=== PATIENT | female | born 1950 | race Caucasian/White ===

== ENCOUNTER 2016-06-03 16:59 | Emergency (ER) | payer MEDICARE, OTHER ==
[~2016-06-03 16:59] MED LIST: ASPI-482 PO; ATOR10TA PO; BIMA2.5D OP; CALC-222 PO; CETI10CA PO; FAMO-63 PO; INSU100C4 SQ; LISI10TA2 PO; LISI1TAB3 PO; MELO15TA6 PO; MULT-246 PO; OXYB5TAB7 PO; PARO20TA55 PO
[2016-06-03 17:56] VITALS: BP 157/71
--- NOTE | 2016-06-03 18:43 | PHYS DOC ---
Past Medical History Past Medical History: Arthritis, Diabetes-Type I, GERD, High Cholesterol Additional Past Medical Histor: MENTALLY CHALLANGED Past Surgical History: Other Additional Past Surgical Histo: cataract Alcohol Use: None Drug Use: None Adult General Chief Complaint Chief Complaint: MECHANICAL FALL HPI HPI Patient is a 65 year old female presents emergency department with caregiver who states that she fell and hit her head. She denies any loss of consciousness. She states that the patient has been alert and oriented to her her normal self. Patient does have a history of being mentally challenged. Patient is supposed to be ambulating with a cane but is very off balance with a cane. Review of Systems Review of Systems Constitutional: Denies fever or chills [] Eyes: Denies change in visual acuity, redness, or eye pain [] HENT: Denies nasal congestion or sore throat [] Respiratory: Denies cough or shortness of breath [] Cardiovascular: No additional information not addressed in HPI [] GI: Denies abdominal pain, nausea, vomiting, bloody stools or diarrhea [] : Denies dysuria or hematuria [] Musculoskeletal: Denies back pain or joint pain [] Integument: Denies rash or skin lesions [] Neurologic: Denies headache, focal weakness or sensory changes [] Allergies Allergies Allergies Coded Allergies Type Severity Reaction Last Updated Verified No Known Allergies Allergy Unknown 05/23/14 Yes Physical Exam Physical Exam Constitutional: Well developed, well nourished, no acute distress, non-toxic appearance. [] HENT: Normocephalic, atraumatic, bilateral external ears normal, oropharynx moist, no oral exudates, nose normal. Bilateral tympanic membranes appears to be normal. Throat with no exudate noted. Eyes: PERRLA, EOMI, conjunctiva normal, no discharge. [] Neck: Normal range of motion, no tenderness, supple, no stridor. [] Cardiovascular:Heart rate regular rhythm, no murmur [] Lungs & Thorax: Bilateral breath sounds clear to auscultation [] Skin: Warm, dry, no erythema, no rash. [] Back: No tenderness Extremities: No tenderness, no cyanosis, no clubbing, ROM intact, no edema. [] Neurologic: Alert and oriented X 3, normal motor function, normal sensory function, no focal deficits noted. [] Psychologic: Affect normal, judgement normal, mood normal. [] Current Patient Data Vital Signs Vital Signs Date Time Temp Pulse Resp B/P Pulse Ox O2 Delivery O2 Flow Rate FiO2 06/03/16 17:56 98.1 53 16 99 Room Air 98.1 EKG EKG [] Radiology/Procedures Radiology/Procedures [][facility] [address] [place] [address] IMAGING REPORT Signed PATIENT: OMID VALENTINE ACCOUNT: [id number] : 1950 LOCATION: ER AGE: 65 SEX: F EXAM STATUS: REG ER ORD. PHYSICIAN: TRAVIS WILLIAMSON SENIOR UI UX DESIGNER REASON: fell hit head hx MR PROCEDURE: CT HEAD AND CERVICAL SPINE WO Examination: CT head and cervical spine without contrast. HISTORY History of fall, pain. COMPARISON 01/12/2013. TECHNIQUE Axial CT images of the head was performed in contrasted axial CT images of the cervical spine were performed without contrast. Coronal and sagittal reformats were performed. Exposure: One or more of the following dose reduction technique were utilized for this examination: 1. Automated exposure control. 2.Adjustment of MA and /or KV according to patient size. 3. Use of iterative reconstruction technique. Findings: There is no evidence of midline shift. There is no acute intracranial bleed or extra-axial fluid collection identified. The douglas-white matter differentiation is maintained. Parallel configuration of the lateral ventricles could be due to agenesis or dysgenesis of corpus callosum similar to prior exam. The vertebral body heights are maintained. Moderate degenerative changes identified at C4-C5, C5-C6, C6-C7, C7-T1 vertebral levels. The bilateral facets are well aligned. The visualized apical lungs are clear. Multilevel uncovertebral degenerative changes identified. No obvious acute fracture identified. No evidence of prevertebral soft tissue swelling identified. Posterior osteophyte formation causing anterior thecal sac impression identified at C5-C6 vertebral level, similar to prior exam. The lateral masses of C1 align with C2 vertebra. The C2 dens appears intact. IMPRESSION - No acute intracranial findings. 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 - No acute fracture cervical spine. Correlate clinically . - Moderate degenerative changes cervical spine grossly similar to prior exam. Electronically signed by: Maxim Caceres (Jun 03, 2016 18:57:33) DICTATED and SIGNED BY: MAXIM CACERES MD DATE: 06/03/161856 CC: TRAVIS WILLIAMSON APRN; NON,STAFF; YUMIKO GREGORY MD ~ Course & Med Decision Making Course & Med Decision Making Pertinent Labs and Imaging studies reviewed. (See chart for details) CT scan of the head was negative. Patient will be discharged home in stable condition recommended Tylenol for pain and discomfort. Ice packs on 20 minutes off 20 minutes several times a day. Also recommended patient to be woken every 2 hours at night making sure she is alert and oriented capable moving all extremities. Signs and symptoms to return back to emergency department been provided. Caregiver states understanding of discharge instructions treatment regimens and follow-up recommendations. [] Dragon Disclaimer Dragon Disclaimer This electronic medical record was generated, in whole or in part, using a voice recognition dictation system. Departure Departure Impression: Primary Impression: Head injury, closed Disposition: 01 HOME, SELF-CARE Condition: STABLE Referrals: YUMIKO GREGORY MD (PCP) Patient Instructions: Head Injury, Adult, [id number] Additional Instructions: CT scan of the head was negative for any abnormalities. Tylenol for pain and discomfort. Ice packs on 20 minutes off 20 minutes several times a day. Wake patient every 2 hours throughout the night making sure she is alert and oriented and capable moving all of her extremities. Follow-up with primary care physician next 3-5 days. Return back to emergency prior signs and symptoms of become worse. TRAVIS WILLIAMSON APRN Jun 03, 2016 18:43
--- NOTE | 2016-06-03 18:58 | RAD ---
Examination: CT head and cervical spine without contrast. HISTORY History of fall, pain. COMPARISON 01/12/2013. TECHNIQUE Axial CT images of the head was performed in contrasted axial CT images of the cervical spine were performed without contrast. Coronal and sagittal reformats were performed. Exposure: One or more of the following dose reduction technique were utilized for this examination: 1. Automated exposure control. 2.Adjustment of MA and /or KV according to patient size. 3. Use of iterative reconstruction technique. Findings: There is no evidence of midline shift. There is no acute intracranial bleed or extra-axial fluid collection identified. The douglas-white matter differentiation is maintained. Parallel configuration of the lateral ventricles could be due to agenesis or dysgenesis of corpus callosum similar to prior exam. The vertebral body heights are maintained. Moderate degenerative changes identified at C4-C5, C5-C6, C6-C7, C7-T1 vertebral levels. The bilateral facets are well aligned. The visualized apical lungs are clear. Multilevel uncovertebral degenerative changes identified. No obvious acute fracture identified. No evidence of prevertebral soft tissue swelling identified. Posterior osteophyte formation causing anterior thecal sac impression identified at C5-C6 vertebral level, similar to prior exam. The lateral masses of C1 align with C2 vertebra. The C2 dens appears intact. IMPRESSION - No acute intracranial findings. 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 - No acute fracture cervical spine. Correlate clinically . - Moderate degenerative changes cervical spine grossly similar to prior exam. Electronically signed by: Maxim Caceres (Jun 03, 2016 18:57:33)
== END 2016-06-03 19:10 | disposition home or self-care (01) ==
LOC: ER 16:59
DX: S09.90XA Unspecified injury of head, initial encounter (principal); E78.00 Pure hypercholesterolemia, unspecified; E10.9 Type 1 diabetes mellitus without complications; K21.9 Gastro-esophageal reflux disease without esophagitis; M19.90 Unspecified osteoarthritis, unspecified site; Z98.49 Cataract extraction status, unspecified eye; W19.XXXA Unspecified fall, initial encounter; Y93.89 Activity, other specified; Y92.89 Other specified places as the place of occurrence of the external cause; Y99.8 Other external cause status
CPT/HCPCS: 70450; 72125; 99284-25

== ENCOUNTER → 2016-12-10 | Outpatient (CLI) | payer MEDICARE, OTHER ==
[~2016-12-10] MED LIST changes: -CALC-222 PO; +CALC1TAB70 PO; -PARO20TA55 PO; +PARO20TA99 PO
--- NOTE | 2016-12-10 09:15 | RAD ---
Indication abnormal liver function tests. Grayscale imaging was performed. Examination was targeted to the right upper quadrant. No similar imaging is available. The visualized pancreas shows no mass. There is a slightly prominent pancreatic duct. It measures approximately 3 mm in greatest dimension. The visualized inferior vena cava appeared unremarkable. The abdominal aorta appeared normal. There is some increased attenuation of the ultrasound beam by the liver compatible with fatty infiltration. A focal mass lesion is not seen in the visualized liver. The gallbladder appeared unremarkable. The common bile duct diameter of approximately 4 mm is within normal limits. The right kidney appeared unremarkable. IMPRESSION: Mildly prominent pancreatic duct. Mild fatty infiltration of the liver.
== END | disposition home or self-care (01) ==
LOC: US 07:50
PROVIDERS: ATTEND Family Medicine
DX: R79.89 Other specified abnormal findings of blood chemistry (principal); K76.0 Fatty (change of) liver, not elsewhere classified
CPT/HCPCS: 76705

== ENCOUNTER 2017-08-24 08:07 | Emergency (ER) | payer MEDICARE, MEDICAID | END 2017-08-24 09:05 | disposition home or self-care (01) | LOC: ER 08:07 | DX: B37.2 Candidiasis of skin and nail (principal) | CPT/HCPCS: 99283 ==

== ENCOUNTER → 2017-09-08 | Day surgery (SDC) | payer MEDICARE, OTHER ==
[~2017-09-08] MED LIST changes: +AMLO5TAB2 PO; +ASPI-630 PO; +ATOR10TA60 PO; +BIMA2.5D EACHEYE; +CETI10TA22 PO; +CHOL100013 PO; +INSU100I7 SQ; +LIDOCAINE 1% PF 2 ML VIAL. ID PRN; +LIDOCAINE 2% JELLY 6ML IN APPLICATOR. MM ONE; +LIDOCAINE 2% PF Vial for OR 5 ML VIAL. ONE; +LIDOCAINE 2% TOPICAL JELLY 30GM TUBE. TP ONE; +LISI-130 PO; +MELO15TA23 PO; +MORPHINE SULFATE 2 MG/ML VIAL. IV PRN; +MULT1TAB69 PO; +NYST15OI TP; +OMEP20CA9 PO; +ONDANSETRON PF 4 MG/2 ML VIAL. IV PRN; +PARO20TA3 PO; +PROCHLORPERAZINE 10 MG/2 ML VIAL. IV PRN; +PROPOFOL 0 ML IV ONE; +fentaNYL PF VIAL 100 MCG/2 ML VIAL IV PRN
[2017-09-08 11:44] VITALS: BP 134/64
[2017-09-08] MEDS: IV RINGERS,LACTATED 1000ML 1,000 ML IV SCH ×2 (11:57→12:00)
--- NOTE | 2017-09-08 12:55 | PDOC1 ---
History and Physical Date of Admission Date of Admission DATE: 09/08/17 TIME: 12:47 Source Source: Chart review, Patient History of Present Illness History of Present Illness 66 y/o female with prior PEG placed due to OP dysphagia. No longer needed, but arrives without consent or appointed DPOA. Past Medical History Cardiovascular: HTN, Hyperlipidemia Musculoskeletal: Osteoarthritis Renal/: Urinary Incontinence Endocrine: Diabetes Past Surgical History Past Surgical History: No pertinent history Family History Family History: Hypertension Social History Smoke: No ALCOHOL: none Drugs: None Current Medications Current Medications Current Medications Ondansetron HCl (Zofran) 4 mg PRN Q6HRS PRN IV NAUSEA/VOMITING; Start 09/08/17 at 07:00; Stop 09/09/17 at 06:59 Fentanyl Citrate (Fentanyl 2ml Vial) 25 mcg PRN Q5MIN PRN IV MILD PAIN; Start 09/08/17 at 07:00; Stop 09/09/17 at 06:59 Fentanyl Citrate (Fentanyl 2ml Vial) 50 mcg PRN Q5MIN PRN IV MODERATE TO SEVERE PAIN; Start 09/08/17 at 07:00; Stop 09/09/17 at 06:59 Morphine Sulfate (Morphine Sulfate) 1 mg PRN Q10MIN PRN IV SEVERE PAIN; Start 09/08/17 at 07:00; Stop 09/09/17 at 06:59 Ringer's Solution 1,000 ml @ 30 mls/hr Q24H IV Last administered on 09/08/17at 12:00; Start 09/08/17 at 07:00; Stop 09/08/17 at 18:59 Lidocaine HCl (Xylocaine-Mpf 1% Vial) 2 ml PRN 1X PRN ID PRIOR TO IV START; Start 09/08/17 at 07:00; Stop 09/09/17 at 06:59 Prochlorperazine Edisylate (Compazine) 5 mg PACU PRN PRN IV NAUSEA, MRX1; Start 09/08/17 at 07:00; Stop 09/09/17 at 06:59 Propofol 20 ml @ As Directed STK-MED ONCE IV ; Start 09/08/17 at 12:42; Stop at 12:43; Status DC Lidocaine HCl (Lidocaine Pf 2% Vial) 5 ml STK-MED ONCE .ROUTE ; Start 09/08/17 at 12:42; Stop 09/08/17 at 12:43; Status DC Active Scripts Active Nystatin 15 Gm Oint...g. 1 Mariam TP TID 10 Days Reported Paroxetine Hcl 20 Mg Tablet 1 Tab PO DAILY Oxybutynin Chloride 5 Mg Tablet 1 Tab PO BID Omeprazole 20 Mg Capsule.dr 1 Cap PO DAILY Meloxicam 15 Mg Tablet 1 Tab PO DAILY Lumigan (Bimatoprost) 2.5 Ml Drops 1 Drop EACHEYE QHS Lisinopril 40 Mg Tablet 1 Tab PO DAILY Aspirin 81 Mg Tab.chew 1 Tab PO DAILY Amlodipine Besylate 5 Mg Tablet 5 Mg PO DAILY Oyster Shell 500 Mg + Vit D Tb (Calcium Carbonate/Vitamin D3) 1 Each Tablet 1 Each PO DAILY Zyrtec (Cetirizine Hcl) 10 Mg Capsule 10 Mg PO Novolog (Insulin Aspart) 100 Unit/1 Ml Cartridge 100 Unit SQ Multi-Vitamin Daily (Multivitamin) 1 Each Tablet 1 Each PO Allergies Allergies: Coded Allergies: No Known Allergies (Verified Allergy, Unknown, 09/08/17) ROS Review of System Otherwise non-contributory. Physical Exam General: Alert, Cooperative, No acute distress Lungs: Clear to auscultation Heart: S1S2, RRR, no gallops, no murmurs Abdomen: Normal bowel sounds, Soft, No hepatosplenomegaly, No masses, Other ( granulation tissue and slight tenderness near PEG; rotates easily.) Rectal Exam: not examined Extremities: No cyanosis, No edema Skin: No significant lesion Neuro: Strength at 5/5 X4 ext, Sensation intact, Cranial nerves 3-12 NL, Reflexes 2+, Other (somewhat dystonic) Vitals Vitals Vital Signs Date Time Temp Pulse Resp B/P (MAP) Pulse Ox O2 Delivery O2 Flow Rate FiO2 09/08/17 11:44 98.9 77 20 98 98.9 VTE Prophylaxis Ordered VTE Prophylaxis Devices: No VTE Pharmacological Prophylaxi: No Assessment/Plan Assessment/Plan IMP: Unneeded PEG REC: Since no DPOA/consent available, will remove with traction. JORDON SIDHU MD Sep 08, 2017 12:55
== END | disposition home or self-care (01) ==
LOC: ENDOS 10:36
PROVIDERS: ATTEND Internal Medicine Gastroenterology
DX: Z43.1 Encounter for attention to gastrostomy (principal); E78.5 Hyperlipidemia, unspecified; E11.9 Type 2 diabetes mellitus without complications; N39.498 Other specified urinary incontinence; I11.9 Hypertensive heart disease without heart failure; E78.00 Pure hypercholesterolemia, unspecified; K21.9 Gastro-esophageal reflux disease without esophagitis; Z79.4 Long term (current) use of insulin; Z82.49 Family history of ischemic heart disease and other diseases of the circulatory system
CPT/HCPCS: 82962; 99211; J2001; J2704

== ENCOUNTER 2017-10-13 12:29 | Emergency (ER) | payer MEDICARE, OTHER ==
[~2017-10-13] VITALS: Ht 152.4 cm; Wt 54.4 kg
[~2017-10-13 12:29] MED LIST changes: -AMLO5TAB2 PO; +AMLO5TAB7 PO; -LIDOCAINE 1% PF 2 ML VIAL. ID PRN; -LIDOCAINE 2% JELLY 6ML IN APPLICATOR. MM ONE; -LIDOCAINE 2% PF Vial for OR 5 ML VIAL. ONE; -LIDOCAINE 2% TOPICAL JELLY 30GM TUBE. TP ONE; -MORPHINE SULFATE 2 MG/ML VIAL. IV PRN; -ONDANSETRON PF 4 MG/2 ML VIAL. IV PRN; -PROCHLORPERAZINE 10 MG/2 ML VIAL. IV PRN; -PROPOFOL 0 ML IV ONE; -fentaNYL PF VIAL 100 MCG/2 ML VIAL IV PRN
--- NOTE | 2017-10-13 13:49 | RAD ---
CHEST AP ONLY Clinical indications: PT CHOKED ON CHICKEN NUGGET AND HAD TO HAVE HEIMLICH TO REMOVE, EVALUATE FOR ASPIRATION. COMPARISON: July 06, 2013. Findings: No acute lung infiltrate or pleural effusion or pulmonary edema or lung mass or pneumothorax is seen. The heart size, pulmonary vasculature, mediastinum and both beatrice are unremarkable. Impression: No acute radiographic abnormality is seen. Electronically signed by: Aashish Baez MD (10/13/2017 1:46 PM) [facility]
[2017-10-13 14:30] VITALS: BP 100/66
--- NOTE | 2017-10-13 14:44 | PHYS DOC ---
Past Medical History Past Medical History: Diabetes-Type II, Other Additional Past Medical Histor: Past Surgical History: Other Additional Past Surgical Histo: GTUBE, MASECTOMY Alcohol Use: None Drug Use: None Adult General Chief Complaint Chief Complaint: ASPIRATION HPI HPI Patient is a 66 year old female who presents with an incident of aspiration at the home where she lives. The patient choked on a chicken nugget. A Heimlich maneuver was performed and the patient was revived. She was brought to the emergency department for evaluation. She is currently awake and talking. Review of Systems Review of Systems Constitutional: Denies fever or chills [] Eyes: Denies change in visual acuity, redness, or eye pain [] HENT: Denies nasal congestion or sore throat [] Respiratory: See history of present illness Cardiovascular: No additional information not addressed in HPI [] GI: Denies abdominal pain, nausea, vomiting, bloody stools or diarrhea [] : Denies dysuria or hematuria [] Musculoskeletal: Denies back pain or joint pain [] Integument: Denies rash or skin lesions [] Neurologic: Denies headache, focal weakness or sensory changes [] Endocrine: Denies polyuria or polydipsia [] All other systems were reviewed and found to be within normal limits, except as documented in this note. Allergies Allergies Allergies Coded Allergies Type Severity Reaction Last Updated Verified No Known Allergies Allergy Unknown 09/08/17 Yes Physical Exam Physical Exam Constitutional: Well developed, well nourished, no acute distress, non-toxic appearance. [] HENT: Normocephalic, atraumatic, bilateral external ears normal, oropharynx moist, no oral exudates, nose normal. [] Eyes: PERRLA, EOMI, conjunctiva normal, no discharge. [] Neck: Normal range of motion, no tenderness, supple, no stridor. [] Cardiovascular:Heart rate regular rhythm, no murmur [] Lungs & Thorax: Bilateral breath sounds clear to auscultation [] Abdomen: Bowel sounds normal, soft, no tenderness, no masses, no pulsatile masses. [] Skin: Warm, dry, no erythema, no rash. [] Neurologic: Alert and oriented X 3, normal motor function, normal sensory function, no focal deficits noted. [] Psychologic: Affect normal, judgement normal, mood normal. [] Current Patient Data Vital Signs Vital Signs Date Time Temp Pulse Resp B/P (MAP) Pulse Ox O2 Delivery O2 Flow Rate FiO2 10/13/17 12:29 98.4 17 98/60 (73) 92 98.4 EKG EKG [] Radiology/Procedures Radiology/Procedures [] PATIENT: OMID VALENTINE ACCOUNT: [id number] : 1950 LOCATION: ER AGE: 66 SEX: F EXAM STATUS: PRE ER ORD. PHYSICIAN: TARA LAO APRN REASON: choked on a nugget PROCEDURE: CHEST AP ONLY CHEST AP ONLY Clinical indications: PT CHOKED ON CHICKEN NUGGET AND HAD TO HAVE HEIMLICH TO REMOVE, EVALUATE FOR ASPIRATION. COMPARISON: July 06, 2013. Findings: No acute lung infiltrate or pleural effusion or pulmonary edema or lung mass or pneumothorax is seen. The heart size, pulmonary vasculature, mediastinum and both beatrice are unremarkable. Impression: No acute radiographic abnormality is seen. Electronically signed by: Bella Baez MD (10/13/2017 1:46 PM) [facility] DICTATED and SIGNED BY: BELLA BAEZ MD DATE: 10/13/17 1344 Course & Med Decision Making Course & Med Decision Making Pertinent Labs and Imaging studies reviewed. (See chart for details) [] Dragon Disclaimer Dragon Disclaimer This electronic medical record was generated, in whole or in part, using a voice recognition dictation system. Departure Departure Impression: Primary Impression: Choking due to food (regurgitated) Disposition: 01 HOME, SELF-CARE Condition: STABLE Referrals: YUMIKO GREGORY MD (PCP) Patient Instructions: Choking, Adult Additional Instructions: Continue to eat a soft diet over the next 2 days. Follow-up with your primary care provider for further evaluation of not improving in the next 2 days or return to the emergency department immediately if worsening. TARA LAO APRN Oct 13, 2017 14:44
== END 2017-10-13 15:24 | disposition home or self-care (01) ==
LOC: ER 12:29
DX: R09.89 Other specified symptoms and signs involving the circulatory and respiratory systems (principal); E11.9 Type 2 diabetes mellitus without complications
CPT/HCPCS: 71045; 99284

== ENCOUNTER 2017-11-09 17:47 | Emergency (ER) | payer MEDICARE, OTHER ==
[~2017-11-09] VITALS: Ht 160 cm; Wt 54.4 kg
[2017-11-09 17:47] VITALS: BP 130/69
--- NOTE | 2017-11-09 18:08 | PHYS DOC ---
Past Medical History Past Medical History: Diabetes-Type II, Other Additional Past Medical Histor: Past Surgical History: Other Additional Past Surgical Histo: GTUBE, MASECTOMY Alcohol Use: None Drug Use: None Adult General HPI HPI Patient is a 66 year old female who presents with choked on a piece of port shop at dinner but caregivers were able to pull the piece of food out and clean out her mouth. Patient did not receive a Heimlich maneuver. Patient is alert and not oriented. Patient is a history of mental retardation and lives in a home with 3 other patients and one caregiver. There is no name and is not considered a facility. Patient does know her birthday and could tell us she was eating pork at [employer] and that she choked. Review of Systems Review of Systems Constitutional: Denies fever or chills [] Eyes: Denies change in visual acuity, redness, or eye pain [] HENT: Denies nasal congestion or sore throat [] Respiratory: Denies cough or shortness of breath. Choked on a piece of Pork Chop [] Cardiovascular: No additional information not addressed in HPI [] GI: Denies abdominal pain, nausea, vomiting, bloody stools or diarrhea [] : Denies dysuria or hematuria [] Musculoskeletal: Denies back pain or joint pain [] Integument: Denies rash or skin lesions [] Neurologic: Denies headache, focal weakness or sensory changes [] Endocrine: Denies polyuria or polydipsia [] All other systems were reviewed and found to be within normal limits, except as documented in this note. Allergies Allergies Allergies Coded Allergies Type Severity Reaction Last Updated Verified No Known Allergies Allergy Unknown 09/08/17 Yes Physical Exam Physical Exam Constitutional: Well developed, well nourished, no acute distress, non-toxic appearance. [] HENT: Normocephalic, atraumatic, bilateral external ears normal, oropharynx moist, no oral exudates, nose normal. [] Eyes: PERRLA, EOMI, conjunctiva normal, no discharge. [] Neck: Normal range of motion, no tenderness, supple, no stridor. [] Cardiovascular:Heart rate regular rhythm, no murmur [] Lungs & Thorax: Bilateral breath sounds clear to auscultation [] Abdomen: Bowel sounds normal, soft, no tenderness, no masses, no pulsatile masses. [] Skin: Warm, dry, no erythema, no rash. [] Back: No tenderness, no CVA tenderness. [] Extremities: No tenderness, no cyanosis, no clubbing, ROM intact, no edema. [] Neurologic: Alert and oriented X 3, normal motor function, normal sensory function, no focal deficits noted. [] Psychologic: Affect normal, judgement normal, mood normal. [] Current Patient Data Vital Signs Vital Signs Date Time Temp Pulse Resp B/P (MAP) Pulse Ox O2 Delivery O2 Flow Rate FiO2 11/09/17 19:05 64 100 Room Air 11/09/17 17:47 98.5 20 130/69 (89) 98.5 EKG EKG [] Radiology/Procedures Radiology/Procedures chest x ray Impressions: No acute findings Course & Med Decision Making Course & Med Decision Making Patient is a 66 year old female who presents with choked on a piece of [employer] at dinner but caregivers were able to pull the piece of food out and clean out her mouth. Patient did not receive a Heimlich maneuver. Patient is alert and not oriented. Patient is a history of mental retardation and lives in a home with 3 other patients and one caregiver. There is no name and is not considered a facility. Patient does know her birthday and could tell us she was eating a pork chop and that she choked. Patient's skin is pink warm and dry and she speaks in full sentences. Patient is not in respiratory distress. Patient has no food in her mouth or her throat. Patient states that she does not hurt. Patients vital signs are 100% on room air, blood pressures 130/69, 61 heart rate , 98.5 temp, 20 respirations. Patient is currently stable and in no distress. Lungs are clear to auscultation. Chest xray shows no acute findings and was read by Dr Barcenas. . Patients status remains unchanged. Patients care givers are told follow up with patients resident care aide if patient begin running a fever or develops a constant cough. Staff Physician Addendum: I was working in the ER during the course of this patient's visit. I was available for consultation as needed, but I was not directly involved in the care of this patient. [] Dragon Disclaimer Dragon Disclaimer This electronic medical record was generated, in whole or in part, using a voice recognition dictation system. Departure Departure Impression: Primary Impression: Choking episode Disposition: HOME, SELF-CARE Condition: STABLE Referrals: YUMIKO GREGORY MD (PCP) Patient Instructions: Choking, Adult Additional Instructions: Follow up with primary care provider if patient begins running a fever or develops a constant cough. TRAVIS BELTRAN APRN Nov 09, 2017 18:08 MOISÉS BARCENAS MD Nov 09, 2017 21:02
--- NOTE | 2017-11-09 20:43 | RAD ---
AP portable chest radiograph 11/09/2017 Clinical History: Choking. Possible aspiration. An AP erect portable digital radiograph of the chest was obtained. Comparison study is dated 10/13/2017. The cardiac silhouette is mildly enlarged. The thoracic aorta is mildly tortuous. No acute pulmonary infiltrate is seen. No pleural effusion or pneumothorax is noted. The osseous structures are unchanged. A probable calcified granuloma is seen involving the left midlung, unchanged. Impression: No acute abnormality is seen. Electronically signed by: Kj Lugo MD (11/09/2017 8:39 PM) [facility]
== END 2017-11-09 19:05 | disposition home or self-care (01) ==
LOC: ER 17:47
DX: R09.89 Other specified symptoms and signs involving the circulatory and respiratory systems (principal); E11.9 Type 2 diabetes mellitus without complications; Z93.1 Gastrostomy status
CPT/HCPCS: 71045; 99284

== ENCOUNTER 2017-12-15 07:51 | Emergency (ER) | payer MEDICARE, OTHER ==
[~2017-12-15] VITALS: Ht 167.6 cm; Wt 54.4 kg
--- NOTE | 2017-12-15 08:17 | PHYS DOC ---
Past Medical History Past Medical History: Diabetes-Type II, Other Additional Past Medical Histor: Past Surgical History: Other Additional Past Surgical Histo: GTUBE, MASECTOMY Alcohol Use: None Drug Use: None Adult General Chief Complaint Chief Complaint: MECHANICAL FALL HPI HPI Patient is a 67 year old female who presents with said a private residence for special needs and was found to have fallen out of bed and EMS was called at 717 this morning. There is no exact time and there was information known if the patient lost consciousness. EMS could only tell me that she has history of diabetes that her blood sugar and date ambulance was 158. The caregiver states that the patient is acting normal. The patient is alert. She has a large hematoma above the left eye. Review of Systems Review of Systems Constitutional: Denies fever or chills [] Eyes: Denies change in visual acuity, redness, or eye pain [] HENT: Denies nasal congestion or sore throat [] Respiratory: Denies cough or shortness of breath [] Cardiovascular: No additional information not addressed in HPI [] GI: Denies abdominal pain, nausea, vomiting, bloody stools or diarrhea [] : Denies dysuria or hematuria [] Musculoskeletal: Denies back pain or joint pain [] Integument: Bruise above left eye with swelling. Denies rash or skin lesions [] Neurologic: Denies headache. Chronic focal weakness or sensory changes. Fall [] Endocrine: Denies polyuria or polydipsia [] All other systems were reviewed and found to be within normal limits, except as documented in this note. Allergies Allergies Allergies Coded Allergies Type Severity Reaction Last Updated Verified No Known Allergies Allergy Unknown 09/08/17 Yes Physical Exam Physical Exam Constitutional: Well developed, well nourished, no acute distress, non-toxic appearance. [] HENT: Normocephalic, atraumatic, bilateral external ears normal, oropharynx moist, no oral exudates, nose normal. Left above the eye hematoma and swelling. [] Eyes: PERRLA, EOMI, conjunctiva normal, no discharge. [] Neck: Normal range of motion, no tenderness, supple, no stridor. [] Cardiovascular:Heart rate regular rhythm, no murmur [] Lungs & Thorax: Bilateral breath sounds clear to auscultation [] Abdomen: Bowel sounds normal, soft, no tenderness, no masses, no pulsatile masses. [] Skin: Warm, dry, no erythema, no rash. [] Back: No tenderness, no CVA tenderness. [] Extremities: No tenderness, no cyanosis, no clubbing, ROM intact, no edema. [] Neurologic: Alert and oriented X 3, normal motor function, normal sensory function, no focal deficits noted. [] Psychologic: Affect normal, judgement normal, mood normal. [] Current Patient Data Vital Signs Vital Signs Date Time Temp Pulse Resp B/P (MAP) Pulse Ox O2 Delivery O2 Flow Rate FiO2 12/15/17 08:00 97.7 68 16 160/78 (105) 100 Room Air 97.7 Lab Values Laboratory Tests Test 12/15/17 08:01 12/15/17 08:20 12/15/17 09:10 Glucose (Fingerstick) 177 mg/dL (70-99) H White Blood Count 7.5 x10^3/uL (4.0-11.0) Red Blood Count 4.89 x10^6/uL (3.50-5.40) Hemoglobin 14.3 g/dL (12.0-15.5) Hematocrit 43.1 % (36.0-47.0) Mean Corpuscular Volume 88 fL (79-100) Mean Corpuscular Hemoglobin 29 pg (25-35) Mean Corpuscular Hemoglobin Concent 33 g/dL (31-37) Red Cell Distribution Width 16.8 % (11.5-14.5) H Platelet Count 201 x10^3/uL (140-400) Neutrophils (%) (Auto) 83 % (31-73) H Lymphocytes (%) (Auto) 12 % (24-48) L Monocytes (%) (Auto) 3 % (0-9) Eosinophils (%) (Auto) 2 % (0-3) Basophils (%) (Auto) 1 % (0-3) Neutrophils # (Auto) 6.2 x10^3uL (1.8-7.7) Lymphocytes # (Auto) 0.9 x10^3/uL (1.0-4.8) L Monocytes # (Auto) 0.2 x10^3/uL (0.0-1.1) Eosinophils # (Auto) 0.1 x10^3/uL (0.0-0.7) Basophils # (Auto) 0.0 x10^3/uL (0.0-0.2) Sodium Level 147 mmol/L (136-145) H Potassium Level 3.9 mmol/L (3.5-5.1) Chloride Level 108 mmol/L (98-107) H Carbon Dioxide Level 28 mmol/L (21-32) Anion Gap 11 (6-14) Blood Urea Nitrogen 23 mg/dL (7-20) H Creatinine 0.7 mg/dL (0.6-1.0) Estimated GFR (Cockcroft-Gault) 84.0 Glucose Level 207 mg/dL (70-99) H Calcium Level 10.9 mg/dL (8.5-10.1) H Troponin I Quantitative < 0.017 ng/mL (0.000-0.055) Urine Collection Type U cath Urine Color Yellow Urine Clarity Hazy Urine pH 6.0 Urine Specific [place] 1.025 Urine Protein Trace mg/dL (NEG-TRACE) Urine Glucose (UA) Negative mg/dL (NEG) Urine Ketones (Stick) 15 mg/dL (NEG) Urine Blood Moderate (NEG) Urine Nitrite Positive (NEG) Urine Bilirubin Negative (NEG) Urine Urobilinogen Dipstick 1.0 mg/dL (0.2 mg/dL) Urine Leukocyte Esterase Small (NEG) Urine RBC 3-5 /HPF (0-2) Urine WBC 20-40 /HPF (0-4) Urine Squamous Epithelial Cells Few /LPF Urine Bacteria Many /HPF (0-FEW) Urine Mucus Slight /LPF Laboratory Tests 12/15/17 08:20 Laboratory Tests 12/15/17 08:20 EKG EKG Sinus rhythm and no STEMI Interpretation Time: 8:56 AM that was read by Dr. Vega Radiology/Procedures Radiology/Procedures [] Impressions: [facility] [address] [place], [place] [id number] IMAGING REPORT Signed PATIENT: OMID VALENTINE ACCOUNT: [id number] : 1950 LOCATION: ER AGE: 67 SEX: F EXAM STATUS: REG ER ORD. PHYSICIAN: TRAVIS BELTRAN APRN REASON: unwitness fall PROCEDURE: PORTABLE CHEST 1V Single view of the chest. 12/15/2017 8:23 AM Indication: FALL X TODAY
PATIENT MENTALLY HANDICAP UNABLE TO REPORT PROBLEMS Comparison: Chest radiograph November 09, 2017 Findings: There is no focal consolidation. There is no pleural effusion or pneumothorax. The cardiomediastinal silhouette and pulmonary vasculature are within normal limits. No acute osseous abnormalities are seen. Impression: No evidence of acute cardiopulmonary process. Electronically signed by: Hunter Miranda MD (12/15/2017 8:39 AM) [facility] DICTATED and SIGNED BY: HUNTER MIRANDA MD DATE: 12/15/17 0838 [facility] [address] [address] IMAGING REPORT Signed PATIENT: OMID VALENTINE ACCOUNT: [id number] : 1950 LOCATION: ER AGE: 67 SEX: F EXAM STATUS: REG ER ORD. PHYSICIAN: CHRIST VEGA DO REASON: Intermediate Patient, Fall with facial trauma PROCEDURE: CT HEAD AND CERVICAL SPINE WO CT of the head without contrast, 12/15/2017: HISTORY: Fall, injuries Comparison is made to a study from 06/03/2016. There is moderate cerebral atrophy. The ventricles are mildly enlarged on a compensatory basis. There is no shift of the midline structures. There is no evidence of acute intracranial hemorrhage or mass effect. There is calcific plaquing of the distal internal carotid and vertebral arteries. IMPRESSION: 1. Chronic findings as described above. 2. No acute intracranial abnormality is detected. CT of the facial bones without contrast, 12/15/2017: Noncontrast scans were obtained with multiplanar reconstructions produced. There is soft tissue swelling anteriorly over the left orbit. No acute fracture is evident. The orbital contents are unremarkable. No free fluid is evident in the paranasal sinuses. A density along the floor of the right maxillary sinus is compatible with a retention cyst. There is moderate arthritic change at both temporomandibular joints with mild anterior subluxation of the left mandibular condyle which is probably chronic. IMPRESSION: 1. No acute bony abnormality is detected. 2. 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 CT of the cervical spine without contrast, 12/15/2017: Noncontrast scans were obtained with multiplanar reconstructions produced. There is considerable disc space narrowing and marginal spurring throughout the mid and lower cervical spine. There are mild to moderate degenerative changes involving scattered facet joints bilaterally. The combination of findings is causing moderate central spinal stenosis at multiple levels, most severe at C5-6. There is also moderate to severe foraminal stenosis at several levels bilaterally. No acute fracture or dislocation is identified. A small sclerotic focus in the right clivus is unchanged since 06/03/2016, and most likely represents a benign bone island. IMPRESSION: 1. Moderate to severe multilevel degenerative change. 2. No acute bony abnormality is detected. Electronically signed by: Anatoly Andrews MD (12/15/2017 9:35 AM) [facility] DICTATED and SIGNED BY: ANATOLY ANDREWS MD DATE: 12/15/17 0923 Course & Med Decision Making Course & Med Decision Making Patient is a 67 year old female who presents with said a private residence for special needs and was found to have fallen out of bed and EMS was called at 717 this morning. There is no exact time and there was information known if the patient lost consciousness. EMS could only tell me that she has history of diabetes that her blood sugar and date ambulance was 158. The caregiver states that the patient is acting normal. The patient is alert. She has a large hematoma above the left eye. 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 She is no known drug allergies. Afebrile. Vital signs are 97.4, 160/78, 67 heart rate, 18 respirations. Skin is pink warm and dry. She has left over from head to toe when she has no lacerations, deformities, new bruises, abrasions. Patient has no tenderness when her C-spine thoracic spine and lumbar spine are palpated. Patient is moving all extremities and will lift her head and turn her head without any pain. Heart rate is regular without murmur. Patient has no extremity swelling. Patient is not currently vomiting and does not complain of any abdominal pain. Abdomen is soft and non-tender with no masses. Patient winces when I touch around the area of her left eye that is bruised and swollen. Negative for battling signs. Ears no fluid in the ears or nose. She did not bite her tongue and there is no blood in her mouth. Lungs are clear to auscultation in all lobes. Glucose POC is 177. Urine shows nitrites. Troponin is negative. Patient's BUN is 23 which doesn't increase from April 2017 at which she was at 14. EKG shows sinus rhythm and no STEMI. Chest x-ray shows no acute findings. CT of head, C-spine, maxillofacial show no acute findings only chronic degenerative changes. Patient is sent home with Macrobid antibiotic and is to follow-up with her primary care as soon as possible. Patient is stable and in no distress. Dragon Disclaimer [employer] Disclaimer This electronic medical record was generated, in whole or in part, using a voice recognition dictation system. Departure Departure Impression: Primary Impression: Urinary tract infection Additional Impressions: Fall Hematoma and contusion Disposition: HOME, SELF-CARE Condition: STABLE Referrals: YUMIKO GREGORY MD (PCP) Patient Instructions: Fall Prevention and Home Safety, Urinary Tract Infection Additional Instructions: Follow-up with primary care as soon as possible. Take medications as prescribed. Do not get out of bed or ambulate without help. Scripts Nitrofurantoin Monohyd/M-Cryst (MACROBID 100 MG CAPSULE) 100 Mg Capsule 1 CAP PO BID, #20 CAP Prov: TRAVIS BELTRAN APRN 12/15/17 Problem Qualifiers Primary Impression: Urinary tract infection Urinary tract infection type: site unspecified Hematuria presence: with hematuria Qualified Codes: N39.0 - Urinary tract infection, site not specified ; R31.9 - Hematuria, unspecified Additional Impressions: Fall Encounter type: initial encounter Qualified Codes: W19.XXXA - Unspecified fall, initial encounter TRAVIS BELTRAN APRN Dec 15, 2017 08:17
[2017-12-15 08:35] LABS: BASO % 1 % (0-3); EOS # 0.1 x10^3/uL (0.0-0.7); EOS % 2 % (0-3); HEMATOCRIT 43.1 % (36.0-47.0); HEMOGLOBIN 14.3 g/dL (12.0-15.5); LYMPH # 0.9 x10^3/uL (1.0-4.8); LYMPH % 12 % (24-48); MEAN CORPUSCULAR HEMOGLOBIN 29 pg (25-35); MEAN CORPUSCULAR HGB CONC 33 g/dL (31-37); MEAN CORPUSCULAR VOLUME 88 fL (79-100); MONO # 0.2 x10^3/uL (0.0-1.1); MONO % 3 % (0-9); NEUT # 6.2 x10^3uL (1.8-7.7); NEUT % 83 % (31-73); PLATELET COUNT 201 x10^3/uL (140-400); RED BLOOD COUNT 4.89 x10^6/uL (3.50-5.40); RED CELL DISTRIBUTION WIDTH 16.8 % (11.5-14.5); WHITE BLOOD COUNT 7.5 x10^3/uL (4.0-11.0)
--- NOTE | 2017-12-15 08:42 | RAD ---
Single view of the chest. 12/15/2017 8:23 AM Indication: FALL X TODAY
PATIENT MENTALLY HANDICAP UNABLE TO REPORT PROBLEMS Comparison: Chest radiograph November 09, 2017 Findings: There is no focal consolidation. There is no pleural effusion or pneumothorax. The cardiomediastinal silhouette and pulmonary vasculature are within normal limits. No acute osseous abnormalities are seen. Impression: No evidence of acute cardiopulmonary process. Electronically signed by: Hunter Gutierrez MD (12/15/2017 8:39 AM) [facility]
[2017-12-15 08:45] LABS: CALCIUM 10.9 mg/dL (8.5-10.1); CREATININE 0.7 mg/dL (0.6-1.0); POTASSIUM 3.9 mmol/L (3.5-5.1)
--- NOTE | 2017-12-15 09:06 | EKG ---
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
[2017-12-15 09:30] LABS: BILIRUBIN,URINE NEGATIVE (NEG); CLARITY,URINE HAZY; COLOR,URINE YELLOW; NITRITE,URINE POSITIVE (NEG); PROTEIN,URINE TRACE mg/dL (NEG-TRACE)
[2017-12-15 09:31] LABS: SQUAMOUS EPITHELIAL CELL,UR FEW /LPF
[2017-12-15 09:32] LABS: BACTERIA,URINE MANY /HPF (0-FEW); WBC,URINE 20-40 /HPF (0-4)
--- NOTE | 2017-12-15 09:39 | RAD ---
CT of the head without contrast, 12/15/2017: HISTORY: Fall, injuries Comparison is made to a study from 06/03/2016. There is moderate cerebral atrophy. The ventricles are mildly enlarged on a compensatory basis. There is no shift of the midline structures. There is no evidence of acute intracranial hemorrhage or mass effect. There is calcific plaquing of the distal internal carotid and vertebral arteries. IMPRESSION: 1. Chronic findings as described above. 2. No acute intracranial abnormality is detected. CT of the facial bones without contrast, 12/15/2017: Noncontrast scans were obtained with multiplanar reconstructions produced. There is soft tissue swelling anteriorly over the left orbit. No acute fracture is evident. The orbital contents are unremarkable. No free fluid is evident in the paranasal sinuses. A density along the floor of the right maxillary sinus is compatible with a retention cyst. There is moderate arthritic change at both temporomandibular joints with mild anterior subluxation of the left mandibular condyle which is probably chronic. IMPRESSION: 1. No acute bony abnormality is detected. 2. 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 CT of the cervical spine without contrast, 12/15/2017: Noncontrast scans were obtained with multiplanar reconstructions produced. There is considerable disc space narrowing and marginal spurring throughout the mid and lower cervical spine. There are mild to moderate degenerative changes involving scattered facet joints bilaterally. The combination of findings is causing moderate central spinal stenosis at multiple levels, most severe at C5-6. There is also moderate to severe foraminal stenosis at several levels bilaterally. No acute fracture or dislocation is identified. A small sclerotic focus in the right clivus is unchanged since 06/03/2016, and most likely represents a benign bone island. IMPRESSION: 1. Moderate to severe multilevel degenerative change. 2. No acute bony abnormality is detected. Electronically signed by: Anatoly Lugo MD (12/15/2017 9:35 AM) [facility]
[2017-12-15] MEDS ORDERED: NITR100C62 PO (09:59)
[2017-12-15 10:00] VITALS: BP 165/72
== END 2017-12-15 11:25 | disposition home or self-care (01) ==
LOC: ER 07:51
DX: S00.12XA Contusion of left eyelid and periocular area, initial encounter (principal); H57.89 Other specified disorders of eye and adnexa; E11.9 Type 2 diabetes mellitus without complications; W19.XXXA Unspecified fall, initial encounter; Y93.89 Activity, other specified; Y92.89 Other specified places as the place of occurrence of the external cause; Y99.8 Other external cause status
CPT/HCPCS: 36415; 70450; 70486; 71045; 72125; 80048; 81001; 82962; 84484; 85025; 87086; 87186; 93005; 99285-25

== ENCOUNTER 2019-02-02 12:18 | Inpatient (IN) | payer MEDICARE, MEDICAID ==
[~2019-02-02] VITALS: Ht 167.6 cm; Wt 72.3 kg
[~2019-02-02 12:18] MED LIST changes: +AMLO5TAB10 PO; -AMLO5TAB7 PO; -CALC1TAB70 PO; +CALC1TAB72 PO; +CEPH250C PO; -CETI10TA22 PO; +CETI10TA24 PO; +INSU100I11 SQ; +INSU100I13 SQ; +LISI1TAB23 PO; -LISI1TAB3 PO; +NITR100C62 PO; +OMEP20CA16 PO; -OMEP20CA9 PO; +OXYB5TAB10 PO; -OXYB5TAB7 PO
[2019-02-02] MEDS ORDERED: IV NORMAL SALINE 1000ML BAG 1,000 ML IV ONE ×3 (12:45→16:00)
--- NOTE | 2019-02-02 13:16 | RAD ---
PORTABLE CHEST 1V 02/02/2019 12:45 PM INDICATION: Hypotension COMPARISON: 12/15/2017 TECHNIQUE: Portable frontal view of the chest is provided. FINDINGS: The cardiomediastinal silhouette is similar in appearance. Low lung volumes eccentric pulmonary vasculature. Bibasilar interstitial changes, left greater than right, may represent subsegmental atelectasis versus developing infiltrates. There are no significant pleural effusions. There is no pulmonary vascular congestion. No pneumothorax. IMPRESSION: Low lung volumes eccentric pulmonary vasculature. Interstitial changes at the lung bases may represent subsegmental atelectasis versus infiltrates, left greater than right. Electronically signed by: Susan Sánchez MD (02/02/2019 1:13 PM) [facility]
--- NOTE | 2019-02-02 13:27 | EKG ---
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
[2019-02-02 13:42] LABS: BASO # 0.1 x10^3/uL (0.0-0.2); BASO % 0 % (0-3); EOS # 0.1 x10^3/uL (0.0-0.7); EOS % 1 % (0-3); HEMATOCRIT 37.2 % (36.0-47.0); HEMOGLOBIN 11.3 g/dL (12.0-15.5); LYMPH # 1.2 x10^3/uL (1.0-4.8); LYMPH % 6 % (24-48); MEAN CORPUSCULAR HEMOGLOBIN 20 pg (25-35); MEAN CORPUSCULAR HGB CONC 30 g/dL (31-37); MEAN CORPUSCULAR VOLUME 67 fL (79-100); MONO # 0.5 x10^3/uL (0.0-1.1); MONO % 3 % (0-9); NEUT # 18.9 x10^3/uL (1.8-7.7); NEUT % 91 % (31-73); PLATELET COUNT 570 x10^3/uL (140-400); RED BLOOD COUNT 5.54 x10^6/uL (3.50-5.40); WHITE BLOOD COUNT 20.8 x10^3/uL (4.0-11.0)
[2019-02-02 13:44] LABS: CREATININE 1.4 mg/dL (0.6-1.0); GFR 37.6; POTASSIUM 4.5 mmol/L (3.5-5.1)
[2019-02-02 13:50] LABS: ALBUMIN 3.3 g/dL (3.4-5.0); ALBUMIN/GLOBULIN RATIO 0.8 (1.0-1.7); MAGNESIUM 2.1 mg/dL (1.8-2.4); TOTAL BILIRUBIN 0.3 mg/dL (0.2-1.0); TOTAL PROTEIN 7.4 g/dL (6.4-8.2)
[2019-02-02 13:54] LABS: BILIRUBIN,URINE NEGATIVE (NEG); CLARITY,URINE CLOUDY; COLOR,URINE YELLOW; NITRITE,URINE NEGATIVE (NEG); PH,URINE 5.5; PROTEIN,URINE 100 mg/dL (NEG-TRACE); UROBILINOGEN,URINE 0.2 mg/dL (0.2 mg/dL)
[2019-02-02 13:55] VITALS: BP 114/64
[2019-02-02 14:04] LABS: SQUAMOUS EPITHELIAL CELL,UR MOD /LPF
[2019-02-02 14:05] LABS: BACTERIA,URINE MANY /HPF (0-FEW); WBC,URINE TNTC /HPF (0-4)
[2019-02-02 14:21] LABS: % BANDS 6 % (0-9); % EOS 1 % (0-5); % LYMPHS 5 % (24-48); % MONOS 3 % (0-10); % SEGS 85 % (35-66); PLT ESTIMATE INCREASED (ADEQUATE)
[2019-02-02 14:22] LABS: ANISOCYTOSIS MOD; HELMET CELLS OCC; HYPOCHROMIA MARKED; MICROCYTOSIS MARKED; OVALOCYTES FEW; POIKILOCYTOSIS MOD
[2019-02-02] MEDS ORDERED: VANCOMYCIN PER PHARMACY MC PRN (14:30)
[2019-02-02] MEDS ORDERED: PIPERACILLIN/TAZOBACTAM 3.375 GM in IV NORMAL SALINE 50ML 50 ML IV ONE (14:30)
[2019-02-02] MEDS ORDERED: VANCOMYCIN 1.25 GM in IV NORMAL SALINE 250ML 250 ML IV ONE (15:00)
--- NOTE | 2019-02-02 15:23 | PDOC1 ---
History and Physical Date of Admission Date of Admission DATE: 02/02/19 TIME: 15:23 Identification/Chief Complaint Chief Complaint SEEN IN ER WITH LETHARGY, POOR INTAKE AT ASSISTED LABS C/W UTI, POSSIBLE SEPSIS Past Medical History Cardiovascular: HTN, Hyperlipidemia Musculoskeletal: Osteoarthritis Renal/: Urinary Incontinence Endocrine: Diabetes Past Surgical History Past Surgical History: No pertinent history Family History Family History: Hypertension, Family History Unknown Social History Smoke: No ALCOHOL: none Drugs: None Current Medications Current Medications Current Medications Sodium Chloride 1,000 ml @ 1,000 mls/hr 1X ONCE IV Last administered on 02/02/19at 13:25; Start 02/02/19 at 12:45; Stop 02/02/19 at 13:44; Status DC Sodium Chloride 1,000 ml @ 1,000 mls/hr 1X ONCE IV Last administered on 02/02/19at 14:56; Start 02/02/19 at 14:30; Stop 02/02/19 at 15:29 Piperacillin Sod/ Tazobactam Sod 3.375 gm/Sodium Chloride 50 ml @ 100 mls/hr 1X ONCE IV Last administered on 02/02/19at 14:56; Start 02/02/19 at 14:30; Stop 02/02/19 at 14:59; Status DC Vancomycin HCl (Vanco Per Pharmacy) 1 each PRN DAILY PRN MC SEE COMMENTS; Start 02/02/19 at 14:30; Status UNV Vancomycin HCl 1.25 gm/Sodium Chloride 250 ml @ 166.667 mls/hr 1X ONCE IV ; Start 02/02/19 at 15:00; Stop 02/02/19 at 16:29 Active Scripts Active Humalog (Insulin Lispro) 100 Unit/1 Ml Insuln.pen 5 Units SQ TIDAC 30 Days Lantus Solostar (Insulin Glargine,Hum.rec.anlog) 100 Unit/1 Ml Insuln.pen 15 U nits SQ QHS 30 Days Cephalexin 250 Mg Capsule 500 Mg PO QID 3 Days Nystatin 15 Gm Oint...g. 1 Mariam TP TID 10 Days Reported Paroxetine Hcl 20 Mg Tablet 1 Tab PO DAILY Oxybutynin Chloride 5 Mg Tablet 1 Tab PO BID Omeprazole 20 Mg Capsule.dr 1 Cap PO DAILY Meloxicam 15 Mg Tablet 1 Tab PO DAILY Lumigan (Bimatoprost) 2.5 Ml Drops 1 Drop EACHEYE QHS Lisinopril 40 Mg Tablet 1 Tab PO DAILY Aspirin 81 Mg Tab.chew 1 Tab PO DAILY Amlodipine Besylate 5 Mg Tablet 5 Mg PO DAILY Oyster Shell 500 Mg + Vit D Tb (Calcium Carbonate/Vitamin D3) 1 Each Tablet 1 Each PO DAILY Zyrtec (Cetirizine Hcl) 10 Mg Capsule 10 Mg PO Multi-Vitamin Daily (Multivitamin) 1 Each Tablet 1 Each PO Allergies Allergies: Coded Allergies: No Known Allergies (Verified Allergy, Unknown, 09/08/17) ROS Review of System UNABLE DUE TO DELAYED COGNITION General: YES: Fatigue PSYCHOLOGICAL ROS: No: Anxiety, Behavioral Disorder, Concentration difficultie, Decreased libido, Depression, Disorientation, Hallucinations, Hostility, Irritablity, Memory difficulties, Mood Swings, Obsessive thoughts, Physical abuse, Sexual abuse, Sleep disturbances, Suicidal ideation, Other Hematological and Lymphatic: No: Bleeding Problems, Blood Clots, Blood Transfusions, Brusing, Night Sweats, Pallor, Swollen Lymph Nodes, Other Respiratory: No: Cough, Hemoptysis, Orthopnea, Pleuritic Pain, Shortness of breath, SOB with excertion, Sputum Changes, Stridor, Tachypnea, Wheezing, Other Cardiovascular: No Chest Pain, No Palpitations, No Orthopnea, No Paroxysmal Noc. Dyspnea, No Edema, No Lt Headedness, No Other Gastrointestinal: No Nausea, No Vomiting, No Abdominal Pain, No Diarrhea, No Constipation, No Melena, No Hematochezia, No Other Genitourinary: No Dysuria, No Frequency, No Incontinence, No Hematuria, No Retention, No Discharge, No Urgency, No Pain, No Flank Pain, No Other, No , No , No , No , No , No , No Neurological: Yes Confusion, Yes Dizziness, Yes Gait Disturbance Physical Exam Physical Exam ABDOMEN: Soft, No grimace or guarding to palpation. EXTREMITIES: No gross edema or cyanosis. SKIN: Warm without generalized rash. Left breast: incision is clean - drain is out NEUROLOGIC: Alert, one-word syllables General: Cooperative, No acute distress Heart: Regular rate Lungs: Clear Abdomen: Soft Extremities: No clubbing, No cyanosis, No edema, Normal pulses, No tenderness/swelling General: Alert, Cooperative, mild distress HEENT: Atraumatic, EOMI, Other (POOR DENTITION) Lungs: Clear to auscultation, Normal air movement Breasts: Not examined Abdomen: Normal bowel sounds, Soft Rectal Exam: not examined Extremities: No cyanosis Neuro: Cranial nerves 3-12 NL Psych/Mental Status: Mood NL Vitals Vitals Vital Signs Date Time Temp Pulse Resp B/P (MAP) Pulse Ox O2 Delivery O2 Flow Rate FiO2 02/02/19 14:54 80 124/72 (89) 99 Nasal Cannula 2.0 02/02/19 12:19 97.6 22 97.6 Labs Labs Laboratory Tests Test 02/02/19 13:20 02/02/19 13:38 02/02/19 13:40 White Blood Count 20.8 x10^3/uL (4.0-11.0) Red Blood Count 5.54 x10^6/uL (3.50-5.40) Hemoglobin 11.3 g/dL (12.0-15.5) Hematocrit 37.2 % (36.0-47.0) Mean Corpuscular Volume 67 fL (79-100) Mean Corpuscular Hemoglobin 20 pg (25-35) Mean Corpuscular Hemoglobin Concent 30 g/dL (31-37) Red Cell Distribution Width 23.0 % (11.5-14.5) Platelet Count 570 x10^3/uL (140-400) Neutrophils (%) (Auto) 91 % (31-73) Lymphocytes (%) (Auto) 6 % (24-48) Monocytes (%) (Auto) 3 % (0-9) Eosinophils (%) (Auto) 1 % (0-3) Basophils (%) (Auto) 0 % (0-3) Neutrophils # (Auto) 18.9 x10^3/uL (1.8-7.7) Lymphocytes # (Auto) 1.2 x10^3/uL (1.0-4.8) Monocytes # (Auto) 0.5 x10^3/uL (0.0-1.1) Eosinophils # (Auto) 0.1 x10^3/uL (0.0-0.7) Basophils # (Auto) 0.1 x10^3/uL (0.0-0.2) Segmented Neutrophils % 85 % (35-66) Band Neutrophils % 6 % (0-9) Lymphocytes % 5 % (24-48) Monocytes % 3 % (0-10) Eosinophils % 1 % (0-5) Platelet Estimate Increased (ADEQUATE) Giant Platelets Occ Hypochromasia Marked Poikilocytosis Mod Anisocytosis Mod Microcytosis Marked Ovalocytes Few Helmet Cells Occ Crenated Cell Present Sodium Level 144 mmol/L (136-145) Potassium Level 4.5 mmol/L (3.5-5.1) Chloride Level 107 mmol/L (98-107) Carbon Dioxide Level 24 mmol/L (21-32) Anion Gap 13 (6-14) Blood Urea Nitrogen 25 mg/dL (7-20) Creatinine 1.4 mg/dL (0.6-1.0) Estimated GFR (Cockcroft-Gault) 37.6 BUN/Creatinine Ratio 18 (6-20) Glucose Level 165 mg/dL (70-99) Lactic Acid Level 3.5 mmol/L (0.4-2.0) Calcium Level 10.0 mg/dL (8.5-10.1) Magnesium Level 2.1 mg/dL (1.8-2.4) Total Bilirubin 0.3 mg/dL (0.2-1.0) Aspartate Amino Transf (AST/SGOT) 25 U/L (15-37) Alanine Aminotransferase (ALT/SGPT) 22 U/L (14-59) Alkaline Phosphatase 96 U/L (46-116) Creatine Kinase 98 U/L (26-192) Creatine Kinase MB (Mass) 1.7 ng/mL (0.0-3.6) Creatine Kinase MB Relative Index 1.7 % (0-4) Troponin I Quantitative < 0.017 ng/mL (0.000-0.055) OD-Zwb-Q-Type Natriuretic Peptide 1182 pg/mL (0-124) Total Protein 7.4 g/dL (6.4-8.2) Albumin 3.3 g/dL (3.4-5.0) Albumin/Globulin Ratio 0.8 (1.0-1.7) Glucose (Fingerstick) 129 mg/dL (70-99) Urine Collection Type Unknown Urine Color Yellow Urine Clarity Cloudy Urine pH 5.5 Urine Specific [place] 1.015 Urine Protein 100 mg/dL (NEG-TRACE) Urine Glucose (UA) 100 mg/dL (NEG) Urine Ketones (Stick) Negative mg/dL (NEG) Urine Blood Moderate (NEG) Urine Nitrite Negative (NEG) Urine Bilirubin Negative (NEG) Urine Urobilinogen Dipstick 0.2 mg/dL (0.2 mg/dL) Urine Leukocyte Esterase Large (NEG) Urine RBC 3-5 /HPF (0-2) Urine WBC Tntc /HPF (0-4) Urine Squamous Epithelial Cells Mod /LPF Urine Bacteria Many /HPF (0-FEW) Laboratory Tests Test 02/02/19 13:20 02/02/19 13:38 02/02/19 13:40 White Blood Count 20.8 x10^3/uL (4.0-11.0) Red Blood Count 5.54 x10^6/uL (3.50-5.40) Hemoglobin 11.3 g/dL (12.0-15.5) Hematocrit 37.2 % (36.0-47.0) Mean Corpuscular Volume 67 fL (79-100) Mean Corpuscular Hemoglobin 20 pg (25-35) Mean Corpuscular Hemoglobin Concent 30 g/dL (31-37) Red Cell Distribution Width 23.0 % (11.5-14.5) Platelet Count 570 x10^3/uL (140-400) Neutrophils (%) (Auto) 91 % (31-73) Lymphocytes (%) (Auto) 6 % (24-48) Monocytes (%) (Auto) 3 % (0-9) Eosinophils (%) (Auto) 1 % (0-3) Basophils (%) (Auto) 0 % (0-3) Neutrophils # (Auto) 18.9 x10^3/uL (1.8-7.7) Lymphocytes # (Auto) 1.2 x10^3/uL (1.0-4.8) Monocytes # (Auto) 0.5 x10^3/uL (0.0-1.1) Eosinophils # (Auto) 0.1 x10^3/uL (0.0-0.7) Basophils # (Auto) 0.1 x10^3/uL (0.0-0.2) Segmented Neutrophils % 85 % (35-66) Band Neutrophils % 6 % (0-9) Lymphocytes % 5 % (24-48) Monocytes % 3 % (0-10) Eosinophils % 1 % (0-5) Platelet Estimate Increased (ADEQUATE) Giant Platelets Occ Hypochromasia Marked Poikilocytosis Mod Anisocytosis Mod Microcytosis Marked Ovalocytes Few Helmet Cells Occ Crenated Cell Present Sodium Level 144 mmol/L (136-145) Potassium Level 4.5 mmol/L (3.5-5.1) Chloride Level 107 mmol/L (98-107) Carbon Dioxide Level 24 mmol/L (21-32) Anion Gap 13 (6-14) Blood Urea Nitrogen 25 mg/dL (7-20) Creatinine 1.4 mg/dL (0.6-1.0) Estimated GFR (Cockcroft-Gault) 37.6 BUN/Creatinine Ratio 18 (6-20) Glucose Level 165 mg/dL (70-99) Lactic Acid Level 3.5 mmol/L (0.4-2.0) Calcium Level 10.0 mg/dL (8.5-10.1) Magnesium Level 2.1 mg/dL (1.8-2.4) Total Bilirubin 0.3 mg/dL (0.2-1.0) Aspartate Amino Transf (AST/SGOT) 25 U/L (15-37) Alanine Aminotransferase (ALT/SGPT) 22 U/L (14-59) Alkaline Phosphatase 96 U/L (46-116) Creatine Kinase 98 U/L (26-192) Creatine Kinase MB (Mass) 1.7 ng/mL (0.0-3.6) Creatine Kinase MB Relative Index 1.7 % (0-4) Troponin I Quantitative < 0.017 ng/mL (0.000-0.055) IZ-Cbs-B-Type Natriuretic Peptide 1182 pg/mL (0-124) Total Protein 7.4 g/dL (6.4-8.2) Albumin 3.3 g/dL (3.4-5.0) Albumin/Globulin Ratio 0.8 (1.0-1.7) Glucose (Fingerstick) 129 mg/dL (70-99) Urine Collection Type Unknown Urine Color Yellow Urine Clarity Cloudy Urine pH 5.5 Urine Specific [place] 1.015 Urine Protein 100 mg/dL (NEG-TRACE) Urine Glucose (UA) 100 mg/dL (NEG) Urine Ketones (Stick) Negative mg/dL (NEG) Urine Blood Moderate (NEG) Urine Nitrite Negative (NEG) Urine Bilirubin Negative (NEG) Urine Urobilinogen Dipstick 0.2 mg/dL (0.2 mg/dL) Urine Leukocyte Esterase Large (NEG) Urine RBC 3-5 /HPF (0-2) Urine WBC Tntc /HPF (0-4) Urine Squamous Epithelial Cells Mod /LPF Urine Bacteria Many /HPF (0-FEW) Images Images INDICATION: Hypotension COMPARISON: 12/15/2017 TECHNIQUE: Portable frontal view of the chest is provided. FINDINGS: The cardiomediastinal silhouette is similar in appearance. Low lung volumes eccentric pulmonary vasculature. Bibasilar interstitial changes, left greater than right, may represent subsegmental atelectasis versus developing infiltrates. There are no significant pleural effusions. There is no pulmonary vascular congestion. No pneumothorax. IMPRESSION: Low lung volumes eccentric pulmonary vasculature. Interstitial changes at the lung bases may represent subsegmental atelectasis versus infiltrates, left greater than right. Electronically signed by: Derek Sánchez MD (02/02/2019 1:13 PM) [id number] DICTATED and SIGNED BY: DEREK SÁNCHEZ MD DATE: 02/02/19 1313 VTE Prophylaxis Ordered VTE Prophylaxis Devices: Yes VTE Pharmacological Prophylaxi: Yes Assessment/Plan Assessment/Plan IMPRESSION: UTI SEPSIS JUNIOR, VASOMOTOR NEPHROPATHY ON CXR Interstitial changes at the lung bases may represent subsegmental atelectasis versus infiltrates, left greater than right.POSSIBLE PNEUMONIA Mental delay from snf Diabetes type 2 on insulin-unknown hematoma A1c Hypertension HLP on meds PLAN ADMIT IV ANTIBIOTICS ID CONSULT IV FLUID SUPPORT DVT PROPHYLAXIS KAMERON JIMÉNEZ MD Feb 02, 2019 15:23
[2019-02-02] MEDS: IV NORMAL SALINE 1000ML BAG 1,000 ML IV SCH ×3 (15:46→16:28)
[2019-02-02 15:55] VITALS: BP 114/64
[2019-02-02] MEDS ORDERED: ALBUTEROL SULFATE 2.5 MG/3 ML NEBU. NEB PRN (16:00)
[2019-02-02] MEDS ORDERED: guaiFENesin ORAL 200 MG/10 ML LIQUID. PO PRN (16:00)
[2019-02-02] MEDS ORDERED: NOREPINEPHRINE VIAL 8 MG in IV DEXTROSE 5% 250 ML IV PRN (16:00)
[2019-02-02] MEDS ORDERED: MAG HYDROX/ALUMINUM HYD/SIMETH 30 ML ORAL.SUSP PO PRN (16:00)
[2019-02-02] MEDS ORDERED: 0.9 % SODIUM CHLORIDE 10 ML DISP.SYRIN. IV PRN (16:00)
[2019-02-02] MEDS ORDERED: HYDROmorphone 2 MG/ML VIAL IV PRN (16:00)
[2019-02-02] MEDS ORDERED: cloNIDine HCL 0.1 MG TABLET PO PRN (16:00)
[2019-02-02] MEDS ORDERED: LORazepam 0.5 MG TABLET PO PRN (16:00)
[2019-02-02] MEDS ORDERED: IV NORMAL SALINE 500ML BAG 500 ML IV PRN (16:00)
[2019-02-02] MEDS ORDERED: ONDANSETRON PF 4 MG/2 ML VIAL. IV PRN ×2 (16:00)
--- NOTE | 2019-02-02 16:04 | PHYS DOC ---
Past Medical History Past Medical History: Depression, Diabetes-Type II, GERD, Glaucoma, Hyper tension, Other Additional Past Medical Histor: MR,maculare degeneration,allergic rhinitis Past Surgical History: Other Additional Past Surgical Histo: GTUBE, MASECTOMY Alcohol Use: None Drug Use: None Departure Departure Impression: Primary Impression: Urinary tract infection Additional Impressions: Hypotension Sepsis Disposition: 09 ADMITTED INPATIENT Condition: STABLE Date and Time of Reassessment Date: Jan 05, 2018 Time: 15:35 Fluid Challenge Is the fluid challenge complet: No IBW Target Volume Used: No BMI > 30: No Vital Signs Vital Signs: Vital Signs Date Time Temp Pulse Resp B/P (MAP) Pulse Ox O2 Delivery O2 Flow Rate FiO2 02/02/19 13:43 68 119/72 (88) 96 Nasal Cannula 2.0 02/02/19 12:19 97.6 22 97.6 Temperature Source: Oral Respirations Respiratory Effort: Normal Respiratory Pattern: Normal Cardiovascular Pulse Rhythm: Regular Heart: Nml rate, reg. rhythm Lung Sounds Breath Sounds: Clear Capillary Refil Capillary Refill: Rt Hand > 3 seconds Peripheral Pulse Pulse Location: Monitor Pulse Strength: Normal (2+) Pulse Assessment Method: Monitor Integumentary Skin: Warm Skin Moisture: Dry Skin Turgor: Normal Skin Color: warm Fingernail Color: WNL Problem Qualifiers Primary Impression: Urinary tract infection Urinary tract infection type: site unspecified Hematuria presence: without hematuria Qualified Codes: N39.0 - Urinary tract infection, site not specified Additional Impressions: Hypotension Hypotension type: unspecified hypotension type Qualified Codes: I95.9 - Hypotension, unspecified Sepsis Sepsis type: sepsis due to unspecified organism Sepsis acute organ dysfunction status: unspecified Qualified Codes: A41.9 - Sepsis, unspecified organism ANGELITO BARBOSA COMPLIANCE TESTER Feb 02, 2019 16:04
[2019-02-02 16:14] LABS: PROTHROMBIN TIME PATIENT 15.3 SEC (11.7-14.0)
--- NOTE | 2019-02-02 16:54 | NUR ---
Pharmacy Vancomycin Dosing Note S:Consulted to monitor and dose vancomycin started 02/02/19. O:OMID VALENTINE is a 68 year old F with Sepsis Height: 5 feet, 6 inches Weight: 64.2 kg [place] Body Weight: 59.30 Adjusted Body Weight: 61.26 Dosing Weight: Actual Other Antibiotics: zosyn LABS: Last BUN: 25 Last Creatinine: 1.4 Creatinine Clearance: 32 mL/min Last WBC: 20.8 Last Procalcitonin: Tmax (past 24 hours): 97.6 Last dose given 02/02/19 at 1614 Vancomycin Dosing: Loading Dose: 1250 mg x1 Dosing Weight: Actual Target Trough: 15-20 A: Based on: weight and renal function P: 1. Begin Vancomycin 1000 mg IV q24h 2. Follow up Trough level on 02/04/19 at 1530 3. Pharmacy will continue to monitor, follow and adjust therapy as needed. Katia Nassar Naila, 02/02/19 [id number]
--- NOTE | 2019-02-02 17:37 | NUR ---
Patient received to room 554 per francisco at 1600 from ER, total transfer to bed. Patient alert but minimal verbal. Patient's niece and and brother accompanied patient and answered history questions. With reviewing orders noted patient to be on med monitored bed. Dr. Herrera called and does want patient on med monitored bed. Nursing Security Coordinator Tabitha notified. Patient to transfer to 6 So[address] to be notified of room after shift change. Patient family verb. understanding orientation to unit and POC. Side rails up times two, call light at hand, bed alarm set. Patient Skin intact except scabbed area noted left chest that has dressing over, family not aware of what this is from or when it occurred. Continue cares and monitor.
[2019-02-02] MEDS: INSULIN LISPRO 300 UNITS/3 ML VIAL. SQ SCH (17:53)
[2019-02-02 19:00] VITALS: BP 107/53
[2019-02-02] MEDS: PIPERACILLIN/TAZOBACTAM 3.375 GM in IV NORMAL SALINE 50ML 50 ML IV SCH (20:50)
[2019-02-02] MEDS: NYSTATIN 100,000 UNIT/GM TOPICAL OINTMENT 15GM TUBE. TP SCH (20:50)
[2019-02-02] MEDS: LATANOPROST 0.005% OPHTH SOLUTION 2.5ML BOTTLE. OU SCH (20:50)
[2019-02-02] MEDS: INSULIN GLARGINE SYRINGE. SQ SCH (20:55)
[2019-02-02] MEDS: OXYBUTYNIN CHLORIDE 5 MG TABLET PO SCH (20:55)
[2019-02-02 23:53] VITALS: BP 106/36
[2019-02-03] MEDS: IV NORMAL SALINE 1000ML BAG 1,000 ML IV SCH ×3 (01:46→21:46)
[2019-02-03] MEDS: PIPERACILLIN/TAZOBACTAM 3.375 GM in IV NORMAL SALINE 50ML 50 ML IV SCH ×4 (02:06→20:35)
[2019-02-03 03:00] VITALS: BP 116/55
--- NOTE | 2019-02-03 07:17 | PDOC ---
PROGRESS NOTES History of Present Illness History of Present Illness VTE Prophylaxis Ordered VTE Prophylaxis Devices: Yes VTE Pharmacological Prophylaxi: Yes Assessment/Plan Assessment/Plan IMPRESSION: UTI SEPSIS JUNIOR, VASOMOTOR NEPHROPATHY ON CXR Interstitial changes at the lung bases may represent subsegmental atelectasis versus infiltrates, left greater than right.POSSIBLE PNEUMONIA Mental delay from [facility] Diabetes type 2 on insulin-unknown hematoma A1c Hypertension HLP on meds ANEMIA, MAY BE DILUTIONAL PLAN ADMIT IV ANTIBIOTICS, VANC, ZOSYN ID CONSULT IV FLUID SUPPORT DVT PROPHYLAXIS ACCUCHECKS GUIAC STOOLS CBC IN AM 02/04 37 MIN PT EXAM, CHART REVIEW, > 50% OF TIME SPENT WITH EXAM, CHART REVIEW, PT CARE COORDINATION Vitals Vitals Vital Signs Date Time Temp Pulse Resp B/P (MAP) Pulse Ox O2 Delivery O2 Flow Rate FiO2 02/03/19 03:00 97.7 71 18 116/55 (75) 96 Room Air 97.7 02/02/19 23:53 3.0 Physical Exam General: Alert, Cooperative, mild distress Heart: Regular rate Lungs: Clear Abdomen: Normal bowel sounds, Soft Extremities: No cyanosis Labs LABS PORTABLE CHEST 1V 02/02/2019 12:45 PM INDICATION: Hypotension COMPARISON: 12/15/2017 TECHNIQUE: Portable frontal view of the chest is provided. FINDINGS: The cardiomediastinal silhouette is similar in appearance. Low lung volumes eccentric pulmonary vasculature. Bibasilar interstitial changes, left greater than right, may represent subsegmental atelectasis versus developing infiltrates. There are no significant pleural effusions. There is no pulmonary vascular congestion. No pneumothorax. IMPRESSION: Low lung volumes eccentric pulmonary vasculature. Interstitial changes at the lung bases may represent subsegmental atelectasis versus infiltrates, left greater than right. Electronically signed by: Derek Sánchez MD (02/02/2019 1:13 PM) [id number] DICTATED and SIGNED BY: DEREK SÁNCHEZ MD DATE: 02/02/19 1313 Laboratory Tests Test 02/02/19 13:20 02/02/19 13:38 02/02/19 13:40 02/02/19 16:47 White Blood Count 20.8 x10^3/uL (4.0-11.0) Red Blood Count 5.54 x10^6/uL (3.50-5.40) Hemoglobin 11.3 g/dL (12.0-15.5) Hematocrit 37.2 % (36.0-47.0) Mean Corpuscular Volume 67 fL (79-100) Mean Corpuscular Hemoglobin 20 pg (25-35) Mean Corpuscular Hemoglobin Concent 30 g/dL (31-37) Red Cell Distribution Width 23.0 % (11.5-14.5) Platelet Count 570 x10^3/uL (140-400) Neutrophils (%) (Auto) 91 % (31-73) Lymphocytes (%) (Auto) 6 % (24-48) Monocytes (%) (Auto) 3 % (0-9) Eosinophils (%) (Auto) 1 % (0-3) Basophils (%) (Auto) 0 % (0-3) Neutrophils # (Auto) 18.9 x10^3/uL (1.8-7.7) Lymphocytes # (Auto) 1.2 x10^3/uL (1.0-4.8) Monocytes # (Auto) 0.5 x10^3/uL (0.0-1.1) Eosinophils # (Auto) 0.1 x10^3/uL (0.0-0.7) Basophils # (Auto) 0.1 x10^3/uL (0.0-0.2) Segmented Neutrophils % 85 % (35-66) Band Neutrophils % 6 % (0-9) Lymphocytes % 5 % (24-48) Monocytes % 3 % (0-10) Eosinophils % 1 % (0-5) Platelet Estimate Increased (ADEQUATE) Giant Platelets Occ Hypochromasia Marked Poikilocytosis Mod Anisocytosis Mod Microcytosis Marked Ovalocytes Few Helmet Cells Occ Crenated Cell Present Prothrombin Time 15.3 SEC (11.7-14.0) Prothromb Time International Ratio 1.2 (0.8-1.1) Activated Partial Thromboplast Time 32 SEC (24-38) Fibrinogen 476 mg/dL (200-440) Sodium Level 144 mmol/L (136-145) Potassium Level 4.5 mmol/L (3.5-5.1) Chloride Level 107 mmol/L (98-107) Carbon Dioxide Level 24 mmol/L (21-32) Anion Gap 13 (6-14) Blood Urea Nitrogen 25 mg/dL (7-20) Creatinine 1.4 mg/dL (0.6-1.0) Estimated GFR (Cockcroft-Gault) 37.6 BUN/Creatinine Ratio 18 (6-20) Glucose Level 165 mg/dL (70-99) Lactic Acid Level 3.5 mmol/L (0.4-2.0) Calcium Level 10.0 mg/dL (8.5-10.1) Magnesium Level 2.1 mg/dL (1.8-2.4) Total Bilirubin 0.3 mg/dL (0.2-1.0) Aspartate Amino Transf (AST/SGOT) 25 U/L (15-37) Alanine Aminotransferase (ALT/SGPT) 22 U/L (14-59) Alkaline Phosphatase 96 U/L (46-116) Creatine Kinase 98 U/L (26-192) Creatine Kinase MB (Mass) 1.7 ng/mL (0.0-3.6) Creatine Kinase MB Relative Index 1.7 % (0-4) Troponin I Quantitative < 0.017 ng/mL (0.000-0.055) AZ-Wyp-M-Type Natriuretic Peptide 1182 pg/mL (0-124) Total Protein 7.4 g/dL (6.4-8.2) Albumin 3.3 g/dL (3.4-5.0) Albumin/Globulin Ratio 0.8 (1.0-1.7) Procalcitonin 1.56 ng/mL (0.00-0.10) Glucose (Fingerstick) 129 mg/dL (70-99) 186 mg/dL (70-99) Urine Collection Type Unknown Urine Color Yellow Urine Clarity Cloudy Urine pH 5.5 Urine Specific Ismay 1.015 Urine Protein 100 mg/dL (NEG-TRACE) Urine Glucose (UA) 100 mg/dL (NEG) Urine Ketones (Stick) Negative mg/dL (NEG) Urine Blood Moderate (NEG) Urine Nitrite Negative (NEG) Urine Bilirubin Negative (NEG) Urine Urobilinogen Dipstick 0.2 mg/dL (0.2 mg/dL) Urine Leukocyte Esterase Large (NEG) Urine RBC 3-5 /HPF (0-2) Urine WBC Tntc /HPF (0-4) Urine Squamous Epithelial Cells Mod /LPF Urine Bacteria Many /HPF (0-FEW) Test 02/02/19 17:30 Lactic Acid Level 0.9 mmol/L (0.4-2.0) Assessment and Plan Assessmemt and Plan Problems Medical Problems: (1) Hypotension Status: Acute (2) Leukocytosis, unspecified Status: Acute (3) Sepsis Status: Acute (4) Urinary tract infection Status: Acute Comment Review of Relevant I have reviewed the following items wojciech (where applicable) has been applied. Labs Laboratory Tests Test 02/02/19 13:20 02/02/19 13:38 02/02/19 13:40 02/02/19 16:47 White Blood Count 20.8 x10^3/uL (4.0-11.0) Red Blood Count 5.54 x10^6/uL (3.50-5.40) Hemoglobin 11.3 g/dL (12.0-15.5) Hematocrit 37.2 % (36.0-47.0) Mean Corpuscular Volume 67 fL (79-100) Mean Corpuscular Hemoglobin 20 pg (25-35) Mean Corpuscular Hemoglobin Concent 30 g/dL (31-37) Red Cell Distribution Width 23.0 % (11.5-14.5) Platelet Count 570 x10^3/uL (140-400) Neutrophils (%) (Auto) 91 % (31-73) Lymphocytes (%) (Auto) 6 % (24-48) Monocytes (%) (Auto) 3 % (0-9) Eosinophils (%) (Auto) 1 % (0-3) Basophils (%) (Auto) 0 % (0-3) Neutrophils # (Auto) 18.9 x10^3/uL (1.8-7.7) Lymphocytes # (Auto) 1.2 x10^3/uL (1.0-4.8) Monocytes # (Auto) 0.5 x10^3/uL (0.0-1.1) Eosinophils # (Auto) 0.1 x10^3/uL (0.0-0.7) Basophils # (Auto) 0.1 x10^3/uL (0.0-0.2) Segmented Neutrophils % 85 % (35-66) Band Neutrophils % 6 % (0-9) Lymphocytes % 5 % (24-48) Monocytes % 3 % (0-10) Eosinophils % 1 % (0-5) Platelet Estimate Increased (ADEQUATE) Giant Platelets Occ Hypochromasia Marked Poikilocytosis Mod Anisocytosis Mod Microcytosis Marked Ovalocytes Few Helmet Cells Occ Crenated Cell Present Prothrombin Time 15.3 SEC (11.7-14.0) Prothromb Time International Ratio 1.2 (0.8-1.1) Activated Partial Thromboplast Time 32 SEC (24-38) Fibrinogen 476 mg/dL (200-440) Sodium Level 144 mmol/L (136-145) Potassium Level 4.5 mmol/L (3.5-5.1) Chloride Level 107 mmol/L (98-107) Carbon Dioxide Level 24 mmol/L (21-32) Anion Gap 13 (6-14) Blood Urea Nitrogen 25 mg/dL (7-20) Creatinine 1.4 mg/dL (0.6-1.0) Estimated GFR (Cockcroft-Gault) 37.6 BUN/Creatinine Ratio 18 (6-20) Glucose Level 165 mg/dL (70-99) Lactic Acid Level 3.5 mmol/L (0.4-2.0) Calcium Level 10.0 mg/dL (8.5-10.1) Magnesium Level 2.1 mg/dL (1.8-2.4) Total Bilirubin 0.3 mg/dL (0.2-1.0) Aspartate Amino Transf (AST/SGOT) 25 U/L (15-37) Alanine Aminotransferase (ALT/SGPT) 22 U/L (14-59) Alkaline Phosphatase 96 U/L (46-116) Creatine Kinase 98 U/L (26-192) Creatine Kinase MB (Mass) 1.7 ng/mL (0.0-3.6) Creatine Kinase MB Relative Index 1.7 % (0-4) Troponin I Quantitative < 0.017 ng/mL (0.000-0.055) ST-Xzw-M-Type Natriuretic Peptide 1182 pg/mL (0-124) Total Protein 7.4 g/dL (6.4-8.2) Albumin 3.3 g/dL (3.4-5.0) Albumin/Globulin Ratio 0.8 (1.0-1.7) Procalcitonin 1.56 ng/mL (0.00-0.10) Glucose (Fingerstick) 129 mg/dL (70-99) 186 mg/dL (70-99) Urine Collection Type Unknown Urine Color Yellow Urine Clarity Cloudy Urine pH 5.5 Urine Specific Ismay 1.015 Urine Protein 100 mg/dL (NEG-TRACE) Urine Glucose (UA) 100 mg/dL (NEG) Urine Ketones (Stick) Negative mg/dL (NEG) Urine Blood Moderate (NEG) Urine Nitrite Negative (NEG) Urine Bilirubin Negative (NEG) Urine Urobilinogen Dipstick 0.2 mg/dL (0.2 mg/dL) Urine Leukocyte Esterase Large (NEG) Urine RBC 3-5 /HPF (0-2) Urine WBC Tntc /HPF (0-4) Urine Squamous Epithelial Cells Mod /LPF Urine Bacteria Many /HPF (0-FEW) Test 02/02/19 17:30 Lactic Acid Level 0.9 mmol/L (0.4-2.0) Laboratory Tests Test 02/02/19 13:20 02/02/19 13:38 02/02/19 13:40 02/02/19 16:47 White Blood Count 20.8 x10^3/uL (4.0-11.0) Red Blood Count 5.54 x10^6/uL (3.50-5.40) Hemoglobin 11.3 g/dL (12.0-15.5) Hematocrit 37.2 % (36.0-47.0) Mean Corpuscular Volume 67 fL (79-100) Mean Corpuscular Hemoglobin 20 pg (25-35) Mean Corpuscular Hemoglobin Concent 30 g/dL (31-37) Red Cell Distribution Width 23.0 % (11.5-14.5) Platelet Count 570 x10^3/uL (140-400) Neutrophils (%) (Auto) 91 % (31-73) Lymphocytes (%) (Auto) 6 % (24-48) Monocytes (%) (Auto) 3 % (0-9) Eosinophils (%) (Auto) 1 % (0-3) Basophils (%) (Auto) 0 % (0-3) Neutrophils # (Auto) 18.9 x10^3/uL (1.8-7.7) Lymphocytes # (Auto) 1.2 x10^3/uL (1.0-4.8) Monocytes # (Auto) 0.5 x10^3/uL (0.0-1.1) Eosinophils # (Auto) 0.1 x10^3/uL (0.0-0.7) Basophils # (Auto) 0.1 x10^3/uL (0.0-0.2) Segmented Neutrophils % 85 % (35-66) Band Neutrophils % 6 % (0-9) Lymphocytes % 5 % (24-48) Monocytes % 3 % (0-10) Eosinophils % 1 % (0-5) Platelet Estimate Increased (ADEQUATE) Giant Platelets Occ Hypochromasia Marked Poikilocytosis Mod Anisocytosis Mod Microcytosis Marked Ovalocytes Few Helmet Cells Occ Crenated Cell Present Prothrombin Time 15.3 SEC (11.7-14.0) Prothromb Time International Ratio 1.2 (0.8-1.1) Activated Partial Thromboplast Time 32 SEC (24-38) Fibrinogen 476 mg/dL (200-440) Sodium Level 144 mmol/L (136-145) Potassium Level 4.5 mmol/L (3.5-5.1) Chloride Level 107 mmol/L (98-107) Carbon Dioxide Level 24 mmol/L (21-32) Anion Gap 13 (6-14) Blood Urea Nitrogen 25 mg/dL (7-20) Creatinine 1.4 mg/dL (0.6-1.0) Estimated GFR (Cockcroft-Gault) 37.6 BUN/Creatinine Ratio 18 (6-20) Glucose Level 165 mg/dL (70-99) Lactic Acid Level 3.5 mmol/L (0.4-2.0) Calcium Level 10.0 mg/dL (8.5-10.1) Magnesium Level 2.1 mg/dL (1.8-2.4) Total Bilirubin 0.3 mg/dL (0.2-1.0) Aspartate Amino Transf (AST/SGOT) 25 U/L (15-37) Alanine Aminotransferase (ALT/SGPT) 22 U/L (14-59) Alkaline Phosphatase 96 U/L (46-116) Creatine Kinase 98 U/L (26-192) Creatine Kinase MB (Mass) 1.7 ng/mL (0.0-3.6) Creatine Kinase MB Relative Index 1.7 % (0-4) Troponin I Quantitative < 0.017 ng/mL (0.000-0.055) FI-Yov-M-Type Natriuretic Peptide 1182 pg/mL (0-124) Total Protein 7.4 g/dL (6.4-8.2) Albumin 3.3 g/dL (3.4-5.0) Albumin/Globulin Ratio 0.8 (1.0-1.7) Procalcitonin 1.56 ng/mL (0.00-0.10) Glucose (Fingerstick) 129 mg/dL (70-99) 186 mg/dL (70-99) Urine Collection Type Unknown Urine Color Yellow Urine Clarity Cloudy Urine pH 5.5 Urine Specific Ismay 1.015 Urine Protein 100 mg/dL (NEG-TRACE) Urine Glucose (UA) 100 mg/dL (NEG) Urine Ketones (Stick) Negative mg/dL (NEG) Urine Blood Moderate (NEG) Urine Nitrite Negative (NEG) Urine Bilirubin Negative (NEG) Urine Urobilinogen Dipstick 0.2 mg/dL (0.2 mg/dL) Urine Leukocyte Esterase Large (NEG) Urine RBC 3-5 /HPF (0-2) Urine WBC Tntc /HPF (0-4) Urine Squamous Epithelial Cells Mod /LPF Urine Bacteria Many /HPF (0-FEW) Test 02/02/19 17:30 Lactic Acid Level 0.9 mmol/L (0.4-2.0) Medications Current Medications Sodium Chloride 1,000 ml @ 1,000 mls/hr 1X ONCE IV Last administered on 02/02/19at 13:25; Start 02/02/19 at 12:45; Stop 02/02/19 at 13:44; Status DC Sodium Chloride 1,000 ml @ 1,000 mls/hr 1X ONCE IV Last administered on 02/02/19at 14:56; Start 02/02/19 at 14:30; Stop 02/02/19 at 15:29; Status DC Piperacillin Sod/ Tazobactam Sod 3.375 gm/Sodium Chloride 50 ml @ 100 mls/hr 1X ONCE IV Last administered on 02/02/19at 14:56; Start 02/02/19 at 14:30; Stop 02/02/19 at 14:59; Status DC Vancomycin HCl (Vanco Per Pharmacy) 1 each PRN DAILY PRN MC SEE COMMENTS Last administered on 02/02/19at 16:49; Start 02/02/19 at 14:30 Vancomycin HCl 1.25 gm/Sodium Chloride 250 ml @ 166.667 mls/hr 1X ONCE IV Last administered on 02/02/19at 16:14; Start 02/02/19 at 15:00; Stop 02/02/19 at 16:29; Status DC Sodium Chloride (Normal Saline Flush) 3 ml QSHIFT PRN IV AFTER MEDS AND BLOOD DRAWS; Start 02/02/19 at 16:00 Sodium Chloride 1,000 ml @ 100 mls/hr Q10H IV Last administered on 02/02/19at 15:46; Start 02/02/19 at 15:46 Ondansetron HCl (Zofran) 4 mg PRN Q4HRS PRN IV NAUSEA/VOMITING; Start 02/02/19 at 16:00 Acetaminophen (Tylenol) 650 mg PRN Q4HRS PRN PO TEMP OVER 100.4F OR MILD PAIN; Start 02/02/19 at 16:00 Al Hydroxide/Mg Hydroxide (Mylanta Plus Xs) 30 ml PRN DAILY PRN PO HEARTBURN / GAS; Start 02/02/19 at 16:00 Clonidine HCl (Catapres) 0.1 mg PRN Q6HRS PRN PO SBP>160 OR DBP>90; Start 02/02/19 at 16:00 Docusate Sodium (Colace) 100 mg PRN BID PRN PO CONSTIPATION; Start 02/02/19 at 16:00 Albuterol Sulfate (Ventolin Neb Soln) 2.5 mg PRN Q4HRS PRN NEB SHORTNESS OF BREATH; Start 02/02/19 at 16:00 Guaifenesin (Robitussin) 200 mg PRN Q4HRS PRN PO COUGH; Start 02/02/19 at 16:00 Lorazepam (Ativan) 0.5 mg PRN Q4HRS PRN PO ANXIETY / AGITATION; Start 02/02/19 at 16:00 Hydromorphone HCl (Dilaudid) 0.5 mg PRN Q2HRS PRN IV SEVERE PAIN 7-10; Start 02/02/19 at 16:00 Enoxaparin Sodium (Lovenox 40mg Syringe) 40 mg DAILY SQ ; Start 02/03/19 at 09:00 Piperacillin Sod/ Tazobactam Sod 3.375 gm/Sodium Chloride 50 ml @ 100 mls/hr Q6H IV Last administered on 02/03/19at 02:06; Start 02/02/19 at 20:00 Sodium Chloride 1,000 ml @ 1,500 mls/hr Q40M IV Last administered on 02/02/19at 16:28; Start 02/02/19 at 15:48; Stop 02/02/19 at 16:49; Status DC Sodium Chloride 500 ml @ 1,000 mls/hr PRN Q30MIN PRN IV SEE COMMENTS; Start 02/02/19 at 16:00 Norepinephrine Bitartrate 8 mg/ Dextrose 258 ml @ 0 mls/hr CONT PRN IV SEE I/O RECORD; Start 02/02/19 at 16:00; Status UNV Amlodipine Besylate (Norvasc) 5 mg DAILY PO ; Start 02/03/19 at 09:00 Aspirin (Children'S Aspirin) 81 mg DAILY PO ; Start 02/03/19 at 09:00 Calcium/Vitamin D (Oscal D 500mg/ 200uts) 1 tab DAILY PO ; Start 02/03/19 at 09:00 Insulin Human Lispro (HumaLOG) 5 units TIDAC SQ Last administered on 02/02/19at 17:53; Start 02/02/19 at 16:30 Nystatin (Mycostatin) 1 mariam TID TP Last administered on 02/02/19at 20:50; Start 02/02/19 at 21:00 Oxybutynin Chloride (Ditropan) 5 mg BID PO Last administered on 02/02/19at 20:55; Start 02/02/19 at 21:00 Paroxetine HCl (Paxil) 20 mg DAILY PO ; Start 02/03/19 at 09:00 Latanoprost (Xalatan) 1 drop QHS OU Last administered on 02/02/19at 20:50; Start 02/02/19 at 21:00 Insulin Glargine (Lantus Syringe) 15 unit QHS SQ Last administered on 02/02/19at 20:55; Start 02/02/19 at 21:00 Pantoprazole Sodium (Protonix) 40 mg DAILYAC PO ; Start 02/03/19 at 07:30 Cetirizine HCl (ZyrTEC) 10 mg DAILY PO ; Start 02/03/19 at 09:00 Ondansetron HCl (Zofran) 4 mg PRN Q8HRS PRN IV NAUSEA/VOMITING; Start 02/02/19 at 16:00; Stop 02/03/19 at 15:59 Sodium Chloride 1,000 ml @ 125 mls/hr 1X ONCE IV ; Start 02/02/19 at 16:00; Stop 02/02/19 at 23:59; Status UNV Vancomycin HCl 1 gm/Sodium Chloride 250 ml @ 250 mls/hr Q24H IV ; Start 02/03/19 at 16:00 Active Scripts Active Humalog (Insulin Lispro) 100 Unit/1 Ml Insuln.pen 5 Units SQ TIDAC 30 Days Lantus Solostar (Insulin Glargine,Hum.rec.anlog) 100 Unit/1 Ml Insuln.pen 15 Units SQ QHS 30 Days Cephalexin 250 Mg Capsule 500 Mg PO QID 3 Days Nystatin 15 Gm Oint...g. 1 Mariam TP TID 10 Days Reported Paroxetine Hcl 20 Mg Tablet 1 Tab PO DAILY Oxybutynin Chloride 5 Mg Tablet 1 Tab PO BID Omeprazole 20 Mg Capsule.dr 1 Cap PO DAILY Meloxicam 15 Mg Tablet 1 Tab PO DAILY Lumigan (Bimatoprost) 2.5 Ml Drops 1 Drop EACHEYE QHS Lisinopril 40 Mg Tablet 1 Tab PO DAILY Aspirin 81 Mg Tab.chew 1 Tab PO DAILY Amlodipine Besylate 5 Mg Tablet 5 Mg PO DAILY Oyster Shell 500 Mg + Vit D Tb (Calcium Carbonate/Vitamin D3) 1 Each Tablet 1 Each PO DAILY Zyrtec (Cetirizine Hcl) 10 Mg Capsule 10 Mg PO Multi-Vitamin Daily (Multivitamin) 1 Each Tablet 1 Each PO Vitals/I & O Vital Sign - Last 24 Hours 02/02/19 02/02/19 02/02/19 02/02/19 12:19 12:38 13:07 13:38 Temp 97.6 97.6 Pulse 63 63 65 66 Resp 22 B/P (MAP) 112/54 (73) 112/54 (73) 81/45 (57) 83/57 (66) Pulse Ox 99 91 94 95 O2 Delivery Room Air Nasal Cannula Nasal Cannula O2 Flow Rate 2.0 2.0 02/02/19 02/02/19 02/02/19 02/02/19 13:43 14:54 15:55 16:00 Temp 97.6 97.6 Pulse 68 80 75 Resp 18 B/P (MAP) 119/72 (88) 124/72 (89) 114/64 (81) Pulse Ox 96 99 100 O2 Delivery Nasal Cannula Nasal Cannula Nasal Cannula Nasal Cannula O2 Flow Rate 2.0 2.0 3.0 3.0 02/02/19 02/02/19 02/02/19 02/02/19 19:00 19:24 23:00 23:53 Temp 100.0 97.8 100.0 97.8 Pulse 66 67 Resp 18 18 B/P (MAP) 107/53 (71) 106/36 (59) Pulse Ox 97 98 O2 Delivery Nasal Cannula Nasal Cannula Nasal Cannula Nasal Cannula O2 Flow Rate 3.0 3.0 3.0 3.0 02/03/19 03:00 Temp 97.7 97.7 Pulse 71 Resp 18 B/P (MAP) 116/55 (75) Pulse Ox 96 O2 Delivery Room Air Intake and Output 02/02/19 02/02/19 02/03/19 15:00 23:00 07:00 Intake Total 1050 ml 0 ml Output Total 1200 ml Balance 1050 ml -1200 ml KAMERON REYNA MD Feb 03, 2019 07:17
[2019-02-03] MEDS: INSULIN LISPRO 300 UNITS/3 ML VIAL. SQ SCH ×3 (07:30→18:06)
[2019-02-03 07:58] LABS: BASO % 0 % (0-3); EOS # 0.1 x10^3/uL (0.0-0.7); EOS % 1 % (0-3); HEMATOCRIT 25.9 % (36.0-47.0); LYMPH # 1.2 x10^3/uL (1.0-4.8); LYMPH % 11 % (24-48); MEAN CORPUSCULAR HEMOGLOBIN 21 pg (25-35); MEAN CORPUSCULAR HGB CONC 31 g/dL (31-37); MEAN CORPUSCULAR VOLUME 67 fL (79-100); MONO # 0.5 x10^3/uL (0.0-1.1); MONO % 5 % (0-9); NEUT % 83 % (31-73); PLATELET COUNT 347 x10^3/uL (140-400); WHITE BLOOD COUNT 10.9 x10^3/uL (4.0-11.0)
[2019-02-03 08:18] LABS: ALBUMIN 2.5 g/dL (3.4-5.0); CREATININE 1.2 mg/dL (0.6-1.0); GFR 44.9; PHOSPHORUS 2.5 mg/dL (2.6-4.7)
[2019-02-03] MEDS: CALCIUM CARB/VIT D3 500/200 TABLET. PO SCH (08:56)
[2019-02-03] MEDS: PANTOPRAZOLE 40 MG TABLET.DR. PO SCH (08:56)
[2019-02-03] MEDS: amLODIPine BESYLATE 5 MG TABLET PO SCH (08:56)
[2019-02-03] MEDS: ASPIRIN CHEWABLE 81 MG TABLET. PO SCH (08:56)
[2019-02-03] MEDS: CETIRIZINE HCL 10 MG TABLET. PO SCH (08:56)
[2019-02-03] MEDS: PARoxetine 20 MG TABLET PO SCH (08:57)
[2019-02-03] MEDS: OXYBUTYNIN CHLORIDE 5 MG TABLET PO SCH ×2 (08:57→22:34)
[2019-02-03] MEDS: NYSTATIN 100,000 UNIT/GM TOPICAL OINTMENT 15GM TUBE. TP SCH ×3 (08:57→22:34)
[2019-02-03 11:00] VITALS: BP 123/72
--- NOTE | 2019-02-03 12:14 | PDOC ---
Infectious Disease Note Vital Signs: Vital Signs Vital Signs Date Time Temp Pulse Resp B/P (MAP) Pulse Ox O2 Delivery O2 Flow Rate FiO2 02/03/19 11:00 98.5 73 18 123/72 (89) 98 Nasal Cannula 2.0 98.5 Medications: Inpatient Meds: Current Medications Medications (Trade) Dose Ordered Sig/Rolando Start Time Stop Time Status Last Admin Dose Admin Acetaminophen (Tylenol) 650 mg PRN Q4HRS PRN 02/02/19 16:00 Al Hydroxide/Mg Hydroxide (Mylanta Plus Xs) 30 ml PRN DAILY PRN 02/02/19 16:00 Albuterol Sulfate (Ventolin Neb Soln) 2.5 mg PRN Q4HRS PRN 02/02/19 16:00 Amlodipine Besylate (Norvasc) 5 mg DAILY 02/03/19 09:00 02/03/19 08:56 5 MG Aspirin (Children'S Aspirin) 81 mg DAILY 02/03/19 09:00 02/03/19 08:56 81 MG Calcium/Vitamin D (Oscal D 500mg/ 200uts) 1 tab DAILY 02/03/19 09:00 02/03/19 08:56 1 TAB Cetirizine HCl (ZyrTEC) 10 mg DAILY 02/03/19 09:00 02/03/19 08:56 10 MG Clonidine HCl (Catapres) 0.1 mg PRN Q6HRS PRN 02/02/19 16:00 Docusate Sodium (Colace) 100 mg PRN BID PRN 02/02/19 16:00 Enoxaparin Sodium (Lovenox 40mg Syringe) 40 mg DAILY 02/03/19 09:00 Guaifenesin (Robitussin) 200 mg PRN Q4HRS PRN 02/02/19 16:00 Hydromorphone HCl (Dilaudid) 0.5 mg PRN Q2HRS PRN 02/02/19 16:00 Insulin Glargine (Lantus Syringe) 15 unit QHS 02/02/19 21:00 02/02/19 20:55 15 UNIT Insulin Human Lispro (HumaLOG) 5 units TIDAC 02/02/19 16:30 02/02/19 17:53 5 UNITS Latanoprost (Xalatan) 1 drop QHS 02/02/19 21:00 02/02/19 20:50 1 DROP Lorazepam (Ativan) 0.5 mg PRN Q4HRS PRN 02/02/19 16:00 Norepinephrine Bitartrate 8 mg/ Dextrose 258 ml @ 0 mls/hr CONT PRN 02/02/19 16:00 UNV Nystatin (Mycostatin) 1 srinivasa TID 02/02/19 21:00 02/03/19 08:57 1 SRINIVASA Ondansetron HCl (Zofran) 4 mg PRN Q8HRS PRN 02/02/19 16:00 02/03/19 15:59 Oxybutynin Chloride (Ditropan) 5 mg BID 02/02/19 21:00 02/03/19 08:57 5 MG Pantoprazole Sodium (Protonix) 40 mg DAILYAC 02/03/19 07:30 02/03/19 08:56 40 MG Paroxetine HCl (Paxil) 20 mg DAILY 02/03/19 09:00 02/03/19 08:57 20 MG Piperacillin Sod/ Tazobactam Sod 3.375 gm/Sodium Chloride 50 ml @ 100 mls/hr Q6H 02/02/19 20:00 02/03/19 08:55 100 MLS/HR Sodium Chloride 1,000 ml @ 125 mls/hr 1X ONCE 02/02/19 16:00 02/02/19 23:59 UNV Sodium Chloride (Normal Saline Flush) 3 ml QSHIFT PRN 02/02/19 16:00 Vancomycin HCl (Vanco Per Pharmacy) 1 each PRN DAILY PRN 02/02/19 14:30 02/03/19 12:07 DC 02/02/19 16:49 1 EACH Vancomycin HCl 1.25 gm/Sodium Chloride 250 ml @ 166.667 mls/hr 1X ONCE 02/02/19 15:00 02/02/19 16:29 DC 02/02/19 16:14 166.667 MLS/HR Vancomycin HCl 1 gm/Sodium Chloride 250 ml @ 250 mls/hr Q24H 02/03/19 16:00 02/03/19 12:07 DC Labs: Lab Laboratory Tests Test 02/02/19 13:20 02/02/19 13:38 02/02/19 13:40 02/02/19 16:47 White Blood Count 20.8 x10^3/uL (4.0-11.0) Red Blood Count 5.54 x10^6/uL (3.50-5.40) Hemoglobin 11.3 g/dL (12.0-15.5) Hematocrit 37.2 % (36.0-47.0) Mean Corpuscular Volume 67 fL (79-100) Mean Corpuscular Hemoglobin 20 pg (25-35) Mean Corpuscular Hemoglobin Concent 30 g/dL (31-37) Red Cell Distribution Width 23.0 % (11.5-14.5) Platelet Count 570 x10^3/uL (140-400) Neutrophils (%) (Auto) 91 % (31-73) Lymphocytes (%) (Auto) 6 % (24-48) Monocytes (%) (Auto) 3 % (0-9) Eosinophils (%) (Auto) 1 % (0-3) Basophils (%) (Auto) 0 % (0-3) Neutrophils # (Auto) 18.9 x10^3/uL (1.8-7.7) Lymphocytes # (Auto) 1.2 x10^3/uL (1.0-4.8) Monocytes # (Auto) 0.5 x10^3/uL (0.0-1.1) Eosinophils # (Auto) 0.1 x10^3/uL (0.0-0.7) Basophils # (Auto) 0.1 x10^3/uL (0.0-0.2) Segmented Neutrophils % 85 % (35-66) Band Neutrophils % 6 % (0-9) Lymphocytes % 5 % (24-48) Monocytes % 3 % (0-10) Eosinophils % 1 % (0-5) Platelet Estimate Increased (ADEQUATE) Giant Platelets Occ Hypochromasia Marked Poikilocytosis Mod Anisocytosis Mod Microcytosis Marked Ovalocytes Few Helmet Cells Occ Crenated Cell Present Prothrombin Time 15.3 SEC (11.7-14.0) Prothromb Time International Ratio 1.2 (0.8-1.1) Activated Partial Thromboplast Time 32 SEC (24-38) Fibrinogen 476 mg/dL (200-440) Sodium Level 144 mmol/L (136-145) Potassium Level 4.5 mmol/L (3.5-5.1) Chloride Level 107 mmol/L (98-107) Carbon Dioxide Level 24 mmol/L (21-32) Anion Gap 13 (6-14) Blood Urea Nitrogen 25 mg/dL (7-20) Creatinine 1.4 mg/dL (0.6-1.0) Estimated GFR (Cockcroft-Gault) 37.6 BUN/Creatinine Ratio 18 (6-20) Glucose Level 165 mg/dL (70-99) Lactic Acid Level 3.5 mmol/L (0.4-2.0) Calcium Level 10.0 mg/dL (8.5-10.1) Magnesium Level 2.1 mg/dL (1.8-2.4) Total Bilirubin 0.3 mg/dL (0.2-1.0) Aspartate Amino Transf (AST/SGOT) 25 U/L (15-37) Alanine Aminotransferase (ALT/SGPT) 22 U/L (14-59) Alkaline Phosphatase 96 U/L (46-116) Creatine Kinase 98 U/L (26-192) Creatine Kinase MB (Mass) 1.7 ng/mL (0.0-3.6) Creatine Kinase MB Relative Index 1.7 % (0-4) Troponin I Quantitative < 0.017 ng/mL (0.000-0.055) AN-Yls-J-Type Natriuretic Peptide 1182 pg/mL (0-124) Total Protein 7.4 g/dL (6.4-8.2) Albumin 3.3 g/dL (3.4-5.0) Albumin/Globulin Ratio 0.8 (1.0-1.7) Procalcitonin 1.56 ng/mL (0.00-0.10) Glucose (Fingerstick) 129 mg/dL (70-99) 186 mg/dL (70-99) Urine Collection Type Unknown Urine Color Yellow Urine Clarity Cloudy Urine pH 5.5 Urine Specific [place] 1.015 Urine Protein 100 mg/dL (NEG-TRACE) Urine Glucose (UA) 100 mg/dL (NEG) Urine Ketones (Stick) Negative mg/dL (NEG) Urine Blood Moderate (NEG) Urine Nitrite Negative (NEG) Urine Bilirubin Negative (NEG) Urine Urobilinogen Dipstick 0.2 mg/dL (0.2 mg/dL) Urine Leukocyte Esterase Large (NEG) Urine RBC 3-5 /HPF (0-2) Urine WBC Tntc /HPF (0-4) Urine Squamous Epithelial Cells Mod /LPF Urine Bacteria Many /HPF (0-FEW) Test 02/02/19 17:30 02/03/19 07:35 02/03/19 08:57 02/03/19 10:40 Lactic Acid Level 0.9 mmol/L (0.4-2.0) White Blood Count 10.9 x10^3/uL (4.0-11.0) Red Blood Count 3.90 x10^6/uL (3.50-5.40) Hemoglobin 8.0 g/dL (12.0-15.5) Hematocrit 25.9 % (36.0-47.0) Mean Corpuscular Volume 67 fL (79-100) Mean Corpuscular Hemoglobin 21 pg (25-35) Mean Corpuscular Hemoglobin Concent 31 g/dL (31-37) Red Cell Distribution Width 22.0 % (11.5-14.5) Platelet Count 347 x10^3/uL (140-400) Neutrophils (%) (Auto) 83 % (31-73) Lymphocytes (%) (Auto) 11 % (24-48) Monocytes (%) (Auto) 5 % (0-9) Eosinophils (%) (Auto) 1 % (0-3) Basophils (%) (Auto) 0 % (0-3) Neutrophils # (Auto) 9.0 x10^3/uL (1.8-7.7) Lymphocytes # (Auto) 1.2 x10^3/uL (1.0-4.8) Monocytes # (Auto) 0.5 x10^3/uL (0.0-1.1) Eosinophils # (Auto) 0.1 x10^3/uL (0.0-0.7) Basophils # (Auto) 0.0 x10^3/uL (0.0-0.2) Sodium Level 147 mmol/L (136-145) Potassium Level 4.0 mmol/L (3.5-5.1) Chloride Level 114 mmol/L (98-107) Carbon Dioxide Level 24 mmol/L (21-32) Anion Gap 9 (6-14) Blood Urea Nitrogen 28 mg/dL (7-20) Creatinine 1.2 mg/dL (0.6-1.0) Estimated GFR (Cockcroft-Gault) 44.9 Glucose Level 77 mg/dL (70-99) Calcium Level 9.0 mg/dL (8.5-10.1) Phosphorus Level 2.5 mg/dL (2.6-4.7) Albumin 2.5 g/dL (3.4-5.0) Glucose (Fingerstick) 71 mg/dL (70-99) 90 mg/dL (70-99) Objective: Assessment: pt seen and examined ID consult dictated Plan: Plan of Care Thank you SOLE BROWNING MD Feb 03, 2019 12:13
--- NOTE | 2019-02-03 12:24 | PDOC2 ---
CONSULT Date of Consult Date of Consult DATE: 02/03/19 TIME: 12:18 Reason for Consult Reason for Consult: JUNIOR Source Source: Chart review History of Present Illness Reason for Visit: A 68-year-old female from [facility], unable to give history. History obtained from chart and medical staff, was brought to the ER with lethargy, poor p.o. intake and possible sepsis. Her white count was elevated. She was febrile at 100 degrees. Lactate was elevated at 3.5. She received fluid bolus. UA showed pyuria. Chest x-ray was negative for acute infiltrate. Per RN no fever, chills, nausea, vomiting or diarrhea reported. PAST MEDICAL HISTORY: senior care resident, diabetes mellitus, hypertension, hyperlipidemia, anemia, depression, macular degeneration and allergic rhinitis. Past Medical History Cardiovascular: HTN, Hyperlipidemia Musculoskeletal: Osteoarthritis Renal/: Urinary Incontinence Endocrine: Diabetes Past Surgical History Past Surgical History: No pertinent history Family History Family History: Hypertension, Family History Unknown Social History No ALCOHOL: none Drugs: None Lives: Snf Current Problem List Problem List Problems Medical Problems: (1) Hypotension Status: Acute (2) Leukocytosis, unspecified Status: Acute (3) Sepsis Status: Acute (4) Urinary tract infection Status: Acute Current Medications Current Medications Current Medications Sodium Chloride 1,000 ml @ 1,000 mls/hr 1X ONCE IV Last administered on 02/02/19at 13:25; Start 02/02/19 at 12:45; Stop 02/02/19 at 13:44; Status DC Sodium Chloride 1,000 ml @ 1,000 mls/hr 1X ONCE IV Last administered on 02/02/19at 14:56; Start 02/02/19 at 14:30; Stop 02/02/19 at 15:29; Status DC Piperacillin Sod/ Tazobactam Sod 3.375 gm/Sodium Chloride 50 ml @ 100 mls/hr 1X ONCE IV Last administered on 02/02/19at 14:56; Start 02/02/19 at 14:30; Stop 02/02/19 at 14:59; Status DC Vancomycin HCl (Vanco Per Pharmacy) 1 each PRN DAILY PRN MC SEE COMMENTS Last administered on 02/02/19at 16:49; Start 02/02/19 at 14:30; Stop 02/03/19 at 12:07; Status DC Vancomycin HCl 1.25 gm/Sodium Chloride 250 ml @ 166.667 mls/hr 1X ONCE IV Last administered on 02/02/19at 16:14; Start 02/02/19 at 15:00; Stop 02/02/19 at 16:29; Status DC Sodium Chloride (Normal Saline Flush) 3 ml QSHIFT PRN IV AFTER MEDS AND BLOOD DRAWS; Start 02/02/19 at 16:00 Sodium Chloride 1,000 ml @ 100 mls/hr Q10H IV Last administered on 02/02/19at 15:46; Start 02/02/19 at 15:46 Ondansetron HCl (Zofran) 4 mg PRN Q4HRS PRN IV NAUSEA/VOMITING; Start 02/02/19 at 16:00 Acetaminophen (Tylenol) 650 mg PRN Q4HRS PRN PO TEMP OVER 100.4F OR MILD PAIN; Start 02/02/19 at 16:00 Al Hydroxide/Mg Hydroxide (Mylanta Plus Xs) 30 ml PRN DAILY PRN PO HEARTBURN / GAS; Start 02/02/19 at 16:00 Clonidine HCl (Catapres) 0.1 mg PRN Q6HRS PRN PO SBP>160 OR DBP>90; Start 02/02/19 at 16:00 Docusate Sodium (Colace) 100 mg PRN BID PRN PO CONSTIPATION; Start 02/02/19 at 16:00 Albuterol Sulfate (Ventolin Neb Soln) 2.5 mg PRN Q4HRS PRN NEB SHORTNESS OF BREATH; Start 02/02/19 at 16:00 Guaifenesin (Robitussin) 200 mg PRN Q4HRS PRN PO COUGH; Start 02/02/19 at 16:00 Lorazepam (Ativan) 0.5 mg PRN Q4HRS PRN PO ANXIETY / AGITATION; Start 02/02/19 at 16:00 Hydromorphone HCl (Dilaudid) 0.5 mg PRN Q2HRS PRN IV SEVERE PAIN 7-10; Start 02/02/19 at 16:00 Enoxaparin Sodium (Lovenox 40mg Syringe) 40 mg DAILY SQ ; Start 02/03/19 at 09:00 Piperacillin Sod/ Tazobactam Sod 3.375 gm/Sodium Chloride 50 ml @ 100 mls/hr Q6H IV Last administered on 02/03/19 08:55; Start 02/02/19 at 20:00 Sodium Chloride 1,000 ml @ 1,500 mls/hr Q40M IV Last administered on 02/02/19 16:28; Start 02/02/19 at 15:48; Stop 02/02/19 at 16:49; Status DC Sodium Chloride 500 ml @ 1,000 mls/hr PRN Q30MIN PRN IV SEE COMMENTS; Start 02/02/19 at 16:00 Norepinephrine Bitartrate 8 mg/ Dextrose 258 ml @ 0 mls/hr CONT PRN IV SEE I/O RECORD; Start 02/02/19 at 16:00; Status UNV Amlodipine Besylate (Norvasc) 5 mg DAILY PO Last administered on 02/03/19 08:56; Start 02/03/19 at 09:00 Aspirin (Children'S Aspirin) 81 mg DAILY PO Last administered on 02/03/19 08:56; Start 02/03/19 at 09:00 Calcium/Vitamin D (Oscal D 500mg/ 200uts) 1 tab DAILY PO Last administered on 02/03/19 08:56; Start 02/03/19 at 09:00 Insulin Human Lispro (HumaLOG) 5 units TIDAC SQ Last administered on 02/02/19 17:53; Start 02/02/19 at 16:30 Nystatin (Mycostatin) 1 mariam TID TP Last administered on 02/03/19 08:57; Start 02/02/19 at 21:00 Oxybutynin Chloride (Ditropan) 5 mg BID PO Last administered on 02/03/19 08:57; Start 02/02/19 at 21:00 Paroxetine HCl (Paxil) 20 mg DAILY PO Last administered on 02/03/19 08:57; Start 02/03/19 at 09:00 Latanoprost (Xalatan) 1 drop QHS OU Last administered on 02/02/19 20:50; Start 02/02/19 at 21:00 Insulin Glargine (Lantus Syringe) 15 unit QHS SQ Last administered on 02/02/19 20:55; Start 02/02/19 at 21:00 Pantoprazole Sodium (Protonix) 40 mg DAILYAC PO Last administered on 12/25/19at 08:56; Start 02/03/19 at 07:30 Cetirizine HCl (ZyrTEC) 10 mg DAILY PO Last administered on 02/03/19at 08:56; Start 02/03/19 at 09:00 Ondansetron HCl (Zofran) 4 mg PRN Q8HRS PRN IV NAUSEA/VOMITING; Start 02/02/19 at 16:00; Stop 02/03/19 at 15:59 Sodium Chloride 1,000 ml @ 125 mls/hr 1X ONCE IV ; Start 02/02/19 at 16:00; Stop 02/02/19 at 23:59; Status UNV Vancomycin HCl 1 gm/Sodium Chloride 250 ml @ 250 mls/hr Q24H IV ; Start 02/03/19 at 16:00; Stop 02/03/19 at 12:07; Status DC Active Scripts Active Humalog (Insulin Lispro) 100 Unit/1 Ml Insuln.pen 5 Units SQ TIDAC 30 Days Lantus Solostar (Insulin Glargine,Hum.rec.anlog) 100 Unit/1 Ml Insuln.pen 15 Units SQ QHS 30 Days Cephalexin 250 Mg Capsule 500 Mg PO QID 3 Days Nystatin 15 Gm Oint...g. 1 Mariam TP TID 10 Days Reported Paroxetine Hcl 20 Mg Tablet 1 Tab PO DAILY Oxybutynin Chloride 5 Mg Tablet 1 Tab PO BID Omeprazole 20 Mg Capsule.dr 1 Cap PO DAILY Meloxicam 15 Mg Tablet 1 Tab PO DAILY Lumigan (Bimatoprost) 2.5 Ml Drops 1 Drop EACHEYE QHS Lisinopril 40 Mg Tablet 1 Tab PO DAILY Aspirin 81 Mg Tab.chew 1 Tab PO DAILY Amlodipine Besylate 5 Mg Tablet 5 Mg PO DAILY Oyster Shell 500 Mg + Vit D Tb (Calcium Carbonate/Vitamin D3) 1 Each Tablet 1 Each PO DAILY Zyrtec (Cetirizine Hcl) 10 Mg Capsule 10 Mg PO Multi-Vitamin Daily (Multivitamin) 1 Each Tablet 1 Each PO Allergies Allergies: Coded Allergies: No Known Allergies (Verified Allergy, Unknown, 09/08/17) ROS Review of System per HPI , Unable to obtain Hx from pt , baseline dementia Physical Exam Physical Exam GENERAL: does not answer any questions, nonverbal, NAD HEENT: Oral mucosa moist. NECK: Supple. LUNGS: Clear. HEART: S1, S2. ABDOMEN: Soft, nontender, nondistended. GENITOURINARY: No plaza EXTREMITIES: Trace edema, no cyanosis. SKIN No generalized rash. CENTRAL NERVOUS SYSTEM: Alert, nonverbal. Vital Signs Vital Signs Date Time Temp Pulse Resp B/P (MAP) Pulse Ox O2 Delivery O2 Flow Rate FiO2 02/03/19 11:00 98.5 73 18 123/72 (89) 98 Nasal Cannula 2.0 98.5 Assessment & Plan JUNIOR - suspect Pre-renal Hypotensive at presentation Improved and stable renal function Supportive care, avoid nephrotoxins, Monitor UTI - On Abx per ID Supportive care, void nephrotoxins, strict i/o, Monitor , Daily BMP HyperNatremia- suspect pre-renal, Monitor Sepsis. Diabetes mellitus. Anemia. Labs Labs Laboratory Tests Test 02/02/19 13:20 02/02/19 13:38 02/02/19 13:40 02/02/19 16:47 White Blood Count 20.8 x10^3/uL (4.0-11.0) Red Blood Count 5.54 x10^6/uL (3.50-5.40) Hemoglobin 11.3 g/dL (12.0-15.5) Hematocrit 37.2 % (36.0-47.0) Mean Corpuscular Volume 67 fL (79-100) Mean Corpuscular Hemoglobin 20 pg (25-35) Mean Corpuscular Hemoglobin Concent 30 g/dL (31-37) Red Cell Distribution Width 23.0 % (11.5-14.5) Platelet Count 570 x10^3/uL (140-400) Neutrophils (%) (Auto) 91 % (31-73) Lymphocytes (%) (Auto) 6 % (24-48) Monocytes (%) (Auto) 3 % (0-9) Eosinophils (%) (Auto) 1 % (0-3) Basophils (%) (Auto) 0 % (0-3) Neutrophils # (Auto) 18.9 x10^3/uL (1.8-7.7) Lymphocytes # (Auto) 1.2 x10^3/uL (1.0-4.8) Monocytes # (Auto) 0.5 x10^3/uL (0.0-1.1) Eosinophils # (Auto) 0.1 x10^3/uL (0.0-0.7) Basophils # (Auto) 0.1 x10^3/uL (0.0-0.2) Segmented Neutrophils % 85 % (35-66) Band Neutrophils % 6 % (0-9) Lymphocytes % 5 % (24-48) Monocytes % 3 % (0-10) Eosinophils % 1 % (0-5) Platelet Estimate Increased (ADEQUATE) Giant Platelets Occ Hypochromasia Marked Poikilocytosis Mod Anisocytosis Mod Microcytosis Marked Ovalocytes Few Helmet Cells Occ Crenated Cell Present Prothrombin Time 15.3 SEC (11.7-14.0) Prothromb Time International Ratio 1.2 (0.8-1.1) Activated Partial Thromboplast Time 32 SEC (24-38) Fibrinogen 476 mg/dL (200-440) Sodium Level 144 mmol/L (136-145) Potassium Level 4.5 mmol/L (3.5-5.1) Chloride Level 107 mmol/L (98-107) Carbon Dioxide Level 24 mmol/L (21-32) Anion Gap 13 (6-14) Blood Urea Nitrogen 25 mg/dL (7-20) Creatinine 1.4 mg/dL (0.6-1.0) Estimated GFR (Cockcroft-Gault) 37.6 BUN/Creatinine Ratio 18 (6-20) Glucose Level 165 mg/dL (70-99) Lactic Acid Level 3.5 mmol/L (0.4-2.0) Calcium Level 10.0 mg/dL (8.5-10.1) Magnesium Level 2.1 mg/dL (1.8-2.4) Total Bilirubin 0.3 mg/dL (0.2-1.0) Aspartate Amino Transf (AST/SGOT) 25 U/L (15-37) Alanine Aminotransferase (ALT/SGPT) 22 U/L (14-59) Alkaline Phosphatase 96 U/L (46-116) Creatine Kinase 98 U/L (26-192) Creatine Kinase MB (Mass) 1.7 ng/mL (0.0-3.6) Creatine Kinase MB Relative Index 1.7 % (0-4) Troponin I Quantitative < 0.017 ng/mL (0.000-0.055) PR-Qpm-I-Type Natriuretic Peptide 1182 pg/mL (0-124) Total Protein 7.4 g/dL (6.4-8.2) Albumin 3.3 g/dL (3.4-5.0) Albumin/Globulin Ratio 0.8 (1.0-1.7) Procalcitonin 1.56 ng/mL (0.00-0.10) Glucose (Fingerstick) 129 mg/dL (70-99) 186 mg/dL (70-99) Urine Collection Type Unknown Urine Color Yellow Urine Clarity Cloudy Urine pH 5.5 Urine Specific [place] 1.015 Urine Protein 100 mg/dL (NEG-TRACE) Urine Glucose (UA) 100 mg/dL (NEG) Urine Ketones (Stick) Negative mg/dL (NEG) Urine Blood Moderate (NEG) Urine Nitrite Negative (NEG) Urine Bilirubin Negative (NEG) Urine Urobilinogen Dipstick 0.2 mg/dL (0.2 mg/dL) Urine Leukocyte Esterase Large (NEG) Urine RBC 3-5 /HPF (0-2) Urine WBC Tntc /HPF (0-4) Urine Squamous Epithelial Cells Mod /LPF Urine Bacteria Many /HPF (0-FEW) Test 02/02/19 17:30 02/03/19 07:35 02/03/19 08:57 02/03/19 10:40 Lactic Acid Level 0.9 mmol/L (0.4-2.0) White Blood Count 10.9 x10^3/uL (4.0-11.0) Red Blood Count 3.90 x10^6/uL (3.50-5.40) Hemoglobin 8.0 g/dL (12.0-15.5) Hematocrit 25.9 % (36.0-47.0) Mean Corpuscular Volume 67 fL (79-100) Mean Corpuscular Hemoglobin 21 pg (25-35) Mean Corpuscular Hemoglobin Concent 31 g/dL (31-37) Red Cell Distribution Width 22.0 % (11.5-14.5) Platelet Count 347 x10^3/uL (140-400) Neutrophils (%) (Auto) 83 % (31-73) Lymphocytes (%) (Auto) 11 % (24-48) Monocytes (%) (Auto) 5 % (0-9) Eosinophils (%) (Auto) 1 % (0-3) Basophils (%) (Auto) 0 % (0-3) Neutrophils # (Auto) 9.0 x10^3/uL (1.8-7.7) Lymphocytes # (Auto) 1.2 x10^3/uL (1.0-4.8) Monocytes # (Auto) 0.5 x10^3/uL (0.0-1.1) Eosinophils # (Auto) 0.1 x10^3/uL (0.0-0.7) Basophils # (Auto) 0.0 x10^3/uL (0.0-0.2) Sodium Level 147 mmol/L (136-145) Potassium Level 4.0 mmol/L (3.5-5.1) Chloride Level 114 mmol/L (98-107) Carbon Dioxide Level 24 mmol/L (21-32) Anion Gap 9 (6-14) Blood Urea Nitrogen 28 mg/dL (7-20) Creatinine 1.2 mg/dL (0.6-1.0) Estimated GFR (Cockcroft-Gault) 44.9 Glucose Level 77 mg/dL (70-99) Calcium Level 9.0 mg/dL (8.5-10.1) Phosphorus Level 2.5 mg/dL (2.6-4.7) Albumin 2.5 g/dL (3.4-5.0) Glucose (Fingerstick) 71 mg/dL (70-99) 90 mg/dL (70-99) Laboratory Tests Test 02/02/19 13:20 02/02/19 13:38 02/02/19 13:40 02/02/19 16:47 White Blood Count 20.8 x10^3/uL (4.0-11.0) Red Blood Count 5.54 x10^6/uL (3.50-5.40) Hemoglobin 11.3 g/dL (12.0-15.5) Hematocrit 37.2 % (36.0-47.0) Mean Corpuscular Volume 67 fL (79-100) Mean Corpuscular Hemoglobin 20 pg (25-35) Mean Corpuscular Hemoglobin Concent 30 g/dL (31-37) Red Cell Distribution Width 23.0 % (11.5-14.5) Platelet Count 570 x10^3/uL (140-400) Neutrophils (%) (Auto) 91 % (31-73) Lymphocytes (%) (Auto) 6 % (24-48) Monocytes (%) (Auto) 3 % (0-9) Eosinophils (%) (Auto) 1 % (0-3) Basophils (%) (Auto) 0 % (0-3) Neutrophils # (Auto) 18.9 x10^3/uL (1.8-7.7) Lymphocytes # (Auto) 1.2 x10^3/uL (1.0-4.8) Monocytes # (Auto) 0.5 x10^3/uL (0.0-1.1) Eosinophils # (Auto) 0.1 x10^3/uL (0.0-0.7) Basophils # (Auto) 0.1 x10^3/uL (0.0-0.2) Segmented Neutrophils % 85 % (35-66) Band Neutrophils % 6 % (0-9) Lymphocytes % 5 % (24-48) Monocytes % 3 % (0-10) Eosinophils % 1 % (0-5) Platelet Estimate Increased (ADEQUATE) Giant Platelets Occ Hypochromasia Marked Poikilocytosis Mod Anisocytosis Mod Microcytosis Marked Ovalocytes Few Helmet Cells Occ Crenated Cell Present Prothrombin Time 15.3 SEC (11.7-14.0) Prothromb Time International Ratio 1.2 (0.8-1.1) Activated Partial Thromboplast Time 32 SEC (24-38) Fibrinogen 476 mg/dL (200-440) Sodium Level 144 mmol/L (136-145) Potassium Level 4.5 mmol/L (3.5-5.1) Chloride Level 107 mmol/L (98-107) Carbon Dioxide Level 24 mmol/L (21-32) Anion Gap 13 (6-14) Blood Urea Nitrogen 25 mg/dL (7-20) Creatinine 1.4 mg/dL (0.6-1.0) Estimated GFR (Cockcroft-Gault) 37.6 BUN/Creatinine Ratio 18 (6-20) Glucose Level 165 mg/dL (70-99) Lactic Acid Level 3.5 mmol/L (0.4-2.0) Calcium Level 10.0 mg/dL (8.5-10.1) Magnesium Level 2.1 mg/dL (1.8-2.4) Total Bilirubin 0.3 mg/dL (0.2-1.0) Aspartate Amino Transf (AST/SGOT) 25 U/L (15-37) Alanine Aminotransferase (ALT/SGPT) 22 U/L (14-59) Alkaline Phosphatase 96 U/L (46-116) Creatine Kinase 98 U/L (26-192) Creatine Kinase MB (Mass) 1.7 ng/mL (0.0-3.6) Creatine Kinase MB Relative Index 1.7 % (0-4) Troponin I Quantitative < 0.017 ng/mL (0.000-0.055) MP-Xnc-I-Type Natriuretic Peptide 1182 pg/mL (0-124) Total Protein 7.4 g/dL (6.4-8.2) Albumin 3.3 g/dL (3.4-5.0) Albumin/Globulin Ratio 0.8 (1.0-1.7) Procalcitonin 1.56 ng/mL (0.00-0.10) Glucose (Fingerstick) 129 mg/dL (70-99) 186 mg/dL (70-99) Urine Collection Type Unknown Urine Color Yellow Urine Clarity Cloudy Urine pH 5.5 Urine Specific [place] 1.015 Urine Protein 100 mg/dL (NEG-TRACE) Urine Glucose (UA) 100 mg/dL (NEG) Urine Ketones (Stick) Negative mg/dL (NEG) Urine Blood Moderate (NEG) Urine Nitrite Negative (NEG) Urine Bilirubin Negative (NEG) Urine Urobilinogen Dipstick 0.2 mg/dL (0.2 mg/dL) Urine Leukocyte Esterase Large (NEG) Urine RBC 3-5 /HPF (0-2) Urine WBC Tntc /HPF (0-4) Urine Squamous Epithelial Cells Mod /LPF Urine Bacteria Many /HPF (0-FEW) Test 02/02/19 17:30 02/03/19 07:35 02/03/19 08:57 02/03/19 10:40 Lactic Acid Level 0.9 mmol/L (0.4-2.0) White Blood Count 10.9 x10^3/uL (4.0-11.0) Red Blood Count 3.90 x10^6/uL (3.50-5.40) Hemoglobin 8.0 g/dL (12.0-15.5) Hematocrit 25.9 % (36.0-47.0) Mean Corpuscular Volume 67 fL (79-100) Mean Corpuscular Hemoglobin 21 pg (25-35) Mean Corpuscular Hemoglobin Concent 31 g/dL (31-37) Red Cell Distribution Width 22.0 % (11.5-14.5) Platelet Count 347 x10^3/uL (140-400) Neutrophils (%) (Auto) 83 % (31-73) Lymphocytes (%) (Auto) 11 % (24-48) Monocytes (%) (Auto) 5 % (0-9) Eosinophils (%) (Auto) 1 % (0-3) Basophils (%) (Auto) 0 % (0-3) Neutrophils # (Auto) 9.0 x10^3/uL (1.8-7.7) Lymphocytes # (Auto) 1.2 x10^3/uL (1.0-4.8) Monocytes # (Auto) 0.5 x10^3/uL (0.0-1.1) Eosinophils # (Auto) 0.1 x10^3/uL (0.0-0.7) Basophils # (Auto) 0.0 x10^3/uL (0.0-0.2) Sodium Level 147 mmol/L (136-145) Potassium Level 4.0 mmol/L (3.5-5.1) Chloride Level 114 mmol/L (98-107) Carbon Dioxide Level 24 mmol/L (21-32) Anion Gap 9 (6-14) Blood Urea Nitrogen 28 mg/dL (7-20) Creatinine 1.2 mg/dL (0.6-1.0) Estimated GFR (Cockcroft-Gault) 44.9 Glucose Level 77 mg/dL (70-99) Calcium Level 9.0 mg/dL (8.5-10.1) Phosphorus Level 2.5 mg/dL (2.6-4.7) Albumin 2.5 g/dL (3.4-5.0) Glucose (Fingerstick) 71 mg/dL (70-99) 90 mg/dL (70-99) Review All relevant outside records, renal labs, imaging studies, telemetry/EKG's were reviewed. Images Images Cxr-- Low lung volumes eccentric pulmonary vasculature. Interstitial changes at the lung bases may represent subsegmental atelectasis versus infiltrates, left greater than right. KAREN RIDLEY MD Feb 03, 2019 12:24
[2019-02-03 15:00] VITALS: BP 118/60
[2019-02-03] MEDS: ACETAMINOPHEN 325 MG TABLET. PO PRN (15:35)
[2019-02-03] MEDS: ENOXAPARIN 40 MG/0.4 ML SYRINGE. SQ SCH (15:35)
[2019-02-03] MEDS ORDERED: VANCOMYCIN 1 GM in IV NORMAL SALINE 250ML 250 ML IV SCH (16:00)
[2019-02-03 19:00] VITALS: BP 103/44
[2019-02-03] MEDS: LATANOPROST 0.005% OPHTH SOLUTION 2.5ML BOTTLE. OU SCH ×2 (21:00→22:34)
[2019-02-03] MEDS: INSULIN GLARGINE SYRINGE. SQ SCH (21:00)
--- NOTE | 2019-02-03 22:29 | CONS ---
DATE OF CONSULTATION: 02/03/2019 REFERRING PHYSICIAN: Dr. Garrison Herrera. REASON FOR CONSULTATION: UTI. HISTORY OF PRESENT ILLNESS: A 68-year-old female from alf, unable to give history. History obtained from chart and medical staff, was brought to the ER with lethargy, poor p.o. intake and possible sepsis. Her white count was elevated. She was febrile at 100 degrees. Lactate was elevated at 3.5. She received fluid bolus. UA showed pyuria. Chest x-ray was negative for acute infiltrate. She was started on IV vancomycin and Zosyn. ID consult has been requested for antibiotic management. Today, the patient remains afebrile. Per nurse, no fever, chills, nausea, vomiting or diarrhea reported. PAST MEDICAL HISTORY: long term resident, diabetes mellitus, hypertension, hyperlipidemia, anemia, depression, macular degeneration and allergic rhinitis. SOCIAL HISTORY: In a alf. No smoking, no ETOH. PAST SURGICAL HISTORY: G-tube and mastectomy. CURRENT MEDICATIONS: IV vancomycin and Zosyn. Other medications reviewed in medication list. ALLERGIES: No known drug allergies. PHYSICAL EXAMINATION: VITAL SIGNS: Temperature 97.6, T-max 100, pulse 68, respiratory rate 22, blood pressure 119/72, oxygen saturation 96% on 2 liters by nasal cannula. GENERAL: Alert, awake female, does not answer any questions, nonverbal, appears comfortable, in no acute distress. HEENT: Normocephalic, atraumatic, anicteric. No thrush. Oral mucosa moist. NECK: Supple. LUNGS: Clear. HEART: S1, S2. ABDOMEN: Soft, nontender, nondistended. GENITOURINARY: Briefs in place. EXTREMITIES: Trace edema, no cyanosis. Warm, dry. No generalized rash. PIV looks okay. CENTRAL NERVOUS SYSTEM: Alert, nonverbal. LABORATORY DATA: WBC 20.8, now has decreased; hemoglobin 11.3; hematocrit 37.2. Lactate 3.5, creatinine 1.4. Troponin normal. BNP 1182. UA shows large leukocyte esterase, wbc too numerous to count. IMAGING: Chest x-ray shows low lung volume eccentric pulmonary vasculature interstitial changes at the lung base, may represent subsegmental atelectasis versus infiltrates, left greater than right. IMPRESSION: 1. Sepsis. 2. Urinary tract infection. 3. Diabetes mellitus. 4. Acute kidney injury. 5. Anemia. 6. History of Escherichia coli urinary tract infection. 7. Atelectasis RECOMMENDATIONS: 1. Discontinue IV vancomycin due to JUNIOR. 2. Continue Zosyn for now. 3. Follow up urine cultures and labs in a.m. 4. Continue supportive care. Thank you, Dr. Herrera for consulting Infectious Disease to participate in this patient's care. If you have any questions, do not hesitate to contact me. SOLE BROWNING MD DR: ONOFRE/magalis JOB#: [id number] / [id number] YOGI
--- NOTE | 2019-02-03 22:49 | NUR ---
Patient's current blood sugar 89. 15 units of lantus scheduled for 2100. Dr. Whittaker pagecamden regarding adjusting dose, received orders to not administer and re-check in morning. Will continue to monitor patient.
[2019-02-03 23:44] VITALS: BP 101/48
[2019-02-04] MEDS: PIPERACILLIN/TAZOBACTAM 3.375 GM in IV NORMAL SALINE 50ML 50 ML IV SCH ×4 (03:06→20:54)
[2019-02-04 03:39] VITALS: BP 114/57
[2019-02-04 05:08] LABS: BASO % 0 % (0-3); EOS # 0.2 x10^3/uL (0.0-0.7); EOS % 3 % (0-3); HEMATOCRIT 24.7 % (36.0-47.0); HEMOGLOBIN 7.6 g/dL (12.0-15.5); LYMPH # 1.5 x10^3/uL (1.0-4.8); LYMPH % 17 % (24-48); MEAN CORPUSCULAR HEMOGLOBIN 21 pg (25-35); MEAN CORPUSCULAR HGB CONC 31 g/dL (31-37); MEAN CORPUSCULAR VOLUME 67 fL (79-100); MONO # 0.5 x10^3/uL (0.0-1.1); MONO % 5 % (0-9); NEUT # 6.9 x10^3/uL (1.8-7.7); NEUT % 75 % (31-73); PLATELET COUNT 282 x10^3/uL (140-400); RED CELL DISTRIBUTION WIDTH 22.1 % (11.5-14.5); WHITE BLOOD COUNT 9.1 x10^3/uL (4.0-11.0)
[2019-02-04 05:39] LABS: ALBUMIN 2.4 g/dL (3.4-5.0); ALBUMIN/GLOBULIN RATIO 0.8 (1.0-1.7); CALCIUM 9.3 mg/dL (8.5-10.1); CREATININE 1.2 mg/dL (0.6-1.0); GFR 44.9; POTASSIUM 3.8 mmol/L (3.5-5.1); TOTAL BILIRUBIN 0.2 mg/dL (0.2-1.0); TOTAL PROTEIN 5.6 g/dL (6.4-8.2)
[2019-02-04 07:00] VITALS: BP 136/77
[2019-02-04] MEDS: INSULIN LISPRO 300 UNITS/3 ML VIAL. SQ SCH (07:30)
[2019-02-04] MEDS ORDERED: IRON SUCROSE COMPLEX 200 MG in IV NORMAL SALINE 100ML 100 ML IV ONE (08:00)
--- NOTE | 2019-02-04 09:15 | PDOC ---
PROGRESS NOTES Chief Complaint Chief Complaint A/P: UTI SEPSIS JUNIOR, VASOMOTOR NEPHROPATHY ON CXR Interstitial changes at the lung bases may represent subsegmental atelectasis versus infiltrates, left greater than right.POSSIBLE PNEUMONIA Mental delay from shelter Diabetes type 2 on insulin-unknown hematoma A1c Hypertension HLP on meds ANEMIA, MAY BE DILUTIONAL PLAN ADMIT IV ANTIBIOTICS, VANC, ZOSYN ID CONSULT IV FLUID SUPPORT DVT PROPHYLAXIS ACCUCHECKS GUIAC STOOLS CBC IN AM 02/04 37 MIN PT EXAM, CHART REVIEW, > 50% OF TIME SPENT WITH EXAM, CHART REVIEW, PT CARE COORDINATION History of Present Illness History of Present Illness Ms Boyer is a 68 yo F w/ PMHx DM, HTN, HLD, anemia, depression, macular degeneration from [facility] shelter, unable to give history. History obtained from chart and medical staff, was brought to the ER with lethargy, poor p.o. intake and possible sepsis. Her white count was elevated. Lactate was elevated at 3.5. She received fluid bolus. UA showed pyuria. Chest x-ray was negative for acute infiltrate. She was started on IV vancomycin and Zosyn. ID consult has been requested for antibiotic management. Today, the patient remains afebrile. Per nurse, no fever, chills, nausea, vomiting or diarrhea reported. She is smiling, has stuffed animals bedside. Does not follow many commands. Afebrile. Family has asked for podiatry care. Vitals Vitals Vital Signs Date Time Temp Pulse Resp B/P (MAP) Pulse Ox O2 Delivery O2 Flow Rate FiO2 02/04/19 07:00 98.2 66 20 136/77 (96) 99 Nasal Cannula 2.0 98.2 Physical Exam General: Alert, Cooperative, mild distress Heart: Regular rate Lungs: Clear Abdomen: Normal bowel sounds, Soft Extremities: No cyanosis Labs LABS Laboratory Tests Test 02/03/19 10:40 02/03/19 16:42 02/03/19 20:55 02/03/19 22:40 Glucose (Fingerstick) 90 mg/dL (70-99) 107 mg/dL (70-99) 100 mg/dL (70-99) 89 mg/dL (70-99) Test 02/04/19 03:55 02/04/19 06:55 02/04/19 07:22 White Blood Count 9.1 x10^3/uL (4.0-11.0) Red Blood Count 3.70 x10^6/uL (3.50-5.40) Hemoglobin 7.6 g/dL (12.0-15.5) Hematocrit 24.7 % (36.0-47.0) Mean Corpuscular Volume 67 fL (79-100) Mean Corpuscular Hemoglobin 21 pg (25-35) Mean Corpuscular Hemoglobin Concent 31 g/dL (31-37) Red Cell Distribution Width 22.1 % (11.5-14.5) Platelet Count 282 x10^3/uL (140-400) Neutrophils (%) (Auto) 75 % (31-73) Lymphocytes (%) (Auto) 17 % (24-48) Monocytes (%) (Auto) 5 % (0-9) Eosinophils (%) (Auto) 3 % (0-3) Basophils (%) (Auto) 0 % (0-3) Neutrophils # (Auto) 6.9 x10^3/uL (1.8-7.7) Lymphocytes # (Auto) 1.5 x10^3/uL (1.0-4.8) Monocytes # (Auto) 0.5 x10^3/uL (0.0-1.1) Eosinophils # (Auto) 0.2 x10^3/uL (0.0-0.7) Basophils # (Auto) 0.0 x10^3/uL (0.0-0.2) Sodium Level 146 mmol/L (136-145) Potassium Level 3.8 mmol/L (3.5-5.1) Chloride Level 114 mmol/L (98-107) Carbon Dioxide Level 22 mmol/L (21-32) Anion Gap 10 (6-14) Blood Urea Nitrogen 24 mg/dL (7-20) Creatinine 1.2 mg/dL (0.6-1.0) Estimated GFR (Cockcroft-Gault) 44.9 BUN/Creatinine Ratio 20 (6-20) Glucose Level 72 mg/dL (70-99) Calcium Level 9.3 mg/dL (8.5-10.1) Total Bilirubin 0.2 mg/dL (0.2-1.0) Aspartate Amino Transf (AST/SGOT) 21 U/L (15-37) Alanine Aminotransferase (ALT/SGPT) 9 U/L (14-59) Alkaline Phosphatase 62 U/L (46-116) Total Protein 5.6 g/dL (6.4-8.2) Albumin 2.4 g/dL (3.4-5.0) Albumin/Globulin Ratio 0.8 (1.0-1.7) Iron Level 12 ug/dL (50-170) Total Iron Binding Capacity 209 ug/dL (250-450) Iron Saturation 6 % (15-34) Glucose (Fingerstick) 70 mg/dL (70-99) Assessment and Plan Assessmemt and Plan Problems Medical Problems: (1) Hypotension Status: Acute (2) Leukocytosis, unspecified Status: Acute (3) Sepsis Status: Acute (4) Urinary tract infection Status: Acute Comment Review of Relevant I have reviewed the following items wojciech (where applicable) has been applied. Labs Laboratory Tests Test 02/02/19 13:20 02/02/19 13:38 02/02/19 13:40 02/02/19 16:47 White Blood Count 20.8 x10^3/uL (4.0-11.0) Red Blood Count 5.54 x10^6/uL (3.50-5.40) Hemoglobin 11.3 g/dL (12.0-15.5) Hematocrit 37.2 % (36.0-47.0) Mean Corpuscular Volume 67 fL (79-100) Mean Corpuscular Hemoglobin 20 pg (25-35) Mean Corpuscular Hemoglobin Concent 30 g/dL (31-37) Red Cell Distribution Width 23.0 % (11.5-14.5) Platelet Count 570 x10^3/uL (140-400) Neutrophils (%) (Auto) 91 % (31-73) Lymphocytes (%) (Auto) 6 % (24-48) Monocytes (%) (Auto) 3 % (0-9) Eosinophils (%) (Auto) 1 % (0-3) Basophils (%) (Auto) 0 % (0-3) Neutrophils # (Auto) 18.9 x10^3/uL (1.8-7.7) Lymphocytes # (Auto) 1.2 x10^3/uL (1.0-4.8) Monocytes # (Auto) 0.5 x10^3/uL (0.0-1.1) Eosinophils # (Auto) 0.1 x10^3/uL (0.0-0.7) Basophils # (Auto) 0.1 x10^3/uL (0.0-0.2) Segmented Neutrophils % 85 % (35-66) Band Neutrophils % 6 % (0-9) Lymphocytes % 5 % (24-48) Monocytes % 3 % (0-10) Eosinophils % 1 % (0-5) Platelet Estimate Increased (ADEQUATE) Giant Platelets Occ Hypochromasia Marked Poikilocytosis Mod Anisocytosis Mod Microcytosis Marked Ovalocytes Few Helmet Cells Occ Crenated Cell Present Prothrombin Time 15.3 SEC (11.7-14.0) Prothromb Time International Ratio 1.2 (0.8-1.1) Activated Partial Thromboplast Time 32 SEC (24-38) Fibrinogen 476 mg/dL (200-440) Sodium Level 144 mmol/L (136-145) Potassium Level 4.5 mmol/L (3.5-5.1) Chloride Level 107 mmol/L (98-107) Carbon Dioxide Level 24 mmol/L (21-32) Anion Gap 13 (6-14) Blood Urea Nitrogen 25 mg/dL (7-20) Creatinine 1.4 mg/dL (0.6-1.0) Estimated GFR (Cockcroft-Gault) 37.6 BUN/Creatinine Ratio 18 (6-20) Glucose Level 165 mg/dL (70-99) Lactic Acid Level 3.5 mmol/L (0.4-2.0) Calcium Level 10.0 mg/dL (8.5-10.1) Magnesium Level 2.1 mg/dL (1.8-2.4) Total Bilirubin 0.3 mg/dL (0.2-1.0) Aspartate Amino Transf (AST/SGOT) 25 U/L (15-37) Alanine Aminotransferase (ALT/SGPT) 22 U/L (14-59) Alkaline Phosphatase 96 U/L (46-116) Creatine Kinase 98 U/L (26-192) Creatine Kinase MB (Mass) 1.7 ng/mL (0.0-3.6) Creatine Kinase MB Relative Index 1.7 % (0-4) Troponin I Quantitative < 0.017 ng/mL (0.000-0.055) CR-Wfl-M-Type Natriuretic Peptide 1182 pg/mL (0-124) Total Protein 7.4 g/dL (6.4-8.2) Albumin 3.3 g/dL (3.4-5.0) Albumin/Globulin Ratio 0.8 (1.0-1.7) Procalcitonin 1.56 ng/mL (0.00-0.10) Glucose (Fingerstick) 129 mg/dL (70-99) 186 mg/dL (70-99) Urine Collection Type Unknown Urine Color Yellow Urine Clarity Cloudy Urine pH 5.5 Urine Specific [place] 1.015 Urine Protein 100 mg/dL (NEG-TRACE) Urine Glucose (UA) 100 mg/dL (NEG) Urine Ketones (Stick) Negative mg/dL (NEG) Urine Blood Moderate (NEG) Urine Nitrite Negative (NEG) Urine Bilirubin Negative (NEG) Urine Urobilinogen Dipstick 0.2 mg/dL (0.2 mg/dL) Urine Leukocyte Esterase Large (NEG) Urine RBC 3-5 /HPF (0-2) Urine WBC Tntc /HPF (0-4) Urine Squamous Epithelial Cells Mod /LPF Urine Bacteria Many /HPF (0-FEW) Test 02/02/19 17:30 02/03/19 07:35 02/03/19 08:57 02/03/19 10:40 Lactic Acid Level 0.9 mmol/L (0.4-2.0) White Blood Count 10.9 x10^3/uL (4.0-11.0) Red Blood Count 3.90 x10^6/uL (3.50-5.40) Hemoglobin 8.0 g/dL (12.0-15.5) Hematocrit 25.9 % (36.0-47.0) Mean Corpuscular Volume 67 fL (79-100) Mean Corpuscular Hemoglobin 21 pg (25-35) Mean Corpuscular Hemoglobin Concent 31 g/dL (31-37) Red Cell Distribution Width 22.0 % (11.5-14.5) Platelet Count 347 x10^3/uL (140-400) Neutrophils (%) (Auto) 83 % (31-73) Lymphocytes (%) (Auto) 11 % (24-48) Monocytes (%) (Auto) 5 % (0-9) Eosinophils (%) (Auto) 1 % (0-3) Basophils (%) (Auto) 0 % (0-3) Neutrophils # (Auto) 9.0 x10^3/uL (1.8-7.7) Lymphocytes # (Auto) 1.2 x10^3/uL (1.0-4.8) Monocytes # (Auto) 0.5 x10^3/uL (0.0-1.1) Eosinophils # (Auto) 0.1 x10^3/uL (0.0-0.7) Basophils # (Auto) 0.0 x10^3/uL (0.0-0.2) Sodium Level 147 mmol/L (136-145) Potassium Level 4.0 mmol/L (3.5-5.1) Chloride Level 114 mmol/L (98-107) Carbon Dioxide Level 24 mmol/L (21-32) Anion Gap 9 (6-14) Blood Urea Nitrogen 28 mg/dL (7-20) Creatinine 1.2 mg/dL (0.6-1.0) Estimated GFR (Cockcroft-Gault) 44.9 Glucose Level 77 mg/dL (70-99) Calcium Level 9.0 mg/dL (8.5-10.1) Phosphorus Level 2.5 mg/dL (2.6-4.7) Albumin 2.5 g/dL (3.4-5.0) Glucose (Fingerstick) 71 mg/dL (70-99) 90 mg/dL (70-99) Test 02/03/19 16:42 02/03/19 20:55 02/03/19 22:40 02/04/19 03:55 Glucose (Fingerstick) 107 mg/dL (70-99) 100 mg/dL (70-99) 89 mg/dL (70-99) White Blood Count 9.1 x10^3/uL (4.0-11.0) Red Blood Count 3.70 x10^6/uL (3.50-5.40) Hemoglobin 7.6 g/dL (12.0-15.5) Hematocrit 24.7 % (36.0-47.0) Mean Corpuscular Volume 67 fL (79-100) Mean Corpuscular Hemoglobin 21 pg (25-35) Mean Corpuscular Hemoglobin Concent 31 g/dL (31-37) Red Cell Distribution Width 22.1 % (11.5-14.5) Platelet Count 282 x10^3/uL (140-400) Neutrophils (%) (Auto) 75 % (31-73) Lymphocytes (%) (Auto) 17 % (24-48) Monocytes (%) (Auto) 5 % (0-9) Eosinophils (%) (Auto) 3 % (0-3) Basophils (%) (Auto) 0 % (0-3) Neutrophils # (Auto) 6.9 x10^3/uL (1.8-7.7) Lymphocytes # (Auto) 1.5 x10^3/uL (1.0-4.8) Monocytes # (Auto) 0.5 x10^3/uL (0.0-1.1) Eosinophils # (Auto) 0.2 x10^3/uL (0.0-0.7) Basophils # (Auto) 0.0 x10^3/uL (0.0-0.2) Sodium Level 146 mmol/L (136-145) Potassium Level 3.8 mmol/L (3.5-5.1) Chloride Level 114 mmol/L (98-107) Carbon Dioxide Level 22 mmol/L (21-32) Anion Gap 10 (6-14) Blood Urea Nitrogen 24 mg/dL (7-20) Creatinine 1.2 mg/dL (0.6-1.0) Estimated GFR (Cockcroft-Gault) 44.9 BUN/Creatinine Ratio 20 (6-20) Glucose Level 72 mg/dL (70-99) Calcium Level 9.3 mg/dL (8.5-10.1) Total Bilirubin 0.2 mg/dL (0.2-1.0) Aspartate Amino Transf (AST/SGOT) 21 U/L (15-37) Alanine Aminotransferase (ALT/SGPT) 9 U/L (14-59) Alkaline Phosphatase 62 U/L (46-116) Total Protein 5.6 g/dL (6.4-8.2) Albumin 2.4 g/dL (3.4-5.0) Albumin/Globulin Ratio 0.8 (1.0-1.7) Test 02/04/19 06:55 02/04/19 07:22 Iron Level 12 ug/dL (50-170) Total Iron Binding Capacity 209 ug/dL (250-450) Iron Saturation 6 % (15-34) Glucose (Fingerstick) 70 mg/dL (70-99) Laboratory Tests Test 02/03/19 10:40 02/03/19 16:42 02/03/19 20:55 02/03/19 22:40 Glucose (Fingerstick) 90 mg/dL (70-99) 107 mg/dL (70-99) 100 mg/dL (70-99) 89 mg/dL (70-99) Test 02/04/19 03:55 02/04/19 06:55 02/04/19 07:22 White Blood Count 9.1 x10^3/uL (4.0-11.0) Red Blood Count 3.70 x10^6/uL (3.50-5.40) Hemoglobin 7.6 g/dL (12.0-15.5) Hematocrit 24.7 % (36.0-47.0) Mean Corpuscular Volume 67 fL (79-100) Mean Corpuscular Hemoglobin 21 pg (25-35) Mean Corpuscular Hemoglobin Concent 31 g/dL (31-37) Red Cell Distribution Width 22.1 % (11.5-14.5) Platelet Count 282 x10^3/uL (140-400) Neutrophils (%) (Auto) 75 % (31-73) Lymphocytes (%) (Auto) 17 % (24-48) Monocytes (%) (Auto) 5 % (0-9) Eosinophils (%) (Auto) 3 % (0-3) Basophils (%) (Auto) 0 % (0-3) Neutrophils # (Auto) 6.9 x10^3/uL (1.8-7.7) Lymphocytes # (Auto) 1.5 x10^3/uL (1.0-4.8) Monocytes # (Auto) 0.5 x10^3/uL (0.0-1.1) Eosinophils # (Auto) 0.2 x10^3/uL (0.0-0.7) Basophils # (Auto) 0.0 x10^3/uL (0.0-0.2) Sodium Level 146 mmol/L (136-145) Potassium Level 3.8 mmol/L (3.5-5.1) Chloride Level 114 mmol/L (98-107) Carbon Dioxide Level 22 mmol/L (21-32) Anion Gap 10 (6-14) Blood Urea Nitrogen 24 mg/dL (7-20) Creatinine 1.2 mg/dL (0.6-1.0) Estimated GFR (Cockcroft-Gault) 44.9 BUN/Creatinine Ratio 20 (6-20) Glucose Level 72 mg/dL (70-99) Calcium Level 9.3 mg/dL (8.5-10.1) Total Bilirubin 0.2 mg/dL (0.2-1.0) Aspartate Amino Transf (AST/SGOT) 21 U/L (15-37) Alanine Aminotransferase (ALT/SGPT) 9 U/L (14-59) Alkaline Phosphatase 62 U/L (46-116) Total Protein 5.6 g/dL (6.4-8.2) Albumin 2.4 g/dL (3.4-5.0) Albumin/Globulin Ratio 0.8 (1.0-1.7) Iron Level 12 ug/dL (50-170) Total Iron Binding Capacity 209 ug/dL (250-450) Iron Saturation 6 % (15-34) Glucose (Fingerstick) 70 mg/dL (70-99) Microbiology 02/02/19 Blood Culture - Preliminary, Resulted NO GROWTH AFTER 1 DAY Medications Current Medications Sodium Chloride 1,000 ml @ 1,000 mls/hr 1X ONCE IV Last administered on 02/02/19at 13:25; Start 02/02/19 at 12:45; Stop 02/02/19 at 13:44; Status DC Sodium Chloride 1,000 ml @ 1,000 mls/hr 1X ONCE IV Last administered on 02/02/19at 14:56; Start 02/02/19 at 14:30; Stop 02/02/19 at 15:29; Status DC Piperacillin Sod/ Tazobactam Sod 3.375 gm/Sodium Chloride 50 ml @ 100 mls/hr 1X ONCE IV Last administered on 02/02/19at 14:56; Start 02/02/19 at 14:30; Stop 02/02/19 at 14:59; Status DC Vancomycin HCl (Vanco Per Pharmacy) 1 each PRN DAILY PRN MC SEE COMMENTS Last administered on 02/02/19at 16:49; Start 02/02/19 at 14:30; Stop 02/03/19 at 12:07; Status DC Vancomycin HCl 1.25 gm/Sodium Chloride 250 ml @ 166.667 mls/hr 1X ONCE IV Last administered on 02/02/19at 16:14; Start 02/02/19 at 15:00; Stop 02/02/19 at 16:29; Status DC Sodium Chloride (Normal Saline Flush) 3 ml QSHIFT PRN IV AFTER MEDS AND BLOOD DRAWS; Start 02/02/19 at 16:00 Sodium Chloride 1,000 ml @ 100 mls/hr Q10H IV Last administered on 02/03/19at 15:32; Start 02/02/19 at 15:46 Ondansetron HCl (Zofran) 4 mg PRN Q4HRS PRN IV NAUSEA/VOMITING; Start 02/02/19 at 16:00 Acetaminophen (Tylenol) 650 mg PRN Q4HRS PRN PO TEMP OVER 100.4F OR MILD PAIN Last administered on 02/03/19at 15:35; Start 02/02/19 at 16:00 Al Hydroxide/Mg Hydroxide (Mylanta Plus Xs) 30 ml PRN DAILY PRN PO HEARTBURN / GAS; Start 02/02/19 at 16:00 Clonidine HCl (Catapres) 0.1 mg PRN Q6HRS PRN PO SBP>160 OR DBP>90; Start 02/02/19 at 16:00 Docusate Sodium (Colace) 100 mg PRN BID PRN PO CONSTIPATION; Start 02/02/19 at 16:00 Albuterol Sulfate (Ventolin Neb Soln) 2.5 mg PRN Q4HRS PRN NEB SHORTNESS OF BREATH; Start 02/02/19 at 16:00 Guaifenesin (Robitussin) 200 mg PRN Q4HRS PRN PO COUGH; Start 02/02/19 at 16:00 Lorazepam (Ativan) 0.5 mg PRN Q4HRS PRN PO ANXIETY / AGITATION; Start 02/02/19 at 16:00 Hydromorphone HCl (Dilaudid) 0.5 mg PRN Q2HRS PRN IV SEVERE PAIN 7-10; Start 02/02/19 at 16:00 Enoxaparin Sodium (Lovenox 40mg Syringe) 40 mg DAILY SQ Last administered on 02/03/19at 15:35; Start 02/03/19 at 09:00 Piperacillin Sod/ Tazobactam Sod 3.375 gm/Sodium Chloride 50 ml @ 100 mls/hr Q6H IV Last administered on 02/04/19at 03:06; Start 02/02/19 at 20:00 Sodium Chloride 1,000 ml @ 1,500 mls/hr Q40M IV Last administered on 02/02/19at 16:28; Start 02/02/19 at 15:48; Stop 02/02/19 at 16:49; Status DC Sodium Chloride 500 ml @ 1,000 mls/hr PRN Q30MIN PRN IV SEE COMMENTS; Start 02/02/19 at 16:00 Norepinephrine Bitartrate 8 mg/ Dextrose 258 ml @ 0 mls/hr CONT PRN IV SEE I/O RECORD; Start 02/02/19 at 16:00; Status UNV Amlodipine Besylate (Norvasc) 5 mg DAILY PO Last administered on 02/03/19 08:56; Start 02/03/19 at 09:00 Aspirin (Children'S Aspirin) 81 mg DAILY PO Last administered on 02/03/19 08:56; Start 02/03/19 at 09:00 Calcium/Vitamin D (Oscal D 500mg/ 200uts) 1 tab DAILY PO Last administered on 02/03/19 08:56; Start 02/03/19 at 09:00 Insulin Human Lispro (HumaLOG) 5 units TIDAC SQ Last administered on 02/03/19at 18:06; Start 02/02/19 at 16:30 Nystatin (Mycostatin) 1 mariam TID TP Last administered on 02/03/19at 22:34; Start 02/02/19 at 21:00 Oxybutynin Chloride (Ditropan) 5 mg BID PO Last administered on 02/03/19 22:34; Start 02/02/19 at 21:00 Paroxetine HCl (Paxil) 20 mg DAILY PO Last administered on 02/03/19 08:57; Start 02/03/19 at 09:00 Latanoprost (Xalatan) 1 drop QHS OU Last administered on 02/03/19at 21:00; Start 02/02/19 at 21:00 Insulin Glargine (Lantus Syringe) 15 unit QHS SQ Last administered on 02/02/19at 20:55; Start 02/02/19 at 21:00 Pantoprazole Sodium (Protonix) 40 mg DAILYAC PO Last administered on 02/03/19at 08:56; Start 02/03/19 at 07:30 Cetirizine HCl (ZyrTEC) 10 mg DAILY PO Last administered on 02/03/19at 08:56; Start 02/03/19 at 09:00 Ondansetron HCl (Zofran) 4 mg PRN Q8HRS PRN IV NAUSEA/VOMITING; Start 02/02/19 at 16:00; Stop 02/03/19 at 12:37; Status DC Sodium Chloride 1,000 ml @ 125 mls/hr 1X ONCE IV ; Start 02/02/19 at 16:00; Stop 02/02/19 at 23:59; Status UNV Vancomycin HCl 1 gm/Sodium Chloride 250 ml @ 250 mls/hr Q24H IV ; Start 02/03/19 at 16:00; Stop 02/03/19 at 12:07; Status DC Iron Sucrose 200 mg/Sodium Chloride 110 ml @ 55 mls/hr 1X ONCE IV ; Start 02/04/19 at 08:00; Stop 02/04/19 at 09:59 Active Scripts Active Humalog (Insulin Lispro) 100 Unit/1 Ml Insuln.pen 5 Units SQ TIDAC 30 Days Lantus Solostar (Insulin Glargine,Hum.rec.anlog) 100 Unit/1 Ml Insuln.pen 15 Units SQ QHS 30 Days Cephalexin 250 Mg Capsule 500 Mg PO QID 3 Days Nystatin 15 Gm Oint...g. 1 Mariam TP TID 10 Days Reported Paroxetine Hcl 20 Mg Tablet 1 Tab PO DAILY Oxybutynin Chloride 5 Mg Tablet 1 Tab PO BID Omeprazole 20 Mg Capsule.dr 1 Cap PO DAILY Meloxicam 15 Mg Tablet 1 Tab PO DAILY Lumigan (Bimatoprost) 2.5 Ml Drops 1 Drop EACHEYE QHS Lisinopril 40 Mg Tablet 1 Tab PO DAILY Aspirin 81 Mg Tab.chew 1 Tab PO DAILY Amlodipine Besylate 5 Mg Tablet 5 Mg PO DAILY Oyster Shell 500 Mg + Vit D Tb (Calcium Carbonate/Vitamin D3) 1 Each Tablet 1 Each PO DAILY Zyrtec (Cetirizine Hcl) 10 Mg Capsule 10 Mg PO Multi-Vitamin Daily (Multivitamin) 1 Each Tablet 1 Each PO Vitals/I & O Vital Sign - Last 24 Hours 02/03/19 02/03/19 02/03/19 02/03/19 11:00 15:00 19:00 20:10 Temp 98.5 99.2 98.3 98.5 99.2 98.3 Pulse 73 67 63 Resp 18 18 16 B/P (MAP) 123/72 (89) 118/60 (79) 103/44 (63) Pulse Ox 98 98 98 O2 Delivery Nasal Cannula Nasal Cannula Nasal Cannula Nasal Cannula O2 Flow Rate 2.0 2.0 2.5 2.0 02/03/19 02/04/19 02/04/19 23:44 03:39 07:00 Temp 98.5 97.7 98.2 98.5 97.7 98.2 Pulse 58 57 66 Resp 16 16 20 B/P (MAP) 101/48 (65) 114/57 (76) 136/77 (96) Pulse Ox 99 99 99 O2 Delivery Nasal Cannula Nasal Cannula Nasal Cannula O2 Flow Rate 2.0 2.0 2.0 Intake and Output 02/03/19 02/03/19 02/04/19 14:59 22:59 06:59 Intake Total 0 ml 0 ml Balance 0 ml 0 ml PARISH CURTIS MD Feb 04, 2019 09:15
[2019-02-04] MEDS: PARoxetine 20 MG TABLET PO SCH (09:20)
[2019-02-04] MEDS: PANTOPRAZOLE 40 MG TABLET.DR. PO SCH (09:20)
[2019-02-04] MEDS: OXYBUTYNIN CHLORIDE 5 MG TABLET PO SCH ×2 (09:20→20:53)
[2019-02-04] MEDS: ASPIRIN CHEWABLE 81 MG TABLET. PO SCH (09:20)
[2019-02-04] MEDS: CALCIUM CARB/VIT D3 500/200 TABLET. PO SCH (09:20)
[2019-02-04] MEDS: CETIRIZINE HCL 10 MG TABLET. PO SCH (09:21)
[2019-02-04] MEDS: amLODIPine BESYLATE 5 MG TABLET PO SCH (09:21)
--- NOTE | 2019-02-04 10:30 | NUR ---
Wound care: Patient seen per wound care consult. See wound assessment. Patient has a dehisced surgical incision. Wound is cleansed, assessed, measured, and pictured. Recommendations for Acticoat as the wound appears hypergranulated and cover with foam dressing. Dressing applied. There are no other wounds noted upon complete head to toe assessment. Coccyx is reddened but remains blanchable, calazime applied for prevention only. Dressing change instructions left in room as well as extra Acticoat for next dressing changes. Patient educated on dressing changes and turning to prevent pressure ulcers. Bed lowered and call light in reach. Will follow up with patient regarding wound care on 02/11/19.
[2019-02-04] MEDS: NYSTATIN 100,000 UNIT/GM TOPICAL OINTMENT 15GM TUBE. TP SCH ×3 (10:47→20:55)
[2019-02-04] MEDS: IV NORMAL SALINE 1000ML BAG 1,000 ML IV SCH ×2 (10:48→20:53)
[2019-02-04] MEDS: ENOXAPARIN 40 MG/0.4 ML SYRINGE. SQ SCH (10:48)
[2019-02-04 11:00] VITALS: BP 138/72
--- NOTE | 2019-02-04 11:16 | NUR ---
Bedside Swallow Evaluation completed. Please refer to full report for additional information. Impressions: Mild oropharyngeal dysphagia w/ decreased retrial and anterior spillage when drinking from a cup. Oral residue w/ puree and solids that were effectively managed w/ liquid wash. While pt was w/o s/s aspiration during evaluation across all consistencies at evaluation some risk is present and pt would benefit from modified diet, swallow precautions and assist during meal. Recommendations: Dysphagia II diet w/ thin liquids, swallow precautions, ST f/u for dysphagia per POC.
--- NOTE | 2019-02-04 11:54 | PDOC ---
Infectious Disease Note Subjective: Subjective Pt resting comfortably no fevers no chills no n/v/d d/w rn Vital Signs: Vital Signs Vital Signs Date Time Temp Pulse Resp B/P (MAP) Pulse Ox O2 Delivery O2 Flow Rate FiO2 02/04/19 09:21 66 136/77 02/04/19 07:00 98.2 20 99 Nasal Cannula 2.0 98.2 Physical Exam: PHYSICAL EXAM GENERAL: sleepy but arousable, noncommunicative comfortable, in no acute distress. HEENT: Normocephalic, atraumatic, anicteric. No thrush. Oral mucosa moist. NECK: Supple. LUNGS: Clear. HEART: S1, S2. ABDOMEN: Soft, nontender, nondistended. GENITOURINARY: Briefs in place. EXTREMITIES: Trace edema, no cyanosis. Warm, dry. No generalized rash. PIV looks okay. CENTRAL NERVOUS SYSTEM: Alert, nonverbal. Medications: Inpatient Meds: Current Medications Medications (Trade) Dose Ordered Sig/Rolando Start Time Stop Time Status Last Admin Dose Admin Acetaminophen (Tylenol) 650 mg PRN Q4HRS PRN 02/02/19 16:00 02/03/19 15:35 650 MG Al Hydroxide/Mg Hydroxide (Mylanta Plus Xs) 30 ml PRN DAILY PRN 02/02/19 16:00 Albuterol Sulfate (Ventolin Neb Soln) 2.5 mg PRN Q4HRS PRN 02/02/19 16:00 Amlodipine Besylate (Norvasc) 5 mg DAILY 02/03/19 09:00 02/04/19 09:21 5 MG Aspirin (Children'S Aspirin) 81 mg DAILY 02/03/19 09:00 02/04/19 09:20 81 MG Calcium/Vitamin D (Oscal D 500mg/ 200uts) 1 tab DAILY 02/03/19 09:00 02/04/19 09:20 1 TAB Cetirizine HCl (ZyrTEC) 10 mg DAILY 02/03/19 09:00 02/04/19 09:21 10 MG Clonidine HCl (Catapres) 0.1 mg PRN Q6HRS PRN 02/02/19 16:00 Docusate Sodium (Colace) 100 mg PRN BID PRN 02/02/19 16:00 Enoxaparin Sodium (Lovenox 40mg Syringe) 40 mg DAILY 02/03/19 09:00 02/03/19 15:35 40 MG Guaifenesin (Robitussin) 200 mg PRN Q4HRS PRN 02/02/19 16:00 Hydromorphone HCl (Dilaudid) 0.5 mg PRN Q2HRS PRN 02/02/19 16:00 Insulin Glargine (Lantus Syringe) 15 unit QHS 02/02/19 21:00 02/02/19 20:55 15 UNIT Insulin Human Lispro (HumaLOG) 5 units TIDAC 02/02/19 16:30 02/03/19 18:06 5 UNITS Iron Sucrose 200 mg/Sodium Chloride 110 ml @ 55 mls/hr 1X ONCE 02/04/19 08:00 02/04/19 09:59 DC 02/04/19 10:48 55 MLS/HR Latanoprost (Xalatan) 1 drop QHS 02/02/19 21:00 02/03/19 21:00 1 DROP Lorazepam (Ativan) 0.5 mg PRN Q4HRS PRN 02/02/19 16:00 Norepinephrine Bitartrate 8 mg/ Dextrose 258 ml @ 0 mls/hr CONT PRN 02/02/19 16:00 UNV Nystatin (Mycostatin) 1 srinivasa TID 02/02/19 21:00 02/04/19 10:47 1 SRINIVASA Ondansetron HCl (Zofran) 4 mg PRN Q8HRS PRN 02/02/19 16:00 02/03/19 12:37 DC Oxybutynin Chloride (Ditropan) 5 mg BID 02/02/19 21:00 02/04/19 09:20 5 MG Pantoprazole Sodium (Protonix) 40 mg DAILYAC 02/03/19 07:30 02/04/19 09:20 40 MG Paroxetine HCl (Paxil) 20 mg DAILY 02/03/19 09:00 02/04/19 09:20 20 MG Piperacillin Sod/ Tazobactam Sod 3.375 gm/Sodium Chloride 50 ml @ 100 mls/hr Q6H 02/02/19 20:00 02/04/19 09:21 100 MLS/HR Sodium Chloride 1,000 ml @ 125 mls/hr 1X ONCE 02/02/19 16:00 12/24/19 23:59 UNV Sodium Chloride (Normal Saline Flush) 3 ml QSHIFT PRN 02/02/19 16:00 Vancomycin HCl (Vanco Per Pharmacy) 1 each PRN DAILY PRN 02/02/19 14:30 02/03/19 12:07 DC 02/02/19 16:49 1 EACH Vancomycin HCl 1.25 gm/Sodium Chloride 250 ml @ 166.667 mls/hr 1X ONCE 02/02/19 15:00 02/02/19 16:29 DC 02/02/19 16:14 166.667 MLS/HR Vancomycin HCl 1 gm/Sodium Chloride 250 ml @ 250 mls/hr Q24H 02/03/19 16:00 02/03/19 12:07 DC Labs: Lab Laboratory Tests Test 02/03/19 16:42 02/03/19 20:55 02/03/19 22:40 02/04/19 03:55 Glucose (Fingerstick) 107 mg/dL (70-99) 100 mg/dL (70-99) 89 mg/dL (70-99) White Blood Count 9.1 x10^3/uL (4.0-11.0) Red Blood Count 3.70 x10^6/uL (3.50-5.40) Hemoglobin 7.6 g/dL (12.0-15.5) Hematocrit 24.7 % (36.0-47.0) Mean Corpuscular Volume 67 fL (79-100) Mean Corpuscular Hemoglobin 21 pg (25-35) Mean Corpuscular Hemoglobin Concent 31 g/dL (31-37) Red Cell Distribution Width 22.1 % (11.5-14.5) Platelet Count 282 x10^3/uL (140-400) Neutrophils (%) (Auto) 75 % (31-73) Lymphocytes (%) (Auto) 17 % (24-48) Monocytes (%) (Auto) 5 % (0-9) Eosinophils (%) (Auto) 3 % (0-3) Basophils (%) (Auto) 0 % (0-3) Neutrophils # (Auto) 6.9 x10^3/uL (1.8-7.7) Lymphocytes # (Auto) 1.5 x10^3/uL (1.0-4.8) Monocytes # (Auto) 0.5 x10^3/uL (0.0-1.1) Eosinophils # (Auto) 0.2 x10^3/uL (0.0-0.7) Basophils # (Auto) 0.0 x10^3/uL (0.0-0.2) Sodium Level 146 mmol/L (136-145) Potassium Level 3.8 mmol/L (3.5-5.1) Chloride Level 114 mmol/L (98-107) Carbon Dioxide Level 22 mmol/L (21-32) Anion Gap 10 (6-14) Blood Urea Nitrogen 24 mg/dL (7-20) Creatinine 1.2 mg/dL (0.6-1.0) Estimated GFR (Cockcroft-Gault) 44.9 BUN/Creatinine Ratio 20 (6-20) Glucose Level 72 mg/dL (70-99) Calcium Level 9.3 mg/dL (8.5-10.1) Total Bilirubin 0.2 mg/dL (0.2-1.0) Aspartate Amino Transf (AST/SGOT) 21 U/L (15-37) Alanine Aminotransferase (ALT/SGPT) 9 U/L (14-59) Alkaline Phosphatase 62 U/L (46-116) Total Protein 5.6 g/dL (6.4-8.2) Albumin 2.4 g/dL (3.4-5.0) Albumin/Globulin Ratio 0.8 (1.0-1.7) Test 02/04/19 06:55 02/04/19 07:22 02/04/19 11:07 Iron Level 12 ug/dL (50-170) Total Iron Binding Capacity 209 ug/dL (250-450) Iron Saturation 6 % (15-34) Glucose (Fingerstick) 70 mg/dL (70-99) 139 mg/dL (70-99) Objective: Assessment: 1. Sepsis. 2. Urinary tract infection. 3. Diabetes mellitus. 4. Acute kidney injury. 5. Anemia. 6. History of Escherichia coli urinary tract infection. Plan: Plan of Care Continue Zosyn Follow up urine cultures and labs in a.m. Continue supportive care. SOLE BROWNING MD Feb 04, 2019 11:54
--- NOTE | 2019-02-04 13:01 | PDOC ---
SUBJECTIVE ROS Sleeping comfortably, No concerns voiced by RN OBJECTIVE Vital Signs Vital Signs Date Time Temp Pulse Resp B/P (MAP) Pulse Ox O2 Delivery O2 Flow Rate FiO2 02/04/19 11:00 98.6 59 18 138/72 (94) 98 Nasal Cannula 2.0 98.6 I & 0 Intake and Output 02/04/19 07:00 Intake Total 0 ml Balance 0 ml Intake Oral 0 ml # Voids 2 # Bowel Movements 1 PHYSICAL EXAM Physical Exam GENERAL: does not answer any questions, nonverbal, NAD HEENT: Oral mucosa moist. NECK: Supple. LUNGS: Clear. HEART: S1, S2. ABDOMEN: Soft, nontender, nondistended. GENITOURINARY: No plaza EXTREMITIES: Trace edema, no cyanosis. SKIN No generalized rash. CENTRAL NERVOUS SYSTEM: Alert, nonverbal. DIAGNOSIS/ASSESSMENT Assessment & Plan JUNIOR - suspect Pre-renal Hypotensive at presentation stable renal function - baseline was normal Cr (c/w stage 2in 2018 )- No interval labs available Supportive care, avoid nephrotoxins, Monitor UTI - On Abx per ID Supportive care, void nephrotoxins, strict i/o, Monitor , Daily BMP HyperNatremia- suspect pre-renal, Monitor Sepsis. Diabetes mellitus. Anemia. COMMENT/RELEVANT DATA Meds Current Medications Medications (Trade) Dose Ordered Sig/Rolando Start Time Stop Time Status Last Admin Dose Admin Acetaminophen (Tylenol) 650 mg PRN Q4HRS PRN 02/02/19 16:00 02/03/19 15:35 650 MG Al Hydroxide/Mg Hydroxide (Mylanta Plus Xs) 30 ml PRN DAILY PRN 02/02/19 16:00 Albuterol Sulfate (Ventolin Neb Soln) 2.5 mg PRN Q4HRS PRN 02/02/19 16:00 Amlodipine Besylate (Norvasc) 5 mg DAILY 02/03/19 09:00 02/04/19 09:21 5 MG Aspirin (Children'S Aspirin) 81 mg DAILY 02/03/19 09:00 02/04/19 09:20 81 MG Calcium/Vitamin D (Oscal D 500mg/ 200uts) 1 tab DAILY 02/03/19 09:00 02/04/19 09:20 1 TAB Cetirizine HCl (ZyrTEC) 10 mg DAILY 02/03/19 09:00 12/26/19 09:21 10 MG Clonidine HCl (Catapres) 0.1 mg PRN Q6HRS PRN 02/02/19 16:00 Docusate Sodium (Colace) 100 mg PRN BID PRN 02/02/19 16:00 Enoxaparin Sodium (Lovenox 40mg Syringe) 40 mg DAILY 02/03/19 09:00 02/03/19 15:35 40 MG Guaifenesin (Robitussin) 200 mg PRN Q4HRS PRN 02/02/19 16:00 Hydromorphone HCl (Dilaudid) 0.5 mg PRN Q2HRS PRN 02/02/19 16:00 Insulin Glargine (Lantus Syringe) 10 unit QHS 02/04/19 21:00 Insulin Human Lispro (HumaLOG) 5 units TIDAC 02/02/19 16:30 02/04/19 12:24 DC 02/03/19 18:06 5 UNITS Iron Sucrose 200 mg/Sodium Chloride 110 ml @ 55 mls/hr 1X ONCE 02/04/19 08:00 02/04/19 09:59 DC 02/04/19 10:48 55 MLS/HR Latanoprost (Xalatan) 1 drop QHS 02/02/19 21:00 02/03/19 21:00 1 DROP Lorazepam (Ativan) 0.5 mg PRN Q4HRS PRN 02/02/19 16:00 Norepinephrine Bitartrate 8 mg/ Dextrose 258 ml @ 0 mls/hr CONT PRN 02/02/19 16:00 UNV Nystatin (Mycostatin) 1 srinivasa TID 02/02/19 21:00 02/04/19 10:47 1 SRINIVASA Ondansetron HCl (Zofran) 4 mg PRN Q8HRS PRN 02/02/19 16:00 02/03/19 12:37 DC Oxybutynin Chloride (Ditropan) 5 mg BID 02/02/19 21:00 02/04/19 09:20 5 MG Pantoprazole Sodium (Protonix) 40 mg DAILYAC 02/03/19 07:30 02/04/19 09:20 40 MG Paroxetine HCl (Paxil) 20 mg DAILY 02/03/19 09:00 02/04/19 09:20 20 MG Piperacillin Sod/ Tazobactam Sod 3.375 gm/Sodium Chloride 50 ml @ 100 mls/hr Q6H 02/02/19 20:00 02/04/19 09:21 100 MLS/HR Sodium Chloride 1,000 ml @ 125 mls/hr 1X ONCE 02/02/19 16:00 02/02/19 23:59 UNV Sodium Chloride (Normal Saline Flush) 3 ml QSHIFT PRN 02/02/19 16:00 Vancomycin HCl (Vanco Per Pharmacy) 1 each PRN DAILY PRN 02/02/19 14:30 02/03/19 12:07 DC 02/02/19 16:49 1 EACH Vancomycin HCl 1.25 gm/Sodium Chloride 250 ml @ 166.667 mls/hr 1X ONCE 02/02/19 15:00 02/02/19 16:29 DC 02/02/19 16:14 166.667 MLS/HR Vancomycin HCl 1 gm/Sodium Chloride 250 ml @ 250 mls/hr Q24H 02/03/19 16:00 02/03/19 12:07 DC Lab Laboratory Tests Test 02/03/19 16:42 02/03/19 20:55 02/03/19 22:40 02/04/19 03:55 Glucose (Fingerstick) 107 mg/dL (70-99) 100 mg/dL (70-99) 89 mg/dL (70-99) White Blood Count 9.1 x10^3/uL (4.0-11.0) Red Blood Count 3.70 x10^6/uL (3.50-5.40) Hemoglobin 7.6 g/dL (12.0-15.5) Hematocrit 24.7 % (36.0-47.0) Mean Corpuscular Volume 67 fL (79-100) Mean Corpuscular Hemoglobin 21 pg (25-35) Mean Corpuscular Hemoglobin Concent 31 g/dL (31-37) Red Cell Distribution Width 22.1 % (11.5-14.5) Platelet Count 282 x10^3/uL (140-400) Neutrophils (%) (Auto) 75 % (31-73) Lymphocytes (%) (Auto) 17 % (24-48) Monocytes (%) (Auto) 5 % (0-9) Eosinophils (%) (Auto) 3 % (0-3) Basophils (%) (Auto) 0 % (0-3) Neutrophils # (Auto) 6.9 x10^3/uL (1.8-7.7) Lymphocytes # (Auto) 1.5 x10^3/uL (1.0-4.8) Monocytes # (Auto) 0.5 x10^3/uL (0.0-1.1) Eosinophils # (Auto) 0.2 x10^3/uL (0.0-0.7) Basophils # (Auto) 0.0 x10^3/uL (0.0-0.2) Sodium Level 146 mmol/L (136-145) Potassium Level 3.8 mmol/L (3.5-5.1) Chloride Level 114 mmol/L (98-107) Carbon Dioxide Level 22 mmol/L (21-32) Anion Gap 10 (6-14) Blood Urea Nitrogen 24 mg/dL (7-20) Creatinine 1.2 mg/dL (0.6-1.0) Estimated GFR (Cockcroft-Gault) 44.9 BUN/Creatinine Ratio 20 (6-20) Glucose Level 72 mg/dL (70-99) Calcium Level 9.3 mg/dL (8.5-10.1) Total Bilirubin 0.2 mg/dL (0.2-1.0) Aspartate Amino Transf (AST/SGOT) 21 U/L (15-37) Alanine Aminotransferase (ALT/SGPT) 9 U/L (14-59) Alkaline Phosphatase 62 U/L (46-116) Total Protein 5.6 g/dL (6.4-8.2) Albumin 2.4 g/dL (3.4-5.0) Albumin/Globulin Ratio 0.8 (1.0-1.7) Test 02/04/19 06:55 02/04/19 07:22 02/04/19 11:07 Iron Level 12 ug/dL (50-170) Total Iron Binding Capacity 209 ug/dL (250-450) Iron Saturation 6 % (15-34) Glucose (Fingerstick) 70 mg/dL (70-99) 139 mg/dL (70-99) Results All relevant outside records, renal labs, imaging studies, telemetry/EKG's were reviewed. KAREN RIDLEY MD Feb 04, 2019 13:01
--- NOTE | 2019-02-04 13:57 | PDOC2 ---
GI CONSULT Reason For Consult: Anemia HPI: HPI: 68 y/o female admitted with probable urosepsis. Hemoglobin initially in 11'. Has fallen with hydration to what's likely her current baseline. We were asked to see. Patient with intellectual delay and no meaningful history from her. Seen by us in April 2017. Noted to be heme positive then w/o anemia, but believe family did not wish further evaluation. Iron studies now c/w IRASEMA superimposed on ACD. [place] to have GERD historically and on PPI chronically. We placed PEG in 2018 which has at some point been removed. At time of endoscopy, no abnormalities noted. Has taken NSAID chronically. No other GI history available. PMH: PMH: Intellectual/developmental delay, Hearing loss, DM, HTN, OA, macular degeneration, allergic rhinitis, left breast abcess. S/p PEG and left simple mastectomy. FH: Family History: Other (unable to obtain from patient) Social History: Smoke: No ALCOHOL: none Drugs: None ROS: Unobtainable from patient due to mental status. Vitals: Vitals: Vital Signs Date Time Temp Pulse Resp B/P (MAP) Pulse Ox O2 Delivery O2 Flow Rate FiO2 02/04/19 11:00 98.6 59 18 138/72 (94) 98 Nasal Cannula 2.0 98.6 Labs: Labs: Laboratory Tests Test 02/03/19 16:42 02/03/19 20:55 02/03/19 22:40 02/04/19 03:55 Glucose (Fingerstick) 107 mg/dL (70-99) 100 mg/dL (70-99) 89 mg/dL (70-99) White Blood Count 9.1 x10^3/uL (4.0-11.0) Red Blood Count 3.70 x10^6/uL (3.50-5.40) Hemoglobin 7.6 g/dL (12.0-15.5) Hematocrit 24.7 % (36.0-47.0) Mean Corpuscular Volume 67 fL (79-100) Mean Corpuscular Hemoglobin 21 pg (25-35) Mean Corpuscular Hemoglobin Concent 31 g/dL (31-37) Red Cell Distribution Width 22.1 % (11.5-14.5) Platelet Count 282 x10^3/uL (140-400) Neutrophils (%) (Auto) 75 % (31-73) Lymphocytes (%) (Auto) 17 % (24-48) Monocytes (%) (Auto) 5 % (0-9) Eosinophils (%) (Auto) 3 % (0-3) Basophils (%) (Auto) 0 % (0-3) Neutrophils # (Auto) 6.9 x10^3/uL (1.8-7.7) Lymphocytes # (Auto) 1.5 x10^3/uL (1.0-4.8) Monocytes # (Auto) 0.5 x10^3/uL (0.0-1.1) Eosinophils # (Auto) 0.2 x10^3/uL (0.0-0.7) Basophils # (Auto) 0.0 x10^3/uL (0.0-0.2) Sodium Level 146 mmol/L (136-145) Potassium Level 3.8 mmol/L (3.5-5.1) Chloride Level 114 mmol/L (98-107) Carbon Dioxide Level 22 mmol/L (21-32) Anion Gap 10 (6-14) Blood Urea Nitrogen 24 mg/dL (7-20) Creatinine 1.2 mg/dL (0.6-1.0) Estimated GFR (Cockcroft-Gault) 44.9 BUN/Creatinine Ratio 20 (6-20) Glucose Level 72 mg/dL (70-99) Calcium Level 9.3 mg/dL (8.5-10.1) Total Bilirubin 0.2 mg/dL (0.2-1.0) Aspartate Amino Transf (AST/SGOT) 21 U/L (15-37) Alanine Aminotransferase (ALT/SGPT) 9 U/L (14-59) Alkaline Phosphatase 62 U/L (46-116) Total Protein 5.6 g/dL (6.4-8.2) Albumin 2.4 g/dL (3.4-5.0) Albumin/Globulin Ratio 0.8 (1.0-1.7) Test 02/04/19 06:55 02/04/19 07:22 02/04/19 11:07 Iron Level 12 ug/dL (50-170) Total Iron Binding Capacity 209 ug/dL (250-450) Iron Saturation 6 % (15-34) Glucose (Fingerstick) 70 mg/dL (70-99) 139 mg/dL (70-99) Microcytic anemia/abnormal iron studies. Allergies: Coded Allergies: No Known Allergies (Verified Allergy, Unknown, 09/08/17) Medications: Current Medications Medications (Trade) Dose Ordered Sig/Rolando Route PRN Reason Start Time Stop Time Status Last Admin Dose Admin Iron Sucrose 200 mg/Sodium Chloride 110 ml @ 55 mls/hr 1X ONCE IV 02/04/19 08:00 02/04/19 09:59 DC 02/04/19 10:48 PE: GEN: NAD HEENT: Atraumatic, PERRLA LUNGS: CTAB, left breast absent HEART: RRR, no murmurs ABD: NABS, S/ND/NT, no masses, old PEG scar EXTREMITY: No edema SKIN: No rashes, no jaundice NEURO/PSYCH: grossly intact A/P: A/P: IMP: Iron deficiency anemia. Broad differential including malignancy, angiodysplasiae. Prior EGD w/o problems, but no prior colonoscopy. Does take NSAID chronically, so at risk for lesions from this. REC: Depending on family's wishes, colonoscopy and EGD should be considered. Have discussed this with brother, Cheko, and they will deliberate. Continue treating other issues as now. Thank you for allowing me to assist in the care of this patient. Please call if questions. JORDON SIDHU MD Feb 04, 2019 13:57
[2019-02-04 15:00] VITALS: BP 145/81
[2019-02-04 16:16] LABS: VANC TR 4.5 mcg/mL (10.0-20.0)
[2019-02-04 19:00] VITALS: BP 139/76
[2019-02-04] MEDS: LACTOBACILLUS RHAMNOSUS GG 1 CAPSULE. PO SCH (20:53)
[2019-02-04] MEDS: ACETAMINOPHEN 325 MG TABLET. PO PRN (20:53)
[2019-02-04] MEDS: LATANOPROST 0.005% OPHTH SOLUTION 2.5ML BOTTLE. OU SCH (20:55)
[2019-02-04] MEDS: INSULIN GLARGINE SYRINGE. SQ SCH (21:02)
[2019-02-04 23:00] VITALS: BP 131/71
[2019-02-05] MEDS: PIPERACILLIN/TAZOBACTAM 3.375 GM in IV NORMAL SALINE 50ML 50 ML IV SCH ×4 (02:35→20:25)
[2019-02-05 03:00] VITALS: BP 133/71
[2019-02-05 07:00] VITALS: BP 142/67
--- NOTE | 2019-02-05 08:22 | NUR ---
Late Entry: SERGIO confirmed with Chiquis at [facility] yesterday, pt is [facility] resident, phone: [phone], fax" [phone]. SW will continue to follow.
[2019-02-05] MEDS: PANTOPRAZOLE 40 MG TABLET.DR. PO SCH (09:30)
[2019-02-05] MEDS: OXYBUTYNIN CHLORIDE 5 MG TABLET PO SCH ×2 (09:31→20:26)
[2019-02-05] MEDS: CETIRIZINE HCL 10 MG TABLET. PO SCH (09:31)
[2019-02-05] MEDS: LACTOBACILLUS RHAMNOSUS GG 1 CAPSULE. PO SCH ×2 (09:31→20:25)
[2019-02-05] MEDS: PARoxetine 20 MG TABLET PO SCH (09:31)
[2019-02-05] MEDS: amLODIPine BESYLATE 5 MG TABLET PO SCH (09:31)
[2019-02-05] MEDS: ASPIRIN CHEWABLE 81 MG TABLET. PO SCH (09:31)
[2019-02-05] MEDS: CALCIUM CARB/VIT D3 500/200 TABLET. PO SCH (09:31)
[2019-02-05] MEDS: NYSTATIN 100,000 UNIT/GM TOPICAL OINTMENT 15GM TUBE. TP SCH ×3 (09:32→20:27)
[2019-02-05] MEDS: ENOXAPARIN 40 MG/0.4 ML SYRINGE. SQ SCH (09:32)
--- NOTE | 2019-02-05 10:49 | PDOC ---
Objective: Objective: D/w nurse - tolerating PO, stooling. No family present. Vital Signs: Vital Signs Date Time Temp Pulse Resp B/P (MAP) Pulse Ox O2 Delivery O2 Flow Rate FiO2 02/05/19 09:31 57 142/67 02/05/19 08:00 Nasal Cannula 3.0 02/05/19 07:00 98.2 17 97 98.2 Labs: Laboratory Tests Test 02/04/19 11:07 02/04/19 15:45 02/04/19 17:08 02/04/19 21:00 Glucose (Fingerstick) 139 mg/dL 174 mg/dL 190 mg/dL Vancomycin Level Trough 4.5 mcg/mL Vancomycin Last Dose Date 02/03/19 Vancomycin Last Dose Time 1600 Test 02/05/19 08:06 Glucose (Fingerstick) 79 mg/dL BLOOD CULTURE Preliminary NO GROWTH AFTER 2 DAYS PE: GEN: NAD - staff helping her eat breakfast ABD: NABS, S/ND/NT NEURO/PSYCH: awake and alert, shows me her stuffed puppy A/P: Sepsis/UTI IRASEMA GERD CRC screen - none H/o NSAID use Intellectual/developmental delay -- Dr. Paulson discussed possibility of colonoscopy at some point w/ pt's brother yesterday. Continue PPI. STEFF GOLDBERG Feb 05, 2019 10:49
--- NOTE | 2019-02-05 10:54 | PDOC ---
Infectious Disease Note Subjective: Subjective Pt resting comfortably no fevers no chills no n/v/d d/w rn Vital Signs: Vital Signs Vital Signs Date Time Temp Pulse Resp B/P (MAP) Pulse Ox O2 Delivery O2 Flow Rate FiO2 02/05/19 09:31 57 142/67 02/05/19 08:00 Nasal Cannula 3.0 02/05/19 07:00 98.2 17 97 98.2 Physical Exam: PHYSICAL EXAM GENERAL: sleepy but arousable, noncommunicative comfortable, in no acute distress. HEENT: Normocephalic, atraumatic, anicteric. No thrush. Oral mucosa moist. NECK: Supple. LUNGS: Clear. HEART: S1, S2. ABDOMEN: Soft, nontender, nondistended. GENITOURINARY: Briefs in place. EXTREMITIES: Trace edema, no cyanosis. Warm, dry. No generalized rash. PIV looks okay. CENTRAL NERVOUS SYSTEM: Alert, nonverbal. Medications: Inpatient Meds: Current Medications Medications (Trade) Dose Ordered Sig/Rolando Start Time Stop Time Status Last Admin Dose Admin Acetaminophen (Tylenol) 650 mg PRN Q4HRS PRN 02/02/19 16:00 02/04/19 20:53 650 MG Al Hydroxide/Mg Hydroxide (Mylanta Plus Xs) 30 ml PRN DAILY PRN 02/02/19 16:00 Albuterol Sulfate (Ventolin Neb Soln) 2.5 mg PRN Q4HRS PRN 02/02/19 16:00 Amlodipine Besylate (Norvasc) 5 mg DAILY 02/03/19 09:00 02/05/19 09:31 5 MG Aspirin (Children'S Aspirin) 81 mg DAILY 02/03/19 09:00 02/05/19 09:31 81 MG Calcium/Vitamin D (Oscal D 500mg/ 200uts) 1 tab DAILY 02/03/19 09:00 02/05/19 09:31 1 TAB Cetirizine HCl (ZyrTEC) 10 mg DAILY 02/03/19 09:00 02/05/19 09:31 10 MG Clonidine HCl (Catapres) 0.1 mg PRN Q6HRS PRN 02/02/19 16:00 Docusate Sodium (Colace) 100 mg PRN BID PRN 02/02/19 16:00 Enoxaparin Sodium (Lovenox 40mg Syringe) 40 mg DAILY 02/03/19 09:00 02/05/19 09:32 40 MG Guaifenesin (Robitussin) 200 mg PRN Q4HRS PRN 02/02/19 16:00 Hydromorphone HCl (Dilaudid) 0.5 mg PRN Q2HRS PRN 02/02/19 16:00 Insulin Glargine (Lantus Syringe) 10 unit QHS 02/04/19 21:00 02/04/19 21:02 10 UNIT Insulin Human Lispro (HumaLOG) 5 units TIDAC 02/02/19 16:30 02/04/19 12:24 DC 02/03/19 18:06 5 UNITS Iron Sucrose 200 mg/Sodium Chloride 110 ml @ 55 mls/hr 1X ONCE 02/04/19 08:00 02/04/19 09:59 DC 02/04/19 10:48 55 MLS/HR Lactobacillus Rhamnosus (Culturelle) 1 cap BID 02/04/19 21:00 02/05/19 09:31 1 CAP Latanoprost (Xalatan) 1 drop QHS 02/02/19 21:00 02/04/19 20:55 1 DROP Lorazepam (Ativan) 0.5 mg PRN Q4HRS PRN 02/02/19 16:00 Norepinephrine Bitartrate 8 mg/ Dextrose 258 ml @ 0 mls/hr CONT PRN 02/02/19 16:00 UNV Nystatin (Mycostatin) 1 srinivasa TID 02/02/19 21:00 02/05/19 09:32 1 SRINIVASA Ondansetron HCl (Zofran) 4 mg PRN Q8HRS PRN 02/02/19 16:00 02/03/19 12:37 DC Oxybutynin Chloride (Ditropan) 5 mg BID 02/02/19 21:00 02/05/19 09:31 5 MG Pantoprazole Sodium (Protonix) 40 mg DAILYAC 02/03/19 07:30 02/05/19 09:30 40 MG Paroxetine HCl (Paxil) 20 mg DAILY 02/03/19 09:00 02/05/19 09:31 20 MG Piperacillin Sod/ Tazobactam Sod 3.375 gm/Sodium Chloride 50 ml @ 100 mls/hr Q6H 02/02/19 20:00 02/05/19 09:31 100 MLS/HR Sodium Chloride 1,000 ml @ 125 mls/hr 1X ONCE 02/02/19 16:00 02/02/19 23:59 UNV Sodium Chloride (Normal Saline Flush) 3 ml QSHIFT PRN 02/02/19 16:00 Vancomycin HCl (Vanco Per Pharmacy) 1 each PRN DAILY PRN 02/02/19 14:30 02/03/19 12:07 DC 02/02/19 16:49 1 EACH Vancomycin HCl 1.25 gm/Sodium Chloride 250 ml @ 166.667 mls/hr 1X ONCE 02/02/19 15:00 02/02/19 16:29 DC 02/02/19 16:14 166.667 MLS/HR Vancomycin HCl 1 gm/Sodium Chloride 250 ml @ 250 mls/hr Q24H 02/03/19 16:00 02/03/19 12:07 DC Labs: Lab Laboratory Tests Test 02/04/19 11:07 02/04/19 15:45 02/04/19 17:08 02/04/19 21:00 Glucose (Fingerstick) 139 mg/dL (70-99) 174 mg/dL (70-99) 190 mg/dL (70-99) Vancomycin Level Trough 4.5 mcg/mL (10.0-20.0) Vancomycin Last Dose Date 02/03/19 Vancomycin Last Dose Time 1600 Test 02/05/19 08:06 Glucose (Fingerstick) 79 mg/dL (70-99) Objective: Assessment: 1. Sepsis. 2. Urinary tract infection. 3. Diabetes mellitus. 4. Acute kidney injury. 5. Anemia. 6. History of Escherichia coli urinary tract infection. 7.Pulm infiltrate ? atelectasis on o2 Plan: Plan of Care Continue Zosyn Follow up urine cultures and labs in a.m. maintain aspiration precautions Continue supportive care. SOLE BROWNING MD Feb 05, 2019 10:54
[2019-02-05 11:00] VITALS: BP 149/72
[2019-02-05 11:41] LABS: HEMATOCRIT 28.9 % (36.0-47.0); HEMOGLOBIN 8.8 g/dL (12.0-15.5)
--- NOTE | 2019-02-05 12:07 | PDOC ---
PROGRESS NOTES Chief Complaint Chief Complaint A/P: UTI SEPSIS JUNIOR, VASOMOTOR NEPHROPATHY Mental delay from half-way Diabetes type 2 on insulin-unknown hematoma A1c Hypertension HLP on meds ANEMIA, MAY BE DILUTIONAL dysphagia diet Anterior chest wall lump x 2 - new History of Present Illness History of Present Illness HAs mental delay, lives in half-way SHe has no complaints for me BUt family plus RN notes 2 big anterior chest wall lumps that apparently was not there before, or started as a small size They are hard but not tender to palp Pt on dysphagia diet and needs aide to feed NO plaza She will go back to half-way ON IV zosyn per ID - Urine cx still cooking PLAN; cont zosyn per ID COnt IVF for now, creat 1,.2-1.[address] chest without contrast ff up urine cx BAck to half-way on dc FULL code on chart dysphagia 2 diet Vitals Vitals Vital Signs Date Time Temp Pulse Resp B/P (MAP) Pulse Ox O2 Delivery O2 Flow Rate FiO2 02/05/19 09:31 57 142/67 02/05/19 08:00 Nasal Cannula 3.0 02/05/19 07:00 98.2 17 97 98.2 Physical Exam Physical Exam GENERAL: sleepy but arousable, noncommunicative comfortable, in no acute distress. HEENT: Normocephalic, atraumatic, anicteric. No thrush. Oral mucosa moist. NECK: Supple. LUNGS: Clear. HEART: S1, S2. ABDOMEN: Soft, nontender, nondistended. GENITOURINARY: Briefs in place. EXTREMITIES: Trace edema, no cyanosis. Warm, dry. No generalized rash. PIV looks okay. CENTRAL NERVOUS SYSTEM: Alert, nonverbal. General: Alert, Cooperative, mild distress Heart: Regular rate Lungs: Clear Abdomen: Normal bowel sounds, Soft Extremities: No cyanosis Labs LABS Laboratory Tests Test 02/04/19 15:45 02/04/19 17:08 02/04/19 21:00 02/05/19 08:06 Vancomycin Level Trough 4.5 mcg/mL (10.0-20.0) Vancomycin Last Dose Date 02/03/19 Vancomycin Last Dose Time 1600 Glucose (Fingerstick) 174 mg/dL (70-99) 190 mg/dL (70-99) 79 mg/dL (70-99) Test 02/05/19 10:20 02/05/19 11:39 Hemoglobin 8.8 g/dL (12.0-15.5) Hematocrit 28.9 % (36.0-47.0) Mean Corpuscular Hemoglobin Concent 31 g/dL (31-37) Glucose (Fingerstick) 165 mg/dL (70-99) Review of Systems Review of Systems no complaints, has mental delay Assessment and Plan Assessmemt and Plan Problems Medical Problems: (1) Hypotension Status: Acute (2) Leukocytosis, unspecified Status: Acute (3) Sepsis Status: Acute (4) Urinary tract infection Status: Acute Comment Review of Relevant I have reviewed the following items wojciech (where applicable) has been applied. Labs Laboratory Tests Test 02/03/19 16:42 02/03/19 20:55 02/03/19 22:40 02/04/19 03:55 Glucose (Fingerstick) 107 mg/dL (70-99) 100 mg/dL (70-99) 89 mg/dL (70-99) White Blood Count 9.1 x10^3/uL (4.0-11.0) Red Blood Count 3.70 x10^6/uL (3.50-5.40) Hemoglobin 7.6 g/dL (12.0-15.5) Hematocrit 24.7 % (36.0-47.0) Mean Corpuscular Volume 67 fL (79-100) Mean Corpuscular Hemoglobin 21 pg (25-35) Mean Corpuscular Hemoglobin Concent 31 g/dL (31-37) Red Cell Distribution Width 22.1 % (11.5-14.5) Platelet Count 282 x10^3/uL (140-400) Neutrophils (%) (Auto) 75 % (31-73) Lymphocytes (%) (Auto) 17 % (24-48) Monocytes (%) (Auto) 5 % (0-9) Eosinophils (%) (Auto) 3 % (0-3) Basophils (%) (Auto) 0 % (0-3) Neutrophils # (Auto) 6.9 x10^3/uL (1.8-7.7) Lymphocytes # (Auto) 1.5 x10^3/uL (1.0-4.8) Monocytes # (Auto) 0.5 x10^3/uL (0.0-1.1) Eosinophils # (Auto) 0.2 x10^3/uL (0.0-0.7) Basophils # (Auto) 0.0 x10^3/uL (0.0-0.2) Sodium Level 146 mmol/L (136-145) Potassium Level 3.8 mmol/L (3.5-5.1) Chloride Level 114 mmol/L (98-107) Carbon Dioxide Level 22 mmol/L (21-32) Anion Gap 10 (6-14) Blood Urea Nitrogen 24 mg/dL (7-20) Creatinine 1.2 mg/dL (0.6-1.0) Estimated GFR (Cockcroft-Gault) 44.9 BUN/Creatinine Ratio 20 (6-20) Glucose Level 72 mg/dL (70-99) Calcium Level 9.3 mg/dL (8.5-10.1) Total Bilirubin 0.2 mg/dL (0.2-1.0) Aspartate Amino Transf (AST/SGOT) 21 U/L (15-37) Alanine Aminotransferase (ALT/SGPT) 9 U/L (14-59) Alkaline Phosphatase 62 U/L (46-116) Total Protein 5.6 g/dL (6.4-8.2) Albumin 2.4 g/dL (3.4-5.0) Albumin/Globulin Ratio 0.8 (1.0-1.7) Test 02/04/19 06:55 02/04/19 07:22 02/04/19 11:07 02/04/19 15:45 Iron Level 12 ug/dL (50-170) Total Iron Binding Capacity 209 ug/dL (250-450) Iron Saturation 6 % (15-34) Glucose (Fingerstick) 70 mg/dL (70-99) 139 mg/dL (70-99) Vancomycin Level Trough 4.5 mcg/mL (10.0-20.0) Vancomycin Last Dose Date 02/03/19 Vancomycin Last Dose Time 1600 Test 02/04/19 17:08 02/04/19 21:00 02/05/19 08:06 02/05/19 10:20 Glucose (Fingerstick) 174 mg/dL (70-99) 190 mg/dL (70-99) 79 mg/dL (70-99) Hemoglobin 8.8 g/dL (12.0-15.5) Hematocrit 28.9 % (36.0-47.0) Mean Corpuscular Hemoglobin Concent 31 g/dL (31-37) Test 02/05/19 11:39 Glucose (Fingerstick) 165 mg/dL (70-99) Laboratory Tests Test 02/04/19 15:45 02/04/19 17:08 02/04/19 21:00 02/05/19 08:06 Vancomycin Level Trough 4.5 mcg/mL (10.0-20.0) Vancomycin Last Dose Date 02/03/19 Vancomycin Last Dose Time 1600 Glucose (Fingerstick) 174 mg/dL (70-99) 190 mg/dL (70-99) 79 mg/dL (70-99) Test 02/05/19 10:20 02/05/19 11:39 Hemoglobin 8.8 g/dL (12.0-15.5) Hematocrit 28.9 % (36.0-47.0) Mean Corpuscular Hemoglobin Concent 31 g/dL (31-37) Glucose (Fingerstick) 165 mg/dL (70-99) Microbiology 02/02/19 Blood Culture - Preliminary, Resulted NO GROWTH AFTER 2 DAYS Medications Current Medications Sodium Chloride 1,000 ml @ 1,000 mls/hr 1X ONCE IV Last administered on 02/02/19at 13:25; Start 02/02/19 at 12:45; Stop 02/02/19 at 13:44; Status DC Sodium Chloride 1,000 ml @ 1,000 mls/hr 1X ONCE IV Last administered on 02/02/19at 14:56; Start 02/02/19 at 14:30; Stop 02/02/19 at 15:29; Status DC Piperacillin Sod/ Tazobactam Sod 3.375 gm/Sodium Chloride 50 ml @ 100 mls/hr 1X ONCE IV Last administered on 02/02/19at 14:56; Start 02/02/19 at 14:30; Stop 02/02/19 at 14:59; Status DC Vancomycin HCl (Vanco Per Pharmacy) 1 each PRN DAILY PRN MC SEE COMMENTS Last administered on 02/02/19at 16:49; Start 02/02/19 at 14:30; Stop 02/03/19 at 12:07; Status DC Vancomycin HCl 1.25 gm/Sodium Chloride 250 ml @ 166.667 mls/hr 1X ONCE IV Last administered on 02/02/19at 16:14; Start 02/02/19 at 15:00; Stop 02/02/19 at 16:29; Status DC Sodium Chloride (Normal Saline Flush) 3 ml QSHIFT PRN IV AFTER MEDS AND BLOOD DRAWS; Start 02/02/19 at 16:00 Sodium Chloride 1,000 ml @ 100 mls/hr Q10H IV Last administered on 02/04/19at 20:53; Start 02/02/19 at 15:46 Ondansetron HCl (Zofran) 4 mg PRN Q4HRS PRN IV NAUSEA/VOMITING; Start 02/02/19 at 16:00 Acetaminophen (Tylenol) 650 mg PRN Q4HRS PRN PO TEMP OVER 100.4F OR MILD PAIN Last administered on 02/04/19at 20:53; Start 02/02/19 at 16:00 Al Hydroxide/Mg Hydroxide (Mylanta Plus Xs) 30 ml PRN DAILY PRN PO HEARTBURN / GAS; Start 02/02/19 at 16:00 Clonidine HCl (Catapres) 0.1 mg PRN Q6HRS PRN PO SBP>160 OR DBP>90; Start 02/02/19 at 16:00 Docusate Sodium (Colace) 100 mg PRN BID PRN PO CONSTIPATION; Start 02/02/19 at 16:00 Albuterol Sulfate (Ventolin Neb Soln) 2.5 mg PRN Q4HRS PRN NEB SHORTNESS OF BREATH; Start 02/02/19 at 16:00 Guaifenesin (Robitussin) 200 mg PRN Q4HRS PRN PO COUGH; Start 02/02/19 at 16:00 Lorazepam (Ativan) 0.5 mg PRN Q4HRS PRN PO ANXIETY / AGITATION; Start 02/02/19 at 16:00 Hydromorphone HCl (Dilaudid) 0.5 mg PRN Q2HRS PRN IV SEVERE PAIN 7-10; Start 02/02/19 at 16:00 Enoxaparin Sodium (Lovenox 40mg Syringe) 40 mg DAILY SQ Last administered on 02/05/19at 09:32; Start 02/03/19 at 09:00 Piperacillin Sod/ Tazobactam Sod 3.375 gm/Sodium Chloride 50 ml @ 100 mls/hr Q6H IV Last administered on 02/05/19 09:31; Start 02/02/19 at 20:00 Sodium Chloride 1,000 ml @ 1,500 mls/hr Q40M IV Last administered on 02/02/19 16:28; Start 02/02/19 at 15:48; Stop 02/02/19 at 16:49; Status DC Sodium Chloride 500 ml @ 1,000 mls/hr PRN Q30MIN PRN IV SEE COMMENTS; Start 02/02/19 at 16:00 Norepinephrine Bitartrate 8 mg/ Dextrose 258 ml @ 0 mls/hr CONT PRN IV SEE I/O RECORD; Start 02/02/19 at 16:00; Status UNV Amlodipine Besylate (Norvasc) 5 mg DAILY PO Last administered on 02/05/19 09:31; Start 02/03/19 at 09:00 Aspirin (Children'S Aspirin) 81 mg DAILY PO Last administered on 02/05/19 09:31; Start 02/03/19 at 09:00 Calcium/Vitamin D (Oscal D 500mg/ 200uts) 1 tab DAILY PO Last administered on 02/05/19 09:31; Start 02/03/19 at 09:00 Insulin Human Lispro (HumaLOG) 5 units TIDAC SQ Last administered on 02/03/19 18:06; Start 02/02/19 at 16:30; Stop 02/04/19 at 12:24; Status DC Nystatin (Mycostatin) 1 mariam TID TP Last administered on 02/05/19 09:32; Start 02/02/19 at 21:00 Oxybutynin Chloride (Ditropan) 5 mg BID PO Last administered on 02/05/19 09:31; Start 02/02/19 at 21:00 Paroxetine HCl (Paxil) 20 mg DAILY PO Last administered on 02/05/19 09:31; Start 02/03/19 at 09:00 Latanoprost (Xalatan) 1 drop QHS OU Last administered on 02/04/19 20:55; Start 02/02/19 at 21:00 Insulin Glargine (Lantus Syringe) 15 unit QHS SQ Last administered on 12/24/19at 20:55; Start 02/02/19 at 21:00; Stop 02/04/19 at 12:24; Status DC Pantoprazole Sodium (Protonix) 40 mg DAILYAC PO Last administered on 02/05/19at 09:30; Start 02/03/19 at 07:30 Cetirizine HCl (ZyrTEC) 10 mg DAILY PO Last administered on 02/05/19at 09:31; Start 02/03/19 at 09:00 Ondansetron HCl (Zofran) 4 mg PRN Q8HRS PRN IV NAUSEA/VOMITING; Start 02/02/19 at 16:00; Stop 02/03/19 at 12:37; Status DC Sodium Chloride 1,000 ml @ 125 mls/hr 1X ONCE IV ; Start 02/02/19 at 16:00; Stop 02/02/19 at 23:59; Status UNV Vancomycin HCl 1 gm/Sodium Chloride 250 ml @ 250 mls/hr Q24H IV ; Start 02/03/19 at 16:00; Stop 02/03/19 at 12:07; Status DC Iron Sucrose 200 mg/Sodium Chloride 110 ml @ 55 mls/hr 1X ONCE IV Last administered on 02/04/19at 10:48; Start 02/04/19 at 08:00; Stop 02/04/19 at 09:59; Status DC Insulin Glargine (Lantus Syringe) 10 unit QHS SQ Last administered on 02/04/19at 21:02; Start 02/04/19 at 21:00 Lactobacillus Rhamnosus (Culturelle) 1 cap BID PO Last administered on 02/05/19at 09:31; Start 02/04/19 at 21:00 Active Scripts Active Humalog (Insulin Lispro) 100 Unit/1 Ml Insuln.pen 5 Units SQ TIDAC 30 Days Lantus Solostar (Insulin Glargine,Hum.rec.anlog) 100 Unit/1 Ml Insuln.pen 15 Units SQ QHS 30 Days Cephalexin 250 Mg Capsule 500 Mg PO QID 3 Days Nystatin 15 Gm Oint...g. 1 Mariam TP TID 10 Days Reported Paroxetine Hcl 20 Mg Tablet 1 Tab PO DAILY Oxybutynin Chloride 5 Mg Tablet 1 Tab PO BID Omeprazole 20 Mg Capsule.dr 1 Cap PO DAILY Meloxicam 15 Mg Tablet 1 Tab PO DAILY Lumigan (Bimatoprost) 2.5 Ml Drops 1 Drop EACHEYE QHS Lisinopril 40 Mg Tablet 1 Tab PO DAILY Aspirin 81 Mg Tab.chew 1 Tab PO DAILY Amlodipine Besylate 5 Mg Tablet 5 Mg PO DAILY Oyster Shell 500 Mg + Vit D Tb (Calcium Carbonate/Vitamin D3) 1 Each Tablet 1 Each PO DAILY Zyrtec (Cetirizine Hcl) 10 Mg Capsule 10 Mg PO Multi-Vitamin Daily (Multivitamin) 1 Each Tablet 1 Each PO Vitals/I & O Vital Sign - Last 24 Hours 02/04/19 02/04/19 02/04/19 02/04/19 15:00 19:00 20:00 23:00 Temp 98.6 98.0 98.6 98.6 98.0 98.6 Pulse 60 60 57 Resp 18 20 16 B/P (MAP) 145/81 (102) 139/76 (97) 131/71 (91) Pulse Ox 99 96 95 O2 Delivery Nasal Cannula Nasal Cannula O2 Flow Rate 2.0 3.0 02/05/19 02/05/19 02/05/19 02/05/19 03:00 07:00 08:00 09:31 Temp 98.3 98.2 98.3 98.2 Pulse 58 57 57 Resp 18 17 B/P (MAP) 133/71 (91) 142/67 (92) 142/67 Pulse Ox 97 97 O2 Delivery Nasal Cannula Nasal Cannula O2 Flow Rate 3.0 3.0 Intake and Output 02/04/19 02/04/19 02/05/19 15:00 23:00 07:00 Intake Total 420 ml Balance 420 ml Nutrition Consultation Dietary Evaluation: Recommendations by RD: Dietary education by RD, Increase Calorie Intake, Protein supplementation Comments: offer glucerna supplements when po intake is < 50% meals REC mvi and vit c per wound protocal Expected Outcomes/Goals: to meet > 75% est nutr needs Malnutrition Findings: Food and Nutrition Intake (Sev: <50% est energy req 5days Weight Status: Appropriate YEHUDA COLLADO MD Feb 05, 2019 12:07
[2019-02-05] MEDS: IV NORMAL SALINE 1000ML BAG 1,000 ML IV SCH ×2 (13:17→13:46)
[2019-02-05] MEDS: ACETAMINOPHEN 325 MG TABLET. PO PRN ×2 (13:20→20:26)
--- NOTE | 2019-02-05 13:55 | PDOC ---
SUBJECTIVE ROS No concerns voiced by RN OBJECTIVE Vital Signs Vital Signs Date Time Temp Pulse Resp B/P (MAP) Pulse Ox O2 Delivery O2 Flow Rate FiO2 02/05/19 09:31 57 142/67 02/05/19 08:00 Nasal Cannula 3.0 02/05/19 07:00 98.2 17 97 98.2 I & 0 Intake and Output 02/05/19 07:00 Intake Total 420 ml Balance 420 ml Intake Oral 420 ml # Voids 3 # Bowel Movements 2 PHYSICAL EXAM Physical Exam GENERAL: does not answer any questions, nonverbal, NAD HEENT: Oral mucosa moist. NECK: Supple. LUNGS: Clear. HEART: S1, S2. ABDOMEN: Soft, nontender, nondistended. GENITOURINARY: No plaza EXTREMITIES: Trace edema, no cyanosis. SKIN No generalized rash. CENTRAL NERVOUS SYSTEM: Alert, nonverbal. DIAGNOSIS/ASSESSMENT DIAGNOSIS/ASSESSMENT Assessment & Plan JUNIOR - suspect Pre-renal Hypotensive at presentation stable renal function - baseline was normal Cr (c/w stage 2in 2018 )- No interval labs available No labs available this am Supportive care, avoid nephrotoxins, Monitor UTI - On Abx per ID HyperNatremia- suspect pre-renal, Monitor Sepsis. Diabetes mellitus. Anemia. COMMENT/RELEVANT DATA Meds Current Medications Medications (Trade) Dose Ordered Sig/Rolando Start Time Stop Time Status Last Admin Dose Admin Acetaminophen (Tylenol) 650 mg PRN Q4HRS PRN 02/02/19 16:00 02/05/19 13:20 650 MG Al Hydroxide/Mg Hydroxide (Mylanta Plus Xs) 30 ml PRN DAILY PRN 02/02/19 16:00 Albuterol Sulfate (Ventolin Neb Soln) 2.5 mg PRN Q4HRS PRN 02/02/19 16:00 Amlodipine Besylate (Norvasc) 5 mg DAILY 02/03/19 09:00 02/05/19 09:31 5 MG Aspirin (Children'S Aspirin) 81 mg DAILY 02/03/19 09:00 02/05/19 09:31 81 MG Calcium/Vitamin D (Oscal D 500mg/ 200uts) 1 tab DAILY 02/03/19 09:00 02/05/19 09:31 1 TAB Cetirizine HCl (ZyrTEC) 10 mg DAILY 02/03/19 09:00 02/05/19 09:31 10 MG Clonidine HCl (Catapres) 0.1 mg PRN Q6HRS PRN 02/02/19 16:00 Docusate Sodium (Colace) 100 mg PRN BID PRN 02/02/19 16:00 Enoxaparin Sodium (Lovenox 40mg Syringe) 40 mg DAILY 02/03/19 09:00 02/05/19 09:32 40 MG Guaifenesin (Robitussin) 200 mg PRN Q4HRS PRN 02/02/19 16:00 Hydromorphone HCl (Dilaudid) 0.5 mg PRN Q2HRS PRN 02/02/19 16:00 Insulin Glargine (Lantus Syringe) 10 unit QHS 02/04/19 21:00 02/04/19 21:02 10 UNIT Insulin Human Lispro (HumaLOG) 5 units TIDAC 02/02/19 16:30 02/04/19 12:24 DC 02/03/19 18:06 5 UNITS Iron Sucrose 200 mg/Sodium Chloride 110 ml @ 55 mls/hr 1X ONCE 02/04/19 08:00 02/04/19 09:59 DC 02/04/19 10:48 55 MLS/HR Lactobacillus Rhamnosus (Culturelle) 1 cap BID 02/04/19 21:00 02/05/19 09:31 1 CAP Latanoprost (Xalatan) 1 drop QHS 02/02/19 21:00 02/04/19 20:55 1 DROP Lorazepam (Ativan) 0.5 mg PRN Q4HRS PRN 02/02/19 16:00 Norepinephrine Bitartrate 8 mg/ Dextrose 258 ml @ 0 mls/hr CONT PRN 02/02/19 16:00 UNV Nystatin (Mycostatin) 1 srinivasa TID 02/02/19 21:00 02/05/19 09:32 1 SRINIVASA Ondansetron HCl (Zofran) 4 mg PRN Q8HRS PRN 02/02/19 16:00 02/03/19 12:37 DC Oxybutynin Chloride (Ditropan) 5 mg BID 02/02/19 21:00 02/05/19 09:31 5 MG Pantoprazole Sodium (Protonix) 40 mg DAILYAC 02/03/19 07:30 02/05/19 09:30 40 MG Paroxetine HCl (Paxil) 20 mg DAILY 02/03/19 09:00 02/05/19 09:31 20 MG Piperacillin Sod/ Tazobactam Sod 3.375 gm/Sodium Chloride 50 ml @ 100 mls/hr Q6H 02/02/19 20:00 02/05/19 09:31 100 MLS/HR Sodium Chloride 1,000 ml @ 125 mls/hr 1X ONCE 02/02/19 16:00 02/02/19 23:59 UNV Sodium Chloride (Normal Saline Flush) 3 ml QSHIFT PRN 02/02/19 16:00 Vancomycin HCl (Vanco Per Pharmacy) 1 each PRN DAILY PRN 02/02/19 14:30 02/03/19 12:07 DC 02/02/19 16:49 1 EACH Vancomycin HCl 1.25 gm/Sodium Chloride 250 ml @ 166.667 mls/hr 1X ONCE 02/02/19 15:00 02/02/19 16:29 DC 02/02/19 16:14 166.667 MLS/HR Vancomycin HCl 1 gm/Sodium Chloride 250 ml @ 250 mls/hr Q24H 02/03/19 16:00 02/03/19 12:07 DC Lab Laboratory Tests Test 02/04/19 15:45 02/04/19 17:08 02/04/19 21:00 02/05/19 08:06 Vancomycin Level Trough 4.5 mcg/mL (10.0-20.0) Vancomycin Last Dose Date 02/03/19 Vancomycin Last Dose Time 1600 Glucose (Fingerstick) 174 mg/dL (70-99) 190 mg/dL (70-99) 79 mg/dL (70-99) Test 02/05/19 10:20 02/05/19 11:39 Hemoglobin 8.8 g/dL (12.0-15.5) Hematocrit 28.9 % (36.0-47.0) Mean Corpuscular Hemoglobin Concent 31 g/dL (31-37) Glucose (Fingerstick) 165 mg/dL (70-99) Results All relevant outside records, renal labs, imaging studies, telemetry/EKG's were reviewed. KAREN RIDLEY MD Feb 05, 2019 13:55
[2019-02-05 15:00] VITALS: BP 140/60
--- NOTE | 2019-02-05 17:38 | NUR ---
Upon changing pt, this RN noticed pt's coccyx area to be reddened. This RN cleaned pt and applied Calazime cream to coccyx area. Will continue to monitor area and turn pt Q2 hours.
[2019-02-05 19:00] VITALS: BP 153/72
[2019-02-05] MEDS: LATANOPROST 0.005% OPHTH SOLUTION 2.5ML BOTTLE. OU SCH (20:25)
[2019-02-05] MEDS: DOCUSATE SODIUM 100 MG CAPSULE. PO PRN (20:26)
[2019-02-05] MEDS: INSULIN GLARGINE SYRINGE. SQ SCH (20:30)
[2019-02-05 23:00] VITALS: BP 147/69
[2019-02-06] MEDS: IV NORMAL SALINE 1000ML BAG 1,000 ML IV SCH ×3 (00:10→22:45)
[2019-02-06] MEDS: PIPERACILLIN/TAZOBACTAM 3.375 GM in IV NORMAL SALINE 50ML 50 ML IV SCH ×4 (00:56→20:13)
[2019-02-06 03:00] VITALS: BP 130/67
[2019-02-06] MEDS: PANTOPRAZOLE 40 MG TABLET.DR. PO SCH (05:29)
[2019-02-06 07:00] VITALS: BP 146/75
[2019-02-06] MEDS: NYSTATIN 100,000 UNIT/GM TOPICAL OINTMENT 15GM TUBE. TP SCH ×3 (08:46→20:14)
[2019-02-06] MEDS: ENOXAPARIN 40 MG/0.4 ML SYRINGE. SQ SCH (08:46)
[2019-02-06] MEDS: ASPIRIN CHEWABLE 81 MG TABLET. PO SCH (08:47)
[2019-02-06] MEDS: CETIRIZINE HCL 10 MG TABLET. PO SCH (08:47)
[2019-02-06] MEDS: PARoxetine 20 MG TABLET PO SCH (08:47)
[2019-02-06] MEDS: amLODIPine BESYLATE 5 MG TABLET PO SCH (08:47)
[2019-02-06] MEDS: LACTOBACILLUS RHAMNOSUS GG 1 CAPSULE. PO SCH ×2 (08:47→20:15)
[2019-02-06] MEDS: CALCIUM CARB/VIT D3 500/200 TABLET. PO SCH (08:47)
[2019-02-06] MEDS: OXYBUTYNIN CHLORIDE 5 MG TABLET PO SCH ×2 (08:47→20:15)
--- NOTE | 2019-02-06 09:08 | PDOC ---
PROGRESS NOTES Chief Complaint Chief Complaint A/P: UTI SEPSIS JUNIOR, VASOMOTOR NEPHROPATHY Mental delay from [facility] Diabetes type 2 on insulin-unknown hematoma A1c Hypertension HLP on meds ANEMIA, MAY BE DILUTIONAL dysphagia diet Anterior chest wall lump x 2 - new PLAN ADMIT IV ANTIBIOTICS, VANC, ZOSYN ID CONSULT IV FLUID SUPPORT DVT PROPHYLAXIS ACCUCHECKS GUIAC STOOLS CBC IN AM 02/04 37 MIN PT EXAM, CHART REVIEW, > 50% OF TIME SPENT WITH EXAM, CHART REVIEW, PT CARE COORDINATION History of Present Illness History of Present Illness Ms Boyer is a 68 yo F w/ PMHx DM, HTN, HLD, anemia, depression, macular degeneration from [facility], unable to give history. History obtained from chart and medical staff, was brought to the ER with lethargy, poor p.o. intake and possible sepsis. Her white count was elevated. Lactate was elevated at 3.5. She received fluid bolus. UA showed pyuria. Chest x-ray was negative for acute infiltrate. She was started on IV vancomycin and Zosyn. ID consult has been requested for antibiotic management. Today, the patient remains afebrile. Per nurse, no fever, chills, nausea, vomiting or diarrhea reported. She is smiling, has stuffed animals bedside. Does not follow many commands. Afebrile. Family has asked for podiatry care and note 2 anterior chest wall lumps, non-tender. Has aide feeding her currently. PLAN; cont zosyn per ID, f/u urine culture BAck to [facility] on dc FULL code on chart dysphagia 2 diet Vitals Vitals Vital Signs Date Time Temp Pulse Resp B/P (MAP) Pulse Ox O2 Delivery O2 Flow Rate FiO2 02/06/19 08:47 52 146/75 02/06/19 03:00 97.9 18 95 Nasal Cannula 2.0 97.9 Physical Exam Physical Exam GENERAL: sleepy but arousable, noncommunicative comfortable, in no acute distress. HEENT: Normocephalic, atraumatic, anicteric. No thrush. Oral mucosa moist. NECK: Supple. LUNGS: Clear. HEART: S1, S2. ABDOMEN: Soft, nontender, nondistended. GENITOURINARY: Briefs in place. EXTREMITIES: Trace edema, no cyanosis. Warm, dry. No generalized rash. PIV looks okay. CENTRAL NERVOUS SYSTEM: Alert, nonverbal. General: Alert, Cooperative, mild distress Heart: Regular rate Lungs: Clear Abdomen: Normal bowel sounds, Soft Extremities: No cyanosis Labs LABS Laboratory Tests Test 02/05/19 10:20 02/05/19 11:39 02/05/19 16:51 02/05/19 20:19 Hemoglobin 8.8 g/dL (12.0-15.5) Hematocrit 28.9 % (36.0-47.0) Mean Corpuscular Hemoglobin Concent 31 g/dL (31-37) Glucose (Fingerstick) 165 mg/dL (70-99) 115 mg/dL (70-99) 127 mg/dL (70-99) Test 02/06/19 08:09 Glucose (Fingerstick) 84 mg/dL (70-99) Assessment and Plan Assessmemt and Plan Problems Medical Problems: (1) Hypotension Status: Acute (2) Leukocytosis, unspecified Status: Acute (3) Sepsis Status: Acute (4) Urinary tract infection Status: Acute Comment Review of Relevant I have reviewed the following items wojciech (where applicable) has been applied. Labs Laboratory Tests Test 02/04/19 11:07 02/04/19 15:45 02/04/19 17:08 02/04/19 21:00 Glucose (Fingerstick) 139 mg/dL (70-99) 174 mg/dL (70-99) 190 mg/dL (70-99) Vancomycin Level Trough 4.5 mcg/mL (10.0-20.0) Vancomycin Last Dose Date 02/03/19 Vancomycin Last Dose Time 1600 Test 02/05/19 08:06 02/05/19 10:20 02/05/19 11:39 02/05/19 16:51 Glucose (Fingerstick) 79 mg/dL (70-99) 165 mg/dL (70-99) 115 mg/dL (70-99) Hemoglobin 8.8 g/dL (12.0-15.5) Hematocrit 28.9 % (36.0-47.0) Mean Corpuscular Hemoglobin Concent 31 g/dL (31-37) Test 02/05/19 20:19 02/06/19 08:09 Glucose (Fingerstick) 127 mg/dL (70-99) 84 mg/dL (70-99) Laboratory Tests Test 02/05/19 10:20 02/05/19 11:39 02/05/19 16:51 02/05/19 20:19 Hemoglobin 8.8 g/dL (12.0-15.5) Hematocrit 28.9 % (36.0-47.0) Mean Corpuscular Hemoglobin Concent 31 g/dL (31-37) Glucose (Fingerstick) 165 mg/dL (70-99) 115 mg/dL (70-99) 127 mg/dL (70-99) Test 02/06/19 08:09 Glucose (Fingerstick) 84 mg/dL (70-99) Microbiology 02/02/19 Blood Culture - Preliminary, Resulted NO GROWTH AFTER 3 DAYS Medications Current Medications Sodium Chloride 1,000 ml @ 1,000 mls/hr 1X ONCE IV Last administered on 02/02/19at 13:25; Start 02/02/19 at 12:45; Stop 02/02/19 at 13:44; Status DC Sodium Chloride 1,000 ml @ 1,000 mls/hr 1X ONCE IV Last administered on 02/02/19at 14:56; Start 02/02/19 at 14:30; Stop 02/02/19 at 15:29; Status DC Piperacillin Sod/ Tazobactam Sod 3.375 gm/Sodium Chloride 50 ml @ 100 mls/hr 1X ONCE IV Last administered on 02/02/19at 14:56; Start 02/02/19 at 14:30; Stop 02/02/19 at 14:59; Status DC Vancomycin HCl (Vanco Per Pharmacy) 1 each PRN DAILY PRN MC SEE COMMENTS Last administered on 02/02/19at 16:49; Start 02/02/19 at 14:30; Stop 02/03/19 at 12:07; Status DC Vancomycin HCl 1.25 gm/Sodium Chloride 250 ml @ 166.667 mls/hr 1X ONCE IV Last administered on 02/02/19at 16:14; Start 02/02/19 at 15:00; Stop 02/02/19 at 16:29; Status DC Sodium Chloride (Normal Saline Flush) 3 ml QSHIFT PRN IV AFTER MEDS AND BLOOD DRAWS; Start 02/02/19 at 16:00 Sodium Chloride 1,000 ml @ 100 mls/hr Q10H IV Last administered on 02/06/19at 00:10; Start 02/02/19 at 15:46 Ondansetron HCl (Zofran) 4 mg PRN Q4HRS PRN IV NAUSEA/VOMITING; Start 02/02/19 at 16:00 Acetaminophen (Tylenol) 650 mg PRN Q4HRS PRN PO TEMP > 100.4F OR MILD-MOD PAIN Last administered on 02/05/19at 20:26; Start 02/02/19 at 16:00 Al Hydroxide/Mg Hydroxide (Mylanta Plus Xs) 30 ml PRN DAILY PRN PO HEARTBURN / GAS; Start 02/02/19 at 16:00 Clonidine HCl (Catapres) 0.1 mg PRN Q6HRS PRN PO SBP>160 OR DBP>90; Start 02/02/19 at 16:00 Docusate Sodium (Colace) 100 mg PRN BID PRN PO CONSTIPATION Last administered on 02/05/19at 20:26; Start 02/02/19 at 16:00 Albuterol Sulfate (Ventolin Neb Soln) 2.5 mg PRN Q4HRS PRN NEB SHORTNESS OF BREATH; Start 02/02/19 at 16:00 Guaifenesin (Robitussin) 200 mg PRN Q4HRS PRN PO COUGH; Start 02/02/19 at 16:00 Lorazepam (Ativan) 0.5 mg PRN Q4HRS PRN PO ANXIETY / AGITATION; Start 02/02/19 at 16:00 Hydromorphone HCl (Dilaudid) 0.5 mg PRN Q2HRS PRN IV SEVERE PAIN 7-10; Start 02/02/19 at 16:00 Enoxaparin Sodium (Lovenox 40mg Syringe) 40 mg DAILY SQ Last administered on 02/06/19at 08:46; Start 02/03/19 at 09:00 Piperacillin Sod/ Tazobactam Sod 3.375 gm/Sodium Chloride 50 ml @ 100 mls/hr Q6H IV Last administered on 02/06/19at 06:56; Start 02/02/19 at 20:00 Sodium Chloride 1,000 ml @ 1,500 mls/hr Q40M IV Last administered on 02/02/19at 16:28; Start 02/02/19 at 15:48; Stop 02/02/19 at 16:49; Status DC Sodium Chloride 500 ml @ 1,000 mls/hr PRN Q30MIN PRN IV SEE COMMENTS; Start 02/02/19 at 16:00 Norepinephrine Bitartrate 8 mg/ Dextrose 258 ml @ 0 mls/hr CONT PRN IV SEE I/O RECORD; Start 02/02/19 at 16:00; Status UNV Amlodipine Besylate (Norvasc) 5 mg DAILY PO Last administered on 02/06/19 08:47; Start 02/03/19 at 09:00 Aspirin (Children'S Aspirin) 81 mg DAILY PO Last administered on 02/06/19 08:47; Start 02/03/19 at 09:00 Calcium/Vitamin D (Oscal D 500mg/ 200uts) 1 tab DAILY PO Last administered on 02/06/19 08:47; Start 02/03/19 at 09:00 Insulin Human Lispro (HumaLOG) 5 units TIDAC SQ Last administered on 02/03/19 18:06; Start 02/02/19 at 16:30; Stop 02/04/19 at 12:24; Status DC Nystatin (Mycostatin) 1 mariam TID TP Last administered on 02/06/19 08:46; Start 02/02/19 at 21:00 Oxybutynin Chloride (Ditropan) 5 mg BID PO Last administered on 02/06/19 08:47; Start 02/02/19 at 21:00 Paroxetine HCl (Paxil) 20 mg DAILY PO Last administered on 02/06/19 08:47; Start 02/03/19 at 09:00 Latanoprost (Xalatan) 1 drop QHS OU Last administered on 02/05/19 20:25; Start 02/02/19 at 21:00 Insulin Glargine (Lantus Syringe) 15 unit QHS SQ Last administered on 02/02/19 20:55; Start 02/02/19 at 21:00; Stop 02/04/19 at 12:24; Status DC Pantoprazole Sodium (Protonix) 40 mg DAILYAC PO Last administered on 02/06/19 05:29; Start 02/03/19 at 07:30 Cetirizine HCl (ZyrTEC) 10 mg DAILY PO Last administered on 12/28/19at 08:47; Start 02/03/19 at 09:00 Ondansetron HCl (Zofran) 4 mg PRN Q8HRS PRN IV NAUSEA/VOMITING; Start 02/02/19 at 16:00; Stop 02/03/19 at 12:37; Status DC Sodium Chloride 1,000 ml @ 125 mls/hr 1X ONCE IV ; Start 02/02/19 at 16:00; Stop 02/02/19 at 23:59; Status UNV Vancomycin HCl 1 gm/Sodium Chloride 250 ml @ 250 mls/hr Q24H IV ; Start 02/03/19 at 16:00; Stop 02/03/19 at 12:07; Status DC Iron Sucrose 200 mg/Sodium Chloride 110 ml @ 55 mls/hr 1X ONCE IV Last administered on 02/04/19at 10:48; Start 02/04/19 at 08:00; Stop 02/04/19 at 09:59; Status DC Insulin Glargine (Lantus Syringe) 10 unit QHS SQ Last administered on 02/05/19at 20:30; Start 02/04/19 at 21:00 Lactobacillus Rhamnosus (Culturelle) 1 cap BID PO Last administered on 02/06/19at 08:47; Start 02/04/19 at 21:00 Active Scripts Active Humalog (Insulin Lispro) 100 Unit/1 Ml Insuln.pen 5 Units SQ TIDAC 30 Days Lantus Solostar (Insulin Glargine,Hum.rec.anlog) 100 Unit/1 Ml Insuln.pen 15 Units SQ QHS 30 Days Cephalexin 250 Mg Capsule 500 Mg PO QID 3 Days Nystatin 15 Gm Oint...g. 1 Mariam TP TID 10 Days Reported Paroxetine Hcl 20 Mg Tablet 1 Tab PO DAILY Oxybutynin Chloride 5 Mg Tablet 1 Tab PO BID Omeprazole 20 Mg Capsule.dr 1 Cap PO DAILY Meloxicam 15 Mg Tablet 1 Tab PO DAILY Lumigan (Bimatoprost) 2.5 Ml Drops 1 Drop EACHEYE QHS Lisinopril 40 Mg Tablet 1 Tab PO DAILY Aspirin 81 Mg Tab.chew 1 Tab PO DAILY Amlodipine Besylate 5 Mg Tablet 5 Mg PO DAILY Oyster Shell 500 Mg + Vit D Tb (Calcium Carbonate/Vitamin D3) 1 Each Tablet 1 Each PO DAILY Zyrtec (Cetirizine Hcl) 10 Mg Capsule 10 Mg PO Multi-Vitamin Daily (Multivitamin) 1 Each Tablet 1 Each PO Vitals/I & O Vital Sign - Last 24 Hours 02/05/19 02/05/19 02/05/19 02/05/19 09:31 11:00 15:00 15:35 Pulse 57 60 59 Resp 17 18 B/P (MAP) 142/67 149/72 (97) 140/60 (86) Pulse Ox 99 98 98 O2 Delivery Nasal Cannula Nasal Cannula Nasal Cannula O2 Flow Rate 3.0 3.0 2.0 02/05/19 02/05/19 02/05/19 02/06/19 19:00 20:00 23:00 03:00 Temp 98.0 98.6 97.9 98.0 98.6 97.9 Pulse 53 53 50 Resp 16 16 18 B/P (MAP) 153/72 (99) 147/69 (95) 130/67 (88) Pulse Ox 98 97 95 O2 Delivery Nasal Cannula Nasal Cannula Nasal Cannula Nasal Cannula O2 Flow Rate 2.0 2.0 2.0 2.0 02/06/19 08:47 Pulse 52 B/P (MAP) 146/75 Intake and Output 02/05/19 02/05/19 02/06/19 15:00 23:00 07:00 Intake Total 1050 ml 290 ml 120 ml Balance 1050 ml 290 ml 120 ml Nutrition Consultation Dietary Evaluation: Recommendations by RD: Dietary education by RD, Increase Calorie Intake, Protein supplementation Comments: offer glucerna supplements when po intake is < 50% meals REC mvi and vit c per wound protocal Expected Outcomes/Goals: to meet > 75% est nutr needs Malnutrition Findings: Food and Nutrition Intake (Sev: <50% est energy req 5days Weight Status: Appropriate PARISH CURTIS MD Feb 06, 2019 09:08
[2019-02-06 10:23] LABS: ALBUMIN 2.6 g/dL (3.4-5.0); CREATININE 0.9 mg/dL (0.6-1.0); GFR 62.6; PHOSPHORUS 2.4 mg/dL (2.6-4.7); POTASSIUM 3.9 mmol/L (3.5-5.1)
[2019-02-06 11:00] VITALS: BP 147/81
--- NOTE | 2019-02-06 12:12 | PDOC ---
Infectious Disease Note Subjective Subjective Nonverbal No fevers reported ROS ROS unobtainable Vital Sign Vital Signs Vital Signs Date Time Temp Pulse Resp B/P (MAP) Pulse Ox O2 Delivery O2 Flow Rate FiO2 02/06/19 08:47 52 146/75 02/06/19 08:00 Nasal Cannula 3.0 02/06/19 07:00 97.8 16 3 97.8 Physical Exam PHYSICAL EXAM GENERAL: Resting quietly, arouses to name HEENT: Oral cavity clear NECK: Supple. LUNGS: Clear. HEART: S1, S2. ABDOMEN: Soft, no guarding GENITOURINARY: Briefs in place. EXTREMITIES: Trace edema, no cyanosis. SKIN: Warm, dry. No generalized rash. CENTRAL NERVOUS SYSTEM: Follows simple commands PIV Labs Lab Laboratory Tests Test 02/05/19 16:51 02/05/19 20:19 02/06/19 08:09 02/06/19 09:40 Glucose (Fingerstick) 115 mg/dL (70-99) 127 mg/dL (70-99) 84 mg/dL (70-99) Sodium Level 145 mmol/L (136-145) Potassium Level 3.9 mmol/L (3.5-5.1) Chloride Level 111 mmol/L (98-107) Carbon Dioxide Level 25 mmol/L (21-32) Anion Gap 9 (6-14) Blood Urea Nitrogen 8 mg/dL (7-20) Creatinine 0.9 mg/dL (0.6-1.0) Estimated GFR (Cockcroft-Gault) 62.6 Glucose Level 138 mg/dL (70-99) Calcium Level 9.0 mg/dL (8.5-10.1) Phosphorus Level 2.4 mg/dL (2.6-4.7) Albumin 2.6 g/dL (3.4-5.0) Test 02/06/19 11:49 Glucose (Fingerstick) 124 mg/dL (70-99) Micro Microbiology 02/02/19 Blood Culture - Preliminary, Resulted NO GROWTH AFTER 3 DAYS Objective Assessment Sepsis. Urinary tract infection. Diabetes mellitus. Acute kidney injury. Anemia. History of Escherichia coli urinary tract infection. Pulm infiltrate ? atelectasis on o2 Plan Plan of Care Continue Zosyn Probiotics Urine culture pending CT chest pending Maintain aspiration precautions Supportive care. Looks well and getting ready to be fed Attending Co-Sign Attending Co-Sign The patient was seen and interviewed as well as examined at the bedside. The chart was reviewed. The case was discussed. Agree with the plan of care. BRUNA DE APRN Feb 06, 2019 12:12 NICK RODRIGUEZ MD Feb 06, 2019 17:00
--- NOTE | 2019-02-06 12:25 | PDOC ---
G I PROGRESS NOTE Subjective Denies pain. Objective PO intake not the best. No family in attendance. Physical Exam Lungs clear anteriorly. RRR Abdomen protuberant, not-tender. Review of Relevant I have reviewed the following items wojciech (where applicable) has been applied. Labs Laboratory Tests Test 02/04/19 15:45 02/04/19 17:08 02/04/19 21:00 02/05/19 08:06 Vancomycin Level Trough 4.5 mcg/mL (10.0-20.0) Vancomycin Last Dose Date 02/03/19 Vancomycin Last Dose Time 1600 Glucose (Fingerstick) 174 mg/dL (70-99) 190 mg/dL (70-99) 79 mg/dL (70-99) Test 02/05/19 10:20 02/05/19 11:39 02/05/19 16:51 02/05/19 20:19 Hemoglobin 8.8 g/dL (12.0-15.5) Hematocrit 28.9 % (36.0-47.0) Mean Corpuscular Hemoglobin Concent 31 g/dL (31-37) Glucose (Fingerstick) 165 mg/dL (70-99) 115 mg/dL (70-99) 127 mg/dL (70-99) Test 02/06/19 08:09 02/06/19 09:40 02/06/19 11:49 Glucose (Fingerstick) 84 mg/dL (70-99) 124 mg/dL (70-99) Sodium Level 145 mmol/L (136-145) Potassium Level 3.9 mmol/L (3.5-5.1) Chloride Level 111 mmol/L (98-107) Carbon Dioxide Level 25 mmol/L (21-32) Anion Gap 9 (6-14) Blood Urea Nitrogen 8 mg/dL (7-20) Creatinine 0.9 mg/dL (0.6-1.0) Estimated GFR (Cockcroft-Gault) 62.6 Glucose Level 138 mg/dL (70-99) Calcium Level 9.0 mg/dL (8.5-10.1) Phosphorus Level 2.4 mg/dL (2.6-4.7) Albumin 2.6 g/dL (3.4-5.0) Laboratory Tests Test 02/05/19 16:51 02/05/19 20:19 02/06/19 08:09 02/06/19 09:40 Glucose (Fingerstick) 115 mg/dL (70-99) 127 mg/dL (70-99) 84 mg/dL (70-99) Sodium Level 145 mmol/L (136-145) Potassium Level 3.9 mmol/L (3.5-5.1) Chloride Level 111 mmol/L (98-107) Carbon Dioxide Level 25 mmol/L (21-32) Anion Gap 9 (6-14) Blood Urea Nitrogen 8 mg/dL (7-20) Creatinine 0.9 mg/dL (0.6-1.0) Estimated GFR (Cockcroft-Gault) 62.6 Glucose Level 138 mg/dL (70-99) Calcium Level 9.0 mg/dL (8.5-10.1) Phosphorus Level 2.4 mg/dL (2.6-4.7) Albumin 2.6 g/dL (3.4-5.0) Test 02/06/19 11:49 Glucose (Fingerstick) 124 mg/dL (70-99) Microbiology 02/02/19 Blood Culture - Preliminary, Resulted NO GROWTH AFTER 3 DAYS Vitals/I & O Vital Sign - Last 24 Hours 02/05/19 02/05/19 02/05/19 02/05/19 15:00 15:35 19:00 20:00 Temp 98.0 98.0 Pulse 59 53 Resp 18 16 B/P (MAP) 140/60 (86) 153/72 (99) Pulse Ox 98 98 98 O2 Delivery Nasal Cannula Nasal Cannula Nasal Cannula Nasal Cannula O2 Flow Rate 3.0 2.0 2.0 2.0 02/05/19 02/06/19 02/06/19 02/06/19 23:00 03:00 07:00 08:00 Temp 98.6 97.9 97.8 98.6 97.9 97.8 Pulse 53 50 52 Resp 16 18 16 B/P (MAP) 147/69 (95) 130/67 (88) 146/75 (98) Pulse Ox 97 95 3 O2 Delivery Nasal Cannula Nasal Cannula Nasal Cannula Nasal Cannula O2 Flow Rate 2.0 2.0 98.0 3.0 02/06/19 08:47 Pulse 52 B/P (MAP) 146/75 Intake and Output 02/05/19 02/05/19 02/06/19 15:00 23:00 07:00 Intake Total 1050 ml 290 ml 120 ml Balance 1050 ml 290 ml [address] chest pending. Problem List Problems Medical Problems: (1) Hypotension Status: Acute (2) Leukocytosis, unspecified Status: Acute (3) Sepsis Status: Acute (4) Urinary tract infection Status: Acute Assessment IRASEMA, source? Investigation desired? Plan of Care: Continue current Tx, Mgmt Plan of Care Note Await family input re: further GI w/uJORDON CROW MD Feb 06, 2019 12:25
[2019-02-06 15:00] VITALS: BP 135/68
--- NOTE | 2019-02-06 15:21 | PDOC ---
Renal-Progress Notes Subjective Notes Notes STABLE History of Present Illness Hx of present illness IMPROVED Vitals Vitals Vital Signs Date Time Temp Pulse Resp B/P (MAP) Pulse Ox O2 Delivery O2 Flow Rate FiO2 02/06/19 11:00 97.7 58 16 147/81 (103) 3 Nasal Cannula 98.0 97.7 Weight Weight [ ] I.O. Intake and Output Intake and Output 02/06/19 07:00 Intake Total 1460 ml Balance 1460 ml Intake Oral 360 ml IV Total 1100 ml # Voids 3 Labs Labs Laboratory Tests Test 02/05/19 16:51 02/05/19 20:19 02/06/19 08:09 02/06/19 09:40 Glucose (Fingerstick) 115 mg/dL (70-99) 127 mg/dL (70-99) 84 mg/dL (70-99) Sodium Level 145 mmol/L (136-145) Potassium Level 3.9 mmol/L (3.5-5.1) Chloride Level 111 mmol/L (98-107) Carbon Dioxide Level 25 mmol/L (21-32) Anion Gap 9 (6-14) Blood Urea Nitrogen 8 mg/dL (7-20) Creatinine 0.9 mg/dL (0.6-1.0) Estimated GFR (Cockcroft-Gault) 62.6 Glucose Level 138 mg/dL (70-99) Calcium Level 9.0 mg/dL (8.5-10.1) Phosphorus Level 2.4 mg/dL (2.6-4.7) Albumin 2.6 g/dL (3.4-5.0) Test 02/06/19 11:49 Glucose (Fingerstick) 124 mg/dL (70-99) Micro Micro Microbiology 02/02/19 Blood Culture - Preliminary, Resulted NO GROWTH AFTER 3 DAYS Review of Systems Constitutional: yes: alert, oriented Ears/Nose/Throat: Yes: no symptom reported Eyes: Yes: no symptom reported Pulmonary: Yes no symptom reported Cardiovascular: Yes no symptom reported Gastrointestional: Yes: no symptom reported Genitourinary: Yes: no symptom reported Musculoskeletal: Yes: no symptom reported Skin: Yes no symptom reported Psychiatric/Neurological: Yes: no symptom reported Endocrine: Yes: no symptom reported Physical Exam Skin: warm Respiratory: bilateral CTA Heart: S1S2 Abdomen: soft, bowel sounds present Genitourinary: bladder flat Extremities: pulses present Neurology: alert Musculoskeletal: Osteoarthritis Assessment Assessment IMP JUNIOR-RESOLVED PLAN WILL SIGN OFF LILLIE KNIGHT MD Feb 06, 2019 15:21
--- NOTE | 2019-02-06 17:18 | RAD ---
EXAM: CT OF THE CHEST WITHOUT CONTRAST. HISTORY: Palpable foci anterior chest wall. TECHNIQUE: Computed tomography of the chest was performed without intravenous contrast. COMPARISON: None. FINDINGS: There appear to be changes of left mastectomy. The right breast is partially included in the [id number]. There is a dense soft tissue density in the subareolar region, partially visualized. This may represent normal parenchyma but is incompletely evaluated. There is a mild pectus excavatum deformity. There is mild exaggeration of thoracic kyphosis secondary to diffuse moderate to severe degenerative disc disease and mild wedging of T5-T7. 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 There is a small cortical defect along the anterior aspect of the mid sternal body image which may represent a developing stress lesion. The costochondral junctions protrude anteriorly in the parasternal region bilaterally which may reflect changes in chest wall geometry in the setting of progressive kyphosis. Images of the upper abdomen reveal trace perihepatic ascites.. There are no pathologically enlarged mediastinal or axillary lymph nodes. There are small bilateral pleural effusions. There is no pericardial effusion. The heart is mildly enlarged. Compressive atelectasis of both lower lobes in the setting of bilateral pleural effusions. An uncalcified nodule in the left upper lobe on image 20 measures 9 mm. There is a calcified granuloma in the right lower lobe. IMPRESSION: 1. The sites of concern along the anterior chest wall may reflect anterior protrusion of the costochondral junctions bilaterally in the parasternal regions in the setting of a mild pectus excavatum deformity, and altered chest wall geometry in the setting of kyphosis. Correlate clinically to assess for developing insufficiency lesion of the sternal body. 2. Soft tissue density within the right subareolar breast, incompletely assessed. Comparison with current mammography is recommended. 3. Small bilateral pleural effusions. Trace ascites. Mild cardiomegaly. Correlate for volume overload. 4. Atelectasis of both lower lobes. 5. Low blood pool attenuation. Correlate for anemia. *One or more of the following individualized dose reduction techniques were utilized for this examination: 1. Automated exposure control. 2. Adjustment of the mA and/or kV according to patient size. 3. Use of iterative reconstruction technique. Electronically signed by: Clotilde Stuart MD (02/06/2019 5:16 PM) [facility]
[2019-02-06 19:00] VITALS: BP 163/79
[2019-02-06] MEDS: LATANOPROST 0.005% OPHTH SOLUTION 2.5ML BOTTLE. OU SCH (20:14)
[2019-02-06] MEDS: INSULIN GLARGINE SYRINGE. SQ SCH (20:28)
[2019-02-06 23:01] VITALS: BP 130/79
[2019-02-07] MEDS: PIPERACILLIN/TAZOBACTAM 3.375 GM in IV NORMAL SALINE 50ML 50 ML IV SCH ×4 (02:37→20:26)
[2019-02-07 03:14] VITALS: BP 151/71
[2019-02-07 06:17] LABS: CALCIUM 9.7 mg/dL (8.5-10.1); CREATININE 1.1 mg/dL (0.6-1.0); GFR 49.7; POTASSIUM 3.8 mmol/L (3.5-5.1)
[2019-02-07 07:00] VITALS: BP 156/79
[2019-02-07] MEDS: IV NORMAL SALINE 1000ML BAG 1,000 ML IV SCH (07:53)
[2019-02-07] MEDS: ENOXAPARIN 40 MG/0.4 ML SYRINGE. SQ SCH (07:57)
[2019-02-07] MEDS: ASPIRIN CHEWABLE 81 MG TABLET. PO SCH (07:58)
[2019-02-07] MEDS: CALCIUM CARB/VIT D3 500/200 TABLET. PO SCH (07:58)
[2019-02-07] MEDS: OXYBUTYNIN CHLORIDE 5 MG TABLET PO SCH ×2 (07:58→20:27)
[2019-02-07] MEDS: PANTOPRAZOLE 40 MG TABLET.DR. PO SCH (07:58)
[2019-02-07] MEDS: LACTOBACILLUS RHAMNOSUS GG 1 CAPSULE. PO SCH ×2 (07:58→20:27)
[2019-02-07] MEDS: PARoxetine 20 MG TABLET PO SCH (07:58)
[2019-02-07] MEDS: CETIRIZINE HCL 10 MG TABLET. PO SCH (07:58)
[2019-02-07] MEDS: NYSTATIN 100,000 UNIT/GM TOPICAL OINTMENT 15GM TUBE. TP SCH ×3 (07:59→20:35)
[2019-02-07] MEDS: ACETAMINOPHEN 325 MG TABLET. PO PRN (07:59)
[2019-02-07] MEDS: amLODIPine BESYLATE 5 MG TABLET PO SCH (08:07)
--- NOTE | 2019-02-07 08:41 | PDOC ---
PROGRESS NOTES Chief Complaint Chief Complaint A/P: UTI SEPSIS JUNIOR, VASOMOTOR NEPHROPATHY Mental delay from retirement Diabetes type 2 on insulin-unknown hematoma A1c Hypertension HLP on meds ANEMIA, MAY BE DILUTIONAL dysphagia diet Anterior chest wall lump x 2 - new Acute hypoxic respiratory failure PLAN ADMIT IV ANTIBIOTICS, VANC, ZOSYN ID CONSULT IV FLUID SUPPORT DVT PROPHYLAXIS ACCUCHECKS GUIAC STOOLS CBC IN AM 02/04 37 MIN PT EXAM, CHART REVIEW, > 50% OF TIME SPENT WITH EXAM, CHART REVIEW, PT CARE COORDINATION History of Present Illness History of Present Illness Ms Boyer is a 68 yo F w/ PMHx DM, HTN, HLD, anemia, depression, macular degeneration from [facility] retirement, unable to give history. History obtained from chart and medical staff, was brought to the ER with lethargy, poor p.o. intake and possible sepsis. Her white count was elevated. Lactate was elevated at 3.5. She received fluid bolus. UA showed pyuria. Chest x-ray was negative for acute infiltrate. She was started on IV vancomycin and Zosyn. ID consult has been requested for antibiotic management. Today, the patient remains afebrile. Per nurse, no fever, chills, nausea, vomiting or diarrhea reported. 02/06: She is smiling, has stuffed animals bedside. Does not follow many commands. Afebrile. Family has asked for podiatry care and note 2 anterior chest wall lumps, non-tender. Has aide feeding her currently. Eating meals when she is fed. No complaints. Continuing zosyn. No fevers PLAN; cont zosyn per ID, f/u urine culture BAck to retirement on dc FULL code on chart dysphagia 2 diet Vitals Vitals Vital Signs Date Time Temp Pulse Resp B/P (MAP) Pulse Ox O2 Delivery O2 Flow Rate FiO2 02/07/19 08:07 74 156/79 02/07/19 03:14 98.1 20 98 Nasal Cannula 98.1 02/06/19 19:30 3.0 Physical Exam Physical Exam GENERAL: Resting quietly, arouses to name HEENT: Oral cavity clear NECK: Supple. LUNGS: Clear. HEART: S1, S2. ABDOMEN: Soft, no guarding GENITOURINARY: Briefs in place. EXTREMITIES: Trace edema, no cyanosis. SKIN: Warm, dry. No generalized rash. CENTRAL NERVOUS SYSTEM: Follows simple commands PIV General: Alert, Cooperative, mild distress Heart: Regular rate Lungs: Clear Abdomen: Normal bowel sounds, Soft Extremities: No cyanosis Labs LABS Laboratory Tests Test 02/06/19 09:40 02/06/19 11:49 02/06/19 17:38 02/06/19 20:21 Sodium Level 145 mmol/L (136-145) Potassium Level 3.9 mmol/L (3.5-5.1) Chloride Level 111 mmol/L (98-107) Carbon Dioxide Level 25 mmol/L (21-32) Anion Gap 9 (6-14) Blood Urea Nitrogen 8 mg/dL (7-20) Creatinine 0.9 mg/dL (0.6-1.0) Estimated GFR (Cockcroft-Gault) 62.6 Glucose Level 138 mg/dL (70-99) Calcium Level 9.0 mg/dL (8.5-10.1) Phosphorus Level 2.4 mg/dL (2.6-4.7) Albumin 2.6 g/dL (3.4-5.0) Glucose (Fingerstick) 124 mg/dL (70-99) 179 mg/dL (70-99) 183 mg/dL (70-99) Test 02/07/19 05:00 02/07/19 07:34 02/07/19 08:07 Sodium Level 147 mmol/L (136-145) Potassium Level 3.8 mmol/L (3.5-5.1) Chloride Level 112 mmol/L (98-107) Carbon Dioxide Level 25 mmol/L (21-32) Anion Gap 10 (6-14) Blood Urea Nitrogen 9 mg/dL (7-20) Creatinine 1.1 mg/dL (0.6-1.0) Estimated GFR (Cockcroft-Gault) 49.7 Glucose Level 117 mg/dL (70-99) Calcium Level 9.7 mg/dL (8.5-10.1) Glucose (Fingerstick) 64 mg/dL (70-99) 84 mg/dL (70-99) Assessment and Plan Assessmemt and Plan Problems Medical Problems: (1) Hypotension Status: Acute (2) Leukocytosis, unspecified Status: Acute (3) Sepsis Status: Acute (4) Urinary tract infection Status: Acute Comment Review of Relevant I have reviewed the following items wojciech (where applicable) has been applied. Labs Laboratory Tests Test 02/05/19 10:20 02/05/19 11:39 02/05/19 16:51 02/05/19 20:19 Hemoglobin 8.8 g/dL (12.0-15.5) Hematocrit 28.9 % (36.0-47.0) Mean Corpuscular Hemoglobin Concent 31 g/dL (31-37) Glucose (Fingerstick) 165 mg/dL (70-99) 115 mg/dL (70-99) 127 mg/dL (70-99) Test 02/06/19 08:09 02/06/19 09:40 02/06/19 11:49 02/06/19 17:38 Glucose (Fingerstick) 84 mg/dL (70-99) 124 mg/dL (70-99) 179 mg/dL (70-99) Sodium Level 145 mmol/L (136-145) Potassium Level 3.9 mmol/L (3.5-5.1) Chloride Level 111 mmol/L (98-107) Carbon Dioxide Level 25 mmol/L (21-32) Anion Gap 9 (6-14) Blood Urea Nitrogen 8 mg/dL (7-20) Creatinine 0.9 mg/dL (0.6-1.0) Estimated GFR (Cockcroft-Gault) 62.6 Glucose Level 138 mg/dL (70-99) Calcium Level 9.0 mg/dL (8.5-10.1) Phosphorus Level 2.4 mg/dL (2.6-4.7) Albumin 2.6 g/dL (3.4-5.0) Test 02/06/19 20:21 02/07/19 05:00 02/07/19 07:34 02/07/19 08:07 Glucose (Fingerstick) 183 mg/dL (70-99) 64 mg/dL (70-99) 84 mg/dL (70-99) Sodium Level 147 mmol/L (136-145) Potassium Level 3.8 mmol/L (3.5-5.1) Chloride Level 112 mmol/L (98-107) Carbon Dioxide Level 25 mmol/L (21-32) Anion Gap 10 (6-14) Blood Urea Nitrogen 9 mg/dL (7-20) Creatinine 1.1 mg/dL (0.6-1.0) Estimated GFR (Cockcroft-Gault) 49.7 Glucose Level 117 mg/dL (70-99) Calcium Level 9.7 mg/dL (8.5-10.1) Laboratory Tests Test 02/06/19 09:40 02/06/19 11:49 02/06/19 17:38 02/06/19 20:21 Sodium Level 145 mmol/L (136-145) Potassium Level 3.9 mmol/L (3.5-5.1) Chloride Level 111 mmol/L (98-107) Carbon Dioxide Level 25 mmol/L (21-32) Anion Gap 9 (6-14) Blood Urea Nitrogen 8 mg/dL (7-20) Creatinine 0.9 mg/dL (0.6-1.0) Estimated GFR (Cockcroft-Gault) 62.6 Glucose Level 138 mg/dL (70-99) Calcium Level 9.0 mg/dL (8.5-10.1) Phosphorus Level 2.4 mg/dL (2.6-4.7) Albumin 2.6 g/dL (3.4-5.0) Glucose (Fingerstick) 124 mg/dL (70-99) 179 mg/dL (70-99) 183 mg/dL (70-99) Test 02/07/19 05:00 02/07/19 07:34 02/07/19 08:07 Sodium Level 147 mmol/L (136-145) Potassium Level 3.8 mmol/L (3.5-5.1) Chloride Level 112 mmol/L (98-107) Carbon Dioxide Level 25 mmol/L (21-32) Anion Gap 10 (6-14) Blood Urea Nitrogen 9 mg/dL (7-20) Creatinine 1.1 mg/dL (0.6-1.0) Estimated GFR (Cockcroft-Gault) 49.7 Glucose Level 117 mg/dL (70-99) Calcium Level 9.7 mg/dL (8.5-10.1) Glucose (Fingerstick) 64 mg/dL (70-99) 84 mg/dL (70-99) Microbiology 02/02/19 Blood Culture - Preliminary, Resulted NO GROWTH AFTER 4 DAYS Medications Current Medications Sodium Chloride 1,000 ml @ 1,000 mls/hr 1X ONCE IV Last administered on 02/02/19at 13:25; Start 02/02/19 at 12:45; Stop 02/02/19 at 13:44; Status DC Sodium Chloride 1,000 ml @ 1,000 mls/hr 1X ONCE IV Last administered on 02/02/19at 14:56; Start 02/02/19 at 14:30; Stop 02/02/19 at 15:29; Status DC Piperacillin Sod/ Tazobactam Sod 3.375 gm/Sodium Chloride 50 ml @ 100 mls/hr 1X ONCE IV Last administered on 02/02/19at 14:56; Start 02/02/19 at 14:30; Stop 02/02/19 at 14:59; Status DC Vancomycin HCl (Vanco Per Pharmacy) 1 each PRN DAILY PRN MC SEE COMMENTS Last administered on 02/02/19at 16:49; Start 02/02/19 at 14:30; Stop 02/03/19 at 12:07; Status DC Vancomycin HCl 1.25 gm/Sodium Chloride 250 ml @ 166.667 mls/hr 1X ONCE IV Last administered on 02/02/19at 16:14; Start 02/02/19 at 15:00; Stop 02/02/19 at 16:29; Status DC Sodium Chloride (Normal Saline Flush) 3 ml QSHIFT PRN IV AFTER MEDS AND BLOOD DRAWS; Start 02/02/19 at 16:00 Sodium Chloride 1,000 ml @ 100 mls/hr Q10H IV Last administered on 02/07/19at 07:53; Start 02/02/19 at 15:46 Ondansetron HCl (Zofran) 4 mg PRN Q4HRS PRN IV NAUSEA/VOMITING; Start 02/02/19 at 16:00 Acetaminophen (Tylenol) 650 mg PRN Q4HRS PRN PO TEMP > 100.4F OR MILD-MOD PAIN Last administered on 02/07/19at 07:59; Start 02/02/19 at 16:00 Al Hydroxide/Mg Hydroxide (Mylanta Plus Xs) 30 ml PRN DAILY PRN PO HEARTBURN / GAS; Start 02/02/19 at 16:00 Clonidine HCl (Catapres) 0.1 mg PRN Q6HRS PRN PO SBP>160 OR DBP>90; Start 02/02/19 at 16:00 Docusate Sodium (Colace) 100 mg PRN BID PRN PO CONSTIPATION Last administered on 02/05/19at 20:26; Start 02/02/19 at 16:00 Albuterol Sulfate (Ventolin Neb Soln) 2.5 mg PRN Q4HRS PRN NEB SHORTNESS OF BREATH; Start 02/02/19 at 16:00 Guaifenesin (Robitussin) 200 mg PRN Q4HRS PRN PO COUGH; Start 02/02/19 at 16:00 Lorazepam (Ativan) 0.5 mg PRN Q4HRS PRN PO ANXIETY / AGITATION; Start 02/02/19 at 16:00 Hydromorphone HCl (Dilaudid) 0.5 mg PRN Q2HRS PRN IV SEVERE PAIN 7-10; Start 02/02/19 at 16:00 Enoxaparin Sodium (Lovenox 40mg Syringe) 40 mg DAILY SQ Last administered on 02/07/19at 07:57; Start 02/03/19 at 09:00 Piperacillin Sod/ Tazobactam Sod 3.375 gm/Sodium Chloride 50 ml @ 100 mls/hr Q6H IV Last administered on 02/07/19 07:48; Start 02/02/19 at 20:00 Sodium Chloride 1,000 ml @ 1,500 mls/hr Q40M IV Last administered on 02/02/19at 16:28; Start 02/02/19 at 15:48; Stop 02/02/19 at 16:49; Status DC Sodium Chloride 500 ml @ 1,000 mls/hr PRN Q30MIN PRN IV SEE COMMENTS; Start 02/02/19 at 16:00 Norepinephrine Bitartrate 8 mg/ Dextrose 258 ml @ 0 mls/hr CONT PRN IV SEE I/O RECORD; Start 02/02/19 at 16:00; Status UNV Amlodipine Besylate (Norvasc) 5 mg DAILY PO Last administered on 02/07/19at 08:07; Start 02/03/19 at 09:00 Aspirin (Children'S Aspirin) 81 mg DAILY PO Last administered on 02/07/19 07:58; Start 02/03/19 at 09:00 Calcium/Vitamin D (Oscal D 500mg/ 200uts) 1 tab DAILY PO Last administered on 02/07/19 07:58; Start 02/03/19 at 09:00 Insulin Human Lispro (HumaLOG) 5 units TIDAC SQ Last administered on 02/03/19at 18:06; Start 02/02/19 at 16:30; Stop 02/04/19 at 12:24; Status DC Nystatin (Mycostatin) 1 mariam TID TP Last administered on 02/07/19at 07:59; Start 02/02/19 at 21:00 Oxybutynin Chloride (Ditropan) 5 mg BID PO Last administered on 02/07/19at 07:58; Start 02/02/19 at 21:00 Paroxetine HCl (Paxil) 20 mg DAILY PO Last administered on 02/07/19at 07:58; Start 02/03/19 at 09:00 Latanoprost (Xalatan) 1 drop QHS OU Last administered on 02/06/19at 20:14; Start 02/02/19 at 21:00 Insulin Glargine (Lantus Syringe) 15 unit QHS SQ Last administered on 02/02/19at 20:55; Start 02/02/19 at 21:00; Stop 02/04/19 at 12:24; Status DC Pantoprazole Sodium (Protonix) 40 mg DAILYAC PO Last administered on 02/07/19at 07:58; Start 02/03/19 at 07:30 Cetirizine HCl (ZyrTEC) 10 mg DAILY PO Last administered on 02/07/19at 07:58; Start 02/03/19 at 09:00 Ondansetron HCl (Zofran) 4 mg PRN Q8HRS PRN IV NAUSEA/VOMITING; Start 02/02/19 at 16:00; Stop 02/03/19 at 12:37; Status DC Sodium Chloride 1,000 ml @ 125 mls/hr 1X ONCE IV ; Start 02/02/19 at 16:00; Stop 02/02/19 at 23:59; Status UNV Vancomycin HCl 1 gm/Sodium Chloride 250 ml @ 250 mls/hr Q24H IV ; Start 02/03/19 at 16:00; Stop 02/03/19 at 12:07; Status DC Iron Sucrose 200 mg/Sodium Chloride 110 ml @ 55 mls/hr 1X ONCE IV Last administered on 02/04/19at 10:48; Start 02/04/19 at 08:00; Stop 02/04/19 at 09:59; Status DC Insulin Glargine (Lantus Syringe) 10 unit QHS SQ Last administered on 9at 20:28; Start 02/04/19 at 21:00 Lactobacillus Rhamnosus (Culturelle) 1 cap BID PO Last administered on 02/07/19at 07:58; Start 02/04/19 at 21:00 Active Scripts Active Humalog (Insulin Lispro) 100 Unit/1 Ml Insuln.pen 5 Units SQ TIDAC 30 Days Lantus Solostar (Insulin Glargine,Hum.rec.anlog) 100 Unit/1 Ml Insuln.pen 15 Units SQ QHS 30 Days Cephalexin 250 Mg Capsule 500 Mg PO QID 3 Days Nystatin 15 Gm Oint...g. 1 Mariam TP TID 10 Days Reported Paroxetine Hcl 20 Mg Tablet 1 Tab PO DAILY Oxybutynin Chloride 5 Mg Tablet 1 Tab PO BID Omeprazole 20 Mg Capsule.dr 1 Cap PO DAILY Meloxicam 15 Mg Tablet 1 Tab PO DAILY Lumigan (Bimatoprost) 2.5 Ml Drops 1 Drop EACHEYE QHS Lisinopril 40 Mg Tablet 1 Tab PO DAILY Aspirin 81 Mg Tab.chew 1 Tab PO DAILY Amlodipine Besylate 5 Mg Tablet 5 Mg PO DAILY Oyster Shell 500 Mg + Vit D Tb (Calcium Carbonate/Vitamin D3) 1 Each Tablet 1 Each PO DAILY Zyrtec (Cetirizine Hcl) 10 Mg Capsule 10 Mg PO Multi-Vitamin Daily (Multivitamin) 1 Each Tablet 1 Each PO Vitals/I & O Vital Sign - Last 24 Hours 02/06/19 02/06/19 02/06/19 02/06/19 08:47 11:00 15:00 19:00 Temp 97.7 97.6 97.6 97.7 97.6 97.6 Pulse 52 58 58 60 Resp 16 16 16 B/P (MAP) 146/75 147/81 (103) 135/68 (90) 163/79 (107) Pulse Ox 3 96 97 O2 Delivery Nasal Cannula Nasal Cannula Room Air O2 Flow Rate 98.0 3.0 02/06/19 02/06/19 02/07/19 02/07/19 19:30 23:01 03:14 08:07 Temp 97.3 98.1 97.3 98.1 Pulse 61 72 74 Resp 20 20 B/P (MAP) 130/79 (96) 151/71 (97) 156/79 Pulse Ox 99 98 O2 Delivery Nasal Cannula Nasal Cannula Nasal Cannula O2 Flow Rate 3.0 Intake and Output 02/06/19 02/06/19 02/07/19 14:59 22:59 06:59 Intake Total 1000 ml 1050 ml 50 ml Balance 1000 ml 1050 ml 50 ml Nutrition Consultation Dietary Evaluation: Recommendations by RD: Dietary education by RD, Increase Calorie Intake, Protein supplementation Comments: offer glucerna supplements when po intake is < 50% meals REC mvi and vit c per wound protocal Expected Outcomes/Goals: to meet > 75% est nutr needs Malnutrition Findings: Food and Nutrition Intake (Sev: <50% est energy req 5days Weight Status: Appropriate PARISH CURTIS MD Feb 07, 2019 08:41
--- NOTE | 2019-02-07 10:46 | PDOC ---
G I PROGRESS NOTE Subjective Asleep; did not awaken. Objective No family in attendance. Physical Exam NO PE. Review of Relevant I have reviewed the following items wojciech (where applicable) has been applied. Labs Laboratory Tests Test 02/05/19 11:39 02/05/19 16:51 02/05/19 20:19 02/06/19 08:09 Glucose (Fingerstick) 165 mg/dL (70-99) 115 mg/dL (70-99) 127 mg/dL (70-99) 84 mg/dL (70-99) Test 02/06/19 09:40 02/06/19 11:49 02/06/19 17:38 02/06/19 20:21 Sodium Level 145 mmol/L (136-145) Potassium Level 3.9 mmol/L (3.5-5.1) Chloride Level 111 mmol/L (98-107) Carbon Dioxide Level 25 mmol/L (21-32) Anion Gap 9 (6-14) Blood Urea Nitrogen 8 mg/dL (7-20) Creatinine 0.9 mg/dL (0.6-1.0) Estimated GFR (Cockcroft-Gault) 62.6 Glucose Level 138 mg/dL (70-99) Calcium Level 9.0 mg/dL (8.5-10.1) Phosphorus Level 2.4 mg/dL (2.6-4.7) Albumin 2.6 g/dL (3.4-5.0) Glucose (Fingerstick) 124 mg/dL (70-99) 179 mg/dL (70-99) 183 mg/dL (70-99) Test 02/07/19 05:00 02/07/19 07:34 02/07/19 08:07 Sodium Level 147 mmol/L (136-145) Potassium Level 3.8 mmol/L (3.5-5.1) Chloride Level 112 mmol/L (98-107) Carbon Dioxide Level 25 mmol/L (21-32) Anion Gap 10 (6-14) Blood Urea Nitrogen 9 mg/dL (7-20) Creatinine 1.1 mg/dL (0.6-1.0) Estimated GFR (Cockcroft-Gault) 49.7 Glucose Level 117 mg/dL (70-99) Calcium Level 9.7 mg/dL (8.5-10.1) Glucose (Fingerstick) 64 mg/dL (70-99) 84 mg/dL (70-99) Laboratory Tests Test 02/06/19 11:49 02/06/19 17:38 02/06/19 20:21 02/07/19 05:00 Glucose (Fingerstick) 124 mg/dL (70-99) 179 mg/dL (70-99) 183 mg/dL (70-99) Sodium Level 147 mmol/L (136-145) Potassium Level 3.8 mmol/L (3.5-5.1) Chloride Level 112 mmol/L (98-107) Carbon Dioxide Level 25 mmol/L (21-32) Anion Gap 10 (6-14) Blood Urea Nitrogen 9 mg/dL (7-20) Creatinine 1.1 mg/dL (0.6-1.0) Estimated GFR (Cockcroft-Gault) 49.7 Glucose Level 117 mg/dL (70-99) Calcium Level 9.7 mg/dL (8.5-10.1) Test 02/07/19 07:34 02/07/19 08:07 Glucose (Fingerstick) 64 mg/dL (70-99) 84 mg/dL (70-99) Microbiology 02/02/19 Blood Culture - Preliminary, Resulted NO GROWTH AFTER 4 DAYS Vitals/I & O Vital Sign - Last 24 Hours 02/06/19 02/06/19 02/06/19 02/06/19 11:00 15:00 19:00 19:30 Temp 97.7 97.6 97.6 97.7 97.6 97.6 Pulse 58 58 60 Resp 16 16 16 B/P (MAP) 147/81 (103) 135/68 (90) 163/79 (107) Pulse Ox 3 96 97 O2 Delivery Nasal Cannula Nasal Cannula Room Air Nasal Cannula O2 Flow Rate 98.0 3.0 3.0 02/06/19 02/07/19 02/07/19 02/07/19 23:01 03:14 07:00 08:07 Temp 97.3 98.1 99.2 97.3 98.1 99.2 Pulse 61 72 68 74 Resp 20 20 16 B/P (MAP) 130/79 (96) 151/71 (97) 156/79 (104) 156/79 Pulse Ox 99 98 98 O2 Delivery Nasal Cannula Nasal Cannula Nasal Cannula O2 Flow Rate 3.0 Intake and Output 02/06/19 02/06/19 02/07/19 15:00 23:00 07:00 Intake Total 1000 ml 1050 ml 50 ml Balance 1000 ml 1050 ml 50 ml Problem List Problems Medical Problems: (1) Hypotension Status: Acute (2) Leukocytosis, unspecified Status: Acute (3) Sepsis Status: Acute (4) Urinary tract infection Status: Acute Assessment IRASEMA. W/u pending input from family. Plan of Care: Continue current Tx, Mgmt Plan of Care Note Awake family discussion and results of same. JORDON SIDHU MD Feb 07, 2019 10:45
[2019-02-07 11:00] VITALS: BP 106/67
--- NOTE | 2019-02-07 12:37 | PDOC ---
Infectious Disease Note Subjective Subjective Nonverbal No fevers reported Eating 100% meals Incontinent ROS ROS unobtainable Vital Sign Vital Signs Vital Signs Date Time Temp Pulse Resp B/P (MAP) Pulse Ox O2 Delivery O2 Flow Rate FiO2 02/07/19 08:07 74 156/79 02/07/19 08:00 Nasal Cannula 3.0 02/07/19 07:00 99.2 16 98 99.2 Physical Exam PHYSICAL EXAM GENERAL: Propped up in bed, alert, in NAD HEENT: Oral cavity clear NECK: Supple. LUNGS: Clear. HEART: S1, S2. PPM ABDOMEN: Soft, no guarding GENITOURINARY: Briefs in place. EXTREMITIES: Trace edema, no cyanosis. SKIN: Warm, dry. No generalized rash. CENTRAL NERVOUS SYSTEM: Follows simple commands PIV Labs Lab Laboratory Tests Test 02/06/19 17:38 02/06/19 20:21 02/07/19 05:00 02/07/19 07:34 Glucose (Fingerstick) 179 mg/dL (70-99) 183 mg/dL (70-99) 64 mg/dL (70-99) Sodium Level 147 mmol/L (136-145) Potassium Level 3.8 mmol/L (3.5-5.1) Chloride Level 112 mmol/L (98-107) Carbon Dioxide Level 25 mmol/L (21-32) Anion Gap 10 (6-14) Blood Urea Nitrogen 9 mg/dL (7-20) Creatinine 1.1 mg/dL (0.6-1.0) Estimated GFR (Cockcroft-Gault) 49.7 Glucose Level 117 mg/dL (70-99) Calcium Level 9.7 mg/dL (8.5-10.1) Test 02/07/19 08:07 02/07/19 11:32 Glucose (Fingerstick) 84 mg/dL (70-99) 124 mg/dL (70-99) Chest CT IMPRESSION: 1. The sites of concern along the anterior chest wall may reflect anterior protrusion of the costochondral junctions bilaterally in the parasternal regions in the setting of a mild pectus excavatum deformity, and altered chest wall geometry in the setting of kyphosis. Correlate clinically to assess for developing insufficiency lesion of the sternal body. 2. Soft tissue density within the right subareolar breast, incompletely assessed. Comparison with current mammography is recommended. 3. Small bilateral pleural effusions. Trace ascites. Mild cardiomegaly. Correlate for volume overload. 4. Atelectasis of both lower lobes. 5. Low blood pool attenuation. Correlate for anemia. Micro Microbiology 02/02/19 Blood Culture - Preliminary, Resulted NO GROWTH AFTER 4 DAYS Objective Assessment Sepsis - improved Urinary tract infection. POA 02/02. Diabetes mellitus. Acute kidney injury Anemia. History of Escherichia coli urinary tract infection. Pulm infiltrate ? atelectasis on o2 Plan Plan of Care Zosyn (02/02) Probiotics Urine culture not performed. d/c micro Maintain aspiration precautions Supportive care. Appears comfortable Attending Co-Sign Attending Co-Sign The patient was seen and interviewed as well as examined at the bedside. The chart was reviewed. The case was discussed. Agree with the plan of care. BRUNA DE APRN Feb 07, 2019 12:37 NICK RODRIGUEZ MD Feb 07, 2019 15:48
[2019-02-07 15:00] VITALS: BP 140/57
[2019-02-07 19:00] VITALS: BP 146/77
[2019-02-07] MEDS: LATANOPROST 0.005% OPHTH SOLUTION 2.5ML BOTTLE. OU SCH (20:27)
[2019-02-07] MEDS: INSULIN GLARGINE SYRINGE. SQ SCH (20:39)
[2019-02-07 23:02] VITALS: BP 136/54
[2019-02-08] MEDS: PIPERACILLIN/TAZOBACTAM 3.375 GM in IV NORMAL SALINE 50ML 50 ML IV SCH ×2 (02:28→09:33)
[2019-02-08 03:10] VITALS: BP 137/62
[2019-02-08 07:00] VITALS: BP 153/75
[2019-02-08] MEDS: NYSTATIN 100,000 UNIT/GM TOPICAL OINTMENT 15GM TUBE. TP SCH ×3 (09:33→22:03)
--- NOTE | 2019-02-08 10:31 | PDOC ---
Objective: Objective: No GI concerns per nurse, thinks last time she stooled was 02/04, hasn't heard from family re: colonoscopy decision. Vital Signs: Vital Signs Date Time Temp Pulse Resp B/P (MAP) Pulse Ox O2 Delivery O2 Flow Rate FiO2 02/08/19 07:00 97.9 59 17 153/75 (101) 98 Nasal Cannula 3.0 97.9 Labs: Laboratory Tests Test 02/07/19 11:32 02/07/19 16:45 02/07/19 20:27 02/08/19 08:11 Glucose (Fingerstick) 124 mg/dL 164 mg/dL 199 mg/dL 120 mg/dL PE: GEN: NAD LUNGS: NC HEART: RRR ABD: quiet, soft, winced some when palpating suprapubic region NEURO/PSYCH: sleeping, did not awaken when I spoke to her and examined abdomen A/P: UTI, intellectual/developmental delay IRASEMA/ACD - h/o GERD and NSAID use w/ previous PEG/removal, no previous colonoscopy - discussed possibility of this w/ brother last week - is on ASA ?constipation -- Continue PPI. Add Miralax, etc. Hemodynamically unstable?: No Is patient in severe pain?: No Is NPO status required?: No STEFF GOLDBERG Feb 08, 2019 10:31
--- NOTE | 2019-02-08 10:33 | PDOC ---
Infectious Disease Note Subjective: Subjective Nonverbal No fevers reported Eating 100% meals Incontinent Vital Signs: Vital Signs Vital Signs Date Time Temp Pulse Resp B/P (MAP) Pulse Ox O2 Delivery O2 Flow Rate FiO2 02/08/19 07:00 97.9 59 17 153/75 (101) 98 Nasal Cannula 3.0 97.9 Physical Exam: PHYSICAL EXAM GENERAL: Propped up in bed, alert, in NAD HEENT: Oral cavity clear NECK: Supple. LUNGS: Clear. HEART: S1, S2. PPM ABDOMEN: Soft, no guarding GENITOURINARY: Briefs in place. EXTREMITIES: Trace edema, no cyanosis. SKIN: Warm, dry. No generalized rash. CENTRAL NERVOUS SYSTEM: Follows simple commands PIV Medications: Inpatient Meds: Current Medications Medications (Trade) Dose Ordered Sig/Rolando Start Time Stop Time Status Last Admin Dose Admin Acetaminophen (Tylenol) 650 mg PRN Q4HRS PRN 02/02/19 16:00 02/07/19 07:59 650 MG Al Hydroxide/Mg Hydroxide (Mylanta Plus Xs) 30 ml PRN DAILY PRN 02/02/19 16:00 Albuterol Sulfate (Ventolin Neb Soln) 2.5 mg PRN Q4HRS PRN 02/02/19 16:00 Amlodipine Besylate (Norvasc) 5 mg DAILY 02/03/19 09:00 02/07/19 08:07 5 MG Aspirin (Children'S Aspirin) 81 mg DAILY 02/03/19 09:00 02/07/19 07:58 81 MG Calcium/Vitamin D (Oscal D 500mg/ 200uts) 1 tab DAILY 02/03/19 09:00 02/07/19 07:58 1 TAB Cetirizine HCl (ZyrTEC) 10 mg DAILY 02/03/19 09:00 02/07/19 07:58 10 MG Clonidine HCl (Catapres) 0.1 mg PRN Q6HRS PRN 02/02/19 16:00 Docusate Sodium (Colace) 100 mg PRN BID PRN 02/02/19 16:00 02/05/19 20:26 100 MG Enoxaparin Sodium (Lovenox 40mg Syringe) 40 mg DAILY 02/03/19 09:00 02/07/19 07:57 40 MG Guaifenesin (Robitussin) 200 mg PRN Q4HRS PRN 02/02/19 16:00 Hydromorphone HCl (Dilaudid) 0.5 mg PRN Q2HRS PRN 02/02/19 16:00 Insulin Glargine (Lantus Syringe) 10 unit QHS 02/04/19 21:00 02/07/19 20:39 10 UNIT Insulin Human Lispro (HumaLOG) 5 units TIDAC 02/02/19 16:30 02/04/19 12:24 DC 02/03/19 18:06 5 UNITS Iron Sucrose 200 mg/Sodium Chloride 110 ml @ 55 mls/hr 1X ONCE 02/04/19 08:00 02/04/19 09:59 DC 02/04/19 10:48 55 MLS/HR Lactobacillus Rhamnosus (Culturelle) 1 cap BID 02/04/19 21:00 02/07/19 20:27 1 CAP Latanoprost (Xalatan) 1 drop QHS 02/02/19 21:00 02/07/19 20:27 1 DROP Lorazepam (Ativan) 0.5 mg PRN Q4HRS PRN 02/02/19 16:00 Norepinephrine Bitartrate 8 mg/ Dextrose 258 ml @ 0 mls/hr CONT PRN 02/02/19 16:00 UNV Nystatin (Mycostatin) 1 srinivasa TID 02/02/19 21:00 02/08/19 09:33 1 SRINIVASA Ondansetron HCl (Zofran) 4 mg PRN Q8HRS PRN 02/02/19 16:00 02/03/19 12:37 DC Oxybutynin Chloride (Ditropan) 5 mg BID 02/02/19 21:00 02/07/19 20:27 5 MG Pantoprazole Sodium (Protonix) 40 mg DAILYAC 02/03/19 07:30 02/07/19 07:58 40 MG Paroxetine HCl (Paxil) 20 mg DAILY 02/03/19 09:00 02/07/19 07:58 20 MG Piperacillin Sod/ Tazobactam Sod 3.375 gm/Sodium Chloride 50 ml @ 100 mls/hr Q6H 02/02/19 20:00 02/08/19 09:33 100 MLS/HR Sodium Chloride 1,000 ml @ 125 mls/hr 1X ONCE 02/02/19 16:00 12/24/19 23:59 UNV Sodium Chloride (Normal Saline Flush) 3 ml QSHIFT PRN 02/02/19 16:00 Vancomycin HCl (Vanco Per Pharmacy) 1 each PRN DAILY PRN 02/02/19 14:30 02/03/19 12:07 DC 02/02/19 16:49 1 EACH Vancomycin HCl 1.25 gm/Sodium Chloride 250 ml @ 166.667 mls/hr 1X ONCE 02/02/19 15:00 02/02/19 16:29 DC 02/02/19 16:14 166.667 MLS/HR Vancomycin HCl 1 gm/Sodium Chloride 250 ml @ 250 mls/hr Q24H 02/03/19 16:00 02/03/19 12:07 NC Labs: Lab Laboratory Tests Test 02/07/19 11:32 02/07/19 16:45 02/07/19 20:27 02/08/19 08:11 Glucose (Fingerstick) 124 mg/dL (70-99) 164 mg/dL (70-99) 199 mg/dL (70-99) 120 mg/dL (70-99) Objective: Assessment: 1. Sepsis. 2. Urinary tract infection.UC not done 3. Diabetes mellitus. 4. Acute kidney injury. 5. Anemia. 6. History of Escherichia coli urinary tract infection. 7.Pulm infiltrate ? atelectasis on o2 Plan: Plan of Care Dc Zosyn start augmentin Probiotics Urine culture not performed. d/c micro Maintain aspiration precautions Supportive care. Ok to dc from id standpoint SOLE BROWNING MD Feb 08, 2019 10:32
--- NOTE | 2019-02-08 10:37 | NUR ---
SW following. Chart reviewed, discussed with RN. Dr. Whittaker likely discharging pt back to [facility]. SW faxed updates., awaiting discharge paperwork. SW will continue to follow.
[2019-02-08] MEDS ORDERED: POLYETHYLENE GLYCOL 3350 17 GM PACKET. PO PRN (10:45)
[2019-02-08] MEDS ORDERED: BISACODYL 5 MG TABLET.DR. PO PRN (10:45)
[2019-02-08 11:00] VITALS: BP 148/73
--- NOTE | 2019-02-08 11:20 | PDOC ---
[employer] PROGRESS NOTE Chief Complaint Chief Complaint UTI, resolved Sepsis, resolved Mental delay Diabetes type 2 Hypertension Anterior chest wall lump x 2 Acute hypoxic respiratory failure, resolved History of Present Illness History of Present Illness 02/08/19 Pt seen and examined DW pt regarding their care DW RN Reviewed pt's chart Vitals/I&O Vitals/I&O: Vital Signs Date Time Temp Pulse Resp B/P (MAP) Pulse Ox O2 Delivery O2 Flow Rate FiO2 02/08/19 07:00 97.9 59 17 153/75 (101) 98 Nasal Cannula 3.0 97.9 I & O 02/07/19 02/07/19 02/08/19 15:00 23:00 07:00 Intake Total 785 ml 50 ml 50 ml Balance 785 ml 50 ml 50 ml Physical Exam Physical Exam: General: Alert, Cooperative, mild distress Heart: Regular rate, Normal S1, Normal S2 Lungs: Clear Abdomen: Normal bowel sounds, Soft Extremities: No clubbing, No cyanosis Skin: No rashes, No significant lesion Labs Labs: Laboratory Tests Test 02/07/19 11:32 02/07/19 16:45 02/07/19 20:27 02/08/19 08:11 Glucose (Fingerstick) 124 mg/dL (70-99) 164 mg/dL (70-99) 199 mg/dL (70-99) 120 mg/dL (70-99) Review of Systems Review of Systems: No c/o headache No c/o CP Assessment and Plan Assessmemt and Plan Problems Medical Problems: (1) Hypotension Status: Acute (2) Leukocytosis, unspecified Status: Acute (3) Sepsis Status: Acute (4) Urinary tract infection Status: Acute Assessment UTI, resolved Sepsis, resolved Mental delay Diabetes type 2 Hypertension Anterior chest wall lump x 2 Acute hypoxic respiratory failure, resolved Plan Change to PO Abx Hope to d/c Comment Review of Relevant I have reviewed the following items wojciech (where applicable) has been applied. Hemodynamically unstable?: No Is patient in severe pain?: No Is NPO status required?: No STEPHANIE TAVARES III, DO Feb 08, 2019 11:20
[2019-02-08] MEDS: ASPIRIN CHEWABLE 81 MG TABLET. PO SCH (13:12)
[2019-02-08] MEDS: LACTOBACILLUS RHAMNOSUS GG 1 CAPSULE. PO SCH ×2 (13:12→20:42)
[2019-02-08] MEDS: amLODIPine BESYLATE 5 MG TABLET PO SCH (13:12)
[2019-02-08] MEDS: OXYBUTYNIN CHLORIDE 5 MG TABLET PO SCH ×2 (13:12→20:42)
[2019-02-08] MEDS: CALCIUM CARB/VIT D3 500/200 TABLET. PO SCH (13:12)
[2019-02-08] MEDS: POLYETHYLENE GLYCOL 3350 17 GM PACKET. PO SCH (13:12)
[2019-02-08] MEDS: PANTOPRAZOLE 40 MG TABLET.DR. PO SCH (13:12)
[2019-02-08] MEDS: CETIRIZINE HCL 10 MG TABLET. PO SCH (13:13)
[2019-02-08] MEDS: PARoxetine 20 MG TABLET PO SCH (13:13)
[2019-02-08] MEDS: ENOXAPARIN 40 MG/0.4 ML SYRINGE. SQ SCH (13:13)
[2019-02-08 15:00] VITALS: BP 161/65
[2019-02-08 19:00] VITALS: BP 180/78
[2019-02-08] MEDS: LATANOPROST 0.005% OPHTH SOLUTION 2.5ML BOTTLE. OU SCH (20:42)
[2019-02-08] MEDS: AMOXICILLIN/K CLAV 875/125MG TABLET. PO SCH (20:42)
[2019-02-08] MEDS: INSULIN GLARGINE SYRINGE. SQ SCH (20:53)
[2019-02-08 23:00] VITALS: BP 158/68
[2019-02-09 03:00] VITALS: BP 136/64
[2019-02-09 07:00] VITALS: BP 154/73
[2019-02-09] MEDS: PANTOPRAZOLE 40 MG TABLET.DR. PO SCH (07:15)
[2019-02-09] MEDS: POLYETHYLENE GLYCOL 3350 17 GM PACKET. PO SCH (08:29)
[2019-02-09] MEDS: ENOXAPARIN 40 MG/0.4 ML SYRINGE. SQ SCH (08:29)
[2019-02-09] MEDS: NYSTATIN 100,000 UNIT/GM TOPICAL OINTMENT 15GM TUBE. TP SCH ×3 (08:29→21:12)
[2019-02-09] MEDS: CETIRIZINE HCL 10 MG TABLET. PO SCH (08:30)
[2019-02-09] MEDS: AMOXICILLIN/K CLAV 875/125MG TABLET. PO SCH ×2 (08:30→21:11)
[2019-02-09] MEDS: OXYBUTYNIN CHLORIDE 5 MG TABLET PO SCH ×2 (08:30→21:11)
[2019-02-09] MEDS: LACTOBACILLUS RHAMNOSUS GG 1 CAPSULE. PO SCH ×2 (08:30→21:11)
[2019-02-09] MEDS: amLODIPine BESYLATE 5 MG TABLET PO SCH (08:30)
[2019-02-09] MEDS: CALCIUM CARB/VIT D3 500/200 TABLET. PO SCH (08:30)
[2019-02-09] MEDS: PARoxetine 20 MG TABLET PO SCH (08:30)
[2019-02-09] MEDS: ASPIRIN CHEWABLE 81 MG TABLET. PO SCH (08:30)
--- NOTE | 2019-02-09 09:27 | PDOC ---
Objective: Objective: D/w nurse - hasn't stooled, on clears today, aware of plans for prep/NGT. Asks if Lovenox should be held. Vital Signs: Vital Signs Date Time Temp Pulse Resp B/P (MAP) Pulse Ox O2 Delivery O2 Flow Rate FiO2 02/09/19 08:30 52 154/73 02/09/19 07:00 97.8 18 99 Nasal Cannula 3.0 97.8 Labs: Laboratory Tests Test 02/08/19 11:49 02/08/19 17:52 02/08/19 20:22 02/08/19 20:39 Glucose (Fingerstick) 98 mg/dL 121 mg/dL 126 mg/dL 133 mg/dL Test 02/09/19 08:30 Glucose (Fingerstick) 49 mg/dL PE: GEN: NAD, holding stuffed puppy and bear, staff just changed brief LUNGS: NC 3L HEART: mildly bradycardic ABD: S/ND/NT NEURO/PSYCH: awake and alert A/P: UTI IRASEMA/ACD ?constipation -- Plans for EGD and colonoscopy on . Will review Lovenox and ASA w/ Dr. Paulson. Hemodynamically unstable?: No Is patient in severe pain?: No Is NPO status required?: No STEFF GOLDBERG Feb 09, 2019 09:27
[2019-02-09 10:36] LABS: HEMATOCRIT 28.1 % (36.0-47.0); HEMOGLOBIN 8.8 g/dL (12.0-15.5)
[2019-02-09 11:00] VITALS: BP 151/67
--- NOTE | 2019-02-09 11:11 | PDOC ---
Infectious Disease Note Subjective: Subjective Nonverbal No fevers reported awaiting colon and egd d/w rn Vital Signs: Vital Signs Vital Signs Date Time Temp Pulse Resp B/P (MAP) Pulse Ox O2 Delivery O2 Flow Rate FiO2 02/09/19 08:30 52 154/73 02/09/19 08:00 Nasal Cannula 3.0 02/09/19 07:00 97.8 18 99 97.8 Physical Exam: PHYSICAL EXAM Medications: Inpatient Meds: Current Medications Medications (Trade) Dose Ordered Sig/Rolando Start Time Stop Time Status Last Admin Dose Admin Acetaminophen (Tylenol) 650 mg PRN Q4HRS PRN 02/02/19 16:00 02/07/19 07:59 650 MG Al Hydroxide/Mg Hydroxide (Mylanta Plus Xs) 30 ml PRN DAILY PRN 02/02/19 16:00 Albuterol Sulfate (Ventolin Neb Soln) 2.5 mg PRN Q4HRS PRN 02/02/19 16:00 Amlodipine Besylate (Norvasc) 5 mg DAILY 02/03/19 09:00 02/09/19 08:30 5 MG Amoxicillin/ Clavulanate Potassium (Augmentin 875/ 125mg) 1 tab BID 02/08/19 21:00 02/09/19 08:30 1 TAB Aspirin (Children'S Aspirin) 81 mg DAILY 02/03/19 09:00 02/09/19 08:30 81 MG Bisacodyl (Dulcolax Tab) 10 mg 1X ONCE 02/10/19 14:00 02/10/19 14:01 Calcium/Vitamin D (Oscal D 500mg/ 200uts) 1 tab DAILY 02/03/19 09:00 02/09/19 08:30 1 TAB Cetirizine HCl (ZyrTEC) 10 mg DAILY 02/03/19 09:00 02/09/19 08:30 10 MG Clonidine HCl (Catapres) 0.1 mg PRN Q6HRS PRN 02/02/19 16:00 Docusate Sodium (Colace) 100 mg PRN BID PRN 02/02/19 16:00 02/05/19 20:26 100 MG Enoxaparin Sodium (Lovenox 40mg Syringe) 40 mg DAILY 02/03/19 09:00 02/09/19 08:29 40 MG Guaifenesin (Robitussin) 200 mg PRN Q4HRS PRN 02/02/19 16:00 Hydromorphone HCl (Dilaudid) 0.5 mg PRN Q2HRS PRN 02/02/19 16:00 Insulin Glargine (Lantus Syringe) 10 unit QHS 02/04/19 21:00 02/08/19 20:53 10 UNIT Insulin Human Lispro (HumaLOG) 5 units TIDAC 02/02/19 16:30 02/04/19 12:24 DC 02/03/19 18:06 5 UNITS Iron Sucrose 200 mg/Sodium Chloride 110 ml @ 55 mls/hr 1X ONCE 02/04/19 08:00 02/04/19 09:59 DC 02/04/19 10:48 55 MLS/HR Lactobacillus Rhamnosus (Culturelle) 1 cap BID 02/04/19 21:00 02/09/19 08:30 1 CAP Latanoprost (Xalatan) 1 drop QHS 02/02/19 21:00 02/08/19 20:42 1 DROP Lorazepam (Ativan) 0.5 mg PRN Q4HRS PRN 02/02/19 16:00 Magnesium Citrate (Citroma) 296 ml 1X ONCE 02/10/19 11:00 02/10/19 11:01 Norepinephrine Bitartrate 8 mg/ Dextrose 258 ml @ 0 mls/hr CONT PRN 02/02/19 16:00 UNV Nystatin (Mycostatin) 1 srinivasa TID 02/02/19 21:00 02/09/19 08:29 1 SRINIVASA Ondansetron HCl (Zofran) 4 mg PRN Q8HRS PRN 02/02/19 16:00 02/03/19 12:37 DC Oxybutynin Chloride (Ditropan) 5 mg BID 02/02/19 21:00 02/09/19 08:30 5 MG Pantoprazole Sodium (Protonix) 40 mg DAILYAC 02/03/19 07:30 02/09/19 07:15 40 MG Paroxetine HCl (Paxil) 20 mg DAILY 02/03/19 09:00 02/09/19 08:30 20 MG Piperacillin Sod/ Tazobactam Sod 3.375 gm/Sodium Chloride 50 ml @ 100 mls/hr Q6H 02/02/19 20:00 02/08/19 11:33 DC 02/08/19 09:33 100 MLS/HR Polyethylene Glycol (miraLAX PACKET) 17 gm PRN DAILY PRN 02/08/19 10:45 Polyethylene Glycol (miraLAX Powder BULK BOTTLE) 238 gm 1X ONCE 02/10/19 12:00 02/10/19 12:01 Sodium Chloride 1,000 ml @ 125 mls/hr 1X ONCE 02/02/19 16:00 02/02/19 23:59 UNV Sodium Chloride (Normal Saline Flush) 3 ml QSHIFT PRN 02/02/19 16:00 Vancomycin HCl (Vanco Per Pharmacy) 1 each PRN DAILY PRN 02/02/19 14:30 02/03/19 12:07 DC 02/02/19 16:49 1 EACH Vancomycin HCl 1.25 gm/Sodium Chloride 250 ml @ 166.667 mls/hr 1X ONCE 02/02/19 15:00 02/02/19 16:29 DC 02/02/19 16:14 166.667 MLS/HR Vancomycin HCl 1 gm/Sodium Chloride 250 ml @ 250 mls/hr Q24H 02/03/19 16:00 02/03/19 12:07 DC Labs: Lab Laboratory Tests Test 02/08/19 11:49 02/08/19 17:52 02/08/19 20:22 02/08/19 20:39 Glucose (Fingerstick) 98 mg/dL (70-99) 121 mg/dL (70-99) 126 mg/dL (70-99) 133 mg/dL (70-99) Test 02/09/19 08:30 02/09/19 10:28 Glucose (Fingerstick) 49 mg/dL (70-99) Hemoglobin 8.8 g/dL (12.0-15.5) Hematocrit 28.1 % (36.0-47.0) Mean Corpuscular Hemoglobin Concent 32 g/dL (31-37) Objective: Assessment: 1. Sepsis. 2. Urinary tract infection.UC not done 3. Diabetes mellitus. 4. Acute kidney injury. 5. Anemia. 6. History of Escherichia coli urinary tract infection. 7.Pulm infiltrate ? atelectasis on o2 Plan: Plan of Care cont augmentin Probiotics Urine culture not performed. d/c micro Maintain aspiration precautions Supportive care. SOLE BROWNING MD Feb 09, 2019 11:11
--- NOTE | 2019-02-09 13:59 | PDOC ---
[employer] PROGRESS NOTE Chief Complaint Chief Complaint UTI, resolved Sepsis, resolved Mental delay Diabetes type 2 Hypertension Anterior chest wall lump x 2 Acute hypoxic respiratory failure, resolved History of Present Illness History of Present Illness 02/08/19 Pt seen and examined DW pt regarding their care DW RN Reviewed pt's chart 02/09/19 Patient seen and examined Chart reviewed Discussed with RN Vitals/I&O Vitals/I&O: Vital Signs Date Time Temp Pulse Resp B/P (MAP) Pulse Ox O2 Delivery O2 Flow Rate FiO2 02/09/19 11:00 57 18 151/67 (95) 99 Nasal Cannula 3.0 02/09/19 07:00 97.8 97.8 I & O 02/08/19 02/08/19 02/09/19 15:00 23:00 07:00 Intake Total 20 ml 130 ml Balance 20 ml 130 ml Physical Exam Physical Exam: General: Alert, Cooperative, mild distress Heart: Regular rate, Normal S1, Normal S2 Lungs: Clear Abdomen: Normal bowel sounds, Soft Extremities: No clubbing, No cyanosis Skin: No rashes, No significant lesion Labs Labs: Laboratory Tests Test 02/08/19 17:52 02/08/19 20:22 02/08/19 20:39 02/09/19 08:30 Glucose (Fingerstick) 121 mg/dL (70-99) 126 mg/dL (70-99) 133 mg/dL (70-99) 49 mg/dL (70-99) Test 02/09/19 10:28 Hemoglobin 8.8 g/dL (12.0-15.5) Hematocrit 28.1 % (36.0-47.0) Mean Corpuscular Hemoglobin Concent 32 g/dL (31-37) Assessment and Plan Assessmemt and Plan Problems Medical Problems: (1) Hypotension Status: Acute (2) Leukocytosis, unspecified Status: Acute (3) Sepsis Status: Acute (4) Urinary tract infection Status: Acute UTI, resolved Sepsis, resolved Mental delay Diabetes type 2 Hypertension Anterior chest wall lump x 2 Acute hypoxic respiratory failure Plan IV antibiotics PT OT Home meds DVT prophylaxis Discharge disposition pending 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 Medications: Current Medications Medications (Trade) Dose Ordered Sig/Rolando Route PRN Reason Start Time Stop Time Status Last Admin Dose Admin Amoxicillin/ Clavulanate Potassium (Augmentin 875/ 125mg) 1 tab BID PO 02/08/19 21:00 02/09/19 08:30 Hemodynamically unstable?: No Is patient in severe pain?: No Is NPO status required?: STEPHANIE Webber III, DO Feb 09, 2019 13:59
[2019-02-09 15:00] VITALS: BP 150/58
--- NOTE | 2019-02-09 16:13 | PDOC2 ---
CONSULT Date of Consult Date of Consult DATE: 02/09/19 TIME: 16:06 Reason for Consult Reason for Consult: symptomatic hallux nails Referring Physician Referring Physician: Hospitalist Identification/Chief Complaint Chief Complaint discolored bilateral hallux nails Source Source: Chart review History of Present Illness Reason for Visit: Patient seen bedside does not respond to questions. Podiatry consulted to evaluate her foot and possible toe infection Past Medical History Cardiovascular: HTN, Hyperlipidemia Musculoskeletal: Osteoarthritis Renal/: Urinary Incontinence Endocrine: Diabetes Past Surgical History Past Surgical History: No pertinent history Family History Family History: Hypertension, Family History Unknown Social History No ALCOHOL: none Drugs: None Lives: Correction Current Problem List Problem List Problems Medical Problems: (1) Hypotension Status: Acute (2) Leukocytosis, unspecified Status: Acute (3) Sepsis Status: Acute (4) Urinary tract infection Status: Acute Current Medications Current Medications Current Medications Sodium Chloride 1,000 ml @ 1,000 mls/hr 1X ONCE IV Last administered on 02/02/19at 13:25; Start 02/02/19 at 12:45; Stop 02/02/19 at 13:44; Status DC Sodium Chloride 1,000 ml @ 1,000 mls/hr 1X ONCE IV Last administered on 02/02/19at 14:56; Start 02/02/19 at 14:30; Stop 02/02/19 at 15:29; Status DC Piperacillin Sod/ Tazobactam Sod 3.375 gm/Sodium Chloride 50 ml @ 100 mls/hr 1X ONCE IV Last administered on 02/02/19at 14:56; Start 02/02/19 at 14:30; Stop 02/02/19 at 14:59; Status DC Vancomycin HCl (Vanco Per Pharmacy) 1 each PRN DAILY PRN MC SEE COMMENTS Last administered on 02/02/19at 16:49; Start 02/02/19 at 14:30; Stop 02/03/19 at 12:07; Status DC Vancomycin HCl 1.25 gm/Sodium Chloride 250 ml @ 166.667 mls/hr 1X ONCE IV Last administered on 02/02/19at 16:14; Start 02/02/19 at 15:00; Stop 02/02/19 at 16:29; Status DC Sodium Chloride (Normal Saline Flush) 3 ml QSHIFT PRN IV AFTER MEDS AND BLOOD DRAWS; Start 02/02/19 at 16:00 Sodium Chloride 1,000 ml @ 100 mls/hr Q10H IV Last administered on 02/07/19at 07:53; Start 02/02/19 at 15:46; Stop 02/07/19 at 08:41; Status DC Ondansetron HCl (Zofran) 4 mg PRN Q4HRS PRN IV NAUSEA/VOMITING; Start 02/02/19 at 16:00 Acetaminophen (Tylenol) 650 mg PRN Q4HRS PRN PO TEMP > 100.4F OR MILD-MOD PAIN Last administered on 02/07/19at 07:59; Start 02/02/19 at 16:00 Al Hydroxide/Mg Hydroxide (Mylanta Plus Xs) 30 ml PRN DAILY PRN PO HEARTBURN / GAS; Start 02/02/19 at 16:00 Clonidine HCl (Catapres) 0.1 mg PRN Q6HRS PRN PO SBP>160 OR DBP>90; Start 02/02/19 at 16:00 Docusate Sodium (Colace) 100 mg PRN BID PRN PO CONSTIPATION Last administered on 02/05/19at 20:26; Start 02/02/19 at 16:00 Albuterol Sulfate (Ventolin Neb Soln) 2.5 mg PRN Q4HRS PRN NEB SHORTNESS OF BREATH; Start 02/02/19 at 16:00 Guaifenesin (Robitussin) 200 mg PRN Q4HRS PRN PO COUGH; Start 02/02/19 at 16:00 Lorazepam (Ativan) 0.5 mg PRN Q4HRS PRN PO ANXIETY / AGITATION; Start 02/02/19 at 16:00 Hydromorphone HCl (Dilaudid) 0.5 mg PRN Q2HRS PRN IV SEVERE PAIN 7-10; Start 02/02/19 at 16:00 Enoxaparin Sodium (Lovenox 40mg Syringe) 40 mg DAILY SQ Last administered on 02/09/19at 08:29; Start 02/03/19 at 09:00 Piperacillin Sod/ Tazobactam Sod 3.375 gm/Sodium Chloride 50 ml @ 100 mls/hr Q6H IV Last administered on 02/08/19at 09:33; Start 02/02/19 at 20:00; Stop 02/08/19 at 11:33; Status DC Sodium Chloride 1,000 ml @ 1,500 mls/hr Q40M IV Last administered on 02/02/19at 16:28; Start 02/02/19 at 15:48; Stop 02/02/19 at 16:49; Status DC Sodium Chloride 500 ml @ 1,000 mls/hr PRN Q30MIN PRN IV SEE COMMENTS; Start 02/02/19 at 16:00; Stop 02/07/19 at 08:41; Status DC Norepinephrine Bitartrate 8 mg/ Dextrose 258 ml @ 0 mls/hr CONT PRN IV SEE I/O RECORD; Start 02/02/19 at 16:00; Status UNV Amlodipine Besylate (Norvasc) 5 mg DAILY PO Last administered on 02/09/19 08:30; Start 02/03/19 at 09:00 Aspirin (Children'S Aspirin) 81 mg DAILY PO Last administered on 02/09/19 08:30; Start 02/03/19 at 09:00 Calcium/Vitamin D (Oscal D 500mg/ 200uts) 1 tab DAILY PO Last administered on 02/09/19 08:30; Start 02/03/19 at 09:00 Insulin Human Lispro (HumaLOG) 5 units TIDAC SQ Last administered on 02/03/19 18:06; Start 02/02/19 at 16:30; Stop 02/04/19 at 12:24; Status DC Nystatin (Mycostatin) 1 mariam TID TP Last administered on 02/09/19at 15:06; Start 02/02/19 at 21:00 Oxybutynin Chloride (Ditropan) 5 mg BID PO Last administered on 02/09/19 08:30; Start 02/02/19 at 21:00 Paroxetine HCl (Paxil) 20 mg DAILY PO Last administered on 02/09/19 08:30; Start 02/03/19 at 09:00 Latanoprost (Xalatan) 1 drop QHS OU Last administered on 02/08/19at 20:42; Start 02/02/19 at 21:00 Insulin Glargine (Lantus Syringe) 15 unit QHS SQ Last administered on 02/02/19at 20:55; Start 02/02/19 at 21:00; Stop 02/04/19 at 12:24; Status DC Pantoprazole Sodium (Protonix) 40 mg DAILYAC PO Last administered on 02/09/19at 07:15; Start 02/03/19 at 07:30 Cetirizine HCl (ZyrTEC) 10 mg DAILY PO Last administered on 02/09/19at 08:30; Start 02/03/19 at 09:00 Ondansetron HCl (Zofran) 4 mg PRN Q8HRS PRN IV NAUSEA/VOMITING; Start 02/02/19 at 16:00; Stop 02/03/19 at 12:37; Status DC Sodium Chloride 1,000 ml @ 125 mls/hr 1X ONCE IV ; Start 02/02/19 at 16:00; Stop 02/02/19 at 23:59; Status UNV Vancomycin HCl 1 gm/Sodium Chloride 250 ml @ 250 mls/hr Q24H IV ; Start 02/03/19 at 16:00; Stop 02/03/19 at 12:07; Status DC Iron Sucrose 200 mg/Sodium Chloride 110 ml @ 55 mls/hr 1X ONCE IV Last administered on 02/04/19at 10:48; Start 02/04/19 at 08:00; Stop 02/04/19 at 09:59; Status DC Insulin Glargine (Lantus Syringe) 10 unit QHS SQ Last administered on 02/08/19at 20:53; Start 02/04/19 at 21:00 Lactobacillus Rhamnosus (Culturelle) 1 cap BID PO Last administered on 02/09/19at 08:30; Start 02/04/19 at 21:00 Polyethylene Glycol (miraLAX PACKET) 17 gm DAILY PO Last administered on 02/09/19at 08:29; Start 02/08/19 at 11:00 Polyethylene Glycol (miraLAX PACKET) 17 gm PRN DAILY PRN PO CONSTIPATION; Start 02/08/19 at 10:45 Bisacodyl (Dulcolax Tab) 5 mg PRN DAILY PRN PO CONSTIPATION; Start 02/08/19 at 10:45 Polyethylene Glycol (miraLAX Powder BULK BOTTLE) 238 gm 1X ONCE NG ; Start 02/10/19 at 12:00; Stop 02/10/19 at 12:01 Magnesium Citrate (Citroma) 296 ml 1X ONCE NG ; Start 02/10/19 at 11:00; Stop 02/10/19 at 11:01 Bisacodyl (Dulcolax Tab) 10 mg 1X ONCE PO ; Start 02/10/19 at 11:30; Stop 02/10/19 at 11:31 Bisacodyl (Dulcolax Tab) 10 mg 1X ONCE PO ; Start 02/10/19 at 14:00; Stop 02/10/19 at 14:01 Amoxicillin/ Clavulanate Potassium (Augmentin 875/ 125mg) 1 tab BID PO Last administered on 02/09/19at 08:30; Start 02/08/19 at 21:00 Active Scripts Active Humalog (Insulin Lispro) 100 Unit/1 Ml Insuln.pen 5 Units SQ TIDAC 30 Days Lantus Solostar (Insulin Glargine,Hum.rec.anlog) 100 Unit/1 Ml Insuln.pen 15 Uni ts SQ QHS 30 Days Cephalexin 250 Mg Capsule 500 Mg PO QID 3 Days Nystatin 15 Gm Oint...g. 1 Mariam TP TID 10 Days Reported Paroxetine Hcl 20 Mg Tablet 1 Tab PO DAILY Oxybutynin Chloride 5 Mg Tablet 1 Tab PO BID Omeprazole 20 Mg Capsule.dr 1 Cap PO DAILY Meloxicam 15 Mg Tablet 1 Tab PO DAILY Lumigan (Bimatoprost) 2.5 Ml Drops 1 Drop EACHEYE QHS Lisinopril 40 Mg Tablet 1 Tab PO DAILY Aspirin 81 Mg Tab.chew 1 Tab PO DAILY Amlodipine Besylate 5 Mg Tablet 5 Mg PO DAILY Oyster Shell 500 Mg + Vit D Tb (Calcium Carbonate/Vitamin D3) 1 Each Tablet 1 Each PO DAILY Zyrtec (Cetirizine Hcl) 10 Mg Capsule 10 Mg PO Multi-Vitamin Daily (Multivitamin) 1 Each Tablet 1 Each PO Allergies Allergies: Coded Allergies: No Known Allergies (Verified Allergy, Unknown, 09/08/17) ROS Review of System unable to obtain as patient does not talk Physical Exam Physical Exam Lower extremity: Note bilateral hallux nails with thickening and yellow brown discoloration and +fluctuance upon debridement. note loosening of bilateral hallux nails from nail bed. No pustular drainage mild localized erythema, no edema. Upon debridement note nail avulsed with granular base. no ischemic changes. skin is warm, dry, supple. normal turgor. hair is present to toes. no calor. no ascending cellulitis DP and PT 1/4. Sensation diminished to sharp dull. Positive pain on palpation to bilateral hallux nails. dorsally contracted digits 2-5 bilateral foot General: Alert, No acute distress Vitals VITALS Vital Signs Date Time Temp Pulse Resp B/P (MAP) Pulse Ox O2 Delivery O2 Flow Rate FiO2 02/09/19 15:00 97.8 55 18 150/58 (88) 98 Nasal Cannula 3.0 97.8 Labs Labs Laboratory Tests Test 02/07/19 16:45 02/07/19 20:27 02/08/19 08:11 02/08/19 11:49 Glucose (Fingerstick) 164 mg/dL (70-99) 199 mg/dL (70-99) 120 mg/dL (70-99) 98 mg/dL (70-99) Test 02/08/19 17:52 02/08/19 20:22 02/08/19 20:39 02/09/19 08:30 Glucose (Fingerstick) 121 mg/dL (70-99) 126 mg/dL (70-99) 133 mg/dL (70-99) 49 mg/dL (70-99) Test 02/09/19 10:28 Hemoglobin 8.8 g/dL (12.0-15.5) Hematocrit 28.1 % (36.0-47.0) Mean Corpuscular Hemoglobin Concent 32 g/dL (31-37) Laboratory Tests Test 02/08/19 17:52 02/08/19 20:22 02/08/19 20:39 02/09/19 08:30 Glucose (Fingerstick) 121 mg/dL (70-99) 126 mg/dL (70-99) 133 mg/dL (70-99) 49 mg/dL (70-99) Test 02/09/19 10:28 Hemoglobin 8.8 g/dL (12.0-15.5) Hematocrit 28.1 % (36.0-47.0) Mean Corpuscular Hemoglobin Concent 32 g/dL (31-37) Assessment/Plan Assessment/Plan 68 year old female with multiple past medical history with DM, peripsisheral neuropathy, and 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 -Debrided bilateral hallux nails and note easily avulsed due to onycholysis -Applied gauze and kerlex bandage roll. -Begin BID local wound care with antibiotic ointment and bandaid. -Follow up in 2 weeks for reevaluation or sooner if signs of infection in the office. ELZA PUCKETT DPM Feb 09, 2019 16:13
[2019-02-09 19:00] VITALS: BP 119/75
[2019-02-09] MEDS: INSULIN GLARGINE SYRINGE. SQ SCH (21:00)
[2019-02-09] MEDS: DOCUSATE SODIUM 100 MG CAPSULE. PO PRN (21:11)
[2019-02-09] MEDS: LATANOPROST 0.005% OPHTH SOLUTION 2.5ML BOTTLE. OU SCH (21:11)
[2019-02-09 23:00] VITALS: BP 129/63
[2019-02-10 03:00] VITALS: BP 123/68
[2019-02-10] MEDS: ACETAMINOPHEN 325 MG TABLET. PO PRN ×2 (06:34→20:39)
[2019-02-10 07:00] VITALS: BP 136/63
[2019-02-10] MEDS: ENOXAPARIN 40 MG/0.4 ML SYRINGE. SQ SCH (07:22)
[2019-02-10] MEDS: PANTOPRAZOLE 40 MG TABLET.DR. PO SCH (07:40)
--- NOTE | 2019-02-10 08:12 | NUR ---
Holding lovenox today per order for EGD.
[2019-02-10] MEDS: LACTOBACILLUS RHAMNOSUS GG 1 CAPSULE. PO SCH ×2 (08:51→20:39)
[2019-02-10] MEDS: PARoxetine 20 MG TABLET PO SCH (08:51)
[2019-02-10] MEDS: POLYETHYLENE GLYCOL 3350 17 GM PACKET. PO SCH (08:51)
[2019-02-10] MEDS: AMOXICILLIN/K CLAV 875/125MG TABLET. PO SCH (08:51)
[2019-02-10] MEDS: OXYBUTYNIN CHLORIDE 5 MG TABLET PO SCH ×2 (08:52→20:39)
[2019-02-10] MEDS: CETIRIZINE HCL 10 MG TABLET. PO SCH (08:52)
[2019-02-10] MEDS: ASPIRIN CHEWABLE 81 MG TABLET. PO SCH (08:52)
[2019-02-10] MEDS: amLODIPine BESYLATE 5 MG TABLET PO SCH (08:52)
[2019-02-10] MEDS: NYSTATIN 100,000 UNIT/GM TOPICAL OINTMENT 15GM TUBE. TP SCH ×3 (08:52→20:39)
[2019-02-10] MEDS: CALCIUM CARB/VIT D3 500/200 TABLET. PO SCH (08:52)
--- NOTE | 2019-02-10 10:12 | PDOC ---
PROGRESS NOTES Chief Complaint Chief Complaint IMPRESSION UTI, resolved Sepsis, resolved Mental delay Diabetes type 2 Hypertension Anterior chest wall lump x 2 Acute hypoxic respiratory failure, resolved ANEMIA History of Present Illness History of Present Illness 02/10/19 Pt seen and examined DW pt regarding their care DW RN Reviewed pt's chart waiting colon and egd BY GI 02/09/19 Patient seen and examined Chart reviewed Discussed with RN Vitals Vitals Vital Signs Date Time Temp Pulse Resp B/P (MAP) Pulse Ox O2 Delivery O2 Flow Rate FiO2 02/10/19 08:52 54 136/63 02/10/19 08:00 Nasal Cannula 3.0 02/10/19 07:00 97.6 16 100 97.6 Physical Exam Physical Exam General: Alert, No acute distress Heart: Regular rate, Normal S1, Normal S2 Lungs: Clear Abdomen: Normal bowel sounds, Soft Extremities: No clubbing, No cyanosis Skin: No rashes, No significant lesion Labs LABS Laboratory Tests Test 02/09/19 10:28 02/09/19 16:50 02/09/19 17:27 02/09/19 21:10 Hemoglobin 8.8 g/dL (12.0-15.5) Hematocrit 28.1 % (36.0-47.0) Mean Corpuscular Hemoglobin Concent 32 g/dL (31-37) Glucose (Fingerstick) 50 mg/dL (70-99) 105 mg/dL (70-99) 76 mg/dL (70-99) Test 02/10/19 07:40 Glucose (Fingerstick) 117 mg/dL (70-99) Assessment and Plan Assessmemt and Plan Problems Medical Problems: (1) Hypotension Status: Acute (2) Leukocytosis, unspecified Status: Acute (3) Sepsis Status: Acute (4) Urinary tract infection Status: Acute Comment Review of Relevant I have reviewed the following items wojciech (where applicable) has been applied. Labs Laboratory Tests Test 02/08/19 11:49 02/08/19 17:52 02/08/19 20:22 02/08/19 20:39 Glucose (Fingerstick) 98 mg/dL (70-99) 121 mg/dL (70-99) 126 mg/dL (70-99) 133 mg/dL (70-99) Test 02/09/19 08:30 02/09/19 10:28 02/09/19 16:50 02/09/19 17:27 Glucose (Fingerstick) 49 mg/dL (70-99) 50 mg/dL (70-99) 105 mg/dL (70-99) Hemoglobin 8.8 g/dL (12.0-15.5) Hematocrit 28.1 % (36.0-47.0) Mean Corpuscular Hemoglobin Concent 32 g/dL (31-37) Test 02/09/19 21:10 02/10/19 07:40 Glucose (Fingerstick) 76 mg/dL (70-99) 117 mg/dL (70-99) Laboratory Tests Test 02/09/19 10:28 02/09/19 16:50 02/09/19 17:27 02/09/19 21:10 Hemoglobin 8.8 g/dL (12.0-15.5) Hematocrit 28.1 % (36.0-47.0) Mean Corpuscular Hemoglobin Concent 32 g/dL (31-37) Glucose (Fingerstick) 50 mg/dL (70-99) 105 mg/dL (70-99) 76 mg/dL (70-99) Test 02/10/19 07:40 Glucose (Fingerstick) 117 mg/dL (70-99) Microbiology 02/02/19 Blood Culture - Final, Complete NO GROWTH AFTER 5 DAYS Medications Current Medications Sodium Chloride 1,000 ml @ 1,000 mls/hr 1X ONCE IV Last administered on 02/02/19at 13:25; Start 02/02/19 at 12:45; Stop 02/02/19 at 13:44; Status DC Sodium Chloride 1,000 ml @ 1,000 mls/hr 1X ONCE IV Last administered on 02/02/19at 14:56; Start 02/02/19 at 14:30; Stop 02/02/19 at 15:29; Status DC Piperacillin Sod/ Tazobactam Sod 3.375 gm/Sodium Chloride 50 ml @ 100 mls/hr 1X ONCE IV Last administered on 02/02/19at 14:56; Start 02/02/19 at 14:30; Stop 02/02/19 at 14:59; Status DC Vancomycin HCl (Vanco Per Pharmacy) 1 each PRN DAILY PRN MC SEE COMMENTS Last administered on 02/02/19at 16:49; Start 02/02/19 at 14:30; Stop 02/03/19 at 12:07; Status DC Vancomycin HCl 1.25 gm/Sodium Chloride 250 ml @ 166.667 mls/hr 1X ONCE IV Last administered on 02/02/19at 16:14; Start 02/02/19 at 15:00; Stop 02/02/19 at 16:29; Status DC Sodium Chloride (Normal Saline Flush) 3 ml QSHIFT PRN IV AFTER MEDS AND BLOOD DRAWS; Start 02/02/19 at 16:00 Sodium Chloride 1,000 ml @ 100 mls/hr Q10H IV Last administered on 02/07/19at 07:53; Start 02/02/19 at 15:46; Stop 02/07/19 at 08:41; Status DC Ondansetron HCl (Zofran) 4 mg PRN Q4HRS PRN IV NAUSEA/VOMITING; Start 02/02/19 at 16:00 Acetaminophen (Tylenol) 650 mg PRN Q4HRS PRN PO TEMP > 100.4F OR MILD-MOD PAIN Last administered on 02/10/19at 06:34; Start 02/02/19 at 16:00 Al Hydroxide/Mg Hydroxide (Mylanta Plus Xs) 30 ml PRN DAILY PRN PO HEARTBURN / GAS; Start 02/02/19 at 16:00 Clonidine HCl (Catapres) 0.1 mg PRN Q6HRS PRN PO SBP>160 OR DBP>90; Start 02/02/19 at 16:00 Docusate Sodium (Colace) 100 mg PRN BID PRN PO CONSTIPATION Last administered on 02/09/19at 21:11; Start 02/02/19 at 16:00 Albuterol Sulfate (Ventolin Neb Soln) 2.5 mg PRN Q4HRS PRN NEB SHORTNESS OF BREATH; Start 02/02/19 at 16:00 Guaifenesin (Robitussin) 200 mg PRN Q4HRS PRN PO COUGH; Start 02/02/19 at 16:00 Lorazepam (Ativan) 0.5 mg PRN Q4HRS PRN PO ANXIETY / AGITATION; Start 02/02/19 at 16:00 Hydromorphone HCl (Dilaudid) 0.5 mg PRN Q2HRS PRN IV SEVERE PAIN 7-10; Start 02/02/19 at 16:00 Enoxaparin Sodium (Lovenox 40mg Syringe) 40 mg DAILY SQ Last administered on 02/09/19at 08:29; Start 02/03/19 at 09:00 Piperacillin Sod/ Tazobactam Sod 3.375 gm/Sodium Chloride 50 ml @ 100 mls/hr Q6H IV Last administered on 02/08/19at 09:33; Start 02/02/19 at 20:00; Stop 02/08/19 at 11:33; Status DC Sodium Chloride 1,000 ml @ 1,500 mls/hr Q40M IV Last administered on 02/02/19at 16:28; Start 02/02/19 at 15:48; Stop 02/02/19 at 16:49; Status DC Sodium Chloride 500 ml @ 1,000 mls/hr PRN Q30MIN PRN IV SEE COMMENTS; Start 02/02/19 at 16:00; Stop 02/07/19 at 08:41; Status DC Norepinephrine Bitartrate 8 mg/ Dextrose 258 ml @ 0 mls/hr CONT PRN IV SEE I/O RECORD; Start 02/02/19 at 16:00; Status UNV Amlodipine Besylate (Norvasc) 5 mg DAILY PO Last administered on 02/10/19 08:52; Start 02/03/19 at 09:00 Aspirin (Children'S Aspirin) 81 mg DAILY PO Last administered on 02/10/19at 08:52; Start 02/03/19 at 09:00 Calcium/Vitamin D (Oscal D 500mg/ 200uts) 1 tab DAILY PO Last administered on 02/10/19at 08:52; Start 02/03/19 at 09:00 Insulin Human Lispro (HumaLOG) 5 units TIDAC SQ Last administered on 02/03/19at 18:06; Start 02/02/19 at 16:30; Stop 02/04/19 at 12:24; Status DC Nystatin (Mycostatin) 1 mariam TID TP Last administered on 02/10/19 08:52; Start 02/02/19 at 21:00 Oxybutynin Chloride (Ditropan) 5 mg BID PO Last administered on 02/10/19 08:52; Start 02/02/19 at 21:00 Paroxetine HCl (Paxil) 20 mg DAILY PO Last administered on 02/10/19at 08:51; Start 02/03/19 at 09:00 Latanoprost (Xalatan) 1 drop QHS OU Last administered on 02/09/19at 21:11; Start 02/02/19 at 21:00 Insulin Glargine (Lantus Syringe) 15 unit QHS SQ Last administered on 02/02/19at 20:55; Start 02/02/19 at 21:00; Stop 02/04/19 at 12:24; Status DC Pantoprazole Sodium (Protonix) 40 mg DAILYAC PO Last administered on 02/10/19at 07:40; Start 02/03/19 at 07:30 Cetirizine HCl (ZyrTEC) 10 mg DAILY PO Last administered on 02/10/19at 08:52; Start 02/03/19 at 09:00 Ondansetron HCl (Zofran) 4 mg PRN Q8HRS PRN IV NAUSEA/VOMITING; Start 02/02/19 at 16:00; Stop 02/03/19 at 12:37; Status DC Sodium Chloride 1,000 ml @ 125 mls/hr 1X ONCE IV ; Start 02/02/19 at 16:00; Stop 02/02/19 at 23:59; Status UNV Vancomycin HCl 1 gm/Sodium Chloride 250 ml @ 250 mls/hr Q24H IV ; Start 02/03/19 at 16:00; Stop 02/03/19 at 12:07; Status DC Iron Sucrose 200 mg/Sodium Chloride 110 ml @ 55 mls/hr 1X ONCE IV Last administered on 02/04/19at 10:48; Start 02/04/19 at 08:00; Stop 02/04/19 at 09:59; Status DC Insulin Glargine (Lantus Syringe) 10 unit QHS SQ Last administered on 02/08/19at 20:53; Start 02/04/19 at 21:00; Stop 02/09/19 at 17:56; Status DC Lactobacillus Rhamnosus (Culturelle) 1 cap BID PO Last administered on 02/10/19 08:51; Start 02/04/19 at 21:00 Polyethylene Glycol (miraLAX PACKET) 17 gm DAILY PO Last administered on 02/10/19 08:51; Start 02/08/19 at 11:00 Polyethylene Glycol (miraLAX PACKET) 17 gm PRN DAILY PRN PO CONSTIPATION; Start 02/08/19 at 10:45 Bisacodyl (Dulcolax Tab) 5 mg PRN DAILY PRN PO CONSTIPATION; Start 02/08/19 at 10:45 Polyethylene Glycol (miraLAX Powder BULK BOTTLE) 238 gm 1X ONCE NG ; Start 02/10/19 at 12:00; Stop 02/10/19 at 12:01 Magnesium Citrate (Citroma) 296 ml 1X ONCE NG ; Start 02/10/19 at 11:00; Stop 02/10/19 at 11:01 Bisacodyl (Dulcolax Tab) 10 mg 1X ONCE PO ; Start 02/10/19 at 11:30; Stop 02/10/19 at 11:31 Bisacodyl (Dulcolax Tab) 10 mg 1X ONCE PO ; Start 02/10/19 at 14:00; Stop 02/10/19 at 14:01 Amoxicillin/ Clavulanate Potassium (Augmentin 875/ 125mg) 1 tab BID PO Last administered on 02/10/19at 08:51; Start 02/08/19 at 21:00 Insulin Glargine (Lantus Syringe) 5 unit QHS SQ ; Start 02/09/19 at 21:00 Ondansetron HCl (Zofran) 4 mg PRN Q6HRS PRN IV NAUSEA/VOMITING; Start 02/11/19 at 07:00; Stop 02/12/19 at 06:59 Fentanyl Citrate (Fentanyl 2ml Vial) 25 mcg PRN Q5MIN PRN IV MILD PAIN 1-3; Start 02/11/19 at 07:00; Stop 02/12/19 at 06:59 Fentanyl Citrate (Fentanyl 2ml Vial) 50 mcg PRN Q5MIN PRN IV MODERATE TO SEVERE PAIN; Start 02/11/19 at 07:00; Stop 02/12/19 at 06:59 Morphine Sulfate (Morphine Sulfate) 1 mg PRN Q10MIN PRN IV SEVERE PAIN 7-10; Start 02/11/19 at 07:00; Stop 02/12/19 at 06:59 Ringer's Solution 1,000 ml @ 30 mls/hr Q24H IV ; Start 02/11/19 at 07:00; Stop 02/11/19 at 18:59 Lidocaine HCl (Xylocaine-Mpf 1% 2ml Vial) 2 ml PRN 1X PRN ID PRIOR TO IV START; Start 02/11/19 at 07:00; Stop 02/12/19 at 06:59 Hydromorphone HCl (Dilaudid) 0.5 mg PRN Q10MIN PRN IV SEV PAIN, Second choice; Start 02/11/19 at 07:00; Stop 02/12/19 at 06:59 Prochlorperazine Edisylate (Compazine) 5 mg PACU PRN PRN IV NAUSEA, MRX1; Start 02/11/19 at 07:00; Stop 02/12/19 at 06:59 Active Scripts Active Humalog (Insulin Lispro) 100 Unit/1 Ml Insuln.pen 5 Units SQ TIDAC 30 Days Lantus Solostar (Insulin Glargine,Hum.rec.anlog) 100 Unit/1 Ml Insuln.pen 15 Units SQ QHS 30 Days Cephalexin 250 Mg Capsule 500 Mg PO QID 3 Days Nystatin 15 Gm Oint...g. 1 Mariam TP TID 10 Days Reported Paroxetine Hcl 20 Mg Tablet 1 Tab PO DAILY Oxybutynin Chloride 5 Mg Tablet 1 Tab PO BID Omeprazole 20 Mg Capsule.dr 1 Cap PO DAILY Meloxicam 15 Mg Tablet 1 Tab PO DAILY Lumigan (Bimatoprost) 2.5 Ml Drops 1 Drop EACHEYE QHS Lisinopril 40 Mg Tablet 1 Tab PO DAILY Aspirin 81 Mg Tab.chew 1 Tab PO DAILY Amlodipine Besylate 5 Mg Tablet 5 Mg PO DAILY Oyster Shell 500 Mg + Vit D Tb (Calcium Carbonate/Vitamin D3) 1 Each Tablet 1 Each PO DAILY Zyrtec (Cetirizine Hcl) 10 Mg Capsule 10 Mg PO Multi-Vitamin Daily (Multivitamin) 1 Each Tablet 1 Each PO Vitals/I & O Vital Sign - Last 24 Hours 02/09/19 02/09/19 02/09/19 02/09/19 11:00 15:00 19:00 19:30 Temp 97.8 98.7 97.8 98.7 Pulse 57 55 53 Resp 18 18 20 B/P (MAP) 151/67 (95) 150/58 (88) 119/75 (90) Pulse Ox 99 98 100 O2 Delivery Nasal Cannula Nasal Cannula Nasal Cannula O2 Flow Rate 3.0 3.0 3.0 02/09/19 02/10/19 02/10/19 02/10/19 23:00 03:00 07:00 08:00 Temp 97.9 98.2 97.6 97.9 98.2 97.6 Pulse 57 51 54 Resp 18 16 16 B/P (MAP) 129/63 (85) 123/68 (86) 136/63 (87) Pulse Ox 97 100 100 O2 Delivery Nasal Cannula Nasal Cannula O2 Flow Rate 3.0 3.0 02/10/19 08:52 Pulse 54 B/P (MAP) 136/63 Intake and Output 02/09/19 02/09/19 02/10/19 15:00 23:00 07:00 Intake Total 840 ml 780 ml Balance 840 ml 780 ml Nutrition Consultation Dietary Evaluation: Recommendations by RD: Dietary education by RD, Increase Calorie Intake, Protein supplementation Comments: REC resume diet per [employer], ADA, cardiac, offer supplements when po intake is < 50% meals REC mvi and vit c per wound protocal Expected Outcomes/Goals: to meet > 75% est nutr needs Malnutrition Findings: Food and Nutrition Intake (Sev: <50% est energy req 5days Weight Status: Appropriate Hemodynamically unstable?: No Is patient in severe pain?: No Is NPO status required?: No KAMERON REYNA MD Feb 10, 2019 10:12
[2019-02-10 11:00] VITALS: BP 121/50
[2019-02-10] MEDS ORDERED: MAGNESIUM CITRATE 296 ML SOLUTION. NG ONE (11:00)
--- NOTE | 2019-02-10 11:24 | NUR ---
This RN called and spoke with patient's brother and LEANNA Boyer on phone States spoke with him about procedures EGD/Colonoscopy and prep and he will be here later today to visit patient and sign consents for procedure.
[2019-02-10] MEDS ORDERED: BISACODYL 5 MG TABLET.DR. PO ONE ×3 (11:30→15:45)
[2019-02-10] MEDS ORDERED: POLYETHYLENE GLYCOL 3350 BTL 238 GM POWDER NG ONE (12:00)
--- NOTE | 2019-02-10 14:38 | PDOC ---
Infectious Disease Note Subjective: Subjective Nonverbal bites on nails No fevers reported awaiting colon and egd d/w rn Vital Signs: Vital Signs Vital Signs Date Time Temp Pulse Resp B/P (MAP) Pulse Ox O2 Delivery O2 Flow Rate FiO2 02/10/19 11:00 97.8 57 16 121/50 (73) 99 Nasal Cannula 3.0 97.8 Physical Exam: PHYSICAL EXAM GENERAL: Propped up in bed, alert, in NAD HEENT: Oral cavity clear NECK: Supple. LUNGS: Clear. HEART: S1, S2. PPM ABDOMEN: Soft, no guarding GENITOURINARY: Briefs in place. EXTREMITIES: Trace edema, no cyanosis. bites nails SKIN: Warm, dry. No generalized rash. CENTRAL NERVOUS SYSTEM: Follows simple commands PIV Medications: Inpatient Meds: Current Medications Medications (Trade) Dose Ordered Sig/Rolando Start Time Stop Time Status Last Admin Dose Admin Acetaminophen (Tylenol) 650 mg PRN Q4HRS PRN 02/02/19 16:00 02/10/19 06:34 650 MG Al Hydroxide/Mg Hydroxide (Mylanta Plus Xs) 30 ml PRN DAILY PRN 02/02/19 16:00 Albuterol Sulfate (Ventolin Neb Soln) 2.5 mg PRN Q4HRS PRN 02/02/19 16:00 Amlodipine Besylate (Norvasc) 5 mg DAILY 02/03/19 09:00 02/10/19 08:52 5 MG Amoxicillin/ Clavulanate Potassium (Augmentin 875/ 125mg) 1 tab BID 02/08/19 21:00 02/10/19 08:51 1 TAB Aspirin (Children'S Aspirin) 81 mg DAILY 02/03/19 09:00 02/10/19 08:52 81 MG Bisacodyl (Dulcolax Tab) 10 mg 1X ONCE 02/10/19 14:00 02/10/19 14:01 DC 02/10/19 13:38 10 MG Calcium/Vitamin D (Oscal D 500mg/ 200uts) 1 tab DAILY 02/03/19 09:00 02/10/19 08:52 1 TAB Cetirizine HCl (ZyrTEC) 10 mg DAILY 02/03/19 09:00 02/10/19 08:52 10 MG Clonidine HCl (Catapres) 0.1 mg PRN Q6HRS PRN 02/02/19 16:00 Docusate Sodium (Colace) 100 mg PRN BID PRN 02/02/19 16:00 02/09/19 21:11 100 MG Enoxaparin Sodium (Lovenox 40mg Syringe) 40 mg DAILY 02/03/19 09:00 02/09/19 08:29 40 MG Fentanyl Citrate (Fentanyl 2ml Vial) 50 mcg PRN Q5MIN PRN 02/11/19 07:00 02/12/19 06:59 Guaifenesin (Robitussin) 200 mg PRN Q4HRS PRN 02/02/19 16:00 Hydromorphone HCl (Dilaudid) 0.5 mg PRN Q10MIN PRN 02/11/19 07:00 02/12/19 06:59 Insulin Glargine (Lantus Syringe) 5 unit QHS 02/09/19 21:00 Insulin Human Lispro (HumaLOG) 5 units TIDAC 02/02/19 16:30 02/04/19 12:24 DC 02/03/19 18:06 5 UNITS Iron Sucrose 200 mg/Sodium Chloride 110 ml @ 55 mls/hr 1X ONCE 02/04/19 08:00 02/04/19 09:59 DC 02/04/19 10:48 55 MLS/HR Lactobacillus Rhamnosus (Culturelle) 1 cap BID 02/04/19 21:00 02/10/19 08:51 1 CAP Latanoprost (Xalatan) 1 drop QHS 02/02/19 21:00 02/09/19 21:11 1 DROP Lidocaine HCl (Xylocaine-Mpf 1% 2ml Vial) 2 ml PRN 1X PRN 02/11/19 07:00 02/12/19 06:59 Lorazepam (Ativan) 0.5 mg PRN Q4HRS PRN 02/02/19 16:00 Magnesium Citrate (Citroma) 296 ml 1X ONCE 02/10/19 11:00 02/10/19 11:01 DC 02/10/19 10:28 296 ML Morphine Sulfate (Morphine Sulfate) 1 mg PRN Q10MIN PRN 02/11/19 07:00 02/12/19 06:59 Norepinephrine Bitartrate 8 mg/ Dextrose 258 ml @ 0 mls/hr CONT PRN 02/02/19 16:00 UNV Nystatin (Mycostatin) 1 srinivasa TID 02/02/19 21:00 02/10/19 13:38 1 SRINIVASA Ondansetron HCl (Zofran) 4 mg PRN Q6HRS PRN 02/11/19 07:00 02/12/19 06:59 Oxybutynin Chloride (Ditropan) 5 mg BID 02/02/19 21:00 02/10/19 08:52 5 MG Pantoprazole Sodium (Protonix) 40 mg DAILYAC 02/03/19 07:30 02/10/19 07:40 40 MG Paroxetine HCl (Paxil) 20 mg DAILY 02/03/19 09:00 02/10/19 08:51 20 MG Piperacillin Sod/ Tazobactam Sod 3.375 gm/Sodium Chloride 50 ml @ 100 mls/hr Q6H 02/02/19 20:00 02/08/19 11:33 DC 02/08/19 09:33 100 MLS/HR Polyethylene Glycol (miraLAX PACKET) 17 gm PRN DAILY PRN 02/08/19 10:45 Polyethylene Glycol (miraLAX Powder BULK BOTTLE) 238 gm 1X ONCE 02/10/19 12:00 02/10/19 12:01 DC 02/10/19 11:48 238 GM Prochlorperazine Edisylate (Compazine) 5 mg PACU PRN PRN 02/11/19 07:00 02/12/19 06:59 Ringer's Solution 1,000 ml @ 30 mls/hr Q24H 02/11/19 07:00 02/11/19 18:59 Sodium Chloride 1,000 ml @ 125 mls/hr 1X ONCE 02/02/19 16:00 02/02/19 23:59 UNV Sodium Chloride (Normal Saline Flush) 3 ml QSHIFT PRN 02/02/19 16:00 Vancomycin HCl (Vanco Per Pharmacy) 1 each PRN DAILY PRN 02/02/19 14:30 02/03/19 12:07 DC 02/02/19 16:49 1 EACH Vancomycin HCl 1.25 gm/Sodium Chloride 250 ml @ 166.667 mls/hr 1X ONCE 02/02/19 15:00 02/02/19 16:29 DC 02/02/19 16:14 166.667 MLS/HR Vancomycin HCl 1 gm/Sodium Chloride 250 ml @ 250 mls/hr Q24H 02/03/19 16:00 02/03/19 12:07 DC Labs: Lab Laboratory Tests Test 02/09/19 16:50 02/09/19 17:27 02/09/19 21:10 02/10/19 07:40 Glucose (Fingerstick) 50 mg/dL (70-99) 105 mg/dL (70-99) 76 mg/dL (70-99) 117 mg/dL (70-99) Test 02/10/19 11:15 Glucose (Fingerstick) 131 mg/dL (70-99) Objective: Assessment: 1. Sepsis. 2. Urinary tract infection.UC not done 3. Diabetes mellitus. 4. Acute kidney injury. 5. Anemia. 6. History of Escherichia coli urinary tract infection. 7.Pulm infiltrate ? atelectasis on o2 Plan: Plan of Care dc augmentin Probiotics Urine culture not performed. d/c micro Maintain aspiration precautions Supportive care. SOLE BROWNING MD Feb 10, 2019 14:38
[2019-02-10 15:00] VITALS: BP 109/60
--- NOTE | 2019-02-10 15:34 | PDOC ---
GI PROGRESS NOTES Date Date/Time DATE: 02/10/19 TIME: 15:33 Subjective Subjective Sitting in bed. Apparently tolerating MiraLAX bowel prep orally. So far only one bowel movement reported Objective Vitals Vital Signs Date Time Temp Pulse Resp B/P (MAP) Pulse Ox O2 Delivery O2 Flow Rate FiO2 02/10/19 11:00 97.8 57 16 121/50 (73) 99 Nasal Cannula 3.0 97.8 02/10/19 08:52 54 136/63 02/10/19 08:00 Nasal Cannula 3.0 02/10/19 07:00 97.6 54 16 136/63 (87) 100 Nasal Cannula 3.0 97.6 02/10/19 03:00 98.2 51 16 123/68 (86) 100 98.2 02/09/19 23:00 97.9 57 18 129/63 (85) 97 97.9 02/09/19 19:30 Nasal Cannula 3.0 02/09/19 19:00 98.7 53 20 119/75 (90) 100 98.7 Labs Labs Laboratory Tests Test 02/09/19 16:50 02/09/19 17:27 02/09/19 21:10 02/10/19 07:40 Glucose (Fingerstick) 50 mg/dL (70-99) 105 mg/dL (70-99) 76 mg/dL (70-99) 117 mg/dL (70-99) Test 02/10/19 11:15 Glucose (Fingerstick) 131 mg/dL (70-99) Assessment Assessment Undergoing bowel prep. Tolerating MiraLAX and Gatorade so far but with inco mplete results. Will add Dulcolax tablet and hopefully once she completes the MiraLAX, then bowel movements will increase Hemodynamically unstable?: No Is patient in severe pain?: No Is NPO status required?: No MAO BANKS MD Feb 10, 2019 15:34
--- NOTE | 2019-02-10 15:39 | NUR ---
Patient completed bowel prep on schedule without any difficulty and has been incontinent of copius liquid brown stool requiring complete bed linen and gown change and bed bath.
--- NOTE | 2019-02-10 15:51 | NUR ---
Patient's brother/DPOA/Guardian Cheko here to visit patient and consents witnessed, he denies questions.
[2019-02-10 19:00] VITALS: BP 114/60
[2019-02-10] MEDS: INSULIN GLARGINE SYRINGE. SQ SCH (20:39)
[2019-02-10] MEDS: LATANOPROST 0.005% OPHTH SOLUTION 2.5ML BOTTLE. OU SCH (20:39)
[2019-02-10 23:00] VITALS: BP 109/55
[2019-02-11] VITALS (11 sets, daily range): BP systolic 100–162; BP diastolic 45–85
[2019-02-11 04:24] LABS: HEMATOCRIT 27.1 % (36.0-47.0); HEMOGLOBIN 8.7 g/dL (12.0-15.5); RED BLOOD COUNT 4.02 x10^6/uL (3.50-5.40); RED CELL DISTRIBUTION WIDTH 22.6 % (11.5-14.5); WHITE BLOOD COUNT 8.4 x10^3/uL (4.0-11.0)
[2019-02-11 05:38] LABS: CALCIUM 9.7 mg/dL (8.5-10.1); CREATININE 0.8 mg/dL (0.6-1.0); GFR 71.8; POTASSIUM 3.1 mmol/L (3.5-5.1)
[2019-02-11] MEDS ORDERED: ONDANSETRON PF 4 MG/2 ML VIAL. IV PRN (07:00)
[2019-02-11] MEDS ORDERED: MORPHINE SULFATE 2 MG/ML VIAL. IV PRN (07:00)
[2019-02-11] MEDS ORDERED: PROCHLORPERAZINE 10 MG/2 ML VIAL. IV PRN (07:00)
[2019-02-11] MEDS ORDERED: fentaNYL PF VIAL 100 MCG/2 ML VIAL IV PRN ×2 (07:00)
[2019-02-11] MEDS ORDERED: HYDROmorphone 2 MG/ML VIAL IV PRN (07:00)
[2019-02-11] MEDS ORDERED: IV RINGERS,LACTATED 1000ML 1,000 ML IV SCH (07:00)
[2019-02-11] MEDS ORDERED: LIDOCAINE 1% PF 2 ML VIAL. ID PRN (07:00)
[2019-02-11] MEDS: POLYETHYLENE GLYCOL 3350 17 GM PACKET. PO SCH (09:00)
[2019-02-11] MEDS: ENOXAPARIN 40 MG/0.4 ML SYRINGE. SQ SCH (09:00)
--- NOTE | 2019-02-11 09:19 | PDOC ---
PROGRESS NOTES Chief Complaint Chief Complaint IMPRESSION UTI, resolved Sepsis, resolved Mental delay Diabetes type 2 Hypertension Anterior chest wall lump x 2 Acute hypoxic respiratory failure, resolved ANEMIA PROCEDURE NOTE PROCEDURE DR SIDHU 02/11/19 Procedure Colonoscopy with biopsies/EGD with biopsies Indication: IRASEMA Meds: per anesthesia Findings: BRIELLE--normal. --'scope advanced to cecum. Prep fair save occasional areas of soft formed stool. No diverticular disease. One small polyp in rectosigmoid, biopsied off. Shallow stercoral ulcer upper rectum w/o bleeding. E--Normal G--normal; biopsies antrum and fundus re: H.pylori. D--Normal to second portion. Biopsies second portion. Otilio. well. IMP: small polyp shallow stercoral ulcer. Normal UGI exam. REC: Await path Resume diet. Avoid constipation. History of Present Illness History of Present Illness MINDI RN Reviewed pt's chart waiting colon and egd BX GI Vitals Vitals Vital Signs Date Time Temp Pulse Resp B/P (MAP) Pulse Ox O2 Delivery O2 Flow Rate FiO2 02/11/19 07:00 97.9 62 18 150/45 (80) 98 Nasal Cannula 3.0 97.9 Physical Exam Physical Exam GENERAL: Propped up in bed, alert, in NAD HEENT: Oral cavity clear NECK: Supple. LUNGS: Clear. HEART: S1, S2. PPM ABDOMEN: Soft, no guarding GENITOURINARY: Briefs in place. EXTREMITIES: Trace edema, no cyanosis. bites nails SKIN: Warm, dry. No generalized rash. CENTRAL NERVOUS SYSTEM: Follows simple commands PIV General: Alert, Cooperative, No acute distress Heart: Regular rate, Normal S1, Normal S2 Lungs: Clear Abdomen: Normal bowel sounds, Soft, No tenderness Extremities: No clubbing, No cyanosis Skin: No rashes, No significant lesion Labs LABS Laboratory Tests Test 02/10/19 11:15 02/10/19 16:43 02/10/19 21:28 02/11/19 04:10 Glucose (Fingerstick) 131 mg/dL (70-99) 212 mg/dL (70-99) 207 mg/dL (70-99) White Blood Count 8.4 x10^3/uL (4.0-11.0) Red Blood Count 4.02 x10^6/uL (3.50-5.40) Hemoglobin 8.7 g/dL (12.0-15.5) Hematocrit 27.1 % (36.0-47.0) Mean Corpuscular Volume 67 fL (79-100) Mean Corpuscular Hemoglobin 22 pg (25-35) Mean Corpuscular Hemoglobin Concent 32 g/dL (31-37) Red Cell Distribution Width 22.6 % (11.5-14.5) Platelet Count 291 x10^3/uL (140-400) Sodium Level 138 mmol/L (136-145) Potassium Level 3.1 mmol/L (3.5-5.1) Chloride Level 105 mmol/L (98-107) Carbon Dioxide Level 30 mmol/L (21-32) Anion Gap 3 (6-14) Blood Urea Nitrogen 8 mg/dL (7-20) Creatinine 0.8 mg/dL (0.6-1.0) Estimated GFR (Cockcroft-Gault) 71.8 Glucose Level 170 mg/dL (70-99) Calcium Level 9.7 mg/dL (8.5-10.1) Test 02/11/19 08:22 Glucose (Fingerstick) 157 mg/dL (70-99) Assessment and Plan Assessmemt and Plan Problems Medical Problems: (1) Hypotension Status: Acute (2) Leukocytosis, unspecified Status: Acute (3) Sepsis Status: Acute (4) Urinary tract infection Status: Acute Comment Review of Relevant I have reviewed the following items wojciech (where applicable) has been applied. Labs Laboratory Tests Test 02/09/19 10:28 02/09/19 16:50 02/09/19 17:27 02/09/19 21:10 Hemoglobin 8.8 g/dL (12.0-15.5) Hematocrit 28.1 % (36.0-47.0) Mean Corpuscular Hemoglobin Concent 32 g/dL (31-37) Glucose (Fingerstick) 50 mg/dL (70-99) 105 mg/dL (70-99) 76 mg/dL (70-99) Test 02/10/19 07:40 02/10/19 11:15 02/10/19 16:43 02/10/19 21:28 Glucose (Fingerstick) 117 mg/dL (70-99) 131 mg/dL (70-99) 212 mg/dL (70-99) 207 mg/dL (70-99) Test 02/11/19 04:10 02/11/19 08:22 White Blood Count 8.4 x10^3/uL (4.0-11.0) Red Blood Count 4.02 x10^6/uL (3.50-5.40) Hemoglobin 8.7 g/dL (12.0-15.5) Hematocrit 27.1 % (36.0-47.0) Mean Corpuscular Volume 67 fL (79-100) Mean Corpuscular Hemoglobin 22 pg (25-35) Mean Corpuscular Hemoglobin Concent 32 g/dL (31-37) Red Cell Distribution Width 22.6 % (11.5-14.5) Platelet Count 291 x10^3/uL (140-400) Sodium Level 138 mmol/L (136-145) Potassium Level 3.1 mmol/L (3.5-5.1) Chloride Level 105 mmol/L (98-107) Carbon Dioxide Level 30 mmol/L (21-32) Anion Gap 3 (6-14) Blood Urea Nitrogen 8 mg/dL (7-20) Creatinine 0.8 mg/dL (0.6-1.0) Estimated GFR (Cockcroft-Gault) 71.8 Glucose Level 170 mg/dL (70-99) Calcium Level 9.7 mg/dL (8.5-10.1) Glucose (Fingerstick) 157 mg/dL (70-99) Laboratory Tests Test 02/10/19 11:15 02/10/19 16:43 02/10/19 21:28 02/11/19 04:10 Glucose (Fingerstick) 131 mg/dL (70-99) 212 mg/dL (70-99) 207 mg/dL (70-99) White Blood Count 8.4 x10^3/uL (4.0-11.0) Red Blood Count 4.02 x10^6/uL (3.50-5.40) Hemoglobin 8.7 g/dL (12.0-15.5) Hematocrit 27.1 % (36.0-47.0) Mean Corpuscular Volume 67 fL (79-100) Mean Corpuscular Hemoglobin 22 pg (25-35) Mean Corpuscular Hemoglobin Concent 32 g/dL (31-37) Red Cell Distribution Width 22.6 % (11.5-14.5) Platelet Count 291 x10^3/uL (140-400) Sodium Level 138 mmol/L (136-145) Potassium Level 3.1 mmol/L (3.5-5.1) Chloride Level 105 mmol/L (98-107) Carbon Dioxide Level 30 mmol/L (21-32) Anion Gap 3 (6-14) Blood Urea Nitrogen 8 mg/dL (7-20) Creatinine 0.8 mg/dL (0.6-1.0) Estimated GFR (Cockcroft-Gault) 71.8 Glucose Level 170 mg/dL (70-99) Calcium Level 9.7 mg/dL (8.5-10.1) Test 02/11/19 08:22 Glucose (Fingerstick) 157 mg/dL (70-99) Microbiology 02/02/19 Blood Culture - Final, Complete NO GROWTH AFTER 5 DAYS Medications Current Medications Sodium Chloride 1,000 ml @ 1,000 mls/hr 1X ONCE IV Last administered on 02/02/19at 13:25; Start 02/02/19 at 12:45; Stop 02/02/19 at 13:44; Status DC Sodium Chloride 1,000 ml @ 1,000 mls/hr 1X ONCE IV Last administered on 02/02/19at 14:56; Start 02/02/19 at 14:30; Stop 02/02/19 at 15:29; Status DC Piperacillin Sod/ Tazobactam Sod 3.375 gm/Sodium Chloride 50 ml @ 100 mls/hr 1X ONCE IV Last administered on 02/02/19at 14:56; Start 02/02/19 at 14:30; Stop 02/02/19 at 14:59; Status DC Vancomycin HCl (Vanco Per Pharmacy) 1 each PRN DAILY PRN MC SEE COMMENTS Last administered on 02/02/19at 16:49; Start 02/02/19 at 14:30; Stop 02/03/19 at 12:07; Status DC Vancomycin HCl 1.25 gm/Sodium Chloride 250 ml @ 166.667 mls/hr 1X ONCE IV Last administered on 02/02/19at 16:14; Start 02/02/19 at 15:00; Stop 02/02/19 at 16:29; Status DC Sodium Chloride (Normal Saline Flush) 3 ml QSHIFT PRN IV AFTER MEDS AND BLOOD DRAWS; Start 02/02/19 at 16:00 Sodium Chloride 1,000 ml @ 100 mls/hr Q10H IV Last administered on 02/07/19at 07:53; Start 02/02/19 at 15:46; Stop 02/07/19 at 08:41; Status DC Ondansetron HCl (Zofran) 4 mg PRN Q4HRS PRN IV NAUSEA/VOMITING Last administered on 02/10/19at 10:43; Start 02/02/19 at 16:00 Acetaminophen (Tylenol) 650 mg PRN Q4HRS PRN PO TEMP > 100.4F OR MILD-MOD PAIN Last administered on 02/10/19at 20:39; Start 02/02/19 at 16:00 Al Hydroxide/Mg Hydroxide (Mylanta Plus Xs) 30 ml PRN DAILY PRN PO HEARTBURN / GAS; Start 02/02/19 at 16:00 Clonidine HCl (Catapres) 0.1 mg PRN Q6HRS PRN PO SBP>160 OR DBP>90; Start 02/02/19 at 16:00 Docusate Sodium (Colace) 100 mg PRN BID PRN PO CONSTIPATION Last administered on 02/09/19at 21:11; Start 02/02/19 at 16:00 Albuterol Sulfate (Ventolin Neb Soln) 2.5 mg PRN Q4HRS PRN NEB SHORTNESS OF BREATH; Start 02/02/19 at 16:00 Guaifenesin (Robitussin) 200 mg PRN Q4HRS PRN PO COUGH; Start 02/02/19 at 16:00 Lorazepam (Ativan) 0.5 mg PRN Q4HRS PRN PO ANXIETY / AGITATION; Start 02/02/19 at 16:00 Hydromorphone HCl (Dilaudid) 0.5 mg PRN Q2HRS PRN IV SEVERE PAIN 7-10; Start 02/02/19 at 16:00 Enoxaparin Sodium (Lovenox 40mg Syringe) 40 mg DAILY SQ Last administered on 02/09/19at 08:29; Start 02/03/19 at 09:00 Piperacillin Sod/ Tazobactam Sod 3.375 gm/Sodium Chloride 50 ml @ 100 mls/hr Q6H IV Last administered on 02/08/19at 09:33; Start 02/02/19 at 20:00; Stop 02/08/19 at 11:33; Status DC Sodium Chloride 1,000 ml @ 1,500 mls/hr Q40M IV Last administered on 02/02/19at 16:28; Start 02/02/19 at 15:48; Stop 02/02/19 at 16:49; Status DC Sodium Chloride 500 ml @ 1,000 mls/hr PRN Q30MIN PRN IV SEE COMMENTS; Start 02/02/19 at 16:00; Stop 02/07/19 at 08:41; Status DC Norepinephrine Bitartrate 8 mg/ Dextrose 258 ml @ 0 mls/hr CONT PRN IV SEE I/O RECORD; Start 02/02/19 at 16:00; Status UNV Amlodipine Besylate (Norvasc) 5 mg DAILY PO Last administered on 02/10/19 08:52; Start 02/03/19 at 09:00 Aspirin (Children'S Aspirin) 81 mg DAILY PO Last administered on 02/10/19 08:52; Start 02/03/19 at 09:00 Calcium/Vitamin D (Oscal D 500mg/ 200uts) 1 tab DAILY PO Last administered on 02/10/19 08:52; Start 02/03/19 at 09:00 Insulin Human Lispro (HumaLOG) 5 units TIDAC SQ Last administered on 02/03/19at 18:06; Start 02/02/19 at 16:30; Stop 02/04/19 at 12:24; Status DC Nystatin (Mycostatin) 1 mariam TID TP Last administered on 02/10/19 20:39; Start 02/02/19 at 21:00 Oxybutynin Chloride (Ditropan) 5 mg BID PO Last administered on 02/10/19 20:39; Start 02/02/19 at 21:00 Paroxetine HCl (Paxil) 20 mg DAILY PO Last administered on 02/10/19 08:51; Start 02/03/19 at 09:00 Latanoprost (Xalatan) 1 drop QHS OU Last administered on 02/10/19at 20:39; Start 02/02/19 at 21:00 Insulin Glargine (Lantus Syringe) 15 unit QHS SQ Last administered on 02/02/19at 20:55; Start 02/02/19 at 21:00; Stop 02/04/19 at 12:24; Status DC Pantoprazole Sodium (Protonix) 40 mg DAILYAC PO Last administered on 02/10/19at 07:40; Start 02/03/19 at 07:30 Cetirizine HCl (ZyrTEC) 10 mg DAILY PO Last administered on 02/10/19at 08:52; Start 02/03/19 at 09:00 Ondansetron HCl (Zofran) 4 mg PRN Q8HRS PRN IV NAUSEA/VOMITING; Start 02/02/19 at 16:00; Stop 02/03/19 at 12:37; Status DC Sodium Chloride 1,000 ml @ 125 mls/hr 1X ONCE IV ; Start 02/02/19 at 16:00; Stop 02/02/19 at 23:59; Status UNV Vancomycin HCl 1 gm/Sodium Chloride 250 ml @ 250 mls/hr Q24H IV ; Start 02/03/19 at 16:00; Stop 02/03/19 at 12:07; Status DC Iron Sucrose 200 mg/Sodium Chloride 110 ml @ 55 mls/hr 1X ONCE IV Last administered on 02/04/19at 10:48; Start 02/04/19 at 08:00; Stop 02/04/19 at 09:59; Status DC Insulin Glargine (Lantus Syringe) 10 unit QHS SQ Last administered on 02/08/19at 20:53; Start 02/04/19 at 21:00; Stop 02/09/19 at 17:56; Status DC Lactobacillus Rhamnosus (Culturelle) 1 cap BID PO Last administered on 02/10/19at 20:39; Start 02/04/19 at 21:00 Polyethylene Glycol (miraLAX PACKET) 17 gm DAILY PO Last administered on 02/10/19at 08:51; Start 02/08/19 at 11:00 Polyethylene Glycol (miraLAX PACKET) 17 gm PRN DAILY PRN PO CONSTIPATION; Start 02/08/19 at 10:45 Bisacodyl (Dulcolax Tab) 5 mg PRN DAILY PRN PO CONSTIPATION; Start 02/08/19 at 10:45 Polyethylene Glycol (miraLAX Powder BULK BOTTLE) 238 gm 1X ONCE NG Last administered on 02/10/19at 11:48; Start 02/10/19 at 12:00; Stop 02/10/19 at 12:01; Status DC Magnesium Citrate (Citroma) 296 ml 1X ONCE NG Last administered on 02/10/19at 10:28; Start 02/10/19 at 11:00; Stop 02/10/19 at 11:01; Status DC Bisacodyl (Dulcolax Tab) 10 mg 1X ONCE PO Last administered on 02/10/19at 11:19; Start 02/10/19 at 11:30; Stop 02/10/19 at 11:31; Status DC Bisacodyl (Dulcolax Tab) 10 mg 1X ONCE PO Last administered on 02/10/19at 13:38; Start 02/10/19 at 14:00; Stop 02/10/19 at 14:01; Status DC Amoxicillin/ Clavulanate Potassium (Augmentin 875/ 125mg) 1 tab BID PO Last administered on 02/10/19at 08:51; Start 02/08/19 at 21:00; Stop 02/10/19 at 14:38; Status DC Insulin Glargine (Lantus Syringe) 5 unit QHS SQ ; Start 02/09/19 at 21:00 Ondansetron HCl (Zofran) 4 mg PRN Q6HRS PRN IV NAUSEA/VOMITING; Start 02/11/19 at 07:00; Stop 02/12/19 at 06:59 Fentanyl Citrate (Fentanyl 2ml Vial) 25 mcg PRN Q5MIN PRN IV MILD PAIN 1-3; Start 02/11/19 at 07:00; Stop 02/12/19 at 06:59 Fentanyl Citrate (Fentanyl 2ml Vial) 50 mcg PRN Q5MIN PRN IV MODERATE TO SEVERE PAIN; Start 02/11/19 at 07:00; Stop 02/12/19 at 06:59 Morphine Sulfate (Morphine Sulfate) 1 mg PRN Q10MIN PRN IV SEVERE PAIN 7-10; Start 02/11/19 at 07:00; Stop 02/12/19 at 06:59 Ringer's Solution 1,000 ml @ 30 mls/hr Q24H IV ; Start 02/11/19 at 07:00; Stop 02/11/19 at 18:59 Lidocaine HCl (Xylocaine-Mpf 1% 2ml Vial) 2 ml PRN 1X PRN ID PRIOR TO IV START; Start 02/11/19 at 07:00; Stop 02/12/19 at 06:59 Hydromorphone HCl (Dilaudid) 0.5 mg PRN Q10MIN PRN IV SEV PAIN, Second choice; Start 02/11/19 at 07:00; Stop 02/12/19 at 06:59 Prochlorperazine Edisylate (Compazine) 5 mg PACU PRN PRN IV NAUSEA, MRX1; Start 02/11/19 at 07:00; Stop 02/12/19 at 06:59 Bisacodyl (Dulcolax Tab) 10 mg 1X ONCE PO ; Start 02/10/19 at 15:45; Stop 02/10/19 at 15:44; Status DC Active Scripts Active Humalog (Insulin Lispro) 100 Unit/1 Ml Insuln.pen 5 Units SQ TIDAC 30 Days Lantus Solostar (Insulin Glargine,Hum.rec.anlog) 100 Unit/1 Ml Insuln.pen 15 Units SQ QHS 30 Days Cephalexin 250 Mg Capsule 500 Mg PO QID 3 Days Nystatin 15 Gm Oint...g. 1 Mariam TP TID 10 Days Reported Paroxetine Hcl 20 Mg Tablet 1 Tab PO DAILY Oxybutynin Chloride 5 Mg Tablet 1 Tab PO BID Omeprazole 20 Mg Capsule.dr 1 Cap PO DAILY Meloxicam 15 Mg Tablet 1 Tab PO DAILY Lumigan (Bimatoprost) 2.5 Ml Drops 1 Drop EACHEYE QHS Lisinopril 40 Mg Tablet 1 Tab PO DAILY Aspirin 81 Mg Tab.chew 1 Tab PO DAILY Amlodipine Besylate 5 Mg Tablet 5 Mg PO DAILY Oyster Shell 500 Mg + Vit D Tb (Calcium Carbonate/Vitamin D3) 1 Each Tablet 1 Each PO DAILY Zyrtec (Cetirizine Hcl) 10 Mg Capsule 10 Mg PO Multi-Vitamin Daily (Multivitamin) 1 Each Tablet 1 Each PO Vitals/I & O Vital Sign - Last 24 Hours 02/10/19 02/10/19 02/10/19 02/10/19 11:00 15:00 19:00 19:30 Temp 97.8 97.7 98.2 97.8 97.7 98.2 Pulse 57 58 53 Resp 16 16 18 B/P (MAP) 121/50 (73) 109/60 (76) 114/60 (78) Pulse Ox 99 99 100 O2 Delivery Nasal Cannula Nasal Cannula Nasal Cannula Nasal Cannula O2 Flow Rate 3.0 3.0 3.0 3.0 02/10/19 02/11/19 02/11/19 23:00 03:00 07:00 Temp 97.6 97.9 97.9 97.6 97.9 97.9 Pulse 51 58 62 Resp 18 18 18 B/P (MAP) 109/55 (73) 100/52 (68) 150/45 (80) Pulse Ox 100 99 98 O2 Delivery Nasal Cannula Nasal Cannula Nasal Cannula O2 Flow Rate 3.0 3.0 3.0 Intake and Output 02/10/19 02/10/19 02/11/19 15:00 23:00 07:00 Intake Total 360 ml 360 ml 300 ml Output Total 4 ml Balance 360 ml 360 ml 296 ml Nutrition Consultation Dietary Evaluation: Recommendations by RD: Dietary education by RD, Increase Calorie Intake, Protein supplementation Comments: REC resume diet per [employer], ADA, cardiac, offer supplements when po intake is < 50% meals REC mvi and vit c per wound protocal Expected Outcomes/Goals: to meet > 75% est nutr needs Malnutrition Findings: Food and Nutrition Intake (Sev: <50% est energy req 5days Weight Status: Appropriate Hemodynamically unstable?: No Is patient in severe pain?: No Is NPO status required?: No KAMERON REYNA MD Feb 11, 2019 09:19
--- NOTE | 2019-02-11 09:29 | NUR ---
Patient's brother Cheko Boyer DPOA/Guardian here to see patient, patient to have EGD/Colonoscopy with 1000 p/u time, he verb. understanding. Patient remains NPO with medications and lovenox held per order.
[2019-02-11] MEDS ORDERED: IV RINGERS,LACTATED 1000ML 1,000 ML IV ONE (09:45)
--- NOTE | 2019-02-11 10:29 | PDOC ---
Infectious Disease Note Subjective: Subjective Nonverbal No fevers reported Vital Signs: Vital Signs Vital Signs Date Time Temp Pulse Resp B/P (MAP) Pulse Ox O2 Delivery O2 Flow Rate FiO2 02/11/19 08:00 Nasal Cannula 3.0 02/11/19 07:00 97.9 62 18 150/45 (80) 98 97.9 Physical Exam: PHYSICAL EXAM GENERAL: Propped up in bed, alert, in NAD HEENT: Oral cavity clear NECK: Supple. LUNGS: Clear. HEART: S1, S2. PPM ABDOMEN: Soft, no guarding GENITOURINARY: Briefs in place. EXTREMITIES: Trace edema, no cyanosis. bites nails SKIN: Warm, dry. No generalized rash. CENTRAL NERVOUS SYSTEM: Follows simple commands PIV Medications: Inpatient Meds: Current Medications Medications (Trade) Dose Ordered Sig/Rolando Start Time Stop Time Status Last Admin Dose Admin Acetaminophen (Tylenol) 650 mg PRN Q4HRS PRN 02/02/19 16:00 02/10/19 20:39 650 MG Al Hydroxide/Mg Hydroxide (Mylanta Plus Xs) 30 ml PRN DAILY PRN 02/02/19 16:00 Albuterol Sulfate (Ventolin Neb Soln) 2.5 mg PRN Q4HRS PRN 02/02/19 16:00 Amlodipine Besylate (Norvasc) 5 mg DAILY 02/03/19 09:00 02/10/19 08:52 5 MG Amoxicillin/ Clavulanate Potassium (Augmentin 875/ 125mg) 1 tab BID 02/08/19 21:00 02/10/19 14:38 DC 02/10/19 08:51 1 TAB Aspirin (Children'S Aspirin) 81 mg DAILY 02/03/19 09:00 02/10/19 08:52 81 MG Bisacodyl (Dulcolax Tab) 10 mg 1X ONCE 02/10/19 15:45 02/10/19 15:44 DC Calcium/Vitamin D (Oscal D 500mg/ 200uts) 1 tab DAILY 02/03/19 09:00 02/10/19 08:52 1 TAB Cetirizine HCl (ZyrTEC) 10 mg DAILY 02/03/19 09:00 02/10/19 08:52 10 MG Clonidine HCl (Catapres) 0.1 mg PRN Q6HRS PRN 02/02/19 16:00 Docusate Sodium (Colace) 100 mg PRN BID PRN 02/02/19 16:00 02/09/19 21:11 100 MG Enoxaparin Sodium (Lovenox 40mg Syringe) 40 mg DAILY 02/03/19 09:00 02/09/19 08:29 40 MG Fentanyl Citrate (Fentanyl 2ml Vial) 50 mcg PRN Q5MIN PRN 02/11/19 07:00 02/12/19 06:59 Guaifenesin (Robitussin) 200 mg PRN Q4HRS PRN 02/02/19 16:00 Hydromorphone HCl (Dilaudid) 0.5 mg PRN Q10MIN PRN 02/11/19 07:00 02/12/19 06:59 Insulin Glargine (Lantus Syringe) 5 unit QHS 02/09/19 21:00 Insulin Human Lispro (HumaLOG) 5 units TIDAC 02/02/19 16:30 02/04/19 12:24 DC 02/03/19 18:06 5 UNITS Iron Sucrose 200 mg/Sodium Chloride 110 ml @ 55 mls/hr 1X ONCE 02/04/19 08:00 02/04/19 09:59 DC 02/04/19 10:48 55 MLS/HR Lactobacillus Rhamnosus (Culturelle) 1 cap BID 02/04/19 21:00 02/10/19 20:39 1 CAP Latanoprost (Xalatan) 1 drop QHS 02/02/19 21:00 02/10/19 20:39 1 DROP Lidocaine HCl (Xylocaine-Mpf 1% 2ml Vial) 2 ml PRN 1X PRN 02/11/19 07:00 02/12/19 06:59 Lorazepam (Ativan) 0.5 mg PRN Q4HRS PRN 02/02/19 16:00 Magnesium Citrate (Citroma) 296 ml 1X ONCE 02/10/19 11:00 02/10/19 11:01 DC 02/10/19 10:28 296 ML Morphine Sulfate (Morphine Sulfate) 1 mg PRN Q10MIN PRN 02/11/19 07:00 02/12/19 06:59 Norepinephrine Bitartrate 8 mg/ Dextrose 258 ml @ 0 mls/hr CONT PRN 02/02/19 16:00 UNV Nystatin (Mycostatin) 1 srinivasa TID 02/02/19 21:00 02/10/19 20:39 1 SRINIVASA Ondansetron HCl (Zofran) 4 mg PRN Q6HRS PRN 02/11/19 07:00 02/12/19 06:59 Oxybutynin Chloride (Ditropan) 5 mg BID 02/02/19 21:00 02/10/19 20:39 5 MG Pantoprazole Sodium (Protonix) 40 mg DAILYAC 02/03/19 07:30 02/10/19 07:40 40 MG Paroxetine HCl (Paxil) 20 mg DAILY 02/03/19 09:00 02/10/19 08:51 20 MG Piperacillin Sod/ Tazobactam Sod 3.375 gm/Sodium Chloride 50 ml @ 100 mls/hr Q6H 02/02/19 20:00 02/08/19 11:33 DC 02/08/19 09:33 100 MLS/HR Polyethylene Glycol (miraLAX PACKET) 17 gm PRN DAILY PRN 02/08/19 10:45 Polyethylene Glycol (miraLAX Powder BULK BOTTLE) 238 gm 1X ONCE 02/10/19 12:00 02/10/19 12:01 DC 02/10/19 11:48 238 GM Prochlorperazine Edisylate (Compazine) 5 mg PACU PRN PRN 02/11/19 07:00 02/12/19 06:59 Ringer's Solution 1,000 ml @ 75 mls/hr 1X ONCE 02/11/19 09:45 02/11/19 23:04 Sodium Chloride 1,000 ml @ 125 mls/hr 1X ONCE 02/02/19 16:00 02/02/19 23:59 UNV Sodium Chloride (Normal Saline Flush) 3 ml QSHIFT PRN 02/02/19 16:00 Vancomycin HCl (Vanco Per Pharmacy) 1 each PRN DAILY PRN 02/02/19 14:30 02/03/19 12:07 DC 02/02/19 16:49 1 EACH Vancomycin HCl 1.25 gm/Sodium Chloride 250 ml @ 166.667 mls/hr 1X ONCE 02/02/19 15:00 02/02/19 16:29 DC 02/02/19 16:14 166.667 MLS/HR Vancomycin HCl 1 gm/Sodium Chloride 250 ml @ 250 mls/hr Q24H 02/03/19 16:00 02/03/19 12:07 DC Labs: Lab Laboratory Tests Test 02/10/19 11:15 02/10/19 16:43 02/10/19 21:28 02/11/19 04:10 Glucose (Fingerstick) 131 mg/dL (70-99) 212 mg/dL (70-99) 207 mg/dL (70-99) White Blood Count 8.4 x10^3/uL (4.0-11.0) Red Blood Count 4.02 x10^6/uL (3.50-5.40) Hemoglobin 8.7 g/dL (12.0-15.5) Hematocrit 27.1 % (36.0-47.0) Mean Corpuscular Volume 67 fL (79-100) Mean Corpuscular Hemoglobin 22 pg (25-35) Mean Corpuscular Hemoglobin Concent 32 g/dL (31-37) Red Cell Distribution Width 22.6 % (11.5-14.5) Platelet Count 291 x10^3/uL (140-400) Sodium Level 138 mmol/L (136-145) Potassium Level 3.1 mmol/L (3.5-5.1) Chloride Level 105 mmol/L (98-107) Carbon Dioxide Level 30 mmol/L (21-32) Anion Gap 3 (6-14) Blood Urea Nitrogen 8 mg/dL (7-20) Creatinine 0.8 mg/dL (0.6-1.0) Estimated GFR (Cockcroft-Gault) 71.8 Glucose Level 170 mg/dL (70-99) Calcium Level 9.7 mg/dL (8.5-10.1) Test 02/11/19 08:22 Glucose (Fingerstick) 157 mg/dL (70-99) Objective: Assessment: 1. Sepsis. 2. Urinary tract infection.UC not done 3. Diabetes mellitus. 4. Acute kidney injury. 5. Anemia. 6. History of Escherichia coli urinary tract infection. 7.Pulm infiltrate ? atelectasis on o2 Plan: Plan of Care monitor off antibiotics Maintain aspiration precautions Supportive care. SOLE BROWNING MD Feb 11, 2019 10:29
--- NOTE | 2019-02-11 10:29 | NUR ---
Patient to Outpatient per bed with oxygen at 3L per NC, accompanied by brother Cheko Boyer DPOA/Guardian.
[2019-02-11] MEDS ORDERED: PROPOFOL 40 ML IV ONE (10:34)
[2019-02-11] MEDS ORDERED: BACITRACIN TOPICAL OINT PACKET. TP ONE (11:45)
--- NOTE | 2019-02-11 12:08 | PDOC4 ---
PROCEDURE Procedure Colonoscopy with biopsies/EGD with biopsies Indication: IRASEMA Meds: per anesthesia Findings: BRIELLE--normal. --'scope advanced to cecum. Prep fair save occasional areas of soft formed stool. No diverticular disease. One small polyp in rectosigmoid, biopsied off. Shallow stercoral ulcer upper rectum w/o bleeding. E--Normal G--normal; biopsies antrum and fundus re: H.pylori. D--Normal to second portion. Biopsies second portion. Otilio. well. IMP: small polyp shallow stercoral ulcer. Normal UGI exam. REC: Await path Resume diet. Avoid constipation. JORDON SIDHU MD Feb 11, 2019 12:08
--- NOTE | 2019-02-11 12:23 | NUR ---
Patient return from Outpatient per bed with oxygen at 3 l per NC. Patient awake and covering her mouth with her hand. Side rails up times two, call light at hand. Bed alarm set. Patient watching cartoons on TV, remains nonverbal at present. See orders and VS record. Continue cares and monitor.
--- NOTE | 2019-02-11 12:37 | NUR ---
Miralax held r/t previous bowel prep.
--- NOTE | 2019-02-11 12:41 | NUR ---
SW following. Discussed with RN, PT/OT recommending SNU. SW met with pt, she would like [facility] as her mom was there before. SERGIO faxed referral, [facility] cannot accept as they do not have a bed at this time. SERGIO requested planner intern, Luanne Chang to meet with pt to determine other facility. SERGIO will continue to follow. Addendum: 02/11/19 at 1242 by NEENA HILL DISREGARD PREVIOUS NOTE WRONG PATIENT
--- NOTE | 2019-02-11 12:42 | NUR ---
SW following. Discussed with RN, pt is from [facility]. Colonoscopy and EGD today. SW will continue to follow.
[2019-02-11] MEDS: NYSTATIN 100,000 UNIT/GM TOPICAL OINTMENT 15GM TUBE. TP SCH ×3 (12:44→20:31)
[2019-02-11] MEDS: PANTOPRAZOLE 40 MG TABLET.DR. PO SCH (12:44)
[2019-02-11] MEDS: CETIRIZINE HCL 10 MG TABLET. PO SCH (12:44)
[2019-02-11] MEDS: amLODIPine BESYLATE 5 MG TABLET PO SCH (12:45)
[2019-02-11] MEDS: CALCIUM CARB/VIT D3 500/200 TABLET. PO SCH (12:45)
[2019-02-11] MEDS: PARoxetine 20 MG TABLET PO SCH (12:45)
[2019-02-11] MEDS: ASPIRIN CHEWABLE 81 MG TABLET. PO SCH (12:45)
[2019-02-11] MEDS: OXYBUTYNIN CHLORIDE 5 MG TABLET PO SCH ×2 (12:48→20:31)
[2019-02-11] MEDS: LACTOBACILLUS RHAMNOSUS GG 1 CAPSULE. PO SCH ×2 (12:48→20:31)
[2019-02-11] MEDS ORDERED: POTASSIUM CHLORIDE 20 MEQ TABLET.ER. PO ONE (16:45)
--- NOTE | 2019-02-11 18:17 | NUR ---
Wound Care: Wound care f/u for chest wound. Wound cleansed and assessed, hypergranulation not longer present. Dressing recommendation for collagen, contact layer and [place], q3d. Coccyx/buttocks pink but blanchable, Calazime cream applied. R great toe nail removal area was noted be bleeding, contact layer and pressure dressing applied. No other wounds noted. Wound care will follow up on 02/18.
[2019-02-11] MEDS: LATANOPROST 0.005% OPHTH SOLUTION 2.5ML BOTTLE. OU SCH (20:31)
[2019-02-11] MEDS: INSULIN GLARGINE SYRINGE. SQ SCH (20:39)
[2019-02-12 03:00] VITALS: BP 126/76
[2019-02-12] MEDS: PANTOPRAZOLE 40 MG TABLET.DR. PO SCH (06:34)
[2019-02-12 07:00] VITALS: BP 104/42
[2019-02-12] MEDS: ENOXAPARIN 40 MG/0.4 ML SYRINGE. SQ SCH (09:00)
[2019-02-12] MEDS: POLYETHYLENE GLYCOL 3350 17 GM PACKET. PO SCH (09:00)
[2019-02-12] MEDS: ASPIRIN CHEWABLE 81 MG TABLET. PO SCH (10:34)
[2019-02-12] MEDS: LACTOBACILLUS RHAMNOSUS GG 1 CAPSULE. PO SCH (10:34)
[2019-02-12] MEDS: CETIRIZINE HCL 10 MG TABLET. PO SCH (10:35)
[2019-02-12] MEDS: amLODIPine BESYLATE 5 MG TABLET PO SCH (10:35)
[2019-02-12] MEDS: CALCIUM CARB/VIT D3 500/200 TABLET. PO SCH (10:35)
[2019-02-12] MEDS: OXYBUTYNIN CHLORIDE 5 MG TABLET PO SCH (10:35)
[2019-02-12] MEDS: PARoxetine 20 MG TABLET PO SCH (10:35)
[2019-02-12] MEDS: NYSTATIN 100,000 UNIT/GM TOPICAL OINTMENT 15GM TUBE. TP SCH ×2 (10:37→13:28)
[2019-02-12 11:00] VITALS: BP 141/64
--- NOTE | 2019-02-12 12:02 | PDOC ---
PROGRESS NOTES Chief Complaint Chief Complaint discharge dx UTI, resolved Sepsis, resolved Mental delay Diabetes type 2 Hypertension Anterior chest wall lump x 2 Acute hypoxic respiratory failure, resolved ANEMIA Barring abnormal biopsies (sprue, H.pylori) would most likely have small bowel issue, either angio-dysplasia or NSAID enteropathy from meloxicam. PROCEDURE NOTE PROCEDURE DR SIDHU 02/11/19 Procedure Colonoscopy with biopsies/EGD with biopsies Indication: IRASEMA Meds: per anesthesia Findings: BRIELLE--normal. --'scope advanced to cecum. Prep fair save occasional areas of soft formed stool. No diverticular disease. One small polyp in rectosigmoid, biopsied off. Shallow stercoral ulcer upper rectum w/o bleeding. E--Normal G--normal; biopsies antrum and fundus re: H.pylori. D--Normal to second portion. Biopsies second portion. Otilio. well. IMP: small polyp shallow stercoral ulcer. Normal UGI exam. REC: Await path Resume diet. Avoid constipation. History of Present Illness History of Present Illness MINDI RN Reviewed pt's chart d/c planning 34 min Vitals Vitals Vital Signs Date Time Temp Pulse Resp B/P (MAP) Pulse Ox O2 Delivery O2 Flow Rate FiO2 02/12/19 10:35 58 104/42 02/12/19 07:00 98.1 16 97 Nasal Cannula 1.0 98.1 Physical Exam Physical Exam GENERAL: Propped up in bed, alert, in NAD HEENT: Oral cavity clear NECK: Supple. LUNGS: Clear. HEART: S1, S2. PPM ABDOMEN: Soft, no guarding GENITOURINARY: Briefs in place. EXTREMITIES: Trace edema, no cyanosis. bites nails SKIN: Warm, dry. No generalized rash. CENTRAL NERVOUS SYSTEM: Follows simple commands PIV General: Alert, Cooperative, No acute distress Heart: Regular rate, Normal S1, Normal S2 Lungs: Clear Abdomen: Normal bowel sounds, Soft, No tenderness Extremities: No clubbing, No cyanosis Skin: No rashes, No significant lesion Labs LABS Laboratory Tests Test 02/11/19 12:38 02/11/19 17:03 02/11/19 20:17 02/12/19 08:02 Glucose (Fingerstick) 145 mg/dL (70-99) 196 mg/dL (70-99) 235 mg/dL (70-99) 115 mg/dL (70-99) Test 02/12/19 11:42 Glucose (Fingerstick) 206 mg/dL (70-99) Assessment and Plan Assessmemt and Plan Problems Medical Problems: (1) Hypotension Status: Acute (2) Leukocytosis, unspecified Status: Acute (3) Sepsis Status: Acute (4) Urinary tract infection Status: Acute Comment Review of Relevant I have reviewed the following items wojciech (where applicable) has been applied. Labs Laboratory Tests Test 02/10/19 16:43 02/10/19 21:28 02/11/19 04:10 02/11/19 08:22 Glucose (Fingerstick) 212 mg/dL (70-99) 207 mg/dL (70-99) 157 mg/dL (70-99) White Blood Count 8.4 x10^3/uL (4.0-11.0) Red Blood Count 4.02 x10^6/uL (3.50-5.40) Hemoglobin 8.7 g/dL (12.0-15.5) Hematocrit 27.1 % (36.0-47.0) Mean Corpuscular Volume 67 fL (79-100) Mean Corpuscular Hemoglobin 22 pg (25-35) Mean Corpuscular Hemoglobin Concent 32 g/dL (31-37) Red Cell Distribution Width 22.6 % (11.5-14.5) Platelet Count 291 x10^3/uL (140-400) Sodium Level 138 mmol/L (136-145) Potassium Level 3.1 mmol/L (3.5-5.1) Chloride Level 105 mmol/L (98-107) Carbon Dioxide Level 30 mmol/L (21-32) Anion Gap 3 (6-14) Blood Urea Nitrogen 8 mg/dL (7-20) Creatinine 0.8 mg/dL (0.6-1.0) Estimated GFR (Cockcroft-Gault) 71.8 Glucose Level 170 mg/dL (70-99) Calcium Level 9.7 mg/dL (8.5-10.1) Test 02/11/19 12:38 02/11/19 17:03 02/11/19 20:17 02/12/19 08:02 Glucose (Fingerstick) 145 mg/dL (70-99) 196 mg/dL (70-99) 235 mg/dL (70-99) 115 mg/dL (70-99) Test 02/12/19 11:42 Glucose (Fingerstick) 206 mg/dL (70-99) Laboratory Tests Test 02/11/19 12:38 02/11/19 17:03 02/11/19 20:17 02/12/19 08:02 Glucose (Fingerstick) 145 mg/dL (70-99) 196 mg/dL (70-99) 235 mg/dL (70-99) 115 mg/dL (70-99) Test 02/12/19 11:42 Glucose (Fingerstick) 206 mg/dL (70-99) Microbiology 02/02/19 Blood Culture - Final, Complete NO GROWTH AFTER 5 DAYS Medications Current Medications Sodium Chloride 1,000 ml @ 1,000 mls/hr 1X ONCE IV Last administered on 02/02/19at 13:25; Start 02/02/19 at 12:45; Stop 02/02/19 at 13:44; Status DC Sodium Chloride 1,000 ml @ 1,000 mls/hr 1X ONCE IV Last administered on 02/02/19at 14:56; Start 02/02/19 at 14:30; Stop 02/02/19 at 15:29; Status DC Piperacillin Sod/ Tazobactam Sod 3.375 gm/Sodium Chloride 50 ml @ 100 mls/hr 1X ONCE IV Last administered on 02/02/19at 14:56; Start 02/02/19 at 14:30; Stop 02/02/19 at 14:59; Status DC Vancomycin HCl (Vanco Per Pharmacy) 1 each PRN DAILY PRN MC SEE COMMENTS Last administered on 02/02/19at 16:49; Start 02/02/19 at 14:30; Stop 02/03/19 at 12:07; Status DC Vancomycin HCl 1.25 gm/Sodium Chloride 250 ml @ 166.667 mls/hr 1X ONCE IV Last administered on 02/02/19at 16:14; Start 02/02/19 at 15:00; Stop 02/02/19 at 16:29; Status DC Sodium Chloride (Normal Saline Flush) 3 ml QSHIFT PRN IV AFTER MEDS AND BLOOD DRAWS; Start 02/02/19 at 16:00 Sodium Chloride 1,000 ml @ 100 mls/hr Q10H IV Last administered on 02/07/19at 07:53; Start 02/02/19 at 15:46; Stop 02/07/19 at 08:41; Status DC Ondansetron HCl (Zofran) 4 mg PRN Q4HRS PRN IV NAUSEA/VOMITING Last administered on 02/10/19at 10:43; Start 02/02/19 at 16:00 Acetaminophen (Tylenol) 650 mg PRN Q4HRS PRN PO TEMP > 100.4F OR MILD-MOD PAIN Last administered on 02/10/19at 20:39; Start 02/02/19 at 16:00 Al Hydroxide/Mg Hydroxide (Mylanta Plus Xs) 30 ml PRN DAILY PRN PO HEARTBURN / GAS; Start 02/02/19 at 16:00 Clonidine HCl (Catapres) 0.1 mg PRN Q6HRS PRN PO SBP>160 OR DBP>90; Start 02/02/19 at 16:00 Docusate Sodium (Colace) 100 mg PRN BID PRN PO HARD STOOLS Last administered on 02/09/19at 21:11; Start 02/02/19 at 16:00 Albuterol Sulfate (Ventolin Neb Soln) 2.5 mg PRN Q4HRS PRN NEB SHORTNESS OF BREATH; Start 02/02/19 at 16:00 Guaifenesin (Robitussin) 200 mg PRN Q4HRS PRN PO COUGH; Start 02/02/19 at 16:00 Lorazepam (Ativan) 0.5 mg PRN Q4HRS PRN PO ANXIETY / AGITATION; Start 02/02/19 at 16:00 Hydromorphone HCl (Dilaudid) 0.5 mg PRN Q2HRS PRN IV SEVERE PAIN 7-10; Start 02/02/19 at 16:00 Enoxaparin Sodium (Lovenox 40mg Syringe) 40 mg DAILY SQ Last administered on 02/09/19at 08:29; Start 02/03/19 at 09:00 Piperacillin Sod/ Tazobactam Sod 3.375 gm/Sodium Chloride 50 ml @ 100 mls/hr Q6H IV Last administered on 02/08/19at 09:33; Start 02/02/19 at 20:00; Stop 02/08/19 at 11:33; Status DC Sodium Chloride 1,000 ml @ 1,500 mls/hr Q40M IV Last administered on 02/02/19at 16:28; Start 02/02/19 at 15:48; Stop 02/02/19 at 16:49; Status DC Sodium Chloride 500 ml @ 1,000 mls/hr PRN Q30MIN PRN IV SEE COMMENTS; Start 02/02/19 at 16:00; Stop 02/07/19 at 08:41; Status DC Norepinephrine Bitartrate 8 mg/ Dextrose 258 ml @ 0 mls/hr CONT PRN IV SEE I/O RECORD; Start 02/02/19 at 16:00; Status UNV Amlodipine Besylate (Norvasc) 5 mg DAILY PO Last administered on 02/12/19 10:35; Start 02/03/19 at 09:00 Aspirin (Children'S Aspirin) 81 mg DAILY PO Last administered on 02/12/19 10:34; Start 02/03/19 at 09:00 Calcium/Vitamin D (Oscal D 500mg/ 200uts) 1 tab DAILY PO Last administered on 02/12/19 10:35; Start 02/03/19 at 09:00 Insulin Human Lispro (HumaLOG) 5 units TIDAC SQ Last administered on 02/03/19at 18:06; Start 02/02/19 at 16:30; Stop 02/04/19 at 12:24; Status DC Nystatin (Mycostatin) 1 mariam TID TP Last administered on 02/12/19 10:37; Start 02/02/19 at 21:00 Oxybutynin Chloride (Ditropan) 5 mg BID PO Last administered on 02/12/19 10:35; Start 02/02/19 at 21:00 Paroxetine HCl (Paxil) 20 mg DAILY PO Last administered on 02/12/19 10:35; Start 02/03/19 at 09:00 Latanoprost (Xalatan) 1 drop QHS OU Last administered on 02/11/19at 20:31; Start 02/02/19 at 21:00 Insulin Glargine (Lantus Syringe) 15 unit QHS SQ Last administered on 02/02/19at 20:55; Start 02/02/19 at 21:00; Stop 02/04/19 at 12:24; Status DC Pantoprazole Sodium (Protonix) 40 mg DAILYAC PO Last administered on 02/12/19at 06:34; Start 02/03/19 at 07:30 Cetirizine HCl (ZyrTEC) 10 mg DAILY PO Last administered on 02/12/19at 10:35; Start 02/03/19 at 09:00 Ondansetron HCl (Zofran) 4 mg PRN Q8HRS PRN IV NAUSEA/VOMITING; Start 02/02/19 at 16:00; Stop 02/03/19 at 12:37; Status DC Sodium Chloride 1,000 ml @ 125 mls/hr 1X ONCE IV ; Start 02/02/19 at 16:00; Stop 02/02/19 at 23:59; Status UNV Vancomycin HCl 1 gm/Sodium Chloride 250 ml @ 250 mls/hr Q24H IV ; Start 02/03/19 at 16:00; Stop 02/03/19 at 12:07; Status DC Iron Sucrose 200 mg/Sodium Chloride 110 ml @ 55 mls/hr 1X ONCE IV Last administered on 02/04/19at 10:48; Start 02/04/19 at 08:00; Stop 02/04/19 at 09:59; Status DC Insulin Glargine (Lantus Syringe) 10 unit QHS SQ Last administered on 02/08/19at 20:53; Start 02/04/19 at 21:00; Stop 02/09/19 at 17:56; Status DC Lactobacillus Rhamnosus (Culturelle) 1 cap BID PO Last administered on 02/12/19at 10:34; Start 02/04/19 at 21:00 Polyethylene Glycol (miraLAX PACKET) 17 gm DAILY PO Last administered on 02/10/19at 08:51; Start 02/08/19 at 11:00 Polyethylene Glycol (miraLAX PACKET) 17 gm PRN DAILY PRN PO CONSTIPATION; Start 02/08/19 at 10:45 Bisacodyl (Dulcolax Tab) 5 mg PRN DAILY PRN PO CONSTIPATION; Start 02/08/19 at 10:45 Polyethylene Glycol (miraLAX Powder BULK BOTTLE) 238 gm 1X ONCE NG Last administered on 02/10/19at 11:48; Start 02/10/19 at 12:00; Stop 02/10/19 at 12:01; Status DC Magnesium Citrate (Citroma) 296 ml 1X ONCE NG Last administered on 02/10/19at 10:28; Start 02/10/19 at 11:00; Stop 02/10/19 at 11:01; Status DC Bisacodyl (Dulcolax Tab) 10 mg 1X ONCE PO Last administered on 02/10/19at 11:19; Start 02/10/19 at 11:30; Stop 02/10/19 at 11:31; Status DC Bisacodyl (Dulcolax Tab) 10 mg 1X ONCE PO Last administered on 02/10/19at 13:38; Start 02/10/19 at 14:00; Stop 02/10/19 at 14:01; Status DC Amoxicillin/ Clavulanate Potassium (Augmentin 875/ 125mg) 1 tab BID PO Last administered on 02/10/19at 08:51; Start 02/08/19 at 21:00; Stop 02/10/19 at 14:38; Status DC Insulin Glargine (Lantus Syringe) 5 unit QHS SQ Last administered on 02/11/19at 20:39; Start 02/09/19 at 21:00 Ondansetron HCl (Zofran) 4 mg PRN Q6HRS PRN IV NAUSEA/VOMITING; Start 02/11/19 at 07:00; Stop 02/12/19 at 06:59; Status DC Fentanyl Citrate (Fentanyl 2ml Vial) 25 mcg PRN Q5MIN PRN IV MILD PAIN 1-3; Start 02/11/19 at 07:00; Stop 02/12/19 at 06:59; Status DC Fentanyl Citrate (Fentanyl 2ml Vial) 50 mcg PRN Q5MIN PRN IV MODERATE TO SEVERE PAIN; Start 02/11/19 at 07:00; Stop 02/12/19 at 06:59; Status DC Morphine Sulfate (Morphine Sulfate) 1 mg PRN Q10MIN PRN IV SEVERE PAIN 7-10; Start 02/11/19 at 07:00; Stop 02/12/19 at 06:59; Status DC Ringer's Solution 1,000 ml @ 30 mls/hr Q24H IV Last administered on 02/11/19at 10:42; Start 02/11/19 at 07:00; Stop 02/11/19 at 18:41; Status DC Lidocaine HCl (Xylocaine-Mpf 1% 2ml Vial) 2 ml PRN 1X PRN ID PRIOR TO IV START; Start 02/11/19 at 07:00; Stop 02/12/19 at 06:59; Status DC Hydromorphone HCl (Dilaudid) 0.5 mg PRN Q10MIN PRN IV SEV PAIN, Second choice; Start 02/11/19 at 07:00; Stop 02/12/19 at 06:59; Status DC Prochlorperazine Edisylate (Compazine) 5 mg PACU PRN PRN IV NAUSEA, MRX1; Start 02/11/19 at 07:00; Stop 02/12/19 at 06:59; Status DC Bisacodyl (Dulcolax Tab) 10 mg 1X ONCE PO ; Start 02/10/19 at 15:45; Stop 02/10/19 at 15:44; Status DC Ringer's Solution 1,000 ml @ 75 mls/hr 1X ONCE IV ; Start 02/11/19 at 09:45; Stop 02/11/19 at 18:42; Status DC Bacitracin (Bacitracin Zinc Oint Pkt) 1 pkt 1X ONCE TP Last administered on 02/11/19at 12:44; Start 02/11/19 at 11:45; Stop 02/11/19 at 11:46; Status DC Propofol 40 ml @ As Directed STK-MED ONCE IV ; Start 02/11/19 at 10:34; Stop 02/11/19 at 14:16; Status DC Potassium Chloride (Klor-Con) 40 meq 1X ONCE PO Last administered on 02/11/19at 17:26; Start 02/11/19 at 16:45; Stop 02/11/19 at 16:47; Status DC Active Scripts Active Humalog (Insulin Lispro) 100 Unit/1 Ml Insuln.pen 5 Units SQ TIDAC 30 Days Lantus Solostar (Insulin Glargine,Hum.rec.anlog) 100 Unit/1 Ml Insuln.pen 15 Un its SQ QHS 30 Days Cephalexin 250 Mg Capsule 500 Mg PO QID 3 Days Nystatin 15 Gm Oint...g. 1 Mariam TP TID 10 Days Reported Paroxetine Hcl 20 Mg Tablet 1 Tab PO DAILY Oxybutynin Chloride 5 Mg Tablet 1 Tab PO BID Omeprazole 20 Mg Capsule.dr 1 Cap PO DAILY Meloxicam 15 Mg Tablet 1 Tab PO DAILY Lumigan (Bimatoprost) 2.5 Ml Drops 1 Drop EACHEYE QHS Lisinopril 40 Mg Tablet 1 Tab PO DAILY Aspirin 81 Mg Tab.chew 1 Tab PO DAILY Amlodipine Besylate 5 Mg Tablet 5 Mg PO DAILY Oyster Shell 500 Mg + Vit D Tb (Calcium Carbonate/Vitamin D3) 1 Each Tablet 1 Each PO DAILY Zyrtec (Cetirizine Hcl) 10 Mg Capsule 10 Mg PO Multi-Vitamin Daily (Multivitamin) 1 Each Tablet 1 Each PO Vitals/I & O Vital Sign - Last 24 Hours 02/11/19 02/11/19 02/11/19 02/11/19 12:10 12:30 12:33 12:45 Pulse 56 73 60 60 Resp 18 B/P (MAP) 144/63 149/65 (93) 162/85 (110) 162/85 Pulse Ox 100 100 O2 Delivery Nasal Cannula Nasal Cannula O2 Flow Rate 3 3.0 02/11/19 02/11/19 02/11/19 02/11/19 12:45 13:00 13:30 15:00 Pulse 62 63 57 58 Resp 17 B/P (MAP) 124/49 (74) 122/57 (78) 123/52 (75) 128/57 (80) Pulse Ox 97 O2 Delivery Nasal Cannula O2 Flow Rate 3.0 02/11/19 02/11/19 02/11/19 02/11/19 19:08 19:51 20:00 23:00 Temp 98.2 98.1 98.2 98.1 Pulse 58 62 61 Resp 19 17 B/P (MAP) 128/ 130/63 (85) 116/66 (83) Pulse Ox 100 99 O2 Delivery Room Air Nasal Cannula Room Air O2 Flow Rate 2.0 02/12/19 02/12/19 02/12/19 03:00 07:00 10:35 Temp 98.3 98.1 98.3 98.1 Pulse 67 58 58 Resp 18 16 B/P (MAP) 126/76 (93) 104/42 (62) 104/42 Pulse Ox 99 97 O2 Delivery Room Air Nasal Cannula O2 Flow Rate 1.0 Intake and Output 02/11/19 02/11/19 02/12/19 15:00 23:00 07:00 Intake Total 900 ml 0 ml Output Total 0 ml Balance 900 ml 0 ml Nutrition Consultation Dietary Evaluation: Recommendations by RD: Dietary education by RD, Increase Calorie Intake, Protein supplementation Comments: REC resume diet per [employer], ADA, cardiac, offer supplements when po intake is < 50% meals REC mvi and vit c per wound protocal Expected Outcomes/Goals: to meet > 75% est nutr needs Malnutrition Findings: Food and Nutrition Intake (Sev: <50% est energy req 5days Weight Status: Appropriate Hemodynamically unstable?: No Is patient in severe pain?: No Is NPO status required?: No KAMERON REYNA MD Feb 12, 2019 12:02
--- NOTE | 2019-02-12 12:32 | PDOC ---
Subjective: Subjective: Doing okay. Objective: Vital Signs: Vital Signs Date Time Temp Pulse Resp B/P (MAP) Pulse Ox O2 Delivery O2 Flow Rate FiO2 02/12/19 10:35 58 104/42 02/12/19 07:00 98.1 16 97 Nasal Cannula 1.0 98.1 Labs: Laboratory Tests Test 02/11/19 12:38 02/11/19 17:03 02/11/19 20:17 02/12/19 08:02 Glucose (Fingerstick) 145 mg/dL 196 mg/dL 235 mg/dL 115 mg/dL Test 02/12/19 11:42 Glucose (Fingerstick) 206 mg/dL Imaging: EGD and colonoscopy 02/11/19 BRIELLE--normal. --'scope advanced to cecum. Prep fair save occasional areas of soft formed stool. No diverticular disease. One small polyp in rectosigmoid, biopsied off. Shallow stercoral ulcer upper rectum w/o bleeding. E--Normal G--normal; biopsies antrum and fundus re: H.pylori. D--Normal to second portion. Biopsies second portion. IMP: small polyp shallow stercoral ulcer. Normal UGI exam. REC: Await path Resume diet. Avoid constipation. PE: GEN: NAD, holding stuffed animal, lunch tray nearby LUNGS: room air HEART: RRR ABD: S/ND/NT NEURO/PSYCH: awake and alert A/P: IRASEMA/ACD Colon polyp, shallow stercoral ulcer -- DC per primary. Follow-up on path, avoid constipation, consider addition of iron, continue PPI. Hemodynamically unstable?: No Is patient in severe pain?: No Is NPO status required?: No STEFF GOLDBERG Feb 12, 2019 12:32
--- NOTE | 2019-02-12 13:05 | NUR ---
SERGIO following. Discussed with RN, pt from [facility], no longer needing IV abx. SERGIO faxed updates (ph: [phone], fax: [phone]). Awaiting confirmation of discharge date. Addendum: 02/12/19 at 1522 by NEENA HILL Pt discharging back to [facility]. RN notified, RN advised she will notify family. Addendum: 02/12/19 at 1522 by NEENA HILL Transportation time is 1730. RN notified.
--- NOTE | 2019-02-12 14:01 | PDOC3 ---
Discharge Summary Date of Admission: Feb 02, 2019 Date of Discharge: Feb 12, 2019 Follow-Up: 1-2 days Admitting Diagnosis comment: discharge dx UTI, resolved Sepsis, resolved Mental delay Diabetes type 2 Hypertension Anterior chest wall lump x 2 Acute hypoxic respiratory failure, resolved ANEMIA Barring abnormal biopsies (sprue, H.pylori) would most likely have small bowel issue, either angio-dysplasia or NSAID enteropathy from meloxicam. PROCEDURE NOTE PROCEDURE DR SIDHU 02/11/19 Procedure Colonoscopy with biopsies/EGD with biopsies Indication: IRASEMA Meds: per anesthesia Findings: BRIELLE--normal. --'scope advanced to cecum. Prep fair save occasional areas of soft formed stool. No diverticular disease. One small polyp in rectosigmoid, biopsied off. Shallow stercoral ulcer upper rectum w/o bleeding. E--Normal G--normal; biopsies antrum and fundus re: H.pylori. D--Normal to second portion. Biopsies second portion. Otilio. well. IMP: small polyp shallow stercoral ulcer. Normal UGI exam. REC: Await path Resume diet. Avoid constipation. History of Present Illness History of Present Illness DW RN Reviewed pt's chart d/c planning 34 min Vitals Vitals Vital Signs Date Time Temp Pulse Resp B/P (MAP) Pulse Ox O2 Delivery O2 Flow Rate FiO2 02/12/19 10:35 58 104/42 02/12/19 07:00 98.1 16 97 Nasal Cannula 1.0 98.1 Physical Exam Physical Exam GENERAL: Propped up in bed, alert, in NAD HEENT: Oral cavity clear NECK: Supple. LUNGS: Clear. HEART: S1, S2. PPM ABDOMEN: Soft, no guarding GENITOURINARY: Briefs in place. EXTREMITIES: Trace edema, no cyanosis. bites nails SKIN: Warm, dry. No generalized rash. CENTRAL NERVOUS SYSTEM: Follows simple commands PIV General: Alert, Cooperative, No acute distress Heart: Regular rate, Normal S1, Normal S2 Lungs: Clear Abdomen: Normal bowel sounds, Soft, No tenderness Extremities: No clubbing, No cyanosis Skin: No rashes, No significant lesion FINAL DIAGNOSIS Problems Medical Problems: (1) Hypotension Status: Acute (2) Leukocytosis, unspecified Status: Acute (3) Sepsis Status: Acute (4) Urinary tract infection Status: Acute Brief Hospital Course Ms. Boyer is a 68 old [sex] who presented with [ uti, sepsis, anemia] CONDITION AT DISCHARGE: Improved Discharge Medications Current Medications Sodium Chloride 1,000 ml @ 1,000 mls/hr 1X ONCE IV Last administered on 02/02/19at 13:25; Start 02/02/19 at 12:45; Stop 02/02/19 at 13:44; Status DC Sodium Chloride 1,000 ml @ 1,000 mls/hr 1X ONCE IV Last administered on 02/02/19at 14:56; Start 02/02/19 at 14:30; Stop 02/02/19 at 15:29; Status DC Piperacillin Sod/ Tazobactam Sod 3.375 gm/Sodium Chloride 50 ml @ 100 mls/hr 1X ONCE IV Last administered on 02/02/19at 14:56; Start 02/02/19 at 14:30; Stop 02/02/19 at 14:59; Status DC Vancomycin HCl (Vanco Per Pharmacy) 1 each PRN DAILY PRN MC SEE COMMENTS Last administered on 02/02/19at 16:49; Start 02/02/19 at 14:30; Stop 02/03/19 at 12:07; Status DC Vancomycin HCl 1.25 gm/Sodium Chloride 250 ml @ 166.667 mls/hr 1X ONCE IV Last administered on 02/02/19at 16:14; Start 02/02/19 at 15:00; Stop 02/02/19 at 16:29; Status DC Sodium Chloride (Normal Saline Flush) 3 ml QSHIFT PRN IV AFTER MEDS AND BLOOD DRAWS; Start 02/02/19 at 16:00 Sodium Chloride 1,000 ml @ 100 mls/hr Q10H IV Last administered on 02/07/19at 07:53; Start 02/02/19 at 15:46; Stop 02/07/19 at 08:41; Status DC Ondansetron HCl (Zofran) 4 mg PRN Q4HRS PRN IV NAUSEA/VOMITING Last administered on 02/10/19at 10:43; Start 02/02/19 at 16:00 Acetaminophen (Tylenol) 650 mg PRN Q4HRS PRN PO TEMP > 100.4F OR MILD-MOD PAIN Last administered on 02/10/19 20:39; Start 02/02/19 at 16:00 Al Hydroxide/Mg Hydroxide (Mylanta Plus Xs) 30 ml PRN DAILY PRN PO HEARTBURN / GAS; Start 02/02/19 at 16:00 Clonidine HCl (Catapres) 0.1 mg PRN Q6HRS PRN PO SBP>160 OR DBP>90; Start 02/02/19 at 16:00 Docusate Sodium (Colace) 100 mg PRN BID PRN PO HARD STOOLS Last administered on 02/09/19at 21:11; Start 02/02/19 at 16:00 Albuterol Sulfate (Ventolin Neb Soln) 2.5 mg PRN Q4HRS PRN NEB SHORTNESS OF BREATH; Start 02/02/19 at 16:00 Guaifenesin (Robitussin) 200 mg PRN Q4HRS PRN PO COUGH; Start 02/02/19 at 16:00 Lorazepam (Ativan) 0.5 mg PRN Q4HRS PRN PO ANXIETY / AGITATION; Start 02/02/19 at 16:00 Hydromorphone HCl (Dilaudid) 0.5 mg PRN Q2HRS PRN IV SEVERE PAIN 7-10; Start 02/02/19 at 16:00 Enoxaparin Sodium (Lovenox 40mg Syringe) 40 mg DAILY SQ Last administered on 02/09/19at 08:29; Start 02/03/19 at 09:00 Piperacillin Sod/ Tazobactam Sod 3.375 gm/Sodium Chloride 50 ml @ 100 mls/hr Q6H IV Last administered on 02/08/19at 09:33; Start 02/02/19 at 20:00; Stop 02/08/19 at 11:33; Status DC Sodium Chloride 1,000 ml @ 1,500 mls/hr Q40M IV Last administered on 02/02/19at 16:28; Start 02/02/19 at 15:48; Stop 02/02/19 at 16:49; Status DC Sodium Chloride 500 ml @ 1,000 mls/hr PRN Q30MIN PRN IV SEE COMMENTS; Start 02/02/19 at 16:00; Stop 02/07/19 at 08:41; Status DC Norepinephrine Bitartrate 8 mg/ Dextrose 258 ml @ 0 mls/hr CONT PRN IV SEE I/O RECORD; Start 02/02/19 at 16:00; Status UNV Amlodipine Besylate (Norvasc) 5 mg DAILY PO Last administered on 02/12/19 10:35; Start 02/03/19 at 09:00 Aspirin (Children'S Aspirin) 81 mg DAILY PO Last administered on 02/12/19 10:34; Start 02/03/19 at 09:00 Calcium/Vitamin D (Oscal D 500mg/ 200uts) 1 tab DAILY PO Last administered on 02/12/19 10:35; Start 02/03/19 at 09:00 Insulin Human Lispro (HumaLOG) 5 units TIDAC SQ Last administered on 02/03/19at 18:06; Start 02/02/19 at 16:30; Stop 02/04/19 at 12:24; Status DC Nystatin (Mycostatin) 1 mariam TID TP Last administered on 02/12/19 13:28; Start 02/02/19 at 21:00 Oxybutynin Chloride (Ditropan) 5 mg BID PO Last administered on 02/12/19 10:35; Start 02/02/19 at 21:00 Paroxetine HCl (Paxil) 20 mg DAILY PO Last administered on 02/12/19 10:35; Start 02/03/19 at 09:00 Latanoprost (Xalatan) 1 drop QHS OU Last administered on 02/11/19 20:31; Start 02/02/19 at 21:00 Insulin Glargine (Lantus Syringe) 15 unit QHS SQ Last administered on 02/02/19at 20:55; Start 02/02/19 at 21:00; Stop 02/04/19 at 12:24; Status DC Pantoprazole Sodium (Protonix) 40 mg DAILYAC PO Last administered on 02/12/19 06:34; Start 02/03/19 at 07:30 Cetirizine HCl (ZyrTEC) 10 mg DAILY PO Last administered on 02/12/19 10:35; Start 02/03/19 at 09:00 Ondansetron HCl (Zofran) 4 mg PRN Q8HRS PRN IV NAUSEA/VOMITING; Start 02/02/19 at 16:00; Stop 02/03/19 at 12:37; Status DC Sodium Chloride 1,000 ml @ 125 mls/hr 1X ONCE IV ; Start 02/02/19 at 16:00; Stop 02/02/19 at 23:59; Status UNV Vancomycin HCl 1 gm/Sodium Chloride 250 ml @ 250 mls/hr Q24H IV ; Start 02/03/19 at 16:00; Stop 02/03/19 at 12:07; Status DC Iron Sucrose 200 mg/Sodium Chloride 110 ml @ 55 mls/hr 1X ONCE IV Last administered on 02/04/19at 10:48; Start 02/04/19 at 08:00; Stop 02/04/19 at 09:59; Status DC Insulin Glargine (Lantus Syringe) 10 unit QHS SQ Last administered on 02/08/19at 20:53; Start 02/04/19 at 21:00; Stop 02/09/19 at 17:56; Status DC Lactobacillus Rhamnosus (Culturelle) 1 cap BID PO Last administered on 02/12/19at 10:34; Start 02/04/19 at 21:00 Polyethylene Glycol (miraLAX PACKET) 17 gm DAILY PO Last administered on 02/10/19at 08:51; Start 02/08/19 at 11:00 Polyethylene Glycol (miraLAX PACKET) 17 gm PRN DAILY PRN PO CONSTIPATION; Start 02/08/19 at 10:45 Bisacodyl (Dulcolax Tab) 5 mg PRN DAILY PRN PO CONSTIPATION; Start 02/08/19 at 10:45 Polyethylene Glycol (miraLAX Powder BULK BOTTLE) 238 gm 1X ONCE NG Last a dministered on 02/10/19at 11:48; Start 02/10/19 at 12:00; Stop 02/10/19 at 12:01; Status DC Magnesium Citrate (Citroma) 296 ml 1X ONCE NG Last administered on 02/10/19at 10:28; Start 02/10/19 at 11:00; Stop 02/10/19 at 11:01; Status DC Bisacodyl (Dulcolax Tab) 10 mg 1X ONCE PO Last administered on 02/10/19at 11:19; Start 02/10/19 at 11:30; Stop 02/10/19 at 11:31; Status DC Bisacodyl (Dulcolax Tab) 10 mg 1X ONCE PO Last administered on 02/10/19at 13:38; Start 02/10/19 at 14:00; Stop 02/10/19 at 14:01; Status DC Amoxicillin/ Clavulanate Potassium (Augmentin 875/ 125mg) 1 tab BID PO Last administered on 02/10/19at 08:51; Start 02/08/19 at 21:00; Stop 02/10/19 at 14:38; Status DC Insulin Glargine (Lantus Syringe) 5 unit QHS SQ Last administered on 02/11/19at 20:39; Start 02/09/19 at 21:00 Ondansetron HCl (Zofran) 4 mg PRN Q6HRS PRN IV NAUSEA/VOMITING; Start 02/11/19 at 07:00; Stop 02/12/19 at 06:59; Status DC Fentanyl Citrate (Fentanyl 2ml Vial) 25 mcg PRN Q5MIN PRN IV MILD PAIN 1-3; Start 02/11/19 at 07:00; Stop 02/12/19 at 06:59; Status DC Fentanyl Citrate (Fentanyl 2ml Vial) 50 mcg PRN Q5MIN PRN IV MODERATE TO SEVERE PAIN; Start 02/11/19 at 07:00; Stop 02/12/19 at 06:59; Status DC Morphine Sulfate (Morphine Sulfate) 1 mg PRN Q10MIN PRN IV SEVERE PAIN 7-10; Start 02/11/19 at 07:00; Stop 02/12/19 at 06:59; Status DC Ringer's Solution 1,000 ml @ 30 mls/hr Q24H IV Last administered on 02/11/19at 10:42; Start 02/11/19 at 07:00; Stop 02/11/19 at 18:41; Status DC Lidocaine HCl (Xylocaine-Mpf 1% 2ml Vial) 2 ml PRN 1X PRN ID PRIOR TO IV START; Start 02/11/19 at 07:00; Stop 02/12/19 at 06:59; Status DC Hydromorphone HCl (Dilaudid) 0.5 mg PRN Q10MIN PRN IV SEV PAIN, Second choice; Start 02/11/19 at 07:00; Stop 02/12/19 at 06:59; Status DC Prochlorperazine Edisylate (Compazine) 5 mg PACU PRN PRN IV NAUSEA, MRX1; Start 02/11/19 at 07:00; Stop 02/12/19 at 06:59; Status DC Bisacodyl (Dulcolax Tab) 10 mg 1X ONCE PO ; Start 02/10/19 at 15:45; Stop 02/10/19 at 15:44; Status DC Ringer's Solution 1,000 ml @ 75 mls/hr 1X ONCE IV ; Start 02/11/19 at 09:45; Stop 02/11/19 at 18:42; Status DC Bacitracin (Bacitracin Zinc Oint Pkt) 1 pkt 1X ONCE TP Last administered on 02/11/19at 12:44; Start 02/11/19 at 11:45; Stop 02/11/19 at 11:46; Status DC Propofol 40 ml @ As Directed STK-MED ONCE IV ; Start 02/11/19 at 10:34; Stop 02/11/19 at 14:16; Status DC Potassium Chloride (Klor-Con) 40 meq 1X ONCE PO Last administered on 02/11/19at 17:26; Start 02/11/19 at 16:45; Stop 02/11/19 at 16:47; Status DC Active Scripts Active Humalog (Insulin Lispro) 100 Unit/1 Ml Insuln.pen 5 Units SQ TIDAC 30 Days Lantus Solostar (Insulin Glargine,Hum.rec.anlog) 100 Unit/1 Ml Insuln.pen 15 Units SQ QHS 30 Days Cephalexin 250 Mg Capsule 500 Mg PO QID 3 Days Nystatin 15 Gm Oint...g. 1 Mariam TP TID 10 Days Reported Paroxetine Hcl 20 Mg Tablet 1 Tab PO DAILY Oxybutynin Chloride 5 Mg Tablet 1 Tab PO BID Omeprazole 20 Mg Capsule.dr 1 Cap PO DAILY Meloxicam 15 Mg Tablet 1 Tab PO DAILY Lumigan (Bimatoprost) 2.5 Ml Drops 1 Drop EACHEYE QHS Lisinopril 40 Mg Tablet 1 Tab PO DAILY Aspirin 81 Mg Tab.chew 1 Tab PO DAILY Amlodipine Besylate 5 Mg Tablet 5 Mg PO DAILY Oyster Shell 500 Mg + Vit D Tb (Calcium Carbonate/Vitamin D3) 1 Each Tablet 1 Each PO DAILY Zyrtec (Cetirizine Hcl) 10 Mg Capsule 10 Mg PO Multi-Vitamin Daily (Multivitamin) 1 Each Tablet 1 Each PO Vital Signs Vital Signs Date Time Temp Pulse Resp B/P (MAP) Pulse Ox O2 Delivery O2 Flow Rate FiO2 02/12/19 11:00 98.2 63 16 141/64 (89) 98 Room Air 98.2 02/12/19 07:00 1.0 Labs Laboratory Tests Test 02/10/19 16:43 02/10/19 21:28 02/11/19 04:10 02/11/19 08:22 Glucose (Fingerstick) 212 mg/dL (70-99) 207 mg/dL (70-99) 157 mg/dL (70-99) White Blood Count 8.4 x10^3/uL (4.0-11.0) Red Blood Count 4.02 x10^6/uL (3.50-5.40) Hemoglobin 8.7 g/dL (12.0-15.5) Hematocrit 27.1 % (36.0-47.0) Mean Corpuscular Volume 67 fL (79-100) Mean Corpuscular Hemoglobin 22 pg (25-35) Mean Corpuscular Hemoglobin Concent 32 g/dL (31-37) Red Cell Distribution Width 22.6 % (11.5-14.5) Platelet Count 291 x10^3/uL (140-400) Sodium Level 138 mmol/L (136-145) Potassium Level 3.1 mmol/L (3.5-5.1) Chloride Level 105 mmol/L (98-107) Carbon Dioxide Level 30 mmol/L (21-32) Anion Gap 3 (6-14) Blood Urea Nitrogen 8 mg/dL (7-20) Creatinine 0.8 mg/dL (0.6-1.0) Estimated GFR (Cockcroft-Gault) 71.8 Glucose Level 170 mg/dL (70-99) Calcium Level 9.7 mg/dL (8.5-10.1) Test 02/11/19 12:38 02/11/19 17:03 02/11/19 20:17 02/12/19 08:02 Glucose (Fingerstick) 145 mg/dL (70-99) 196 mg/dL (70-99) 235 mg/dL (70-99) 115 mg/dL (70-99) Test 02/12/19 11:42 Glucose (Fingerstick) 206 mg/dL (70-99) Laboratory Tests Test 02/11/19 17:03 1/2/20 20:17 02/12/19 08:02 02/12/19 11:42 Glucose (Fingerstick) 196 mg/dL (70-99) 235 mg/dL (70-99) 115 mg/dL (70-99) 206 mg/dL (70-99) Allergies Allergies Coded Allergies Type Severity Reaction Last Updated Verified No Known Allergies Allergy Unknown 02/11/19 Yes Patient Instructions d/c planning 34 min Hemodynamically unstable?: No Is patient in severe pain?: No Is NPO status required?: No KAMERON REYNA MD Feb 12, 2019 14:01
[2019-02-12] MEDS ORDERED: MAG30ORA2 PO (14:05)
[2019-02-12] MEDS ORDERED: DOCU-153 PO (14:05)
[2019-02-12] MEDS ORDERED: LACT1CAP19 PO (14:05)
[2019-02-12] MEDS ORDERED: INSU100V8 SQ (14:05)
--- NOTE | 2019-02-12 14:06 | SNU/HH DC ---
DISCHARGE ORDERS DISCHARGE INFORMATION: FINAL DIAGNOSIS Problems Medical Problems: (1) Hypotension Status: Acute (2) Leukocytosis, unspecified Status: Acute (3) Sepsis Status: Acute (4) Urinary tract infection Status: Acute CONDITION ON DISCHARGE: Stable CODE STATUS: Code Status: Full FPC: SNF STAY <30 DAYS: Yes HOSPICE: HOSPICE: No HOSPICE EVAL & TREAT: No LTAC: ADMIT TO LTAC: No POST DISCHARGE ORDERS: ACTIVITY ORDERS: Resume previous activity, Activity as tolerated, Progressive ambulation WEIGHT BEARING STATUS: As tolerated DIET AFTER DISCHARGE: ADA WOUND/INCISION CARE: May get incision wet CHECKS AFTER DISCHARGE: CHECKS AFTER DISCHARGE: Check blood press - daily, Check blood sugar, ac/hs TREATMENT/EQUIPMENT ORDERS: ADAPTIVE EQUIPMENT NEEDED: None Physical Therapy For: Evalulation/Treatment Occupational Therapy For: Evaluation/Treatment Speech Language Pathology For: Evaluation/Treatment DISCHARGE MEDICATIONS: Home Meds Active Scripts Insulin Glargine,Hum.rec.anlog (LANTUS) 100 Unit/1 Ml Vial, 5 UNIT SQ QHS for glucose for 30 Days, #1 EACH Prov:KAMERON REYNA MD 02/12/19 Lactobacillus Rhamnosus Gg (CULTURELLE) 1 Each Cap.sprink, 1 CAP PO BID for supplement for 30 Days, #60 CAP Prov:KAMERON REYNA MD 02/12/19 Docusate Sodium (DOK) 100 Mg Capsule, 100 MG PO PRN BID PRN for HARD STOOLS for 30 Days, #60 CAP Prov:KAMERON REYNA MD 02/12/19 Mag Hydrox/Al Hydrox/Simeth (MAG-AL PLUS XS SUSPENSION) 30 Ml Oral.susp, 30 ML PO PRN DAILY PRN for HEARTBURN / GAS for 14 Days, #120 MISC Prov:KAMERON REYNA MD 02/12/19 Insulin Lispro (HUMALOG) 100 Unit/1 Ml Insuln.pen, 5 UNITS SQ TIDAC for dm for 30 Days, EACH Prov:JAMHSID SMITH MD 01/12/18 Insulin Glargine,Hum.rec.anlog (LANTUS SOLOSTAR) 100 Unit/1 Ml Insuln.pen, 15 UNITS SQ QHS for dm for 30 Days, EACH Prov:JAMSHID SMITH MD 01/12/18 Cephalexin (CEPHALEXIN) 250 Mg Capsule, 500 MG PO QID for breast abscess for 3 Days, #24 CAP Prov:JAMSHID SMITH MD 01/12/18 Nystatin (NYSTATIN) 15 Gm Oint...g., 1 OSVALDO TP TID for 10 Days, #30 GM Prov:PRATEEK ROSAS APRN 08/24/17 Reported Medications Paroxetine Hcl (PAROXETINE HCL) 20 Mg Tablet, 1 TAB PO DAILY, #30 TAB 5 Refills 04/16/17 Oxybutynin Chloride (OXYBUTYNIN CHLORIDE) 5 Mg Tablet, 1 TAB PO BID, #60 TAB 11 Refills 04/16/17 Omeprazole (OMEPRAZOLE) 20 Mg Capsule.dr, 1 CAP PO DAILY, #30 CAP 5 Refills 04/16/17 Bimatoprost (LUMIGAN) 2.5 Ml Drops, 1 DROP EACHEYE QHS, #7.5 ML 3 Refills 04/16/17 Lisinopril (LISINOPRIL) 40 Mg Tablet, 1 TAB PO DAILY, #30 TAB 5 Refills 04/16/17 Aspirin (ASPIRIN) 81 Mg Tab.chew, 1 TAB PO DAILY, #30 TAB 3 Refills 04/16/17 Amlodipine Besylate (AMLODIPINE BESYLATE) 5 Mg Tablet, 5 MG PO DAILY, TAB 04/16/17 Calcium Carbonate/Vitamin D3 (OYSTER SHELL 500 MG + VIT D TB) 1 Each Tablet, 1 EACH PO DAILY 01/13/13 Cetirizine Hcl (ZYRTEC) 10 Mg Capsule, 10 MG PO 01/12/13 Multivitamin (MULTI-VITAMIN DAILY) 1 Each Tablet, 1 EACH PO 01/12/13 KAMERON REYNA MD Feb 12, 2019 14:06
[2019-02-12] MEDS ORDERED: IRON150C11 PO (14:07)
--- NOTE | 2019-02-12 14:08 | SNU/HH DC ---
DISCHARGE ORDERS DISCHARGE INFORMATION: FINAL DIAGNOSIS Problems Medical Problems: (1) Hypotension Status: Acute (2) Leukocytosis, unspecified Status: Acute (3) Sepsis Status: Acute (4) Urinary tract infection Status: Acute CONDITION ON DISCHARGE: Stable CODE STATUS: Code Status: Full FDC: SNF STAY <30 DAYS: Yes HOSPICE: HOSPICE: No HOSPICE EVAL & TREAT: No LTAC: ADMIT TO LTAC: No POST DISCHARGE ORDERS: ACTIVITY ORDERS: Resume previous activity, Activity as tolerated, Progressive ambulation WEIGHT BEARING STATUS: As tolerated DIET AFTER DISCHARGE: ADA WOUND/INCISION CARE: May get incision wet CHECKS AFTER DISCHARGE: CHECKS AFTER DISCHARGE: Check blood press - daily, Check blood sugar, ac/hs TREATMENT/EQUIPMENT ORDERS: ADAPTIVE EQUIPMENT NEEDED: None Physical Therapy For: Evalulation/Treatment Occupational Therapy For: Evaluation/Treatment Speech Language Pathology For: Evaluation/Treatment DISCHARGE MEDICATIONS: Home Meds Active Scripts Iron Polysaccharides Complex (POLY-IRON) 150 Mg Capsule, 150 MG PO DAILY for anemia for 30 Days, #30 CAP Prov:KAMERON REYNA MD 02/12/19 Insulin Glargine,Hum.rec.anlog (LANTUS) 100 Unit/1 Ml Vial, 5 UNIT SQ QHS for glucose for 30 Days, #1 EACH Prov:KAMERON REYNA MD 02/12/19 Lactobacillus Rhamnosus Gg (CULTURELLE) 1 Each Cap.sprink, 1 CAP PO BID for supplement for 30 Days, #60 CAP Prov:KAMERON REYNA MD 02/12/19 Docusate Sodium (DOK) 100 Mg Capsule, 100 MG PO PRN BID PRN for HARD STOOLS for 30 Days, #60 CAP Prov:KAMERON REYNA MD 02/12/19 Mag Hydrox/Al Hydrox/Simeth (MAG-AL PLUS XS SUSPENSION) 30 Ml Oral.susp, 30 ML PO PRN DAILY PRN for HEARTBURN / GAS for 14 Days, #120 MISC Prov:KAMERON REYNA MD 02/12/19 Insulin Lispro (HUMALOG) 100 Unit/1 Ml Insuln.pen, 5 UNITS SQ TIDAC for dm for 30 Days, EACH Prov:JAMSHID SMITH MD 01/12/18 Insulin Glargine,Hum.rec.anlog (LANTUS SOLOSTAR) 100 Unit/1 Ml Insuln.pen, 15 UNITS SQ QHS for dm for 30 Days, EACH Prov:JAMSHID SMITH MD 01/12/18 Cephalexin (CEPHALEXIN) 250 Mg Capsule, 500 MG PO QID for breast abscess for 3 Days, #24 CAP Prov:JAMSHID SMITH MD 01/12/18 Nystatin (NYSTATIN) 15 Gm Oint...g., 1 OSVALDO TP TID for 10 Days, #30 GM Prov:PRATEEK ROSAS APRN 08/24/17 Reported Medications Paroxetine Hcl (PAROXETINE HCL) 20 Mg Tablet, 1 TAB PO DAILY, #30 TAB 5 Refills 04/16/17 Oxybutynin Chloride (OXYBUTYNIN CHLORIDE) 5 Mg Tablet, 1 TAB PO BID, #60 TAB 11 Refills 04/16/17 Omeprazole (OMEPRAZOLE) 20 Mg Capsule.dr, 1 CAP PO DAILY, #30 CAP 5 Refills 04/16/17 Bimatoprost (LUMIGAN) 2.5 Ml Drops, 1 DROP EACHEYE QHS, #7.5 ML 3 Refills 04/16/17 Lisinopril (LISINOPRIL) 40 Mg Tablet, 1 TAB PO DAILY, #30 TAB 5 Refills 04/16/17 Aspirin (ASPIRIN) 81 Mg Tab.chew, 1 TAB PO DAILY, #30 TAB 3 Refills 04/16/17 Amlodipine Besylate (AMLODIPINE BESYLATE) 5 Mg Tablet, 5 MG PO DAILY, TAB 04/16/17 Calcium Carbonate/Vitamin D3 (OYSTER SHELL 500 MG + VIT D TB) 1 Each Tablet, 1 EACH PO DAILY 01/13/13 Cetirizine Hcl (ZYRTEC) 10 Mg Capsule, 10 MG PO 01/12/13 Multivitamin (MULTI-VITAMIN DAILY) 1 Each Tablet, 1 EACH PO 01/12/13 KAMERON REYNA MD Feb 12, 2019 14:08
[2019-02-12] MEDS ORDERED: AMOX1TAB58 PO (14:10)
[2019-02-12 15:00] VITALS: BP 129/46
[2019-02-12] MEDS ORDERED: IRON POLYSACCHARIDE COMPLEX 150 MG CAPSULE PO SCH (15:00)
--- NOTE | 2019-02-13 10:07 | PATHOLOGY ---
[facility] Accession Number: [id number] . 01 Material submitted: . PART A: duodenum - DUODENUM BIOPSY PART B: stomach - ANTRUM BIOPSY PART C: stomach - FUNDUS BIOPSY. Modifiers: fundus PART D: rectosigmoid junction - RECTOSIGMOID POLYP BIOPSY . 01 Clinical history: . Leukocytosis. . 02 Diagnosis: A. Duodenal biopsy: - No significant pathologic abnormalities. . B. Gastric biopsies, antrum: - Chronic gastritis, mild. . C. Gastric biopsies, fundus: - Mild superficial chronic gastritis. . D. Colorectal biopsy, rectosigmoid polyp: - Hyperplastic polyp showing ulceration and acutely inflamed granulation tissue. Q 02/12/2019 0955 Local . 02 Comment: Sections of the duodenal biopsy reveal segments of duodenal and small intestine mucosa. Where best oriented, the mucosal villi show no sprue-like change or significant inflammatory changes. . Sections of the gastric antral biopsy reveal segments of gastric antral/body transition mucosa showing congestion and mild chronic inflammation. A properly controlled immunoperoxidase stain for Helicobacter is negative for Helicobacter organisms. . Sections of the gastric fundus biopsy reveal segments of gastric body mucosa showing congestion and mild superficial chronic inflammation. A properly controlled immunoperoxidase stain for Helicobacter is negative for Helicobacter organisms. . Sections of the rectosigmoid colon biopsy reveal a hyperplastic polyp which shows ulceration and acutely inflamed granulation tissue. There are no adenomatous changes or evidence of malignancy. (JPM/db; 02/12/2019) . Special stain performed: Immunoperoxidase stain for Helicobacter on B1 and C1 . 02 Electronically signed: . Cristian Bustillos MD, Pathologist NPI- [id number] . 01 Gross description: . A. Received in formalin labeled "Merlin, Zofia, duodenum BX" is a 0.5 x 0.3 x 0.1 cm aggregate of marsh-brown mucosa fragments. The specimen is submitted in A1. . B. Received in formalin labeled "Zofia Boyer, antrum BX" is a 1.0 x 0.3 x 0.1 cm aggregate of marsh-brown mucosa fragments. The specimen is submitted in B1. . C. Received in formalin labeled "Merlin, Zofia, fundus BX" is a 1.1 x 0.4 x 0.1 cm aggregate of marsh-brown mucosa fragments. The specimen is submitted in C1. . D. Received in formalin labeled "Merlin, Zofia, rectosigmoid polyp BX" is a 0.6 x 0.4 x 0.2 cm polypoid fragment of marsh-brown mucosa. The specimen is submitted in D1. ([facility] [place]; 02/11/2019) [facility] 02/11/2019 [facility] Local . 02 Pathologist provided ICD-10: K29.50, K29.30, K62.1 . 02 CPT . 491527, 793162, [id number], [id number], [id number] Specimen Comment: A courtesy copy of this report has been sent to [phone], [phone] Specimen Comment: [id number] Specimen Comment: Report sent to / DR FITZGERALD Specimen Comment: A duplicate report has been generated due to demographic updates. Performed at: 01 [facility] [address] [facility] [address], [place] [id number] MD Mumtaz Monroe MD Phone: [phone] Performed at: 02 [facility] [address], [place] [id number] MD Cristian Bustillos MD Phone: [phone]
== END 2019-02-12 17:40 | disposition home or self-care (01) | DRG 871 ==
LOC: ER 12:18 → 5 SOUTH 14:34 → EDBD 14:34 → 6 SOUTH 23:33 → 5 SOUTH 02-04 15:37
PROVIDERS: ADMIT Family Medicine; ATTEND Family Medicine
PROC: 0DBN8ZX Excision of Sigmoid Colon, Via Natural or Artificial Opening Endoscopic, Diagnostic (ICD-10-PCS; 2019-02-11)
PROC: 0DB98ZX Excision of Duodenum, Via Natural or Artificial Opening Endoscopic, Diagnostic (ICD-10-PCS; principal; 2019-02-11 11:00)
PROC: 0DB68ZX Excision of Stomach, Via Natural or Artificial Opening Endoscopic, Diagnostic (ICD-10-PCS; 2019-02-11 11:00)
DX: A41.9 Sepsis, unspecified organism (principal); N17.0 Acute kidney failure with tubular necrosis; J96.01 Acute respiratory failure with hypoxia; N39.0 Urinary tract infection, site not specified; E87.0 Hyperosmolality and hypernatremia; K63.3 Ulcer of intestine; E11.40 Type 2 diabetes mellitus with diabetic neuropathy, unspecified; E78.5 Hyperlipidemia, unspecified; I10 Essential (primary) hypertension; K21.9 Gastro-esophageal reflux disease without esophagitis; K63.5 Polyp of colon; F32.9 Major depressive disorder, single episode, unspecified; H40.9 Unspecified glaucoma; M19.90 Unspecified osteoarthritis, unspecified site; I95.9 Hypotension, unspecified; R13.10 Dysphagia, unspecified; D50.9 Iron deficiency anemia, unspecified; D63.8 Anemia in other chronic diseases classified elsewhere; R22.2 Localized swelling, mass and lump, trunk; Z79.4 Long term (current) use of insulin; Z93.1 Gastrostomy status
CPT/HCPCS: 36415; 43239; 45384; 71045; 71250; 80048; 80053; 80069; 80202; 81001; 82553; 82962; 83540; 83550; 83605; 83735; 83880; 84145; 84484; 85007; 85014; 85018; 85025; 85027; 85384; 85610; 85730; 87040; 87449; 93005; 94640; 94760; 96361; 96365; J1650; J1756; J1815; J2405; J2543; J2704; J3370; J7030; J7050; J7120; P9612; 92526; 92610; 99285-25; G0378

== ENCOUNTER 2019-05-16 19:06 | Emergency (ER) | payer MEDICARE, MEDICAID ==
[~2019-05-16] VITALS: Ht 162.6 cm; Wt 79.5 kg
[~2019-05-16 19:06] MED LIST changes: +AMOX1TAB58 PO; +DOCU-153 PO; +INSU100V8 SQ; +IRON150C11 PO; +LACT1CAP19 PO; +MAG30ORA2 PO
[2019-05-16 19:37] LABS: BASO # 0.1 x10^3/uL (0.0-0.2); BASO % 1 % (0-3); EOS # 0.2 x10^3/uL (0.0-0.7); EOS % 2 % (0-3); HEMATOCRIT 34.4 % (36.0-47.0); HEMOGLOBIN 10.8 g/dL (12.0-15.5); LYMPH # 2.4 x10^3/uL (1.0-4.8); LYMPH % 28 % (24-48); MEAN CORPUSCULAR HEMOGLOBIN 23 pg (25-35); MEAN CORPUSCULAR HGB CONC 31 g/dL (31-37); MEAN CORPUSCULAR VOLUME 74 fL (79-100); MONO # 0.3 x10^3/uL (0.0-1.1); MONO % 3 % (0-9); NEUT # 5.5 x10^3/uL (1.8-7.7); NEUT % 66 % (31-73); PLATELET COUNT 379 x10^3/uL (140-400); RED BLOOD COUNT 4.69 x10^6/uL (3.50-5.40); RED CELL DISTRIBUTION WIDTH 19.2 % (11.5-14.5); WHITE BLOOD COUNT 8.4 x10^3/uL (4.0-11.0)
[2019-05-16 19:46] LABS: CALCIUM 10.3 mg/dL (8.5-10.1); CREATININE 1.1 mg/dL (0.6-1.0); GFR 49.7; POTASSIUM 4.2 mmol/L (3.5-5.1)
--- NOTE | 2019-05-16 19:50 | EKG ---
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
[2019-05-16 19:59] LABS: ALBUMIN 4.2 g/dL (3.4-5.0); ALBUMIN/GLOBULIN RATIO 1.2 (1.0-1.7); MAGNESIUM 1.8 mg/dL (1.8-2.4); TOTAL BILIRUBIN 0.2 mg/dL (0.2-1.0); TOTAL PROTEIN 7.6 g/dL (6.4-8.2)
--- NOTE | 2019-05-16 21:09 | PHYS DOC ---
Past Medical History Past Medical History: Depression, Diabetes-Type II, GERD, Glaucoma, Hypertension, Other Additional Past Medical Histor: MR,maculare degeneration,allergic rhinitis Past Surgical History: Other Additional Past Surgical Histo: GTUBE, MASECTOMY Smoking Status: Never Smoker Alcohol Use: None Drug Use: None Adult General Chief Complaint Chief Complaint: SHORTNESS OF BREATH HPI HPI Patient is a 68-year-old female who appears much older than her stated age with dementia from a [facility] presents after a choking spell. Patient was found down choking EMS was called the Heimlich maneuver was performed and the foreign body was retrieved. EMS reports that her oxygen saturation was in the 70s on their arrival. She was brought here with a nonrebreather in place. Patient is unable to provide any further history secondary to dementia.[] Review of Systems Review of Systems Review of systems is unobtainable secondary to dementia Allergies Allergies Allergies Coded Allergies Type Severity Reaction Last Updated Verified No Known Allergies Allergy Unknown 02/11/19 Yes Physical Exam Physical Exam Constitutional: Frail, elderly, mild to moderate respiratory distress[] HENT: Normocephalic, atraumatic, bilateral external ears normal, oropharynx moist, no oral exudates, nose normal. [] Eyes: PERRLA, EOMI, conjunctiva normal, no discharge. [] Neck: Normal range of motion, no tenderness, supple, no stridor. [] Cardiovascular:Heart rate regular rhythm, no murmur [] Lungs & Thorax: Bilateral breath sounds clear to auscultation [] Abdomen: Bowel sounds normal, soft, no tenderness, no masses, no pulsatile masses. [] Skin: Warm, dry, no erythema, no rash. [] Back: No tenderness, no CVA tenderness. [] Extremities: No tenderness, no cyanosis, no clubbing, ROM intact, no edema. [] Neurologic: Alert to self normal motor function, normal sensory function, no focal deficits noted. [] Psychologic: Unable to assess. [] Current Patient Data Vital Signs Vital Signs Date Time Temp Pulse Resp B/P (MAP) Pulse Ox O2 Delivery O2 Flow Rate FiO2 05/16/19 20:04 88 22 97/56 (70) 98 Nasal Cannula 2.0 05/16/19 19:50 97.7 97.7 Lab Values Laboratory Tests Test 05/16/19 19:15 White Blood Count 8.4 x10^3/uL (4.0-11.0) Red Blood Count 4.69 x10^6/uL (3.50-5.40) Hemoglobin 10.8 g/dL (12.0-15.5) L Hematocrit 34.4 % (36.0-47.0) L Mean Corpuscular Volume 74 fL (79-100) L Mean Corpuscular Hemoglobin 23 pg (25-35) L Mean Corpuscular Hemoglobin Concent 31 g/dL (31-37) Red Cell Distribution Width 19.2 % (11.5-14.5) H Platelet Count 379 x10^3/uL (140-400) Neutrophils (%) (Auto) 66 % (31-73) Lymphocytes (%) (Auto) 28 % (24-48) Monocytes (%) (Auto) 3 % (0-9) Eosinophils (%) (Auto) 2 % (0-3) Basophils (%) (Auto) 1 % (0-3) Neutrophils # (Auto) 5.5 x10^3/uL (1.8-7.7) Lymphocytes # (Auto) 2.4 x10^3/uL (1.0-4.8) Monocytes # (Auto) 0.3 x10^3/uL (0.0-1.1) Eosinophils # (Auto) 0.2 x10^3/uL (0.0-0.7) Basophils # (Auto) 0.1 x10^3/uL (0.0-0.2) Sodium Level 141 mmol/L (136-145) Potassium Level 4.2 mmol/L (3.5-5.1) Chloride Level 102 mmol/L (98-107) Carbon Dioxide Level 28 mmol/L (21-32) Anion Gap 11 (6-14) Blood Urea Nitrogen 31 mg/dL (7-20) H Creatinine 1.1 mg/dL (0.6-1.0) H Estimated GFR (Cockcroft-Gault) 49.7 BUN/Creatinine Ratio 28 (6-20) H Glucose Level 182 mg/dL (70-99) H Calcium Level 10.3 mg/dL (8.5-10.1) H Magnesium Level 1.8 mg/dL (1.8-2.4) Total Bilirubin 0.2 mg/dL (0.2-1.0) Aspartate Amino Transferase (AST) 38 U/L (15-37) H Alanine Aminotransferase (ALT) 38 U/L (14-59) Alkaline Phosphatase 110 U/L (46-116) Troponin I Quantitative < 0.017 ng/mL (0.000-0.055) MQ-Whc-X-Type Natriuretic Peptide 159 pg/mL (0-124) H Total Protein 7.6 g/dL (6.4-8.2) Albumin 4.2 g/dL (3.4-5.0) Albumin/Globulin Ratio 1.2 (1.0-1.7) Laboratory Tests 05/16/19 19:15 Laboratory Tests 05/16/19 19:15 EKG EKG [] Radiology/Procedures Radiology/Procedures [] Impressions: REASON: respiratory distress PROCEDURE: CHEST AP ONLY CHEST AP ONLY Clinical Indication: Respiratory distress. Comparison: AP chest, 02/02/2019. Findings: There are low lung volumes. There is stable cardiomegaly. Mild bibasilar airspace disease. No pleural effusion or pneumothorax. Bones appear stable. Prominent air in colon in the left upper abdomen. IMPRESSION: 1. Mild bibasilar airspace disease. 2. Stable cardiomegaly. Course & Med Decision Making Course & Med Decision Making Pertinent Labs and Imaging studies reviewed. (See chart for details) [ED course: Evaluation reveals a 68-year-old demented female had a choking spell. She had some stridor on arrival here but that is all cleared. Her oxygen saturation on room air now is 98% she's in no distress. I believe she stable for discharge home.] Dragon Disclaimer Dragon Disclaimer This electronic medical record was generated, in whole or in part, using a voice recognition dictation system. Departure Departure Impression: Primary Impression: Choking episode Disposition: 01 HOME, SELF-CARE Condition: STABLE Referrals: BRADY FITZGERALD MD (PCP) Patient Instructions: Choking, Adult Additional Instructions: Return to the emergency department with any new or concerning symptoms MARKIE FITZGERALD DO May 16, 2019 21:09
--- NOTE | 2019-05-16 21:16 | RAD ---
CHEST AP ONLY Clinical Indication: Respiratory distress. Comparison: AP chest, 02/02/2019. Findings: There are low lung volumes. There is stable cardiomegaly. Mild bibasilar airspace disease. No pleural effusion or pneumothorax. Bones appear stable. Prominent air in colon in the left upper abdomen. IMPRESSION: 1. Mild bibasilar airspace disease. 2. Stable cardiomegaly. Electronically signed by: Atilio Montague MD (05/16/2019 9:14 PM) [id number]
[2019-05-16 21:34] VITALS: BP 93/60
== END 2019-05-16 22:45 | disposition home or self-care (01) ==
LOC: ER 19:06
DX: R09.89 Other specified symptoms and signs involving the circulatory and respiratory systems (principal); F03.90 Unspecified dementia, unspecified severity, without behavioral disturbance, psychotic disturbance, mood disturbance, and anxiety; K21.9 Gastro-esophageal reflux disease without esophagitis; I10 Essential (primary) hypertension; E11.39 Type 2 diabetes mellitus with other diabetic ophthalmic complication; H40.9 Unspecified glaucoma
CPT/HCPCS: 36415; 71045; 80053; 83735; 83880; 84484; 85025; 93005; 99285-25